=== PATIENT | male | born 1950 | race Caucasian/White ===

== ENCOUNTER → 2016-07-08 | Outpatient (CLI) | payer OTHER ==
[~2016-07-08] MED LIST: ASPI81TA28 PO; CLOP1TAB15 PO; CRG125 PO; EZET10TA63 PO; FRS/40 PO; GLIP-197 PO; LEVAAER2 INH; MCR5 PO; METF-383 PO; NAPR-1169 PO; NITR0.4S UT; NYSTCRE11 TOP; POTA-327 PO; ROSU40TA PO; SILD100T PO; SITA1TAB27 PO; [UNRECOGNIZED DRUG - CODE] NAE
== END | disposition home or self-care (01) ==
LOC: C.LAB 15:13
PROVIDERS: ATTEND Urology
DX: N40.1 Benign prostatic hyperplasia with lower urinary tract symptoms (principal)

== ENCOUNTER 2017-04-04 21:16 | Observation (INO) | payer OTHER ==
[~2017-04-04] VITALS: Ht 182.9 cm; Wt 111.9 kg
[2017-04-04 21:41] LABS: HEMATOCRIT 42.9 % (42-52); HEMOGLOBIN 15.1 g/dL (14.0-18.0); MEAN CORPUSCULAR HEMOGLOBIN 29.9 pg (25-34); MEAN CORPUSCULAR HGB CONC 35.2 g/dl (32-36); MEAN PLATELET VOLUME 10.3 fL (7.4-10.4); PLATELET COUNT 140 K/uL (130-400); RED CELL DISTRIBUTION WIDTH CV 13.1 % (11.5-14.5); RED CELL DISTRIBUTION WIDTH SD 40.1 fL (36.4-46.3); WHITE BLOOD COUNT 6.14 K/uL (4.8-10.8)
[2017-04-04 21:57] LABS: PTT PATIENT 24.4 SECONDS (21.0-31.0)
[2017-04-04 21:58] LABS: ALBUMIN 3.4 gm/dl (3.4-5.0); CALCIUM 8.7 mg/dl (8.5-10.1); CREATININE 0.98 mg/dl (0.60-1.40)
--- NOTE | 2017-04-04 22:01 | DIAGNOSTIC IMAGING REPORT ---
CHEST ONE VIEW PORTABLE HISTORY: 66 years-old Male chest pain acute atypical chest pain COMPARISON: Chest radiograph 11/27/2015 TECHNIQUE: Portable AP view of the chest FINDINGS: Cardiac silhouette is again mildly enlarged. Prior median sternotomy. Atherosclerosis of the aorta. There is no pneumothorax, pleural effusion, focal airspace consolidation or overt pulmonary edema. Minimal linear subsegmental atelectasis/scarring of the left lung base again seen. Degenerative changes are seen within the shoulders and spine. IMPRESSION: No acute process. The above report was generated using voice recognition software. It may contain grammatical, syntax or spelling errors. Electronically signed by: Emeka Davis M.D. 04/04/2017 10:00 PM Dictated Date/Time: 04/04/2017 9:59 PM
[2017-04-04 22:03] LABS: TOTAL PROTEIN 6.5 gm/dl (6.4-8.2)
[2017-04-04] MEDS ORDERED: NITROGLYCERIN 0.4 MG SL PER TAB CHARGE SL STA (22:25)
--- NOTE | 2017-04-04 22:56 | EMERGENCY ROOM VISIT NOTE ---
"ED Visit Note First contact with patient: 22:00 I have seen and examined this patient with Sneha Graf and generally agree with the treatment plan as discussed. Problem List Medical Problems: (1) Coronary artery disease Status: Chronic (2) Diabetes mellitus, type II Status: Chronic (3) Dyslipidemia Status: Chronic (4) History of renal calculi Status: Chronic Surgical Problems: (1) Status post coronary artery bypass grafting Status: Chronic (2) Status post coronary artery stent placement Status: Chronic Current/Historical Medications Scheduled Aspirin (Aspirin Ec), 81 MG PO DAILY Carvedilol (Carvedilol), 12.5 MG PO BID Clopidogrel (Plavix), 75 MG PO DAILY Ezetimibe (Zetia), 10 MG PO QPM Furosemide (Lasix), 40 MG PO DAILY Glipizide (Glipizide Er), 1 TAB PO DAILY Glyburide (Glyburide), 10 MG PO BID Metformin Hcl (Glucophage), 850 MG PO BID Nitroglycerin (Nitrostat), 0.4 MG UT PRN Potassium Ext Rel (Klor-Con), 10 MEQ PO BID Rosuvastatin Calcium (Crestor), 40 MG PO HS Sildenafil Citrate (Viagra), 100 MG PO PRN Sitagliptin (Januvia), 100 MG PO DAILY Scheduled PRN Levalbuterol (Xopenex Hfa), 1-2 PUFFS INH every 4-6 hrs PRN for Wheezing Naproxen (Naprosyn), 500 MG PO BID PRN for Pain Nystatin/Triamcinolone (Mycolog ||), 1 APPLN TOP BID PRN Oxymetazoline Hcl (Mucinex Nasal [place] Moist), 1 SPRAY LAYLA DAILY PRN Allergies Coded Allergies: Valsartan (Verified Allergy, Unknown, fatigue, 04/14/15) Lisinopril (Verified Adverse Reaction, Mild, COUGHS, 04/14/15) Canagliflozin (Verified Adverse Reaction, Unknown, Excessive Urination, 02/07) Vital Signs Date Time Temp Pulse Resp B/P (MAP) Pulse Ox O2 Delivery O2 Flow Rate FiO2 04/04/17 22:29 69 16 156/80 95 Room Air 04/04/17 21:53 72 04/04/17 21:27 98 Room Air 04/04/17 21:17 36.5 75 18 183/80 97 Room Air Laboratory Results 04/04/17 21:30 04/04/17 21:30 Test 04/04/17 21:30 04/04/17 21:37 Red Blood Count 5.05 M/uL (4.7-6.1) Mean Corpuscular Volume 85.0 fL (80-100) Mean Corpuscular Hemoglobin 29.9 pg (25-34) Mean Corpuscular Hemoglobin Concent 35.2 g/dl (32-36) RDW Standard Deviation 40.1 fL (36.4-46.3) RDW Coefficient of Variation 13.1 % (11.5-14.5) Mean Platelet Volume 10.3 fL (7.4-10.4) Prothrombin Time 10.0 SECONDS (9.0-12.0) Prothromb Time International Ratio 1.0 (0.9-1.1) Activated Partial Thromboplast Time 24.4 SECONDS (21.0-31.0) Partial Thromboplastin Ratio 0.9 Anion Gap 8.0 mmol/L (3-11) Est Creatinine Clear Calc Drug Dose 93.4 ml/min Estimated GFR () 92.7 Estimated GFR (Non- 80.0 BUN/Creatinine Ratio 14.2 (10-20) Calcium Level 8.7 mg/dl (8.5-10.1) Total Bilirubin 0.5 mg/dl (0.2-1) Aspartate Amino Transf (AST/SGOT) 12 U/L (15-37) Alanine Aminotransferase (ALT/SGPT) 25 U/L (12-78) Alkaline Phosphatase 119 U/L (45-117) Total Creatine Kinase 75 U/L (39-308) Creatine Kinase MB 2.0 ng/ml (0.5-3.6) Creatine Kinase MB Ratio 2.7 (0-3.0) Total Protein 6.5 gm/dl (6.4-8.2) Albumin 3.4 gm/dl (3.4-5.0) Globulin 3.1 gm/dl (2.5-4.0) Albumin/Globulin Ratio 1.1 (0.9-2) Bedside Troponin I < 0.030 ng/ml (0-0.045) Medications Administered Medications (Trade) Dose Ordered Sig/Margie Route Start Time Stop Time Status Last Admin Dose Admin Nitroglycerin (Nitrostat Tab) 0.4 mg NOW STAT SL 04/04/17 22:25 04/04/17 22:26 DC 04/04/17 22:25 0.4 MG Departure Information Referrals Joel Faria D.OTanya (PCP) Patient Instructions My [facility]"
[2017-04-04] MEDS ORDERED: GLUCOSE 10 TABS/TUBE PO PRN (23:15)
[2017-04-04] MEDS ORDERED: DEXTROSE 50% 50 ML SYR IV PRN (23:15)
[2017-04-04] MEDS ORDERED: METF850T10 PO (23:15)
[2017-04-04] MEDS ORDERED: PLV75 PO (23:15)
[2017-04-04] MEDS ORDERED: ONDANSETRON INJ 2 MG/ML 2 ML VIAL IV PRN (23:15)
[2017-04-04] MEDS ORDERED: GLUCAGON FOR INJ 1 MG VIAL SQ PRN (23:15)
[2017-04-04] MEDS ORDERED: CLC100 PO (23:15)
[2017-04-04] MEDS ORDERED: POLYETHYLENE (MIRALAX) 17 GM PACK PO PRN (23:15)
[2017-04-04] MEDS ORDERED: ACETAMINOPHEN 325 MG TAB PO PRN (23:15)
[2017-04-04] MEDS ORDERED: OMEP20CA9 PO (23:15)
[2017-04-04] MEDS ORDERED: MoRPHine SULFATE 2 MG/ML CARP IV PRN (23:15)
[2017-04-04] MEDS ORDERED: NITROGLYCERIN 0.4 MG SL PER TAB CHARGE SL PRN (23:15)
[2017-04-04] MEDS ORDERED: GLUCOSE 40% GEL 15 GM TUBE PO PRN (23:15)
[2017-04-04] MEDS ORDERED: POTA-74 PO (23:15)
[2017-04-04] MEDS ORDERED: ROSU40TA28 PO (23:15)
[2017-04-04] MEDS ORDERED: INSU1INJ17 SC ×2 (23:20)
[2017-04-04] MEDS ORDERED: CARV12.5 PO ×2 (23:24)
[2017-04-04] MEDS ORDERED: ASPI325T45 PO (23:26)
[2017-04-04] MEDS ORDERED: IBUP-103 PO (23:31)
[2017-04-04] MEDS ORDERED: NAPR1TAB9 PO (23:31)
[2017-04-04] MEDS ORDERED: ACET-1256 PO (23:31)
[2017-04-04] MEDS ORDERED: IV FLUIDS COMPLETED PRN (23:45)
[2017-04-05] VITALS (7 sets, daily range): BP systolic 121–170; BP diastolic 71–87; PULSE 64–81; TEMP 36.5–36.8; O2SAT 95–98; Ht 182.9 cm; Wt 111.9 kg
--- NOTE | 2017-04-05 00:02 | History and Physical ---
History & Physical Date & Time of Service: Apr 04, 2017 at 23:52 Chief Complaint: Chest Pain- Heart Problems Primary Care Physician: Joel Faria D.OTanya History of Present Illness Source: patient, clinic records, hospital records 66 yo M with significant h/o CAD s/p CABG and multiple stents presents with acute L arm pain radiating from axilla to wrist that was pulsating with his heart and felt like his index angina. This pain came on while he was sitting, watching TV earlier this evening. He took a Nitro and two aspirin and the pain improved but came back again. He laid down to rest and the pain persisted so he came to the ER. In the lobby he developed chest tightness across his chest anteriorly and developed some lightheadedness forcing him to sit and rest. This resolved with rest and he was triaged and the pain resolved with the axillary and arm pain persisting somewhat. He is refusing morphine at this time. He was last seen by Cardiology in Oct 2016 and reports no issues with chest pain, shortness of breath or other concerning symptoms since that time. He denies recent Viagra use. ROS is otherwise negative including no fevers, chills, cough, abdominal pain, blood in stool, bleeding, diarrhea. He does report some swelling in his legs bilaterally but no pain and states that he has lost weight recently. There is no edema on exam. He did undergo an EGD with dilation on 04/01/17 for dysphagia and reports that his swallowing has improved. Procedure report noted a tortuous esophagus, however, and a motility disorder was suspected. Past Medical/Surgical History Medical Problems: (1) Coronary artery disease Status: Chronic (2) Diabetes mellitus, type II Status: Chronic (3) Dyslipidemia Status: Chronic (4) History of renal calculi Status: Chronic Surgical Problems: (1) Status post coronary artery bypass grafting Status: Chronic (2) Status post coronary artery stent placement Status: Chronic Family History FH: heart attack BROTHER BROTHER BROTHER No significant family history Social History Smoking Status: Never Smoker Smokeless Tobacco Use: No Alcohol Use: none Drug Use: none Marital Status: Housing status: lives with family Occupational Status: retired Immunizations History of Influenza Vaccine: Yes Influenza Vaccine Date: Nov 29, 2011 History of Tetanus Vaccine?: Yes Tetanus Immunization Date: Sep 28, 2010 History of Pneumococcal: Yes Pneumococcal Date: Nov 29, 2011 History of Hepatitis B Vaccine: Yes Hepatitis Immunization Date: Sep 28, 2009 Multi-Drug Resistant Organisms History of MDRO: No Allergies Coded Allergies: Valsartan (Verified Allergy, Unknown, fatigue, 04/14/15) Lisinopril (Verified Adverse Reaction, Mild, COUGHS, 04/14/15) Canagliflozin (Verified Adverse Reaction, Unknown, Excessive Urination, 02/07) Home Medications Scheduled Aspirin (Aspirin Ec), 81 MG PO HS Carvedilol (Coreg), 6.25 MG PO QPM Carvedilol (Coreg), 12.5 MG PO QAM Clopidogrel Bisulfate (Clopidogrel), 75 MG PO HS Docusate Sodium (Docusate Sodium), 100 MG PO BID Insulin Isophane & Reg (Human) (Novolin 70/30 Relion), 22 UNITS SC QAM Insulin Isophane & Reg (Human) (Novolin 70/30 Relion), 32 UNITS SC QPM Metformin HCl (Metformin HCl), 850 MG PO BIDM Omeprazole (Prilosec), 20 MG PO QAM Potassium Chloride (Potassium Chloride Er), 10 MEQ PO BID Rosuvastatin Calcium (Rosuvastatin Calcium), 40 MG PO QAM Scheduled PRN Acetaminophen (Tylenol), 500 MG PO Q6H PRN for Pain Aspirin (Aspirin), 325 MG PO UD PRN for Pain Ibuprofen Tab (Advil), 200-400 MG PO UD PRN for Pain or Fever Naproxen (Aleve), 220-440 MG PO BID PRN for Pain Nitroglycerin (Nitrostat), 0.4 MG UT UD PRN for Chest Pain Oxymetazoline Hcl (Mucinex Nasal [place] Moist), 1 SPRAY LAYLA DAILY PRN for Nasal Congestion Sildenafil Citrate (Viagra), 100 MG PO UD PRN for Prior to [place] Physical Exam Vital Signs Date Time Temp Pulse Resp B/P (MAP) Pulse Ox O2 Delivery O2 Flow Rate FiO2 04/04/17 23:12 74 20 134/74 95 Room Air 04/04/17 22:29 69 16 156/80 95 Room Air 04/04/17 21:53 72 04/04/17 21:27 98 Room Air 04/04/17 21:17 36.5 75 18 183/80 97 Room Air General Appearance: WD/WN, no apparent distress Head: normocephalic, atraumatic Eyes: normal inspection, PERRL, sclerae normal ENT: hearing grossly normal, pharynx normal Neck: no adenopathy, trachea midline Respiratory/Chest: chest non-tender, lungs clear, normal breath sounds, no respiratory distress, no accessory muscle use, + pertinent finding (lateral ribs in mid-axillary line are TTP) Cardiovascular: regular rate, rhythm, no edema, no gallop, no JVD, no murmur, normal peripheral pulses Abdomen/GI: normal bowel sounds, non tender, soft, no organomegaly Back: normal inspection Extremities/Musculoskelatal: normal inspection, normal capillary refill, no pedal edema Neurologic/Psych: meat selector II-XII nml as tested, no motor/sensory deficits, alert, normal mood/affect, normal reflexes, oriented x 3 Skin: normal color, warm/dry Diagnostics Laboratory Results 04/04/17 21:30 04/04/17 21:30 Test 04/04/17 21:30 04/04/17 21:37 Red Blood Count 5.05 M/uL (4.7-6.1) Mean Corpuscular Volume 85.0 fL (80-100) Mean Corpuscular Hemoglobin 29.9 pg (25-34) Mean Corpuscular Hemoglobin Concent 35.2 g/dl (32-36) RDW Standard Deviation 40.1 fL (36.4-46.3) RDW Coefficient of Variation 13.1 % (11.5-14.5) Mean Platelet Volume 10.3 fL (7.4-10.4) Prothrombin Time 10.0 SECONDS (9.0-12.0) Prothromb Time International Ratio 1.0 (0.9-1.1) Activated Partial Thromboplast Time 24.4 SECONDS (21.0-31.0) Partial Thromboplastin Ratio 0.9 Anion Gap 8.0 mmol/L (3-11) Est Creatinine Clear Calc Drug Dose 93.4 ml/min Estimated GFR () 92.7 Estimated GFR (Non- 80.0 BUN/Creatinine Ratio 14.2 (10-20) Calcium Level 8.7 mg/dl (8.5-10.1) Total Bilirubin 0.5 mg/dl (0.2-1) Aspartate Amino Transf (AST/SGOT) 12 U/L (15-37) Alanine Aminotransferase (ALT/SGPT) 25 U/L (12-78) Alkaline Phosphatase 119 U/L (45-117) Total Creatine Kinase 75 U/L (39-308) Creatine Kinase MB 2.0 ng/ml (0.5-3.6) Creatine Kinase MB Ratio 2.7 (0-3.0) Total Protein 6.5 gm/dl (6.4-8.2) Albumin 3.4 gm/dl (3.4-5.0) Globulin 3.1 gm/dl (2.5-4.0) Albumin/Globulin Ratio 1.1 (0.9-2) Bedside Troponin I < 0.030 ng/ml (0-0.045) Results Past 24 Hours Test 04/04/17 21:30 04/04/17 21:37 Range/Units White Blood Count 6.14 4.8-10.8 K/uL Red Blood Count 5.05 4.7-6.1 M/uL Hemoglobin 15.1 14.0-18.0 g/dL Hematocrit 42.9 42-52 % Mean Corpuscular Volume 85.0 80-100 fL Mean Corpuscular Hemoglobin 29.9 25-34 pg Mean Corpuscular Hemoglobin Concent 35.2 32-36 g/dl RDW Standard Deviation 40.1 36.4-46.3 fL RDW Coefficient of Variation 13.1 11.5-14.5 % Platelet Count 140 130-400 K/uL Mean Platelet Volume 10.3 7.4-10.4 fL Prothrombin Time 10.0 9.0-12.0 SECONDS Prothromb Time International Ratio 1.0 0.9-1.1 Activated Partial Thromboplast Time 24.4 21.0-31.0 SECONDS Partial Thromboplastin Ratio 0.9 Sodium Level 136 136-145 mmol/L Potassium Level 4.0 3.5-5.1 mmol/L Chloride Level 99 98-107 mmol/L Carbon Dioxide Level 29 21-32 mmol/L Anion Gap 8.0 3-11 mmol/L Blood Urea Nitrogen 14 7-18 mg/dl Creatinine 0.98 0.60-1.40 mg/dl Est Creatinine Clear Calc Drug Dose 93.4 ml/min Estimated GFR () 92.7 Estimated GFR (Non- 80.0 BUN/Creatinine Ratio 14.2 10-20 Random Glucose 298 70-99 mg/dl Calcium Level 8.7 8.5-10.1 mg/dl Total Bilirubin 0.5 0.2-1 mg/dl Aspartate Amino Transf (AST/SGOT) 12 15-37 U/L Alanine Aminotransferase (ALT/SGPT) 25 12-78 U/L Alkaline Phosphatase 119 45-117 U/L Total Creatine Kinase 75 39-308 U/L Creatine Kinase MB 2.0 0.5-3.6 ng/ml Creatine Kinase MB Ratio 2.7 0-3.0 Total Protein 6.5 6.4-8.2 gm/dl Albumin 3.4 3.4-5.0 gm/dl Globulin 3.1 2.5-4.0 gm/dl Albumin/Globulin Ratio 1.1 0.9-2 Bedside Troponin I < 0.030 0-0.045 ng/ml Diagnostic Radiology [~ rep ct add3]] CHEST ONE VIEW PORTABLE HISTORY: 66 years-old Male chest pain acute atypical chest pain COMPARISON: Chest radiograph 11/27/2015 TECHNIQUE: Portable AP view of the chest FINDINGS: Cardiac silhouette is again mildly enlarged. Prior median sternotomy. Atherosclerosis of the aorta. There is no pneumothorax, pleural effusion, focal airspace consolidation or overt pulmonary edema. Minimal linear subsegmental atelectasis/scarring of the left lung base again seen. Degenerative changes are seen within the shoulders and spine. IMPRESSION: No acute process. EKG sinus Impression Assessment and Plan Chest pain in setting of severe CAD-TRS is 3, not adding heparin at this time unless worsening overnight. Trend enzymes, EKG in am. Cards consult. Cont Crestor, ASA, Coreg, Nitro PRN. Pt with intolerance to ACEI and ARB. DMII-elevated, check at 0100 with coverage. ISS with carb coverage and Lantus BID CAD-med management as above. CAROL-intolerant of CPAP HTN-improved, was likely situational elevation initially. DVT proph: Lovenox Full Code Dispo-tele[facility] Hospital[facility] Level of Care Med/Surg Resuscitation Status FULL RESUSCITATION VTE Prophylaxis VTE Risk Assessment Done? Y/N: Yes Risk Level: Moderate Given or contraindicated: Enoxaparin (Lovenox)SQ
[2017-04-05] MEDS: CLOPIDOGREL BISULFATE 75 MG TAB PO SCH ×2 (00:46→20:21)
[2017-04-05] MEDS: CARVEDILOL 6.25 MG TAB PO SCH ×2 (00:47→20:21)
[2017-04-05] MEDS: DOCUSATE SODIUM 100 MG CAP PO SCH ×3 (00:47→20:21)
[2017-04-05] MEDS ORDERED: INSULIN ASPART 100 UNITS/ML 3 ML PEN SC ONE (01:00)
--- NOTE | 2017-04-05 05:48 | EMERGENCY ROOM VISIT NOTE ---
History First contact with patient: 22:00 Chief Complaint: CHEST PAIN Stated Complaint: CHEST PAIN AT REST Nursing Triage Summary: pt reports onset of left arm pain started about 35-40 minutes ago reports he took two bob aspirin 325 and 1 nitro states the pain radiated to his left abdomen reports HX of stents and open heart History of Present Illness The patient is a 66 year old male who presents to the Emergency Room with complaints of chest pain with diaphoresis and pain down his left arm since 9 PM tonight while watching TV. Patient took 2 nitros and the pain resolved. The arm pain did persist. He took aspirin 650 mg. He follows with Dr. Atwood. He had a CABG in . He has had 4-5 stents since then. No recent stress or echo. Patient does have high blood pressure cholesterol and diabetes. Patient states the chest pain was worse exertion. He states this feels somewhat similar to his prior heart attacks. Patient denies dyspnea, palpitations, abdominal pain, leg pain, recent travel, cough, congestion, recent illness. Review of Systems An 10 system review of systems was completed with positives and pertinent negatives listed in the HPI. Past Medical/Surgical History Medical Problems: (1) Chest pain at rest (2) Coronary artery disease (3) Diabetes mellitus, type II (4) Dyslipidemia (5) History of renal calculi Surgical Problems: (1) Status post coronary artery bypass grafting (2) Status post coronary artery stent placement Family History FH: heart attack BROTHER BROTHER BROTHER No significant family history Social History Smoking Status: Never Smoker Alcohol Use: none Drug Use: none Marital Status: Housing Status: lives with family Occupation Status: retired Current/Historical Medications Scheduled Aspirin (Aspirin Ec), 81 MG PO HS Carvedilol (Coreg), 6.25 MG PO QPM Carvedilol (Coreg), 12.5 MG PO QAM Clopidogrel Bisulfate (Clopidogrel), 75 MG PO HS Docusate Sodium (Docusate Sodium), 100 MG PO BID Insulin Isophane & Reg (Human) (Novolin 70/30 Relion), 22 UNITS SC QAM Insulin Isophane & Reg (Human) (Novolin 70/30 Relion), 32 UNITS SC QPM Metformin HCl (Metformin HCl), 850 MG PO BIDM Omeprazole (Prilosec), 20 MG PO QAM Potassium Chloride (Potassium Chloride Er), 10 MEQ PO BID Rosuvastatin Calcium (Rosuvastatin Calcium), 40 MG PO QAM Scheduled PRN Acetaminophen (Tylenol), 500 MG PO Q6H PRN for Pain Aspirin (Aspirin), 325 MG PO UD PRN for Pain Ibuprofen Tab (Advil), 200-400 MG PO UD PRN for Pain or Fever Naproxen (Aleve), 220-440 MG PO BID PRN for Pain Nitroglycerin (Nitrostat), 0.4 MG UT UD PRN for Chest Pain Oxymetazoline Hcl (Mucinex Nasal [place] Moist), 1 SPRAY LAYLA DAILY PRN for Nasal Congestion Sildenafil Citrate (Viagra), 100 MG PO UD PRN for Prior to [place] Physical Exam Vital Signs Date Time Temp Pulse Resp B/P (MAP) Pulse Ox O2 Delivery O2 Flow Rate FiO2 04/04/17 23:12 74 20 134/74 95 Room Air 04/04/17 22:29 69 16 156/80 95 Room Air 04/04/17 21:53 72 04/04/17 21:27 98 Room Air 04/04/17 21:17 36.5 75 18 183/80 97 Room Air Physical Exam VITALS: Vitals are noted on the nurse's note and reviewed by myself. Vital signs hypertensive. GENERAL: pleasant male, in no acute distress, nondiaphoretic, well-developed well-nourished. SKIN: Capillary reflex less than 2 seconds. HEENT: Normocephalic. PERRLA. EOMI. Nares patent. Mucous membranes moist. Neck is supple without nuchal rigidity. HEART: Regular rate and rhythm, chest NTTP LUNGS: Clear to auscultation bilaterally without wheezes, rales or rhonchi. No retractions or accessory muscle use. ABDOMEN: Positive bowel sounds x 4. Normal tympanic percussion. Soft, nontender, without masses or organomegaly. Amador sign negative. No guarding or rebound tenderness. MUSCULOSKELETAL: No gross musculoskeletal defects. No pedal edema. No calf tenderness. NEURO: Patient was alert and oriented to person place and time. Normal sensation to light and sharp touch. No focal neurological deficits. Medical Decision & Procedures Laboratory Results 04/04/17 21:30 04/04/17 21:30 Test 04/04/17 21:30 04/04/17 21:37 Red Blood Count 5.05 M/uL (4.7-6.1) Mean Corpuscular Volume 85.0 fL (80-100) Mean Corpuscular Hemoglobin 29.9 pg (25-34) Mean Corpuscular Hemoglobin Concent 35.2 g/dl (32-36) RDW Standard Deviation 40.1 fL (36.4-46.3) RDW Coefficient of Variation 13.1 % (11.5-14.5) Mean Platelet Volume 10.3 fL (7.4-10.4) Prothrombin Time 10.0 SECONDS (9.0-12.0) Prothromb Time International Ratio 1.0 (0.9-1.1) Activated Partial Thromboplast Time 24.4 SECONDS (21.0-31.0) Partial Thromboplastin Ratio 0.9 Anion Gap 8.0 mmol/L (3-11) Est Creatinine Clear Calc Drug Dose 93.4 ml/min Estimated GFR () 92.7 Estimated GFR (Non- 80.0 BUN/Creatinine Ratio 14.2 (10-20) Calcium Level 8.7 mg/dl (8.5-10.1) Total Bilirubin 0.5 mg/dl (0.2-1) Aspartate Amino Transf (AST/SGOT) 12 U/L (15-37) Alanine Aminotransferase (ALT/SGPT) 25 U/L (12-78) Alkaline Phosphatase 119 U/L (45-117) Total Creatine Kinase 75 U/L (39-308) Creatine Kinase MB 2.0 ng/ml (0.5-3.6) Creatine Kinase MB Ratio 2.7 (0-3.0) Total Protein 6.5 gm/dl (6.4-8.2) Albumin 3.4 gm/dl (3.4-5.0) Globulin 3.1 gm/dl (2.5-4.0) Albumin/Globulin Ratio 1.1 (0.9-2) Bedside Troponin I < 0.030 ng/ml (0-0.045) Medications Administered Medications (Trade) Dose Ordered Sig/Margie Route Start Time Stop Time Status Last Admin Dose Admin Nitroglycerin (Nitrostat Tab) 0.4 mg NOW STAT SL 04/04/17 22:25 04/04/17 22:26 DC 04/04/17 22:25 0.4 MG ED Course Prior records/ancillary studies reviewed. Triage Nursing notes reviewed. Additional history obtained from family. The patient's history was concerning for chest pain. Differential diagnosis: Etiologies such as cardiac ischemia, aortic dissection, pulmonary embolism, pneumonia, pneumothorax, musculoskeletal, infections, pericarditis, myocarditis , esophageal rupture, gastrointestinal, as well as others were entertained. Physical examination: As above. ER treatment provided: nitro On reassessment the patient felt better. Diagnostic interpretation by me: The electrocardiogram was normal sinus, occasional PVC, T-wave inversions in lead I and aVL, rate is 73. Impression normal sinus rhythm with new T-wave inversions in anterior lateral leads when compared to prior EKG. Repeat EKG 30 minutes later shows mild changes to the T waves in the anteroseptal leads per my interpretation The labs revealed negative troponin. Hyperglycemia without DKA Imaging studies: Chest x-ray as above CHEST ONE VIEW PORTABLE HISTORY: 66 years-old Male chest pain acute atypical chest pain COMPARISON: Chest radiograph 11/27/2015 TECHNIQUE: Portable AP view of the chest FINDINGS: Cardiac silhouette is again mildly enlarged. Prior median sternotomy. Atherosclerosis of the aorta. There is no pneumothorax, pleural effusion, focal airspace consolidation or overt pulmonary edema. Minimal linear subsegmental atelectasis/scarring of the left lung base again seen. Degenerative changes are seen within the shoulders and spine. IMPRESSION: No acute process. The above report was generated using voice recognition software. It may contain grammatical, syntax or spelling errors. Electronically signed by: Emeka Davis M.D. Consultation: A consultation was placed with the hospitalist, Dr Brunner. The case was discussed and diagnostics were reviewed. The patient was evaluated in the ER for further treatment. Exam and history seem consistent with chest pain with concerns for cardiac ischemia. Patient had serial EKGs with subtle changes noted. He had a negative troponin. He felt better after the nitroglycerin and was pain-free. He will be evaluated by medicine for admission. Patient took aspirin 650 mg prior to arrival. He had no pneumonia on x-ray. By the evaluation outlined above emergent etiologies such as aortic dissection , pulmonary embolism, pneumonia, pneumothorax, infections, pericarditis, myocarditis, gastrointestinal, as well as others were deemed relatively unlikely. The pt informed about the findings as listed above. All questions were answered and pleased with the treatment. Case reviewed with my Attending Medical Decision As above Blood Pressure Screening Patient's blood pressure: Elevated blood pressure Blood pressure disposition: Referred to PCP Impression Primary Impression: Substernal precordial chest pain Additional Impression: Diabetes mellitus, type II Departure Information Dispostion Still a Patient Condition FAIR Referrals Joel Faria, D.O. (PCP) Forms Call Back Authorization, HOME CARE DOCUMENTATION FORM, IMPORTANT VISIT INFORMATION Patient Instructions My [facility] Problem Qualifiers
[2017-04-05 06:41] LABS: HEMOGLOBIN A1C 11.2 % (4.5-5.6)
[2017-04-05] MEDS: ROSUVASTATIN CALCIUM 20 MG TAB PO SCH (08:06)
[2017-04-05] MEDS: POTASSIUM CHLORIDE 10 MEQ TABCR PO SCH ×2 (08:09→20:21)
[2017-04-05] MEDS: ASPIRIN 81 MG ECTAB PO SCH (08:09)
[2017-04-05] MEDS: ENOXAPARIN 40 MG/0.4 ML SYR SC SCH (08:10)
[2017-04-05] MEDS: PANTOprazole SOD 40 MG TAB PO SCH (08:10)
[2017-04-05] MEDS: INSULIN ASPART 100 UNITS/ML 3 ML PEN SC SCH ×4 (08:19→21:00)
[2017-04-05] MEDS ORDERED: CARVEDILOL 12.5 MG TAB PO SCH (09:00)
[2017-04-05] MEDS: INSULIN GLARGINE SOLOSTAR 100 UNITS/ML 3 ML PEN SC SCH ×2 (09:38→21:19)
[2017-04-05] MEDS ORDERED: METOPROLOL TARTRATE 1 MG/ML VIAL ONE (13:02)
[2017-04-05] MEDS ORDERED: DOBUTamine HCL 12.5 MG/ML 20 ML VIAL ONE (13:02)
[2017-04-05] MEDS ORDERED: ATROPINE SULFATE 0.1 MG/ML 5ML SYR ONE (13:04)
--- NOTE | 2017-04-05 13:14 | Progress Note ---
Medicine Progress Note Date & Time of Visit: Apr 05, 2017 at 12:54. Subjective Pt was seen and examined Lying in bed with no distress Pt said that he feels fine He said that he does not have any chest pain since early this morning Denies any SOB, palpitation, dizziness, chest pain and SOB Objective Last 8 Hrs Date Time Temp Pulse Resp B/P (MAP) Pulse Ox O2 Delivery O2 Flow Rate FiO2 04/05/17 12:00 Room Air 04/05/17 11:15 36.5 68 20 148/79 (102) 95 Room Air 04/05/17 08:00 36.7 74 18 134/79 (97) 98 Room Air 04/05/17 08:00 Room Air Physical Exam: General- No acute distress Head- atraumatic Eyes- PERRL, EOMI ENT- oropharynx clear Neck- supple, no JVD Lungs- No wheezing Heart- regular rhythm Abdomen- normal bowel sounds, soft Extremities- no pretibial edema Neuro- alert, oriented x 3; PERRL, EOMI Skin- warm & dry Laboratory Results: Last 24 Hours Test 04/04/17 21:30 04/04/17 21:37 04/05/17 00:06 04/05/17 03:15 White Blood Count 6.14 K/uL Red Blood Count 5.05 M/uL Hemoglobin 15.1 g/dL Hematocrit 42.9 % Mean Corpuscular Volume 85.0 fL Mean Corpuscular Hemoglobin 29.9 pg Mean Corpuscular Hemoglobin Concent 35.2 g/dl RDW Standard Deviation 40.1 fL RDW Coefficient of Variation 13.1 % Platelet Count 140 K/uL Mean Platelet Volume 10.3 fL Prothrombin Time 10.0 SECONDS Prothromb Time International Ratio 1.0 Activated Partial Thromboplast Time 24.4 SECONDS Partial Thromboplastin Ratio 0.9 Sodium Level 136 mmol/L Potassium Level 4.0 mmol/L Chloride Level 99 mmol/L Carbon Dioxide Level 29 mmol/L Anion Gap 8.0 mmol/L Blood Urea Nitrogen 14 mg/dl Creatinine 0.98 mg/dl Est Creatinine Clear Calc Drug Dose 93.4 ml/min Estimated GFR () 92.7 Estimated GFR (Non- 80.0 BUN/Creatinine Ratio 14.2 Random Glucose 298 mg/dl Calcium Level 8.7 mg/dl Total Bilirubin 0.5 mg/dl Aspartate Amino Transf (AST/SGOT) 12 U/L Alanine Aminotransferase (ALT/SGPT) 25 U/L Alkaline Phosphatase 119 U/L Total Creatine Kinase 75 U/L Creatine Kinase MB 2.0 ng/ml Creatine Kinase MB Ratio 2.7 Total Protein 6.5 gm/dl Albumin 3.4 gm/dl Globulin 3.1 gm/dl Albumin/Globulin Ratio 1.1 Bedside Troponin I < 0.030 ng/ml Bedside Glucose 271 mg/dl Estimated Average Glucose 275 mg/dl Hemoglobin A1c 11.2 % Troponin I 0.018 ng/ml Triglycerides Level 69 mg/dl Cholesterol Level 93 mg/dl HDL Cholesterol 45 mg/dl LDL Cholesterol, Calculated 34 mg/dl VLDL Cholesterol, Calculated 14 mg/dl Cholesterol/HDL Ratio 2.1 Hepatitis C Antibody Screen NEG Test 04/05/17 06:48 04/05/17 08:50 Bedside Glucose 215 mg/dl Troponin I < 0.015 ng/ml Assessment & Plan Chest pain Hx CAD Need to R/O ACS Troponin negative x2 sets No arrhythmia on telemonitor Case discussed with cardiology, Plan to have stress test done today Continue Crestor, ASA, Coreg, Nitro PRN. LDL at goal Continue monitor in tele Dysphagia Recent EGD done on 04/01 with dilation Stable DMII Uncontrolled with Hba1c 11.2 Continue Lantus and insulin coverage CAROL intolerant of CPAP HTN-improved, was likely situational elevation initially. DVT px Lovenox CODE STATUS Full Code Current Inpatient Medications: Current Inpatient Medications Medications (Trade) Dose Ordered Sig/Margie Route Start Time Stop Time Status Last Admin Dose Admin Enoxaparin Sodium (Lovenox Inj) 40 mg DAILY SC 04/05/17 09:00 05/05/17 08:59 04/05/17 08:10 40 MG Acetaminophen (Tylenol Tab) 650 mg Q4H PRN PO 04/04/17 23:15 05/04/17 23:14 Ondansetron HCl (Zofran Inj) 4 mg Q6H PRN IV 04/04/17 23:15 05/04/17 23:14 Nitroglycerin (Nitrostat Tab) 0.4 mg UD PRN SL 04/04/17 23:15 05/04/17 23:14 Morphine Sulfate (MoRPHine SULFATE INJ) 2 mg Q30M PRN IV 04/04/17 23:15 04/18/17 23:14 Aspirin (Ecotrin Tab) 81 mg QAM PO 04/05/17 09:00 05/05/17 08:59 04/05/17 08:09 81 MG Polyethylene (Miralax Powder Packet) 17 gm DAILY PRN PO 04/04/17 23:15 05/04/17 23:14 Insulin Glargine (Lantus Solostar Pen) 10 units Q12 SC 04/05/17 09:00 05/05/17 08:59 04/05/17 09:38 10 UNITS Insulin Aspart (novoLOG ASPART) SLIDING SCALE If C... ACHS SC 04/05/17 07:00 05/05/17 06:59 04/05/17 11:47 5 UNITS Glucose (Glucose 40% Gel) 15-30 GRAMS 15 GRAMS... UD PRN PO 04/04/17 23:15 05/04/17 23:14 Glucose (Glucose Chew Tab) 4-8 Tablets 4 Tabl... UD PRN PO 04/04/17 23:15 05/04/17 23:14 Dextrose (Dextrose 50% 50ML Syringe) 25-50ML OF 50% DW IV FOR... UD PRN IV 04/04/17 23:15 05/04/17 23:14 Glucagon (Glucagon Inj) 1 mg UD PRN SQ 04/04/17 23:15 05/04/17 23:14 Carvedilol (Coreg Tab) 6.25 mg QPM PO 04/05/17 00:00 05/05/17 00:00 04/05/17 00:47 6.25 MG Carvedilol (Coreg Tab) 12.5 mg QAM PO 04/05/17 09:00 05/05/17 08:59 04/05/17 08:10 12.5 MG Clopidogrel Bisulfate (plAVix TAB) 75 mg HS PO 04/05/17 00:00 05/05/17 00:00 04/05/17 00:46 75 MG Docusate Sodium (coLACE CAP) 100 mg BID PO 04/05/17 00:00 05/05/17 00:00 04/05/17 08:06 100 MG Pantoprazole Sodium (Protonix Tab) 40 mg QAM PO 04/05/17 09:00 05/05/17 08:59 04/05/17 08:10 40 MG Potassium Chloride (Klor-Con M10) 10 meq BID PO 04/05/17 09:00 05/05/17 08:59 04/05/17 08:09 10 MEQ Rosuvastatin Calcium (Crestor Tab) 40 mg QAM PO 04/05/17 09:00 05/05/17 08:59 04/05/17 08:06 40 MG Miscellaneous (Iv Fluids Completed) 1 ea PRN PRN N/A 04/04/17 23:45 04/04/18 23:44
--- NOTE | 2017-04-05 13:39 | CARDIOLOGY CONSULTATION ---
DATE OF CONSULTATION: 04/05/2017 REFERRING PHYSICIAN: Breanna Brunner DO INDICATIONS: Chest pain. HISTORY OF PRESENT ILLNESS: The patient is a complex 66-year-old male whose history is notable for longstanding atherosclerotic coronary disease dating back to 1993 with multiple coronary interventions of the right coronary artery, ultimately undergone coronary bypass grafting in 1995, receiving a saphenous vein graft to circumflex obtuse marginal, sequentially to second obtuse marginal and the right internal mammary artery graft to the right coronary artery. He subsequently had coronary intervention in 2003 with stent to the distal circumflex after saphenous vein graft to distal limb was occluded. In 2009, he underwent coronary intervention to the ostial portion of the saphenous vein with residual disease noted anastomosis of ESCOBAR graft to the LAD. He sequentially underwent intervention of the distal right coronary artery to the right internal mammary artery, receiving a bare metal stent at that time. He carries an underlying history of class 2 angina pectoris. Last cardiac catheterization done in August 2011 with diffuse coronary atherosclerosis and subsequent distal right coronary intervention at same time. Repeat cardiac catheterization for his chest pain and atypical in November 2011 revealed no progression of disease. Underlying medical issues include hypertension; diabetes mellitus, insulin requiring; obesity; gastroesophageal dysmotility. The patient presents now 4 days post-esophageal endoscopy and dilatation, notes having developed left arm and shoulder and low grade chest discomfort while sitting at rest yesterday. Symptoms were not severe in nature but were concerning enough, patient trialed nitroglycerin with limited improvement. He took 2 aspirin due to persistent symptoms and ultimately presented through personal vehicle to the Emergency Room. He took an additional nitroglycerin enroute and became dizzy while standing in the Emergency Room in triage. He received an additional nitroglycerin in the Emergency Room. Symptoms have gradually abated, though he felt a low grade twinge of chest discomfort earlier this morning. He notes that antiplatelet therapies were discontinued for recent GI procedure. Initial EKGs and enzymes have not reflected acute myocardial injury. Ventricular ectopy are present on his initial EKG on presentation. He denies any recent fevers, chills, sweats, cough, hoarseness, wheeze or hemoptysis. Notes no melena or hematochezia, dysuria or hematuria. 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 Notes no recent illnesses, otherwise, tolerated endoscopy procedure without difficulty. Denies headache or visual changes. Notes no recent significant medication changes other than upward titration of insulin. REVIEW OF SYSTEMS: Otherwise negative. ALLERGIES: CANAGLIFLOZIN, LISINOPRIL, AND VALSARTAN. MEDICATIONS: Prior to hospitalization were noted to be aspirin 81 mg q. day, carvedilol 12.5 mg a.m. and 6.25 mg p.m., clopidogrel 75 mg p.o. q. day, docusate 100 mg b.i.d., insulin 70/30, metformin 850 b.i.d., Naprosyn p.r.n. pain, omeprazole 20 mg q.a.m., potassium chloride 10 mEq b.i.d., Rosuvastatin 40 mg q. day, Viagra p.r.n. PAST SURGICAL HISTORY: Notable for as described coronary bypass grafting, right knee arthroscopic surgery, past cholecystectomy and tonsillectomy. FAMILY HISTORY: Positive for heart disease. SOCIAL HISTORY: The patient is a nonsmoker, rare drinker now. PHYSICAL EXAMINATION: VITAL SIGNS: Heart rate is 74, blood pressure is 134/79. HEENT: Normocephalic and atraumatic. Nares without discharge. Throat was clear. NECK: Supple without thyromegaly, lymphadenopathy, JVD. There are no carotid bruits. Carotid pulses are 2/4 without delay. LUNGS: Clear. CARDIOVASCULAR: Regular. There is no S3 gallop. There is rare ventricular ectopic beat on auscultation. ABDOMEN: Obese, soft, nontender. EXTREMITIES: Without cyanosis or clubbing. There is chronic mild stasis changes with trivial pedal edema. There is no palpable cord or Homans sign. NEUROLOGIC: The patient is alert, answers questions appropriately. LABORATORY DATA: Troponins have been negative since admission. Cholesterol was 93, HDL was 45, LDL was 34. White cell count 6.1, hemoglobin is 15.1. Sodium is 138, potassium is 4.0, chloride is 99, bicarbonate is 29, BUN is 14, creatinine 0.98. EKG reveals sinus rhythm with Q-waves inferiorly, T-wave inversion in the lateral leads, unchanged from prior tracings, occasional ventricular ectopy as noted on initial presentation. IMPRESSION: A 66-year-old male with complex coronary artery disease as described, presents with rest chest pain with recent history of esophageal dilatation performed off antiplatelet therapy. Symptoms have atypical features, but ischemic heart disease not completely excluded. Discussed options of management. We will recommend undergoing dobutamine stress echocardiography later today; if abnormal, consider diagnostic cardiac catheterization. The patient is agreeable to plan. He is kept n.p.o. No changes made in medical regimen for time being.
[2017-04-05] MEDS ORDERED: PERFLUTREN LIPID MICROSPHERE (DEFINITY) IV ONE (15:01)
--- NOTE | 2017-04-05 17:00 | DOBUTAMINE ECHO ---
*NOTICE TO RECEIVING LIBERTARIAN AGENCY This information is strictly Confidential and protected under [place] law. [place] law prohibits you from making any further disclosure of this information unless further disclosure is expressly permitted by the written consent of the person to whom it pertains or is authorized by law. A general authorization for the release of medical or other information is not sufficient for this purpose. Hospital accepts no responsibility if the information is made available to any other person, INCLUDING THE PATIENT. Interpretation Summary * Name: KAMI RAO Study Date: 04/05/2017 12:50 PM BP: 143/71 mmHg * Patient Location: C.2T\S\S230\S\2 HR: 68 * : 1950 (M/d/yyyy) Gender: Male Height: 72 in * Age: 66 yrs Ethnicity: CA Weight: 243 lb * Ordering Physician: Evan Atwood * Referring Physician: Self, Referred * Performed By: Carola Green RDCS * * Reason For Study: CHEST PAIN * BSA: 2.3 m2 * Abnormal resting wall motion consistent with old infarction. No new stress-induced wall motion abnormalities. * Suboptimal stress test due to inadequate maximum heart rate. * -- Conclusions -- * Ejection Fraction = 50-55%. * The posterior, lateral, inferoseptum, and inferior parnell are hypokinetic at rest. * The resting wall motion abnormality remains fixed on stress imaging. * The left atrium is moderately dilated. * Diastolic dysfunction, Grade II (pseudonormalization pattern). * Aortic valve sclerosis mild, without significant aortic valvular stenosis. Procedure Details * A contrast injection of Definity was performed to improve assessment of LV function. * Contrast was injected into an intravenous site in the right arm. * One vial of Definity ultrasound contrast was diluted in normal saline to a total volume of 10 ml. A total of '7' ml of solution was administered during imaging. * Lot # [id number] of Definity utilized for procedure. * Expiration date MAR 11. * The attending nurse who injected the contrast agent was LEON PETTIT RN. Left Ventricle * The left ventricle is grossly normal size. * There is no thrombus. * Mild left ventricular hypertrophy in segemnts with normal wall motion. * Ejection Fraction = 50-55%. * The left ventricular ejection fraction increases normally with stress. The left ventricular end-systolic cavity size reduces post-stress (normal response). The left ventricular wall motion with stress is normal. * The posterior, lateral, inferoseptum, and inferior parnell are hypokinetic at rest. The resting wall motion abnormality remains fixed on stress imaging. Right Ventricle * The right ventricle is grossly normal size. * The right ventricular systolic function is normal. Atria * The left atrium is moderately dilated. * Right atrial size is normal. Mitral Valve * There is moderate mitral annular calcification. * There is no mitral valve stenosis. * Significant mitral regurgitation is absent. Tricuspid Valve * The tricuspid valve anatomy is normal. * There is no tricuspid stenosis. * Significant tricuspid regurgitation is absent. Aortic Valve * The aortic valve is not well visualized. * Aortic valve sclerosis mild, without significant aortic valvular stenosis. * There is no significant aortic regurgitation. Pulmonic Valve * The pulmonary valve is not well seen, but the Doppler examination is normal without significant regurgitation or stenosis. Great Vessels * The aortic root is normal size. Pericardium * There is no pericardial effusion. Stress Parameters * The baseline ECG displays normal sinus rhythm. * Baseline ECG: Lateral T wave inversions. * Stress ECG: No ST changes. No arrhythmias. * Arrhythmia induced during stress: paroxysmal atrial tachycardia. * Stress ECG: occasional PVC's and PAC's * The stress portion of this study was personally supervised by the undersigned interpreting physician. * Rest heart rate was '68' BPM. * Rest blood pressure was '143/71' * Maximum heart rate achieved was 125 bpm. * Maximum heart rate was 81 % of maximum age-predicted heart rate. * Maximum blood pressure was '256/107' * Maximum Dobutamine infusion rate was '30' mcg/kg/min. * A total of .75 mg of intravenous Atropine was used to supplement Dobutamine for heart rate response. * A total of 5 mg of IV Metoprolol was administered to reverse Dobutamine-induced tachycardia. * TEST STOPPED DUE TO EXTREMELY HIGH BLOOD PRESSURE Left Ventricular Diastolic Function * Diastolic dysfunction, Grade II (pseudonormalization pattern). MMode 2D Measurements and Calculations IVSd 1.4 cm IVSs 2.4 cm LVIDd 5.2 cm LVIDs 3.7 cm LVPWd 1.5 cm LVPWs 1.8 cm IVS/LVPW 0.93 FS 28.5 % EDV(Teich) 128.2 ml ESV(Teich) 58.2 ml EF(Teich) 54.6 % EDV(cubed) 138.8 ml ESV(cubed) 50.7 ml EF(cubed) 63.5 % % IVS thick 67.8 % % LVPW thick 17.9 % LV mass(C)d 335.6 grams LV mass(C)dI 145.0 grams/m\S\2 LV mass(C)s 371.7 grams LV mass(C)sI 160.6 grams/m\S\2 SV(Teich) 70.0 ml SI(Teich) 30.3 ml/m\S\2 SV(cubed) 88.1 ml SI(cubed) 38.1 ml/m\S\2 Ao root diam 3.2 cm Ao root area 8.2 cm\S\2 LA dimension 4.5 cm LA/Ao 1.4 LVAd ap4 34.7 cm\S\2 LVLd ap4 9.3 cm EDV(MOD-sp4) 106.1 ml EDV(sp4-el) 109.9 ml LVAs ap4 23.1 cm\S\2 LVLs ap4 8.4 cm ESV(MOD-sp4) 54.6 ml ESV(sp4-el) 54.4 ml EF(MOD-sp4) 48.5 % EF(sp4-el) 50.6 % SV(MOD-sp4) 51.5 ml SI(MOD-sp4) 22.3 ml/m\S\2 SV(sp4-el) 55.6 ml SI(sp4-el) 24.0 ml/m\S\2 Doppler Measurements and Calculations MV E max uriel 129.8 cm/sec MV A max uriel 113.8 cm/sec MV E/A 1.1 MV dec time 0.27 sec Ao V2 max 153.2 cm/sec Ao max PG 9.4 mmHg Ao max PG (full) 5.6 mmHg LV V1 max PG 3.8 mmHg LV V1 max 97.1 cm/sec
[2017-04-06 00:23] VITALS: BP 126/65; PULSE 73; TEMP 36.7; O2SAT 96
[2017-04-06 04:11] VITALS: BP 155/80; PULSE 73; TEMP 36.5; O2SAT 95
[2017-04-06 07:36] VITALS: BP 146/76; PULSE 74; TEMP 36.7; O2SAT 96
[2017-04-06 08:00] VITALS: O2SAT 96
[2017-04-06] MEDS: ENOXAPARIN 40 MG/0.4 ML SYR SC SCH (09:00)
[2017-04-06] MEDS ORDERED: CARVEDILOL 12.5 MG TAB PO SCH (09:00)
[2017-04-06] MEDS: ROSUVASTATIN CALCIUM 20 MG TAB PO SCH ×2 (09:00→09:57)
--- NOTE | 2017-04-06 09:28 | CARDIOLOGY PROGRESS NOTE ---
DATE: 04/06/2017 CARDIOLOGY CONSULTATION AND FOLLOWUP NOTE The patient seen and examined. Chart, medications, telemetry reviewed. SUBJECTIVE: The patient has had no further chest pains or discomfort overnight. Tolerated stress testing yesterday, hypertensive blood pressure response noted, no exacerbation of symptoms. Study was suboptimal due to blood pressure response and an adequate heart rate response. He has been ambulatory in room and hallway without recurrence of symptoms. Denies indigestion or heartburn. Overall, feels well. Mild pedal edema present on presentation resolved. OBJECTIVE: VITAL SIGNS: Heart rate 74, blood pressure 146/76. HEENT: Normocephalic and atraumatic. Nares without discharge. Throat was clear. NECK: Supple without thyromegaly, lymphadenopathy, JVD or bruit. LUNGS: Clear to auscultation. CARDIOVASCULAR: Regular with normal S1, S2. No murmur, gallop or rub. ABDOMEN: Soft, nontender. EXTREMITIES: Revealed mild stasis changes without edema. LABORATORY DATA: None from this morning. EKG from this morning reveals sinus rhythm with atrial ectopic beats, T-wave inversion in lateral leads, unchanged from prior studies. IMPRESSION: A 66-year-old male with longstanding history of ischemic heart disease with chest pain and discomfort. Negative enzyme and EKG for acute ischemia. Stress testing yesterday, however, was less than optimal. Recommendations discussed in detail with the patient. Overall, feels well. The patient's symptoms may have been exacerbated by recent GI procedure. However, ischemic heart disease is not completely excluded. PLAN: We will be to increase carvedilol to 12.5 mg twice per day. Continue all other medications as prescribed. A stress nuclear imaging has been arranged post-hospital discharge next week. The patient is to report any symptoms or complaints in the interim. The patient is agreeable to plan and wishes to be discharged this morning.
[2017-04-06] MEDS: DOCUSATE SODIUM 100 MG CAP PO SCH (09:56)
[2017-04-06] MEDS: POTASSIUM CHLORIDE 10 MEQ TABCR PO SCH (09:57)
[2017-04-06] MEDS: ASPIRIN 81 MG ECTAB PO SCH (09:57)
[2017-04-06] MEDS: PANTOprazole SOD 40 MG TAB PO SCH (09:58)
[2017-04-06] MEDS: INSULIN ASPART 100 UNITS/ML 3 ML PEN SC SCH (09:59)
[2017-04-06] MEDS: INSULIN GLARGINE SOLOSTAR 100 UNITS/ML 3 ML PEN SC SCH (10:00)
[2017-04-06 10:06] VITALS: BP 146/76; PULSE 74; TEMP 36.7; O2SAT 96
--- NOTE | 2017-04-06 10:27 | Progress Note ---
Medicine Progress Note Date & Time of Visit: Apr 06, 2017 at 10:07. Subjective Pt was seen and examined Sitting at the edge of the bed with no distress Pt said that he feels fine He said that he does not have any chest or left arm discomfort since yesterday morning Pt wants to go He has a nuclear stress test schedule for next week with cardiology Denies any chest pain, palpitation, dizziness and SOB Objective Last 8 Hrs Date Time Temp Pulse Resp B/P (MAP) Pulse Ox O2 Delivery O2 Flow Rate FiO2 04/06/17 08:00 96 Room Air 04/06/17 07:36 36.7 74 16 146/76 (99) 96 Room Air 04/06/17 04:11 36.5 73 18 155/80 (105) 95 04/06/17 04:00 Room Air Physical Exam: General- No acute distress Head- atraumatic Eyes- PERRL, EOMI ENT- oropharynx clear Neck- supple, no JVD Lungs- No wheezing Heart- regular rhythm Abdomen- normal bowel sounds, soft Extremities- no pretibial edema Neuro- alert, oriented x 3; PERRL, EOMI Skin- warm & dry Laboratory Results: Last 24 Hours Test 04/05/17 11:13 04/05/17 16:24 04/05/17 20:35 04/06/17 06:39 Bedside Glucose 193 mg/dl 205 mg/dl 168 mg/dl 215 mg/dl Assessment & Plan Chest pain Hx CAD Need to R/O ACS Troponin negative x2 sets No arrhythmia on telemonitor Case discussed with cardiology, Plan to have stress test done today Continue Crestor, ASA, Coreg, Nitro PRN. LDL at goal Continue monitor in tele 04/06 Stress test done yesterday, Pt did not reach target HR Has been free of chest pain or discomfort Increase carvedilol to 12.5 BID Continue aspirin, plavix and statin case discussed with Cardiology Dr. Atwood that recommended to discharge home Schedule for nuclear stress test next week with cardio OK from cardiac standpoint to discharge home Dysphagia Recent EGD done on 04/01 with dilation Stable DMII Uncontrolled with Hba1c 11.2 Continue Lantus and insulin coverage Need better diabetic control CAROL intolerant of CPAP HTN-improved, was likely situational elevation initially. DVT px Lovenox CODE STATUS Full Code Disposition Will discharge home today Schedule for nuclear stress test Follow up with PCP Dr. Faria on 04/12 @ 10:55 AM Current Inpatient Medications: Current Inpatient Medications Medications (Trade) Dose Ordered Sig/Margie Route Start Time Stop Time Status Last Admin Dose Admin Enoxaparin Sodium (Lovenox Inj) 40 mg DAILY SC 04/05/17 09:00 05/05/17 08:59 04/05/17 08:10 40 MG Acetaminophen (Tylenol Tab) 650 mg Q4H PRN PO 04/04/17 23:15 05/04/17 23:14 Ondansetron HCl (Zofran Inj) 4 mg Q6H PRN IV 04/04/17 23:15 05/04/17 23:14 Nitroglycerin (Nitrostat Tab) 0.4 mg UD PRN SL 04/04/17 23:15 05/04/17 23:14 Morphine Sulfate (MoRPHine SULFATE INJ) 2 mg Q30M PRN IV 04/04/17 23:15 04/18/17 23:14 Aspirin (Ecotrin Tab) 81 mg QAM PO 04/05/17 09:00 05/05/17 08:59 04/06/17 09:57 81 MG Polyethylene (Miralax Powder Packet) 17 gm DAILY PRN PO 04/04/17 23:15 05/04/17 23:14 Insulin Glargine (Lantus Solostar Pen) 10 units Q12 SC 04/05/17 09:00 05/05/17 08:59 04/06/17 10:00 10 UNITS Insulin Aspart (novoLOG ASPART) SLIDING SCALE If C... ACHS SC 04/05/17 07:00 05/05/17 06:59 04/06/17 09:59 3 UNITS Glucose (Glucose 40% Gel) 15-30 GRAMS 15 GRAMS... UD PRN PO 04/04/17 23:15 05/04/17 23:14 Glucose (Glucose Chew Tab) 4-8 Tablets 4 Tabl... UD PRN PO 04/04/17 23:15 05/04/17 23:14 Dextrose (Dextrose 50% 50ML Syringe) 25-50ML OF 50% DW IV FOR... UD PRN IV 04/04/17 23:15 05/04/17 23:14 Glucagon (Glucagon Inj) 1 mg UD PRN SQ 04/04/17 23:15 05/04/17 23:14 Clopidogrel Bisulfate (plAVix TAB) 75 mg HS PO 04/05/17 00:00 05/05/17 00:00 04/05/17 20:21 75 MG Docusate Sodium (coLACE CAP) 100 mg BID PO 04/05/17 00:00 05/05/17 00:00 04/06/17 09:56 100 MG Pantoprazole Sodium (Protonix Tab) 40 mg QAM PO 04/05/17 09:00 05/05/17 08:59 04/06/17 09:58 40 MG Potassium Chloride (Klor-Con M10) 10 meq BID PO 04/05/17 09:00 05/05/17 08:59 04/06/17 09:57 10 MEQ Rosuvastatin Calcium (Crestor Tab) 40 mg QAM PO 04/05/17 09:00 05/05/17 08:59 04/05/17 08:06 40 MG Miscellaneous (Iv Fluids Completed) 1 ea PRN PRN N/A 04/04/17 23:45 04/04/18 23:44 Carvedilol (Coreg Tab) 12.5 mg BID PO 04/06/17 09:00 05/05/17 08:59 04/06/17 09:56 12.5 MG
[2017-04-06] MEDS ORDERED: CRG125 PO (10:32)
--- NOTE | 2017-04-06 10:38 | Discharge Instructions ---
Discharge Instructions Date of Service Apr 06, 2017. Admission Reason for Admission: Chest Pain At Rest Discharge Discharge Diagnosis / Problem: Chest Pain/Uncontrolled Diabetes Discharge Goals Goal(s): Decrease discomfort, Improve function, Improve disease control Activity Recommendations Activity Limitations: resume your previous activity (as tolerated) . Instructions / Follow-Up Instructions / Follow-Up Follow up with your primary care provider Dr. Faria on 04/12 @ 10:55 AM Follow up with your cardiology Dr. Atwood ( Cardiology office will arrange for the appointment) Carvedilol increase to 12.5 mg twice a day. Seek medical attention if chest pain reoccurs. Monitor Blood sugar and follow a healthy diabetic diet Current Hospital Diet Patient's current hospital diet: AHA Diet (Heart Healthy), Diabetes Type 2 Diet Discharge Diet Recommended Diet: AHA Diet (Heart Healthy), Diabetes Type 2 Diet Pending Studies Studies pending at discharge: no Laboratory Results Hemoglobin A1c Test 04/05/17 03:15 Range/Units Estimated Average Glucose 275 mg/dl Hemoglobin A1c 11.2 H 4.5-5.6 % Lipid Panel Test 04/05/17 03:15 Range/Units Triglycerides Level 69 0-150 mg/dl Cholesterol Level 93 0-200 mg/dl HDL Cholesterol 45 mg/dl Cholesterol/HDL Ratio 2.1 LDL Cholesterol, Calculated 34 mg/dl Medical Emergencies . Who to Call and When: Medical Emergencies: If at any time you feel your situation is an emergency, please call 911 immediately. . Non-Emergent Contact Non-Emergency issues call your: Primary Care Provider, General Partner Call Non-Emergent contact if: your pain is not controlled, you have any medication questions . . "Provider Documentation" section prepared by Annemarie Chris. . VTE Core Measure Inpt VTE Proph given/why not?: Enoxaparin (Lovenox)SQ
--- NOTE | 2017-04-07 22:03 | Discharge Summary ---
Discharge Summary Date of Service Apr 07, 2017. Discharge Summary Admission Date: Apr 04, 2017 at 23:16 Discharge Date: Apr 06, 2017 Discharge Disposition: Home Principal Diagnosis: Chest pain Secondary Diagnoses/Problems: Dysphagia HTN Diabetes CAROL Procedures: CHEST ONE VIEW PORTABLE HISTORY: 66 years-old Male chest pain acute atypical chest pain COMPARISON: Chest radiograph 11/27/2015 TECHNIQUE: Portable AP view of the chest FINDINGS: Cardiac silhouette is again mildly enlarged. Prior median sternotomy. Atherosclerosis of the aorta. There is no pneumothorax, pleural effusion, focal airspace consolidation or overt pulmonary edema. Minimal linear subsegmental atelectasis/scarring of the left lung base again seen. Degenerative changes are seen within the shoulders and spine. IMPRESSION: No acute process. The above report was generated using voice recognition software. It may contain grammatical, syntax or spelling errors. Electronically signed by: Emeka Davis M.D. 04/04/2017 10:00 PM Dictated Date/Time: 04/04/2017 9:59 PM Consultations: Cardio Medication Reconciliation New Medications: Carvedilol (Carvedilol) 12.5 Mg Tab 12.5 MG PO BID for 30 Days, #60 TAB Continued Medications: Acetaminophen (Tylenol) 500 Mg Tab 500 MG PO Q6H PRN for Pain, TAB MAXIMUM 4 TABLETS/DAY Aspirin (Aspirin Ec) 81 Mg Tab 81 MG PO HS Aspirin (Aspirin) 325 Mg Tab 325 MG PO UD PRN for Pain TAKE PER PACKAGE DIRECTIONS Clopidogrel Bisulfate (Clopidogrel) 75 Mg Tab 75 MG PO HS Docusate Sodium (Docusate Sodium) 100 Mg Cap 100 MG PO BID Ibuprofen Tab (Advil) 200 Mg Tab 200-400 MG PO UD PRN for Pain or Fever, TAB TAKE PER PACKAGE DIRECTIONS Insulin Isophane & Reg (Human) (Novolin 70/30 Relion) 1 Inj Inj 22 UNITS SC QAM Insulin Isophane & Reg (Human) (Novolin 70/30 Relion) 1 Inj Inj 32 UNITS SC QPM Metformin HCl (Metformin HCl) 850 Mg Tab 850 MG PO BIDM Naproxen (Aleve) 220 Mg Tab 220-440 MG PO BID PRN for Pain, TAB Nitroglycerin (Nitrostat) 0.4 Mg Sub 0.4 MG UT UD PRN for Chest Pain, BTL PLACE ONE TABLET UNDER THE TONGUE EVERY 5 MINUTES FOR UP TO 3 DOSES IF NEEDED FOR CHEST PAIN Omeprazole (Prilosec) 20 Mg Cap 20 MG PO QAM TAKE THIS MEDICATION ONCE DAILY ONE HOUR BEFORE FIRST MEAL OF THE DAY Oxymetazoline Hcl (Mucinex Nasal [place] Moist) 0.05 % Spr 1 SPRAY LAYLA DAILY PRN for Nasal Congestion Potassium Chloride (Potassium Chloride Er) 10 Meq Tab 10 MEQ PO BID, TAB TAKE THIS MEDICATION WITH FOOD Rosuvastatin Calcium (Rosuvastatin Calcium) 40 Mg Tab 40 MG PO QAM Sildenafil Citrate (Viagra) 100 Mg Tab 100 MG PO UD PRN for Prior to [place], TAB TAKE ONE HOUR PRIOR TO INTERCOURSE. DO NOT TAKE MORE THAN ONE TABLET IN 24 HOURS. Discontinued Medications: Carvedilol (Coreg) 12.5 Mg Tab 6.25 MG PO QPM, TAB TAKE HALF A TABLET (6.25 MG) EVERY EVENING Carvedilol (Coreg) 12.5 Mg Tab 12.5 MG PO QAM, TAB Admission Information HPI (per Admitting provider): 66 yo M with significant h/o CAD s/p CABG and multiple stents presents with acute L arm pain radiating from axilla to wrist that was pulsating with his heart and felt like his index angina. This pain came on while he was sitting, watching TV earlier this evening. He took a Nitro and two aspirin and the pain improved but came back again. He laid down to rest and the pain persisted so he came to the ER. In the lobby he developed chest tightness across his chest anteriorly and developed some lightheadedness forcing him to sit and rest. This resolved with rest and he was triaged and the pain resolved with the axillary and arm pain persisting somewhat. He is refusing morphine at this time. He was last seen by Cardiology in Oct 2016 and reports no issues with chest pain, shortness of breath or other concerning symptoms since that time. He denies recent Viagra use. ROS is otherwise negative including no fevers, chills, cough, abdominal pain, blood in stool, bleeding, diarrhea. He does report some swelling in his legs bilaterally but no pain and states that he has lost weight recently. There is no edema on exam. He did undergo an EGD with dilation on 04/01/17 for dysphagia and reports that his swallowing has improved. Procedure report noted a tortuous esophagus, however, and a motility disorder was suspected. Physical Exam (per Admitting): General Appearance: WD/WN, no apparent distress Head: normocephalic, atraumatic Eyes: normal inspection, PERRL, sclerae normal ENT: hearing grossly normal, pharynx normal Neck: no adenopathy, trachea midline Respiratory/Chest: chest non-tender, lungs clear, normal breath sounds, no respiratory distress, no accessory muscle use, + pertinent finding (lateral ribs in mid-axillary line are TTP) Cardiovascular: regular rate, rhythm, no edema, no gallop, no JVD, no murmur , normal peripheral pulses Abdomen/GI: normal bowel sounds, non tender, soft, no organomegaly Back: normal inspection Extremities/Musculoskelatal: normal inspection, normal capillary refill, no pedal edema 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 LDL at goal Continue monitor in tele 04/06 Stress test done yesterday, Pt did not reach target HR Has been free of chest pain or discomfort Increase carvedilol to 12.5 BID Continue aspirin, plavix and statin case discussed with Cardiology Dr. Atwood that recommended to discharge home Schedule for nuclear stress test next week with cardio OK from cardiac standpoint to discharge home Dysphagia Recent EGD done on 04/01 with dilation Stable DMII Uncontrolled with Hba1c 11.2 Continue Lantus and insulin coverage Need better diabetic control CAROL intolerant of CPAP HTN-improved, was likely situational elevation initially. DVT px Lovenox CODE STATUS Full Code Disposition Will discharge home today Schedule for nuclear stress test Follow up with PCP Dr. Faria on 04/12 @ 10:55 AM Total time spent on discharge = 35 minutes This includes examination of the patient, discharge planning, medication reconciliation, and communication with other providers. Discharge Instructions Discharge Instructions Date of Service Apr 06, 2017. Admission Reason for Admission: Chest Pain At Rest Discharge Discharge Diagnosis / Problem: Chest Pain/Uncontrolled Diabetes Discharge Goals Goal(s): Decrease discomfort, Improve function, Improve disease control Activity Recommendations Activity Limitations: resume your previous activity (as tolerated) . Instructions / Follow-Up Instructions / Follow-Up Follow up with your primary care provider Dr. Faria on 04/12 @ 10:55 AM Follow up with your cardiology Dr. Atwood ( Cardiology office will arrange for the appointment) Carvedilol increase to 12.5 mg twice a day. Seek medical attention if chest pain reoccurs. Monitor Blood sugar and follow a healthy diabetic diet Current Hospital Diet Patient's current hospital diet: AHA Diet (Heart Healthy), Diabetes Type 2 Diet Discharge Diet Recommended Diet: AHA Diet (Heart Healthy), Diabetes Type 2 Diet Pending Studies Studies pending at discharge: no Laboratory Results Hemoglobin A1c Test 04/05/17 03:15 Range/Units Estimated Average Glucose 275 mg/dl Hemoglobin A1c 11.2 H 4.5-5.6 % Lipid Panel Test 04/05/17 03:15 Range/Units Triglycerides Level 69 0-150 mg/dl Cholesterol Level 93 0-200 mg/dl HDL Cholesterol 45 mg/dl Cholesterol/HDL Ratio 2.1 LDL Cholesterol, Calculated 34 mg/dl Medical Emergencies . Who to Call and When: Medical Emergencies: If at any time you feel your situation is an emergency, please call 911 immediately. . Non-Emergent Contact Non-Emergency issues call your: Primary Care Provider, Child Support Officer Call Non-Emergent contact if: your pain is not controlled, you have any medication questions . . "Provider Documentation" section prepared by Annemarie Chris. . VTE Core Measure Inpt VTE Proph given/why not?: Enoxaparin (Lovenox)SQ Additional Copies To Joel Faria D.O.
== END 2017-04-06 10:55 | disposition home or self-care (01) ==
LOC: C.EDB 21:16 → C.2T 23:16 → ENRESERV 23:26
PROVIDERS: ADMIT Hospitalist; ATTEND Internal Medicine
DX: R07.2 Precordial pain (principal); R13.10 Dysphagia, unspecified; E11.65 Type 2 diabetes mellitus with hyperglycemia; I10 Essential (primary) hypertension; I25.10 Atherosclerotic heart disease of native coronary artery without angina pectoris; E78.5 Hyperlipidemia, unspecified; Z87.442 Personal history of urinary calculi; Z95.5 Presence of coronary angioplasty implant and graft; Z82.49 Family history of ischemic heart disease and other diseases of the circulatory system; Z79.82 Long term (current) use of aspirin; G47.33 Obstructive sleep apnea (adult) (pediatric); Z79.84 Long term (current) use of oral hypoglycemic drugs; Z79.4 Long term (current) use of insulin

== ENCOUNTER 2018-07-28 16:37 | Observation (INO) ==
--- OUTSIDE RECORDS SUMMARY | 2018-07-28 16:40 | External Medical Summary | Continuity of Care Document ---
:1950 Author Name Jimmy Lira Address Unavailable Unavailable , Care Team Providers Name Role Phone Unavailable Unavailable Unavailable Jules Lira Unavailable [email or web address] Unavailable Unavailable Unavailable Unavailable Unavailable Problems Diverticulosis (562.10) (K57.90) Bilateral inguinal hernia (550.92) (K40.20) Benign prostatic hyperplasia with urinary obstruction (600.0 1) (N40.1) Allergies and Adverse Reactions Lisinopril TABS (Allergy) Medications Carvedilol 12.5 MG Oral Tablet; TAKE 1 TABLET TWICE DAILY. , M.DTanya Refills: 0 Plavix 75 MG Oral Tablet; TAKE 1 TABLET DAILY. , M.DTanya Refills: 0 Potassium Chloride 10 MEQ TBCR; TAKE 1 TABLET TWICE DAILY. , M.DTanya Refills: 0 metFORMIN HCl - 850 MG Oral Tablet; TAKE 1 TABLET TWIC E DAILY WITH MEALS. , M.DTanya Refills: 0 Crestor 40 MG Oral Tablet; TAKE 1 TABLET DAILY. , M.DTanya Refills: 0 Tamsulosin HCl - 0.4 MG Oral Capsule; TAKE 1 CAPSULE B Soraya Bradley Start: 01-May-2015 Quantity: 30 Refills: 11 Kyler Aspirin EC Low Dose 81 MG Oral Tab let Delayed Release; TAKE 1 TABLET DAILY. Soraya Start: 22-May-2015 Refills: 0 Nitrostat 0.4 MG Sublingual Tablet Sublingual; TAKE DIREC KASIA. Soraya Start: 22-May-2015 Refills: 0 Furosemide 20 MG Oral Tablet; three times a week Soraya Start: 22-May-2015 Refills: 0 traMADol HCl - 50 MG Oral Tablet; as needed , M.DTanya Start: 22-May-2015 Refills: 0 NovoLIN 70/30 (70-30) 100 UNIT/ML Subcutaneous Suspension , M.DTanya Refills: 0 Keflex 500 MG TABS , M.DTanya Refills: 0 Tamsulosin HCl - 0.4 MG Oral Capsule; TAKE 1 CAPSULE Daily Soraya Mcguire Start: 15-Jul-2016 Quantity: 90 Refills: 3 Procedures History of CABG Status: Completed History of Knee Surgery Status: Complete d History of Cholecystectomy Status: Compl eted History of Tonsillectomy Status: Complet ed History of Complete Colonoscopy Status: Completed Immunizations Immunizations not documented Family History Mother Family history of diabetes mellitus (V18.0) (Z83.3) Status: Active Family history of hypertension (V17.49) (Z82.49) Status: Act cammy Family history of cerebrovascular accident (CVA) (V17.1) (Z8 2.3) Status: Active Father Family history of diabetes mellitus (V18.0) (Z83.3) Status: Active Family history of malignant neoplasm (V16.9) (Z80.9) Status: Active Brother Family history of diabetes mellitus (V18.0) (Z83.3) Status: Active Family history of kidney stones (V18.69) (Z84.1) Status: Act cammy Social History - Smoking Status Never smoker Plan of Treatment Planned Observations Planned Goals not documented Results No Known Results Results not documented
[2018-07-28 17:13] LABS: Basophils # (auto) 0.01 K/uL (0-0.2); Basophils % (auto) 0.1 %; Eosinophils # (auto) 0.08 K/uL (0-0.5); Hematocrit (blood only) 44.7 % (42-52); Hemoglobin 15.8 g/dL (14.0-18.0); Immature Granulocytes # (auto) 0.01 K/uL (0.00-0.02); Immature Granulocytes % (auto) 0.1 %; Lymphocytes % (auto) 25.9 %; Mean Corpuscular Hgb Conc 35.3 g/dL (32-36); Mean Corpuscular Volume 82.9 fL (80-100); Monocytes # (auto) 0.47 K/uL (0.11-0.59); Monocytes % (auto) 5.8 %; Neutrophils # (auto) 5.44 K/uL (1.4-6.5); Neutrophils % (auto) 67.1 %; Platelet Count 164 K/uL (130-400); RDW Coefficient of Variation 13.5 % (11.5-14.5); RDW Standard Deviation 40.2 fL (36.4-46.3); Red Blood Count 5.39 M/uL (4.7-6.1); White Blood Count 8.11 K/uL (4.8-10.8)
--- NOTE | 2018-07-28 17:16 | XRay Report ---
XR chest 1V portable CLINICAL HISTORY: 67 years-old Male presenting with Chest Pain. TECHNIQUE: Portable upright AP view of the chest was obtained. COMPARISON: 04/04/2017. FINDINGS: Median sternotomy wires. Atherosclerosis of aortic arch. Cardiac silhouette mildly enlarged. Coronary artery stents in place. No focal opacity. No large effusion or pneumothorax. Degenerative changes of the thoracic spine. Upper abdomen normal. IMPRESSION: 1. Mild cardiomegaly. No other convincing evidence of acute cardiopulmonary disease. Electronically signed by: Magdy Mora M.D. 07/28/2018 5:14 PM
[2018-07-28 17:22] LABS: Partial Thromboplastin Ratio 0.9; Prothrombin Time 10.1 Seconds (9.0-12.0)
[2018-07-28] MEDS ORDERED: ASPIRIN CHEW 324 MG PO STA (17:25)
[2018-07-28] MEDS ORDERED: NITROGLYCERIN 2% OINTMENT 30GM TUBE EXT ONE (17:25)
[2018-07-28 17:31] LABS: Albumin Level 3.7 gm/dl (3.4-5.0); BUN Creatinine Ratio 12.9 (10-20); Calcium 9.5 mg/dl (8.5-10.1); Creatinine Clr Calc Pharmacy 84.4 ml/min; Est GFR (Non-African American) 69.9; Potassium 4.2 mmol/L (3.5-5.1)
[2018-07-28] MEDS ORDERED: ASPIRIN 81 MG CHEW ONE (17:34)
[2018-07-28 17:36] LABS: Albumin Globulin Ratio 1.1 (0.9-2); Bilirubin,Total 0.7 mg/dl (0.2-1); Globulin 3.5 gm/dl (2.5-4.0); Total Protein 7.2 gm/dl (6.4-8.2); Troponin I 0.035 ng/ml (0-0.045)
--- NOTE | 2018-07-28 19:20 | Emergency Department Note ---
Entered by Ruth Lane acting as a scribe for Vivek Haines MD History of Present Illness General Chief complaint: Chest Pain Stated complaint: chest pain, sob Time Seen by Provider: 07/28/18 17:16 Source: patient Mode of arrival: ambulatory Limitations: no limitations History of Present Illness Onset (ago): day(s) 3 Location: chest Radiation: non-radiation Pain Consistency: + intermittent Maximum Pain Intensity: 3 Current Pain Intensity: 2 Quality: + aching and + dull Relieved By: + medication (Nitroglycerin) Exacerbated By: + movement Associated symptoms: + nausea/vomiting (+nausea, -vomiting) and + shortness of breath Treatments prior to arrival: other (Nitroglycerin) The patient is a 67 year old male who presents to the ED with complaints of intermittent chest pain. He admits he has experienced 8 previous MA's and underwent cardiac bypass surgery in 1995. His last MA was approximately 5 years ago. He has been nauseous for the past several days and "sleeping a lot". Last night, he started experiencing chest pain that felt like "a dull ache". This morning his pain briefly resolved, then started up again in the afternoon, so he took a Nitroglycerin and decided to come to the ED. He rates his pain as a 2/10 at it's worst. Exertion worsens the pain. His crisis therapist is Dr. Rai Rosales. He does take daily Aspirin and Plavix. The patient also admits to shortness of breath with walking. He denies any hematochezia. He denies any recent falls or trauma. Home Medications Home Medications Medication Instructions Recorded Confirmed Type albuterol sulfate [ProAir HFA] 2 puff INHALATION Q4H PRN 07/28/18 07/28/18 History aspirin 81 mg PO QAM 07/28/18 07/28/18 History carvedilol 6.25 mg PO QPM 07/28/18 07/28/18 History carvedilol 12.5 mg PO QAM 07/28/18 07/28/18 History clopidogrel [Plavix] 75 mg PO DAILY 07/28/18 07/28/18 History cyclobenzaprine 5 mg PO TID PRN 07/28/18 07/28/18 History docusate sodium 100 mg PO BID 07/28/18 07/28/18 History insulin NPH and regular human 40 unit SUBCUT QAM 07/28/18 07/28/18 History [Novolin 70/30 U-100 Insulin] insulin NPH and regular human 44 unit SUBCUT QPM 07/28/18 07/28/18 History [Novolin 70/30 U-100 Insulin] liraglutide [Victoza 2-Misha] 1.2 mg SUBCUT QAM 07/28/18 07/28/18 History magnesium hydroxide [Milk of 15 ml PO Q2D 07/28/18 07/28/18 History Magnesia] metformin 1,000 mg PO BIDM 07/28/18 07/28/18 History nitroglycerin 0.4 mg SUBLINGUAL DIRECTED PRN 07/28/18 07/28/18 History polyethylene glycol 3350 [Miralax] 17 g PO DAILY PRN 07/28/18 07/28/18 History potassium chloride [Klor-Con M10] 10 meq PO BID 07/28/18 07/28/18 History rosuvastatin 40 mg PO QAM 07/28/18 07/28/18 History sennosides [Ex-Lax (sennosides)] 30 mg PO Q2D 07/28/18 07/28/18 History sildenafil [Viagra] 100 mg PO DAILY PRN 07/28/18 07/28/18 History Allergies Allergy/AdvReac Type Severity Reaction Status Date / Time valsartan Allergy Unknown fatigue Verified 07/28/18 18:19 lisinopril AdvReac Mild COUGHS Verified 07/28/18 18:19 canagliflozin AdvReac Unknown Excessive Verified 07/28/18 18:19 Urination Past Med/Surg History Medical History Coronary artery disease (Chronic) Per outpatient cardiology note: 1. Prior multiple coronary artery interventions dating back to 1993, prominently in the right coronary but ultimately leading to coronary artery bypass grafting in 1995 receiving a saphenous vein graft to the circumflex obtuse marginal, sequentially obtuse marginal 2, and a right internal mammary artery graft to the right coronary artery. 2. Later coronary artery interventions with stenting to the distal c ircumflex in 2003 after distal limb of the sequential graft occluded. 3. Coronary artery intervention August 2009 to the ostial portion saphenous vein graft and subsequent intervention of the distal right coronary artery to the right internal mammary artery, receiving a bare metal stent. 4. Underlying history of chronic angina pectoris as well as noncardiac chest pain. Most recent diagnostic cardiac catheterization in November 2011 without progression of coronary artery disease. Dyslipidemia (Chronic) Diabetes mellitus, type II (Chronic) History of renal calculi (Chronic) TMJ (temporomandibular joint disorder) (Chronic) Generalized osteoarthritis (Chronic) CAROL (obstructive sleep apnea) (Chronic) Diabetic neuropathy (Chronic) Obesity (Chronic) ACEI/ARB contraindicated (Chronic) Diabetic neuropathic arthropathy (Chronic) HTN (hypertension) (Chronic) Surgical History Hx of CABG (Chronic) Hx of right knee surgery (Chronic) S/P david (Chronic) History of tonsillectomy (Chronic) S/P nasal septoplasty (Chronic) Family History Brother Cardiac disease Mother Stroke Father Leukemia Social History Preferred Language: Wallisian Communication Ability: Effective Outreach And Education Social Worker Required: No Beliefs That Will Affect Care: None Current Living Situation: Family Other Information That Helps Us Care for You: No Feels Safe at Home: Yes Safety Concerns: Feels Safe At This Time Smoking Status: Never smoker Hx Alcohol Use: Yes Alcohol type: beer and hard liquor Hx Substance Use: No Review of Systems See HPI for pertinent positives & negatives. and A total of 10 systems reviewed and were otherwise negative Physical Exam Vital Signs Vital Signs - 24 hr 07/28/18 16:39 07/28/18 18:00 Temperature 36.8 C Temperature Source Oral Sepsis Recent Fever Within 48 Hours No Sepsis Action Taken by Nursing No Action Required Pulse Rate 76 Pulse Rate [Right Finger] 81 Pulse Rhythm [Right Finger] Regular Pulse Strength [Right Finger] Normal Respiratory Rate 18 18 Respiratory Effort / Characteristics Non-Labored Spontaneous Non-Labored Respiratory Depth Normal Normal Respiratory Pattern Regular Regular Blood Pressure 157/92 H Blood Pressure [Right Arm] 161/83 H Blood Pressure Mean 113 Blood Pressure Mean [Right Arm] 109 Blood Pressure Position Sitting Blood Pressure Position [Right Arm] Sitting Pulse Oximetry 96 94 Oxygen Delivery Method Room Air Room Air General: Non-ill appearing non-ill appearing middle aged male, in no acute distress. HEENT: Normal cephalic atraumatic. Pupils are equal round and reactive to light. Extraocular movements are intact. Oropharynx is pink with moist mucous membranes. No swelling of the mouth lips or tongue. Neck: Supple with a midline trachea. No meningeal signs or stiffness, no JVD or bruits. No Stridor. Chest: Clear to auscultation bilaterally. No wheezes or rhonchi. No increased work of breathing. Heart: regular rate and rhythm. Abdomen: Soft nontender, nondistended without rebound guarding or rigidity. Extremities: No cyanosis clubbing or edema. No calf tenderness or asymmetry Spine/Back. Non tender to palpation. No CVA tenderness Skin: Good turgor without rashes. Neurologic exam: Cranial nerves two through 12 are intact. Motor and sensation are intact and symmetrical throughout. Course 1718: The patient was evaluated in room A2 and a complete history and physical were performed. 1833: I [facility] the patients [facility] The patient will be further evaluated. 1840: I reevaluated the patient. He is resting comfortably. I discussed my recommendation he remain in the hospital for further evaluation and management and he verbalized complete understanding and agreement. Consultations Consultation #1: [facility] the [facility] The patient will be further evaluated. Time: 18:33 Administered Medications Carvedilol (Coreg) 6.25 mg PO QPM APOLINAR Stop: 08/27/18 20:59 Last Admin: 07/28/18 21:47 Dose: 6.25 mg Documented by: [id number] Docusate Sodium (Colace) 100 mg PO BID APOLINAR Stop: 08/27/18 20:59 Last Admin: 07/28/18 21:46 Dose: 100 mg Documented by: [id number] Enoxaparin Sodium (Lovenox) 40 mg SQ Q24H APOLINAR Stop: 08/27/18 20:59 Last Admin: 07/28/18 21:45 Dose: 40 mg Documented by: [id number] Insulin Aspart (Novolog Flexpen) 0 units SC ACHS APOLINAR Stop: 08/27/18 20:59 Last Admin: 07/28/18 21:50 Dose: 5 units Documented by: [id number] Cosigned by: [id number] Insulin Glargine (Lantus Solostar Pen) 15 units SC BID APOLINAR Stop: 08/27/18 20:59 Last Admin: 07/28/18 21:48 Dose: 15 units Documented by: [id number] Cosigned by: [id number] Potassium Chloride (Klor-Con M10) 10 meq PO BID APOLINAR Stop: 08/27/18 20:59 Last Admin: 07/28/18 21:46 Dose: 10 meq Documented by: [id number] Discontinued Medications Aspirin (Aspirin) 324 mg PO NOW STA Stop: 07/28/18 17:26 Last Admin: 07/28/18 17:36 Dose: 324 mg Documented by: [id number] Aspirin (Aspirin Chew) Confirm Administered Dose 324 mg .ROUTE .STK-MED ONE Stop: 07/28/18 17:35 Last Admin: 07/28/18 17:36 Dose: Not Given Documented by: [id number] Nitroglycerin (Nitro-Bid 2%) 1 inch EXT NOW ONE Stop: 07/28/18 17:26 Last Admin: 07/28/18 17:37 Dose: 1 inch Documented by: [id number] Medical Decision Making Differential Diagnosis The differential diagnoses considered include: ACS, MA, CHF, anxiety, electrolyte or metabolic abnormality. Medical Records Attestation: I reviewed the patient's medical records. Home Medications Current Medication List: was personally reviewed by me Laboratory Data Attestation: I reviewed the patient's lab results. Result diagrams: 07/28/18 17:03 07/28/18 17:03 Lab Results 07/28/18 07/28/18 07/28/18 Range/Units 17:03 17:03 17:03 WBC 8.11 (4.8-10.8) K/uL RBC 5.39 (4.7-6.1) M/uL Hgb 15.8 (14.0-18.0) g/dL Hct 44.7 (42-52) % MCV 82.9 (80-100) fL MCH 29.3 (25-34) pg MCHC 35.3 (32-36) g/dL RDW Std Deviation 40.2 (36.4-46.3) fL RDW Coeff of Aaron 13.5 (11.5-14.5) % Plt Count 164 (130-400) K/uL MPV 10.0 (7.4-10.4) fL Immature Gran % (Auto) 0.1 % Neut % (Auto) 67.1 % Lymph % (Auto) 25.9 % [place] % (Auto) 5.8 % Eos % (Auto) 1.0 % Baso % (Auto) 0.1 % Immature Gran # (Auto) 0.01 (0.00-0.02) K/uL Neut # (Auto) 5.44 (1.4-6.5) K/uL Lymph # (Auto) 2.10 (1.2-3.4) K/uL [place] # (Auto) 0.47 (0.11-0.59) K/uL Eos # (Auto) 0.08 (0-0.5) K/uL Baso # (Auto) 0.01 (0-0.2) K/uL PT 10.1 (9.0-12.0) Seconds INR 1.0 (0.9-1.1) APTT 24.0 (21.0-31.0) Seconds PTT Ratio 0.9 Sodium 140 (136-145) mmol/L Potassium 4.2 (3.5-5.1) mmol/L Chloride 107 (98-107) mmol/L Carbon Dioxide 28 (21-32) mmol/L Anion Gap 6.0 (3-11) BUN 14 (7-18) mg/dl Creatinine 1.09 (0.6-1.4) mg/dl Est Cr Clr Drug Dosing 84.4 ml/min Est GFR ( Amer) 81.0 Est GFR (Non-Af Amer) 69.9 BUN/Creatinine Ratio 12.9 (10-20) Glucose 137 H (70-99) mg/dl Calcium 9.5 (8.5-10.1) mg/dl Total Bilirubin 0.7 (0.2-1) mg/dl AST 16 (15-37) U/L ALT 29 (12-78) U/L Alkaline Phosphatase 89 (45-117) U/L Troponin I 0.035 (0-0.045) ng/ml Total Protein 7.2 (6.4-8.2) gm/dl Albumin 3.7 (3.4-5.0) gm/dl Globulin 3.5 (2.5-4.0) gm/dl Albumin/Globulin Ratio 1.1 (0.9-2) Imaging Data Radiologist's Impression: Radiology results as stated below per my review and the radiologist's interpretation: XR chest 1V portable CLINICAL HISTORY: 67 years-old Male presenting with Chest Pain. TECHNIQUE: Portable upright AP view of the chest was obtained. COMPARISON: 04/04/2017. FINDINGS: Median sternotomy wires. Atherosclerosis of aortic arch. Cardiac silhouette mildly enlarged. Coronary artery stents in place. No focal opacity. No large effusion or pneumothorax. Degenerative changes of the thoracic spine. Upper abdomen normal. IMPRESSION: 1. Mild cardiomegaly. No other convincing evidence of acute cardiopulmonary disease. Electronically signed by: Magdy Mora M.D. 07/28/2018 5:14 PM ECG Data Attestation: I personally reviewed and interpreted this ECG as follows: Indication: chest pain Rate (beats per minute): 82 Rhythm: normal sinus Findings: + PAC (occasional PAC) and + T-wave inversion (Lateral) Comparison ECG Date: from (04/06/2017) Change: the following changes noted (Lateral T wave inversions are new compared to previous) Blood Pressure Blood Pressure Findings: Elevated blood pressure Blood Pressure Disposition: further management by hospitalist [facility] Narrative This patient comes in as described above. He is not felt well for a couple days last night he could not sleep he was nauseated and then developed chest pain. Chest pain today took a nitro and felt better and he has extensive cardiac hi story with multiple MIs in the past as well as CABG. Is been several years since he has had either stress test or cath. He looks well on exam and his symptoms have resolved. He did take a baby aspirin at home I gave him a full- strength 324 mg p.o. here as well as an inch of nitroglycerin paste he is remained stable. His EKG does have some T wave inversions laterally which are new there is no acute STEMI findings. His troponin is not elevated. He has no evidence to suggest congestive heart failure. he has no acute electrolyte or metabolic abnormalities. I do feel he needs to be admitted/observed and concerned that his symptoms are consistent with unstable angina. I have consulted the [facility] hospitalist to see him in the ER for these measures. Impression & Plan Unstable angina, Chest pain, Hx of CABG, Diabetes mellitus, type II Discharge Plan Visit Data *Final* Discharge Date/Time: 07/28/18 19:31 Chief Complaint: Chest Pain Stated Complaint: chest pain, sob ED Provider: Vivek Haines Discharge Problem: Unstable angina, Chest pain, Hx of CABG, Diabetes mellitus, type II Patient Disposition: Admitted As Inpatient Discharge Instructions Interventions: ED Discharge Assessment Last Done: 07/28/18 19:31 The scribe's documentation has been prepared under my direction and personally reviewed by me in its entirety. I confirm that the note above accurately reflects all work, treatment, procedures, and medical decision making performed by me.
[2018-07-28] MEDS ORDERED: GLUCOSE 40% GEL 15 GM TUBE PO PRN (19:53)
[2018-07-28] MEDS ORDERED: ACETAMINOPHEN 325 MG TAB PO PRN (19:53)
[2018-07-28] MEDS ORDERED: CARBOHYDRATES FOR HYPOGLYCEMIA PO PRN (19:53)
[2018-07-28] MEDS ORDERED: DEXTROSE 50% 50 ML SYRINGE IV PRN (19:53)
[2018-07-28] MEDS ORDERED: NITROGLYCERIN SL 0.4 MG/TAB TAB SL PRN (19:53)
[2018-07-28] MEDS ORDERED: POLYETHYLENE (MIRALAX) 17 GM PACK PO PRN (19:53)
[2018-07-28] MEDS ORDERED: GLUCOSE 10 TABS/TUBE PO PRN (19:53)
[2018-07-28] MEDS ORDERED: GLUCAGON FOR INJ 1 MG VIAL SQ PRN (19:53)
--- NOTE | 2018-07-28 20:14 | History & Physical Report ---
Date of Service July 28, 2018 Assessment & Plan (1) Chest pain: (2) Coronary artery disease: -Admit to telemetry -Patient presenting with 2 episodes of chest pain, last evening and today. Today's episode relieved with nitroglycerin. Patient also notes worsening exertional shortness of breath and chest pain relieved with rest recently. -Extensive history of CAD as noted in history -In the ED, EKG shows new T wave inversions in the inferior and anterolateral leads; initial troponin 0.035 -Continue to cycle cardiac enzymes, check resting echo -Noted Lexiscan stress test 03/2017 negative for inducible ischemia -Continue aspirin, Plavix, statin, beta-spencer -PRN nitro and EKG with further episodes of chest pain -Cardiology consult (3) HTN (hypertension): -BP controlled, continue carvedilol (4) Diabetes mellitus, type II: -Uncontrolled per A1c, 11.0 05/2018 -Hold home doses of 70/30, metformin, Victoza and utilize Lantus and NovoLog per protocol while hospitalized (5) DVT prophylaxis: -SQ Lovenox History of Present Illness Chief Complaint: Chest pain Primary Care Provider: Joel Faria DO 67-year-old male who presents to the ED with chest pain. Patient reports over the past 3 days, he has had some intermittent nausea. Last evening, he developed left-sided chest pain with radiation into his left shoulder blade. He took 2 baby aspirin and had resolution of his pain. Today, patient had another episode of similar chest pain. He took one sublingual nitroglycerin with resolution of his pain. Patient describes the pain in the shoulder blade as sharp however the chest pain as dull. Recently, he has noticed worsening exertional shortness of breath with some left-sided chest pain that resolves with rest. He has had some intermittent lightheadedness and dizziness but denies any syncopal events. No diaphoresis. Over the past 2 months, he has been struggling with constipation. Denies abdominal pain, vomiting. Today he reports some loose stools. No bright red bleeding per rectum or dark tarry stools. He denies other recent illnesses, fevers, chills. He has chronic urinary frequency which is unchanged from baseline. No dysuria. In the ED, EKG shows new T wave inversions in the inferior and anterolateral leads. Initial troponin is 0.035. He was given a full dose aspirin and 1 inch of nitroglycerin paste was applied. Allergies Allergy/AdvReac Type Severity Reaction Status Date / Time valsartan Allergy Unknown fatigue Verified 07/28/18 18:19 lisinopril AdvReac Mild COUGHS Verified 07/28/18 18:19 canagliflozin AdvReac Unknown Excessive Verified 07/28/18 18:19 Urination Home Medications Home Medications Medication Instructions Recorded Confirmed Type albuterol sulfate [ProAir HFA] 2 puff INHALATION Q4H PRN 07/28/18 07/28/18 History aspirin 81 mg PO QAM 07/28/18 07/28/18 History carvedilol 6.25 mg PO QPM 07/28/18 07/28/18 History carvedilol 12.5 mg PO QAM 07/28/18 07/28/18 History clopidogrel [Plavix] 75 mg PO DAILY 07/28/18 07/28/18 History cyclobenzaprine 5 mg PO TID PRN 07/28/18 07/28/18 History docusate sodium 100 mg PO BID 07/28/18 07/28/18 History insulin NPH and regular human 40 unit SUBCUT QAM 07/28/18 07/28/18 History [Novolin 70/30 U-100 Insulin] insulin NPH and regular human 44 unit SUBCUT QPM 07/28/18 07/28/18 History [Novolin 70/30 U-100 Insulin] liraglutide [Victoza 2-Misha] 1.2 mg SUBCUT QAM 07/28/18 07/28/18 History magnesium hydroxide [Milk of 15 ml PO Q2D 07/28/18 07/28/18 History Magnesia] metformin 1,000 mg PO BIDM 07/28/18 07/28/18 History nitroglycerin 0.4 mg SUBLINGUAL DIRECTED PRN 07/28/18 07/28/18 History polyethylene glycol 3350 [Miralax] 17 g PO DAILY PRN 07/28/18 07/28/18 History potassium chloride [Klor-Con M10] 10 meq PO BID 07/28/18 07/28/18 History rosuvastatin 40 mg PO QAM 07/28/18 07/28/18 History sennosides [Ex-Lax (sennosides)] 30 mg PO Q2D 07/28/18 07/28/18 History sildenafil [Viagra] 100 mg PO DAILY PRN 07/28/18 07/28/18 History Past Med/Surg History Medical History Coronary artery disease (Chronic) Per outpatient cardiology note: 1. Prior multiple coronary artery interventions dating back to 1993, prominently in the right coronary but ultimately leading to coronary artery bypass grafting in 1995 receiving a saphenous vein graft to the circumflex obtuse marginal, sequentially obtuse marginal 2, and a right internal mammary artery graft to the right coronary artery. 2. Later coronary artery interventions with stenting to the distal circumflex in 2003 after distal limb of the sequential graft occluded. 3. Coronary artery intervention August 2009 to the ostial portion saphenous vein graft and subsequent intervention of the distal right coronary artery to the right internal mammary artery, receiving a bare metal stent. 4. Underlying history of chronic angina pectoris as well as noncardiac chest pain. Most recent diagnostic cardiac catheterization in November 2011 without progression of coronary artery disease. Dyslipidemia (Chronic) Diabetes mellitus, type II (Chronic) History of renal calculi (Chronic) TMJ (temporomandibular joint disorder) (Chronic) Generalized osteoarthritis (Chronic) CAROL (obstructive sleep apnea) (Chronic) Diabetic neuropathy (Chronic) Obesity (Chronic) ACEI/ARB contraindicated (Chronic) Diabetic neuropathic arthropathy (Chronic) HTN (hypertension) (Chronic) Surgical History Hx of CABG (Chronic) Hx of right knee surgery (Chronic) S/P david (Chronic) History of tonsillectomy (Chronic) S/P nasal septoplasty (Chronic) Family History Brother Cardiac disease Mother Stroke Father Leukemia Social History Preferred Language: Fijian Feels Safe at Home: Yes Smoking Status: Never smoker Hx Alcohol Use: Yes Alcohol type: beer and hard liquor Review of Systems Review of Systems: ROS per HPI, all other systems reviewed and negative Physical Exam Physical Exam: Please refer to Dr. Keene's addendum for physical exam Results & Data Vital Signs (Past 12 Hours) Vital Signs Temp Pulse Pulse Resp BP BP Pulse Ox 07/28/18 18:00 81 18 161/83 H 94 07/28/18 16:39 36.8 C 76 18 157/92 H 96 Laboratory Results Short CBC 07/28/18 Range/Units 17:03 WBC 8.11 (4.8-10.8) K/uL Hgb 15.8 (14.0-18.0) g/dL Hct 44.7 (42-52) % Plt Count 164 (130-400) K/uL BMP 07/28/18 17:03 Sodium 140 Potassium 4.2 Chloride 107 Carbon Dioxide 28 BUN 14 Creatinine 1.09 Glucose 137 H Calcium 9.5 Cardiac Enzymes 07/28/18 Range/Units 17:03 Troponin I 0.035 (0-0.045) ng/ml Liver Function 07/28/18 Range/Units 17:03 Total Bilirubin 0.7 (0.2-1) mg/dl AST 16 (15-37) U/L ALT 29 (12-78) U/L Alkaline Phosphatase 89 (45-117) U/L Albumin 3.7 (3.4-5.0) gm/dl Diagnostic Findings CXR IMPRESSION: 1. Mild cardiomegaly. No other convincing evidence of acute cardiopulmonary disease. Code Status & VTE Plan VTE Prophylaxis Plan VTE Prophylaxis will be ordered: Yes Supervising Physician Co-Signing Physician Notes Patient is a 67-year-old male with history of coronary artery disease S/P CABG, multiple stents, DM II, CAROL, HTN, dysphagia S/P esophageal dilatation and problems presents with history of chest pain. States having left-sided chest pain which is dull in nature, radiates to the left shoulder blade which is sharp, pain worsens with exertion, associated with shortness of breath, dizziness and decreases with aspirin and nitroglycerin. Also states having constipation. Please review HPI for complete details of presentation. EKG showed new T wave inversions in inferior, anterolateral leads. Initial troponin is negative. Patient chest pain is completely resolved after taking nitroglycerin today. Currently he is chest pain-free. Physical Exam: Vitals signs as noted above General Appearance:Moderately built and nourished, no apparent distress Head: normocephalic, Atraumatic Eyes: normal inspection, EOMI Neck: supple, Trachea midline Respiratory/Chest: Normal breath sounds, CTA Cardiovascular: S1, S2, No murmur Abdomen/GI:Soft, Non tender, Bowel sounds present Extremities/Musculoskelatal:normal inspection, 1+ non pitting edema Neurologic/Psych:AAOX3, grossly no focal neurological deficits Skin: normal color, warm Chest Pain: R/O ACS Risk factors: H/O CAD S/P CABG, multiple stents , HTN, DM II, +family history Initial troponin:Negative EKG shows: new T wave inversions in inferior, anterolateral leads. CXR: Mild cardiomegaly. No other convincing evidence of acute cardiopulmonary disease. Trend serial cardiac enzymes, repeat EKG in AM, resting ECHO Continue Aspirin, statins, Plavix, Beta spencer Oxygen, NTG PRN NPO after midnight Cardiology consulted Will consider IV heparin if patient troponin trends up or has recurrence of chest pain CAROL: Non complaint with CPAP Constipation: Last BM today Continue bowel regimen I personally reviewed the record. Patient is interviewed and examined at bedside. Patient's care is coordinated with Gracie Ibarra STRETCHING MACHINE OPERATOR. Please refer to the documentation above for details of patient's presentation and for discussion of other issues.
[2018-07-28] MEDS ORDERED: ENOXAPARIN INJ 40 MG/0.4 ML SYR SQ SCH (21:00)
[2018-07-28] MEDS: DOCUSATE SODIUM 100 MG CAP PO SCH (21:46)
[2018-07-28] MEDS: POTASSIUM CHLORIDE 10 MEQ TABCR PO SCH (21:46)
[2018-07-28] MEDS: CARVEDILOL 6.25 MG TAB PO SCH (21:47)
[2018-07-28] MEDS: INSULIN GLARGINE SOLOSTAR 100 UNITS/ML 3 ML PEN SC SCH (21:48)
[2018-07-28] MEDS: INSULIN ASPART 100 UNITS/ML 3 ML PEN SC SCH (21:50)
[2018-07-29 05:31] LABS: Hematocrit (blood only) 40.1 % (42-52); Mean Corpuscular Hgb Conc 34.9 g/dL (32-36); Mean Corpuscular Volume 82.9 fL (80-100); Mean Platelet Volume 9.2 fL (7.4-10.4); Platelet Count 129 K/uL (130-400); RDW Coefficient of Variation 13.4 % (11.5-14.5); RDW Standard Deviation 40.4 fL (36.4-46.3); Red Blood Count 4.84 M/uL (4.7-6.1); White Blood Count 6.24 K/uL (4.8-10.8)
[2018-07-29 05:48] LABS: BUN Creatinine Ratio 12.6 (10-20); Calcium 8.4 mg/dl (8.5-10.1); Creatinine Clr Calc Pharmacy 89.4 ml/min; Est GFR (African American) 86.7; Est GFR (Non-African American) 74.8; Potassium 3.9 mmol/L (3.5-5.1)
[2018-07-29 05:53] LABS: Troponin I 0.035 ng/ml (0-0.045)
[2018-07-29 07:00] LABS: Estimated Average Glucose 214 mg/dl; Hemoglobin A1C 9.1 % (4.5-5.6)
[2018-07-29] MEDS: INSULIN ASPART 100 UNITS/ML 3 ML PEN SC SCH ×4 (08:15→20:56)
[2018-07-29] MEDS: ASPIRIN 81 MG ECTAB PO SCH (08:17)
[2018-07-29] MEDS: DOCUSATE SODIUM 100 MG CAP PO SCH ×2 (08:17→20:56)
[2018-07-29] MEDS: POTASSIUM CHLORIDE 10 MEQ TABCR PO SCH ×2 (08:17→20:58)
[2018-07-29] MEDS: INSULIN GLARGINE SOLOSTAR 100 UNITS/ML 3 ML PEN SC SCH ×2 (08:17→20:58)
[2018-07-29] MEDS: CARVEDILOL 12.5 MG TAB PO SCH (08:17)
[2018-07-29] MEDS: CLOPIDOGREL BISULFATE 75 MG TAB PO SCH (08:17)
[2018-07-29] MEDS: ROSUVASTATIN CALCIUM 20 MG TAB PO SCH (08:17)
[2018-07-29] MEDS ORDERED: SENNA 8.6 MG TAB PO SCH (09:00)
[2018-07-29] MEDS ORDERED: MAGNESIUM HYDROXIDE SUSP 30 ML UDC PO SCH (09:00)
--- NOTE | 2018-07-29 13:03 | Cardiology Consultation ---
Date of Consultation July 29, 2018 Assessment & Plan (1) Unstable angina: Patient presents with symptoms suggestive of angina, new lateral T wave inversions. Echocardiogram reveals stable findings of chronic RCA territory scar, and mild left ventricular systolic dysfunction, relatively unchanged compared to prior studies. At present the patient is comfortable. Continue current medications including his chronic dual antiplatelet therapy with aspirin and clopidogrel, carvedilol, and rosuvastatin. Add unfractionated heparin. There is no indication for emergent cardiac catheterization, the patient is comfortable so his diet will be advanced. Given the complex nature of his coronary heart disease with multiple high-risk interventions, recommend consideration of transfer to tertiary care center given need for what I anticipated will be a complex percutaneous coronary intervention. I counseled the patient that I will call my [place] [facility] [place] and discuss transfer then. History of Present Illness Attending Physician: Kate Chua History of Present Illness Liam Julien is a 67 year old male seen in cardiology consultation per the request of Dr. Abbott for the evaluation of chest discomfort. The patient's primary merchandising professor is Dr. Atwood of our practice. The patient has a history of complex coronary heart disease as delineated below with chronic class II exertional angina. He states however that recently he has not been feeling well. He has been struggling with constipation and has been seen by primary care and multiple recent visits. 2 nights ago he felt poorly with an anxious feeling, and transient left chest pressure. He took 2 aspirin tablets and went to sleep and was able to rest. 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 This was relieved with nitroglycerin. He went home and relax, however the discomfort returned. Patient recently presented to the emergency department. EKG performed on arrival last evening and again this morning reveals sinus rhythm with findings of age-indeterminate inferior infarction there were unchanged, and new T wave inversions in the lateral precordial leads compared to the prior tracing performed when he was admitted for chest discomfort in March 2017. At present, he is resting comfortably on the telemetry unit. His troponin has been measured x3 with readings of 0.035, 0.042, and 0.035 ng/ ml which is still below the upper limit of normal of 0.045. His blood pressure was mildly elevated on presentation with reading of 157/92, but this has since improved. Cardiac Problem List:-as summarized in his outpatient record. 1. Prior multiple coronary artery interventions dating back to 1993, prominently in the right coronary ultimately leading to coronary artery bypass grafting in 1995 receiving a saphenous vein graft to the circumflex obtuse marginal, sequentially obtuse marginal 2, and a right internal mammary artery graft to the right coronary artery. 2. ROBIN to the mid LAD, [facility] [place] 3. Stenting to the distal circumflex in 2003 after distal limb of the sequential graft occluded. 4. PCI to the ostial portion saphenous vein graft and subsequent intervention of the distal right coronary artery to the right internal mammary artery, receiving a bare metal stent. 5. PCI and placement of a 2.5 x 18 mm Integrity bare metal stent in the distal right coronary artery, starting in the PERRI �� � �graft and extending through the anastomosis into the distal right �� � �coronary artery. �The initial 90% stenosis was reduced to a residual 5% narrowing -Most recent cardiac catheterization performed November [address] [facility] [place] 100% lesion of the [place] mid RCA, the distal RCA vessel was small in size with moderate disease with a patent stent the PERRI to the distal RCA was patent sequential SVG to the first obtuse marginal and second marginal had a 30% in-stent restenosis. Ongoing medical management recommended Allergies Allergy/AdvReac Type Severity Reaction Status Date / Time valsartan Allergy Unknown fatigue Verified 07/28/18 18:19 lisinopril AdvReac Mild COUGHS Verified 07/28/18 18:19 canagliflozin AdvReac Unknown Excessive Verified 07/28/18 18:19 Urination Home Medications Home Medications Medication Instructions Recorded Confirmed Type albuterol sulfate [ProAir HFA] 2 puff INHALATION Q4H PRN 07/28/18 07/28/18 History aspirin 81 mg PO QAM 07/28/18 07/28/18 History carvedilol 6.25 mg PO QPM 07/28/18 07/28/18 History carvedilol 12.5 mg PO QAM 07/28/18 07/28/18 History clopidogrel [Plavix] 75 mg PO DAILY 07/28/18 07/28/18 History cyclobenzaprine 5 mg PO TID PRN 07/28/18 07/28/18 History docusate sodium 100 mg PO BID 07/28/18 07/28/18 History insulin NPH and regular human 40 unit SUBCUT QAM 07/28/18 07/28/18 History [Novolin 70/30 U-100 Insulin] insulin NPH and regular human 44 unit SUBCUT QPM 07/28/18 07/28/18 History [Novolin 70/30 U-100 Insulin] liraglutide [Victoza 2-Misha] 1.2 mg SUBCUT QAM 07/28/18 07/28/18 History magnesium hydroxide [Milk of 15 ml PO Q2D 07/28/18 07/28/18 History Magnesia] metformin 1,000 mg PO BIDM 07/28/18 07/28/18 History nitroglycerin 0.4 mg SUBLINGUAL DIRECTED PRN 07/28/18 07/28/18 History polyethylene glycol 3350 [Miralax] 17 g PO DAILY PRN 07/28/18 07/28/18 History potassium chloride [Klor-Con M10] 10 meq PO BID 07/28/18 07/28/18 History rosuvastatin 40 mg PO QAM 07/28/18 07/28/18 History sennosides [Ex-Lax (sennosides)] 30 mg PO Q2D 07/28/18 07/28/18 History sildenafil [Viagra] 100 mg PO DAILY PRN 07/28/18 07/28/18 History Patient History Medical History Coronary artery disease (Chronic) Per outpatient cardiology note: 1. Prior multiple coronary artery interventions dating back to 1993, prominently in the right coronary but ultimately leading to coronary artery bypass grafting in 1995 receiving a saphenous vein graft to the circumflex obtuse marginal, sequentially obtuse marginal 2, and a right internal mammary artery graft to the right coronary artery. 2. Later coronary artery interventions with stenting to the distal circumflex in 2003 after distal limb of the sequential graft occluded. 3. Coronary artery intervention August 2009 to the ostial portion saphenous vein graft and subsequent intervention of the distal right coronary artery to the right internal mammary artery, receiving a bare metal stent. 4. Underlying history of chronic angina pectoris as well as noncardiac chest pain. Most recent diagnostic cardiac catheterization in November 2011 without progression of coronary artery disease. Dyslipidemia (Chronic) Diabetes mellitus, type II (Chronic) History of renal calculi (Chronic) TMJ (temporomandibular joint disorder) (Chronic) Generalized osteoarthritis (Chronic) CAROL (obstructive sleep apnea) (Chronic) Diabetic neuropathy (Chronic) Obesity (Chronic) ACEI/ARB contraindicated (Chronic) Diabetic neuropathic arthropathy (Chronic) HTN (hypertension) (Chronic) Surgical History Hx of CABG (Chronic) Hx of right knee surgery (Chronic) S/P david (Chronic) History of tonsillectomy (Chronic) S/P nasal septoplasty (Chronic) Family History Brother Cardiac disease Mother Stroke Father Leukemia Social History Preferred Language: Lithuanian Communication Ability: Effective Shop Welder Required: No Beliefs That Will Affect Care: None Current Living Situation: Family Other Information That Helps Us Care for You: No Feels Safe at Home: Yes Safety Concerns: Feels Safe At This Time Smoking Status: Never smoker Hx Alcohol Use: Yes Alcohol type: beer and hard liquor Hx Substance Use: No Physical Exam Physical Exam: General: no acute distress and stated age Eyes: conjunctiva are pink and non-injected, sclera clear Neck: normal jugular venous pulse, no hepatojugular reflux Chest: normal shape and normal respiratory effort Lungs: clear to auscultation and percussion Cardiac Exam: - regular heart sounds, no murmurs, rubs, or gallops, no jugular venous distention Abdomen: abdomen soft, non-tender, no abnormal masses and no hepatosplenomegaly Extremities: no edema and no cyanosis Neuro:awake, coversant, follows commands, no focal motor deficits Psych: appropriate affect and insight. Results & Data Vital Signs (Past 12 Hours) Vital Signs Temp Pulse Pulse Resp BP Pulse Ox 07/29/18 11:21 36.7 C 82 18 153/90 H 96 07/29/18 07:24 36.7 C 76 18 138/74 96 07/29/18 06:20 71 07/29/18 03:29 36.8 C 78 18 121/79 97 Laboratory Results Cardiac Enzymes 07/28/18 07/28/18 07/29/18 Range/Units 17:03 23:03 05:22 AST 16 (15-37) U/L Troponin I 0.035 0.042 0.035 (0-0.045) ng/ml Coagulation 07/28/18 Range/Units 17:03 PT 10.1 (9.0-12.0) Seconds APTT 24.0 (21.0-31.0) Seconds CBC 07/28/18 07/29/18 Range/Units 17:03 05:22 WBC 8.11 6.24 (4.8-10.8) K/uL RBC 5.39 4.84 (4.7-6.1) M/uL Hgb 15.8 14.0 (14.0-18.0) g/dL Hct 44.7 40.1 L (42-52) % Plt Count 164 129 L (130-400) K/uL Neut # (Auto) 5.44 (1.4-6.5) K/uL Lymph # (Auto) 2.10 (1.2-3.4) K/uL [place] # (Auto) 0.47 (0.11-0.59) K/uL Eos # (Auto) 0.08 (0-0.5) K/uL Baso # (Auto) 0.01 (0-0.2) K/uL Comprehensive Metabolic Panel 07/28/18 07/29/18 Range/Units 17:03 05:22 Sodium 140 139 (136-145) mmol/L Potassium 4.2 3.9 (3.5-5.1) mmol/L Chloride 107 106 (98-107) mmol/L Carbon Dioxide 28 33 H (21-32) mmol/L BUN 14 13 (7-18) mg/dl Creatinine 1.09 1.03 (0.6-1.4) mg/dl Glucose 137 H 143 H (70-99) mg/dl Calcium 9.5 8.4 L (8.5-10.1) mg/dl AST 16 (15-37) U/L ALT 29 (12-78) U/L Alkaline Phosphatase 89 (45-117) U/L Total Protein 7.2 (6.4-8.2) gm/dl Albumin 3.7 (3.4-5.0) gm/dl Intake and Output 07/28/18 07/29/18 07/29/18 22:59 06:59 14:59 Intake Total 360 / 480 120 / 480 Balance 360 / 480 120 / 480 Intake: Oral 360 / 480 120 / 480 Other: Other Intake Source NPO SUPS CHIPSS # Unmeasured Voids 2 Weight 114 kg 113.2 kg Diagnostic Findings EKG performed 07/29/2018 at 6:47 AM and reviewed independently by the undersigned revealed normal sinus rhythm at 73 bpm with first-degree AV block, age- indeterminate inferior infarct first noted in 2012, T wave inversions noted in the high lateral as well as the lateral precordial leads. Compared to the prior tracing performed last evening on 07/28/2018 at 1650, the lateral T wave inversions are less prominent. EKG however performed on 07/28/2018 did reveal new lateral T wave inversions that were not present on the prior recent tracing performed March 2017. Suboptimal exercise stress test performed March 2017 at [facility] revealed no ischemia with suboptimal heart rate/exercise response. Nuclear stress test performed March 2017 as an outpatient revealed findings of right coronary artery territory scar with no superimposed ischemia, mild left ventricular systolic dysfunction. Echocardiogram performed today and reviewed independently revealed the large size septal, inferior, and posterior wall motion abnormality with hypokinesis to akinesis of the segments. The left ventricular ejection fraction is mildly reduced at 45 to 50%. Medications Administered Current Inpatient Medications Acetaminophen (Tylenol) 650 mg PO Q4H PRN PRN Reason: Pain or Fever Stop: 08/27/18 19:52 Aspirin (Ecotrin Ectab) 81 mg PO QAM [facility] Stop: 08/28/18 08:59 Last Admin: 07/29/18 08:17 Dose: 81 mg Documented by: Carvedilol (Coreg) 6.25 mg PO QPM [facility] Stop: 08/27/18 20:59 Last Admin: 07/28/18 21:47 Dose: 6.25 mg Documented by: Carvedilol (Coreg) 12.5 mg PO QAM [facility] Stop: 08/28/18 08:59 Last Admin: 07/29/18 08:17 Dose: 12.5 mg Documented by: Clopidogrel Bisulfate (Plavix) 75 mg PO DAILY [facility] Stop: 08/28/18 08:59 Last Admin: 07/29/18 08:17 Dose: 75 mg Documented by: Dextrose (Dextrose 50%) 25 - 50 ml IV UD PRN; Protocol PRN Reason: Hypoglycemia Protocol Stop: 08/27/18 19:52 Docusate Sodium (Colace) 100 mg PO BID [facility] Stop: 08/27/18 20:59 Last Admin: 07/29/18 08:17 Dose: 100 mg Documented by: Enoxaparin Sodium (Lovenox) 40 mg SQ Q24H [facility] Stop: 08/27/18 20:59 Last Admin: 07/28/18 21:45 Dose: 40 mg Documented by: Glucagon (Glucagen) 1 mg SQ UD PRN; Protocol PRN Reason: Hypoglycemia Protocol Stop: 08/27/18 19:52 Glucose (Glucose 40%) 15 - 30 gm PO UD PRN; Protocol PRN Reason: Hypoglycemia Protocol Stop: 08/27/18 19:52 Glucose (Dex4 Glucose) 4 - 8 tabs PO UD PRN; Protocol PRN Reason: Hypoglycemia Protocol Stop: 08/27/18 19:52 Insulin Aspart (Novolog Flexpen) 0 units SC ACHS [facility] Stop: 08/27/18 20:59 Last Admin: 07/29/18 11:59 Dose: Not Given Documented by: Insulin Glargine (Lantus Solostar Pen) 15 units SC BID [facility] Stop: 08/27/18 20:59 Last Admin: 07/29/18 08:17 Dose: 15 units Documented by: Magnesium Hydroxide (Milk Of Magnesia) 15 ml PO Q2D [facility] Stop: 08/28/18 08:59 Last Admin: 07/29/18 08:16 Dose: 15 ml Documented by: Miscellaneous (Carbohydrates For Hypoglycemia) 15 - 30 gm PO UD PRN PRN Reason: Hypoglycemia Treatment Stop: 08/27/18 19:52 Nitroglycerin (Nitrostat) 0.4 mg SL UD PRN PRN Reason: Chest Pain Stop: 08/27/18 19:52 Polyethylene Glycol (Miralax Powder Packet) 17 gm PO DAILY PRN PRN Reason: Constipation Stop: 08/27/18 19:52 Potassium Chloride (Klor-Con M10) 10 meq PO BID [facility] Stop: 08/27/18 20:59 Last Admin: 07/29/18 08:17 Dose: 10 meq Documented by: Rosuvastatin Calcium (Crestor) 40 mg PO QAM [facility] Stop: 08/28/18 08:59 Last Admin: 07/29/18 08:17 Dose: 40 mg Documented by: Sennosides (Senokot) 34.4 mg PO Q2D [facility] Stop: 08/28/18 08:59 Last Admin: 07/29/18 08:16 Dose: 34.4 mg Documented by:
[2018-07-29] MEDS ORDERED: HEPARIN IV BOLUS 7,000 UNITS in SYRINGE 0 ML IV ONE (13:50)
--- NOTE | 2018-07-29 13:58 | Hospitalist Progress Note ---
Date of Service July 29, 2018 Assessment & Plan (1) Unstable angina: (2) Chest pain: (3) Coronary artery disease: Patient presenting with 2 episodes of chest pain x 2 days, worsening exertional shortness of breath. -Extensive history of CAD as noted in HPI. Does have chronic exertional angina -In the ED, EKG shows new T wave inversions in the inferior and anterolateral leads; initial troponin 0.042 --> 0.035 -Noted Lexiscan stress test 03/2017 negative for inducible ischemia -Continue aspirin, Plavix, statin, beta-spencer -Cardiology consulted- Added IV heparin today and plan is to transfer to tertiary center as may require high risk intervention (4) HTN (hypertension): -BP controlled, continue carvedilol (5) Diabetes mellitus, type II: -Uncontrolled per A1c, 11.0 05/2018; 9.1 07/23/18 -Hold home doses of 70/30, metformin, Victoza and utilize Lantus and NovoLog per protocol while hospitalized (6) DVT prophylaxis: -SQ Lovenox DISPOSITION Plan is to transfer to tertiary care center tomorrow for high risk coronary interevention Subjective Patient denies any chest pain. No SOB, cough, fever, chills. Not hypoxic Physical Exam Physical Exam: GENERAL- AAOX3, No acute distress LUNGS- Air entry bilaterally equal. No rales, rhonchi, crackles, wheezes heard. HEART- Regular rate and rhythm. No murmurs ABDOMEN- Soft, non tender, non distended, Bowel sounds heard. EXTREMITIES- Good peripheral pulses, no edema Results & Data Vital Signs (Past 12 Hours) Vital Signs Temp Pulse Pulse Resp BP Pulse Ox 07/29/18 11:21 36.7 C 82 18 153/90 H 96 07/29/18 07:24 36.7 C 76 18 138/74 96 07/29/18 06:20 71 07/29/18 03:29 36.8 C 78 18 121/79 97 (1) Diabetes mellitus, type II Diabetes mellitus complication status: with other specified complication Diabetes mellitus terminal worker insulin use: unspecified terminal worker insulin use status Qualified Code(s): E11.69 - Type 2 diabetes mellitus with other s pecified complication (2) Chest pain Ischemic chest pain type: unstable angina pectoris
[2018-07-29] MEDS: HEPARIN SODIUM/DEXTROSE 25,000 UNITS/500 ML BAG IV SCH (14:36)
[2018-07-29] MEDS: CARVEDILOL 6.25 MG TAB PO SCH (20:58)
[2018-07-29 21:40] LABS: Partial Thromboplastin Time 54.3 Seconds (21.0-31.0)
[2018-07-30] MEDS ORDERED: ALUMINUM/MAGNESIUM SUSP 30 ML UDC PO PRN (04:20)
[2018-07-30] MEDS: HEPARIN SODIUM/DEXTROSE 25,000 UNITS/500 ML BAG IV SCH (04:51)
[2018-07-30 05:08] LABS: Basophils # (auto) 0.02 K/uL (0-0.2); Basophils % (auto) 0.3 %; Eosinophils # (auto) 0.08 K/uL (0-0.5); Eosinophils % (auto) 1.4 %; Hematocrit (blood only) 40.3 % (42-52); Hemoglobin 14.3 g/dL (14.0-18.0); Immature Granulocytes # (auto) 0.01 K/uL (0.00-0.02); Immature Granulocytes % (auto) 0.2 %; Lymphocytes # (auto) 1.54 K/uL (1.2-3.4); Lymphocytes % (auto) 26.6 %; Mean Corpuscular Hgb Conc 35.5 g/dL (32-36); Mean Corpuscular Volume 82.8 fL (80-100); Mean Platelet Volume 9.4 fL (7.4-10.4); Monocytes # (auto) 0.37 K/uL (0.11-0.59); Monocytes % (auto) 6.4 %; Neutrophils # (auto) 3.78 K/uL (1.4-6.5); Neutrophils % (auto) 65.1 %; Platelet Count 125 K/uL (130-400); RDW Coefficient of Variation 13.4 % (11.5-14.5); RDW Standard Deviation 40.7 fL (36.4-46.3); Red Blood Count 4.87 M/uL (4.7-6.1)
[2018-07-30 05:28] LABS: Albumin Level 3.1 gm/dl (3.4-5.0); BUN Creatinine Ratio 11.3 (10-20); Calcium 8.4 mg/dl (8.5-10.1); Creatinine Clr Calc Pharmacy 90.8 ml/min; Est GFR (African American) 88.8; Est GFR (Non-African American) 76.6; Magnesium 2.2 mg/dl (1.8-2.4); Potassium 3.9 mmol/L (3.5-5.1)
[2018-07-30 05:32] LABS: Partial Thromboplastin Ratio 2.2
[2018-07-30 05:34] LABS: Bilirubin,Total 0.5 mg/dl (0.2-1); Globulin 3.2 gm/dl (2.5-4.0); Total Protein 6.3 gm/dl (6.4-8.2); Troponin I 0.023 ng/ml (0-0.045)
[2018-07-30] MEDS: DOCUSATE SODIUM 100 MG CAP PO SCH (08:13)
[2018-07-30] MEDS: CLOPIDOGREL BISULFATE 75 MG TAB PO SCH (08:14)
[2018-07-30] MEDS: POTASSIUM CHLORIDE 10 MEQ TABCR PO SCH (08:14)
[2018-07-30] MEDS: CARVEDILOL 12.5 MG TAB PO SCH (08:14)
[2018-07-30] MEDS: ROSUVASTATIN CALCIUM 20 MG TAB PO SCH (08:15)
[2018-07-30] MEDS: ASPIRIN 81 MG ECTAB PO SCH (08:16)
[2018-07-30] MEDS: INSULIN GLARGINE SOLOSTAR 100 UNITS/ML 3 ML PEN SC SCH (08:18)
[2018-07-30] MEDS: INSULIN ASPART 100 UNITS/ML 3 ML PEN SC SCH ×2 (08:18→11:44)
--- NOTE | 2018-07-30 10:40 | Cardiology Progress Note ---
Date of Service July 30, 2018 Assessment & Plan (1) Unstable angina: -The patient is already on chronic dual antiplatelet therapy with aspirin and clopidogrel and this is been continued. -Continue unfractionated heparin, carvedilol, rosuvastatin. (2) HTN (hypertension): Blood pressure well controlled on his current dose of carvedilol. (3) Dyslipidemia: Continue rosuvastatin (4) Diabetes mellitus, type II: Prior to hospital treatment with metformin is on hold. He is on insulin as an outpatient, and this is been continued as an inpatient with Lantus and NovoLog. (5) ACEI/ARB contraindicated: Patient is not on an MONIQUE inhibitor or ARB due to past intolerance. He apparently has had a cough with lisinopril, and "fatigue "with the losartan. Subjective Chief complaint: Follow-up chest discomfort, abnormal EKG Subjective: Patient is comfortable this morning he is in bed, unfractioned heparin is infusing without any bleeding complications. His girlfriend is at the bedside with him. I just after 4 AM this morning he had an episode of epigastric discomfort and chest discomfort. An EKG was performed that revealed ongoing findings of inferior Q waves, and T wave inversions in the high lateral leads I and aVL as well as T wave inversion leads V3 to V6. The lateral T wave inversions were slightly more prominent compared to yesterday. The patient states that he belched and his symptoms improved. A repeat EKG was subsequently performed in follow-up of the 4:14 AM at 728 which revealed ongoing high lateral T wave inversions, and the T wave inversions in precordial leads were less prominent compared to 4:14 AM. Patient remains comfortable. Physical Exam Physical Exam: General: no acute distress and stated age Eyes: conjunctiva are pink and non-injected, sclera clear Neck: normal jugular venous pulse, no hepatojugular reflux Chest: normal shape and normal respiratory effort Lungs: clear to auscultation and percussion Cardiac Exam: - regular heart sounds, no murmurs, rubs, or gallops, no jugular venous distention Abdomen: abdomen soft, non-tender, no abnormal masses and no hepatosplenomegaly Extremities: no edema and no cyanosis Neuro:awake, coversant, follows commands, no focal motor deficits Psych: appropriate affect and insight. Results & Data Vital Signs (Past 12 Hours) Vital Signs Temp Pulse Resp BP Pulse Ox 07/30/18 07:11 36.9 C 69 20 127/76 97 07/30/18 04:07 36.6 C 65 20 136/77 97 07/29/18 23:37 36.6 C 75 20 128/67 97 Laboratory Results Cardiac Enzymes 07/30/18 Range/Units 04:58 AST 11 L (15-37) U/L Troponin I 0.023 (0-0.045) ng/ml Coagulation 07/29/18 07/30/18 Range/Units 21:00 04:58 APTT 54.3 H* 59.0 H* (21.0-31.0) Seconds CBC 07/30/18 Range/Units 04:58 WBC 5.80 (4.8-10.8) K/uL RBC 4.87 (4.7-6.1) M/uL Hgb 14.3 (14.0-18.0) g/dL Hct 40.3 L (42-52) % Plt Count 125 L (130-400) K/uL Neut # (Auto) 3.78 (1.4-6.5) K/uL Lymph # (Auto) 1.54 (1.2-3.4) K/uL [place] # (Auto) 0.37 (0.11-0.59) K/uL Eos # (Auto) 0.08 (0-0.5) K/uL Baso # (Auto) 0.02 (0-0.2) K/uL Comprehensive Metabolic Panel 07/30/18 Range/Units 04:58 Sodium 140 (136-145) mmol/L Potassium 3.9 (3.5-5.1) mmol/L Chloride 105 (98-107) mmol/L Carbon Dioxide 31 (21-32) mmol/L BUN 11 (7-18) mg/dl Creatinine 1.01 (0.6-1.4) mg/dl Glucose 121 H (70-99) mg/dl Calcium 8.4 L (8.5-10.1) mg/dl AST 11 L (15-37) U/L ALT 21 (12-78) U/L Alkaline Phosphatase 74 (45-117) U/L Total Protein 6.3 L (6.4-8.2) gm/dl Albumin 3.1 L (3.4-5.0) gm/dl Intake and Output 07/29/18 07/30/18 07/30/18 22:59 06:59 14:59 Intake Total 431.75 / 745.25 313.5 / 745.25 80.85 / 80.85 Balance 431.75 / 745.25 313.5 / 745.25 80.85 / 80.85 Intake: IV 156.75 / 470.25 313.5 / 470.25 80.85 / 80.85 HEPARIN SODIUM/DEXTROSE 25,000 156.75 / 470.25 313.5 / 470.25 80.85 / 80.85 units In 500 ml @ 1,650 UNITS/ HR 33 mls/hr IV .[id number] [facility] Rx #:[id number] Oral 275 / 275 Other: Other Intake Source SIPS # Unmeasured Voids 4 Weight 110.1 kg Diagnostic Findings EKGs as described above. Medications Administered Current Inpatient Medications Acetaminophen (Tylenol) 650 mg PO Q4H PRN PRN Reason: Pain or Fever Stop: 08/27/18 19:52 Al Hydrox/Mg Hydrox/Simethicone (Maalox) 15 ml PO Q6H PRN PRN Reason: Heartburn Stop: 08/29/18 04:19 Last Admin: 07/30/18 04:29 Dose: 15 ml Documented by: Aspirin (Ecotrin Ectab) 81 mg PO QAM [facility] Stop: 08/28/18 08:59 Last Admin: 07/30/18 08:16 Dose: 81 mg Documented by: Carvedilol (Coreg) 6.25 mg PO QPM [facility] Stop: 08/27/18 20:59 Last Admin: 07/29/18 20:58 Dose: 6.25 mg Documented by: Carvedilol (Coreg) 12.5 mg PO QAM [facility] Stop: 08/28/18 08:59 Last Admin: 07/30/18 08:14 Dose: 12.5 mg Documented by: Clopidogrel Bisulfate (Plavix) 75 mg PO DAILY [facility] Stop: 08/28/18 08:59 Last Admin: 07/30/18 08:14 Dose: 75 mg Documented by: Dextrose (Dextrose 50%) 25 - 50 ml IV UD PRN; Protocol PRN Reason: Hypoglycemia Protocol Stop: 08/27/18 19:52 Docusate Sodium (Colace) 100 mg PO BID [facility] Stop: 08/27/18 20:59 Last Admin: 07/30/18 08:13 Dose: Not Given Documented by: Glucagon (Glucagen) 1 mg SQ UD PRN; Protocol PRN Reason: Hypoglycemia Protocol Stop: 08/27/18 19:52 Glucose (Glucose 40%) 15 - 30 gm PO UD PRN; Protocol PRN Reason: Hypoglycemia Protocol Stop: 08/27/18 19:52 Glucose (Dex4 Glucose) 4 - 8 tabs PO UD PRN; Protocol PRN Reason: Hypoglycemia Protocol Stop: 08/27/18 19:52 Heparin Sodium/Dextrose (Heparin Sodium/Dextrose) 25,000 units in 500 mls @ 33 mls/hr IV .[id number] [facility]; Protocol Stop: 08/28/18 13:54 Last Titration: 07/30/18 07:18 Dose: 1,650 units/hr, 33 mls/hr Documented by: Insulin Aspart (Novolog Flexpen) 0 units SC ACHS [facility] Stop: 08/27/18 20:59 Last Admin: 07/30/18 08:18 Dose: 6 units Documented by: Insulin Glargine (Lantus Solostar Pen) 15 units SC BID [facility] Stop: 08/27/18 20:59 Last Admin: 07/30/18 08:18 Dose: 15 units Documented by: Magnesium Hydroxide (Milk Of Magnesia) 15 ml PO Q2D [facility] Stop: 08/28/18 08:59 Last Admin: 07/29/18 08:16 Dose: 15 ml Documented by: Miscellaneous (Carbohydrates For Hypoglycemia) 15 - 30 gm PO UD PRN PRN Reason: Hypoglycemia Treatment Stop: 08/27/18 19:52 Nitroglycerin (Nitrostat) 0.4 mg SL UD PRN PRN Reason: Chest Pain Stop: 08/27/18 19:52 Polyethylene Glycol (Miralax Powder Packet) 17 gm PO DAILY PRN PRN Reason: Constipation Stop: 08/27/18 19:52 Potassium Chloride (Klor-Con M10) 10 meq PO BID [facility] Stop: 08/27/18 20:59 Last Admin: 07/30/18 08:14 Dose: 10 meq Documented by: Rosuvastatin Calcium (Crestor) 40 mg PO QAM [facility] Stop: 08/28/18 08:59 Last Admin: 06/09/19 08:15 Dose: 40 mg Documented by: Sennosides (Senokot) 34.4 mg PO Q2D [facility] Stop: 08/28/18 08:59 Last Admin: 07/29/18 08:16 Dose: 34.4 mg Documented by: (1) Diabetes mellitus, type II Diabetes mellitus complication status: with other specified complication Diabetes mellitus intermediate accountant insulin use: unspecified intermediate accountant insulin use status Qualified Code(s): E11.69 - Type 2 diabetes mellitus with other specified complication
--- NOTE | 2018-07-30 11:31 | Hospitalist Progress Note ---
Date of Service July 30, 2018 Assessment & Plan (1) Unstable angina: (2) Chest pain: (3) Coronary artery disease: Patient presenting with 2 episodes of chest pain x 2 days, worsening exertional shortness of breath. -Extensive history of CAD as noted in HPI/Cardiology note. Noted Lexiscan stress test 03/2017 negative for inducible ischemia. Does have chronic exertional angina . -In the ED, EKG shows new T wave inversions in the inferior and anterolateral leads (I, AVL, V3-V6); initial troponin 0.042 --> 0.035. -Started on IV heparin on 07/29/2018 by cardiology -Continue aspirin, Plavix, statin, beta-spencer -Cardiology consulted- Plan is to transfer to tertiary center as may require high risk intervention (4) HTN (hypertension): -BP controlled, continue carvedilol (5) Diabetes mellitus, type II: -Uncontrolled per A1c, 11.0 05/2018; 9.1 07/23/18 -Hold home doses of 70/30, metformin, Victoza and utilize Lantus and NovoLog per protocol while hospitalized (6) DVT prophylaxis: -SQ Lovenox DISPOSITION Plan is to transfer to tertiary care center today for high risk coronary intervention. Accepting physician at [facility]---> Dr Tobi Tai (Cardiology) per d/w Dr Tyson. Patietn and girlfriend agreeable with plan and understands risks/benefits of transfer Subjective Patient had an episode of epigastric and chest pain today AM which improved after belching. Denies any pain now. No SOB, Chest pain, fever, chills, cough, leg swelling Not on oxygen, saturating well on RA Physical Exam Physical Exam: GENERAL- AAOX3, No acute distress LUNGS- Air entry bilaterally equal. No rales, rhonchi, crackles, wheezes heard. HEART- Regular rate and rhythm. No murmurs ABDOMEN- Soft, non tender, non distended, Bowel sounds heard. 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
--- NOTE | 2018-07-30 11:34 | Discharge Summary ---
Date of Service July 30, 2018 Admission HPI Per Admitting Provider 67-year-old male who presents to the ED with chest pain. Patient reports over the past 3 days, he has had some intermittent nausea. Last evening, he developed left-sided chest pain with radiation into his left shoulder blade. He took 2 baby aspirin and had resolution of his pain. Today, patient had another episode of similar chest pain. He took one sublingual nitroglycerin with resolution of his pain. Patient describes the pain in the shoulder blade as sharp however the chest pain as dull. Recently, he has noticed worsening exertional shortness of breath with some left-sided chest pain that resolves with rest. He has had some intermittent lightheadedness and dizziness but denies any syncopal events. No diaphoresis. Over the past 2 months, he has been struggling with constipation. Denies abdominal pain, vomiting. Today he reports some loose stools. No bright red bleeding per rectum or dark tarry stools. He denies other recent illnesses, fevers, chills. He has chronic urinary frequency which is unchanged from baseline. No dysuria. In the ED, EKG shows new T wave inversions in the inferior and anterolateral leads. Initial troponin is 0.035. He was given a full dose aspirin and 1 inch of nitroglycerin paste was applied. Principal Diagnosis 1. Unstable Angina 2. Hx of extensive CAD SECONDARY DIAGNOSIS ON DISCHARGE 1. DM II 2. HTN Discharge Exam GENERAL- AAOX3, No acute distress LUNGS- Air entry bilaterally equal. No rales, rhonchi, crackles, wheezes heard. HEART- Regular rate and rhythm. No murmurs ABDOMEN- Soft, non tender, non distended, Bowel sounds heard. EXTREMITIES- Good peripheral pulses, no edema Discharge Data Allergies Allergy/AdvReac Type Severity Reaction Status Date / Time valsartan Allergy Unknown fatigue Verified 07/28/18 18:19 lisinopril AdvReac Mild COUGHS Verified 07/28/18 18:19 canagliflozin AdvReac Unknown Excessive Verified 07/28/18 18:19 Urination Consultations 07/28/18 18:33 ED Decision to Admit Stat 07/28/18 19:53 Consult Cardiology Routine Hospital Course (1) Unstable angina: (2) Chest pain: (3) Coronary artery disease: Patient presenting with 2 episodes of chest pain x 2 days, worsening exertional shortness of breath. -Extensive history of CAD as noted in HPI/Cardiology note. Noted Lexiscan stress test 03/2017 negative for inducible ischemia. Does have chronic exertional angina . -In the ED, EKG shows new T wave inversions in the inferior and anterolateral leads (I, AVL, V3-V6); initial troponin 0.042 --> 0.035. -Started on IV heparin on 07/29/2018 by cardiology -Continue aspirin, Plavix, statin, Carvedilol. Not on MONIQUE/ARB due to past intolerance -Cardiology consulted- Plan is to transfer to tertiary center as may require high risk intervention (4) HTN (hypertension): -BP controlled, continue carvedilol (5) Diabetes mellitus, type II: -Uncontrolled per A1c, 11.0 05/2018; 9.1 07/23/18 -Hold home doses of 70/30, metformin, Victoza and utilize Lantus and NovoLog per protocol while hospitalized (6) DVT prophylaxis: -SQ Lovenox DISPOSITION Plan is to transfer to tertiary care center today for high risk coronary intervention. Accepting physician at [facility]---> Dr Tobi Tai (Cardiology) per d/w Dr Tyson. Patietn and girlfriend agreeable with plan and understands risks/benefits of transfer Total Time Total Time Spent Total Time Spent (In Minutes): 45 minutes Discharge Plan Discharge Items Patient Disposition: Transfer Acute Care Hospital Reason For Visit: CHEST PAIN Discharge Diagnosis: Unstable angina Discharge Goals: Specific goals and Therapeutic intervention Activity: As commented below Activity Comment: Bed rest Non-emergency contact: Primary Care Provider Call non-emergency contact if: your symptoms worsen Follow-up/Referrals: Joel Faria, [Primary Care Provider] - Diet: Carb Consistent or DM2, Heart Healthy and Low Sodium (2gm) Addtl Provider Instructions: Transfer to higher level of care for high risk coronary intervention Prescriptions: Continued carvedilol 12.5 mg tablet 12.5 mg PO QAM RF: 0 carvedilol 12.5 mg tablet 6.25 mg PO QPM RF: 0 Novolin 70/30 U-100 Insulin 100 unit/mL (70-30) suspension 40 unit subcut QAM RF: 0 Novolin 70/30 U-100 Insulin 100 unit/mL (70-30) suspension 44 unit subcut QPM RF: 0 aspirin 81 mg Tablet,Delayed Release (Dr/Ec) 81 mg PO QAM RF: 0 nitroglycerin 0.4 mg tablet, sublingual 0.4 mg sublingual DIRECTED PRN (Reason: Chest Pain) RF: 0 docusate sodium 100 mg capsule 100 mg PO BID RF: 0 albuterol sulfate [ProAir HFA] 90 mcg/actuation HFA aerosol inhaler 2 puff inhalation Q4H PRN (Reason: Wheezing) RF: 0 metformin 500 mg tablet extended release 24 hr 1,000 mg PO BIDM RF: 0 cyclobenzaprine 5 mg tablet 5 mg PO TID PRN (Reason: Muscle Spasm) RF: 0 rosuvastatin 40 mg tablet 40 mg PO QAM RF: 0 potassium chloride [Klor-Con M10] 10 mEq tablet,ER particles/crystals 10 meq PO BID RF: 0 Victoza 2-Misha 0.6 mg/0.1 mL (18 mg/3 mL) pen injector 1.2 mg subcut QAM RF: 0 polyethylene glycol 3350 [Miralax] 17 gram Powder In Packet 17 g PO DAILY PRN (Reason: Constipation) RF: 0 clopidogrel [Plavix] 75 mg Tablet 75 mg PO DAILY RF: 0 sildenafil [Viagra] 100 mg Tablet 100 mg PO DAILY PRN (Reason: Sexual Activity) RF: 0 magnesium hydroxide [Milk of Magnesia] 400 mg/5 mL Suspension 15 ml PO Q2D RF: 0 Ex-Lax (sennosides) 15 mg Tablet 30 mg PO Q2D RF: 0 Stand-Alone Forms: [facility] Discharge Orders: Discharge Order (Routine); Ordered 07/30/18 Ordered By: Kate Chua Admission Data Admit Date/Time: 07/28/18 19:07 Attending Provider: Kate Chua Admit Provider: Kennedy Keene Primary Care Provider: Joel Faria Other Providers: Kennedy Keene ; Govind Tyson Service: Telemetry Other Interventions: Discharge Summary Assessment (RN) Last Done: 07/30/18 10:49
== END 2018-07-30 13:07 | disposition short-term general hospital (02) ==
LOC: ED 16:37 → 2S 16:37

== ENCOUNTER 2018-08-19 16:32 | Inpatient (IN) ==
[2018-08-19] MEDS ORDERED: NITROGLYCERIN SL 0.4 MG/TAB TAB ONE (16:56)
[2018-08-19] MEDS: NITROGLYCERIN SL 0.4 MG/TAB TAB SL PRN ×2 (16:57→17:04)
[2018-08-19 17:02] LABS: Basophils # (auto) 0.02 K/uL (0-0.2); Basophils % (auto) 0.2 %; Eosinophils # (auto) 0.13 K/uL (0-0.5); Eosinophils % (auto) 1.6 %; Hemoglobin 15.1 g/dL (14.0-18.0); Immature Granulocytes # (auto) 0.01 K/uL (0.00-0.02); Immature Granulocytes % (auto) 0.1 %; Lymphocytes # (auto) 1.75 K/uL (1.2-3.4); Lymphocytes % (auto) 21.8 %; Mean Corpuscular Hgb Conc 35.1 g/dL (32-36); Mean Corpuscular Volume 84.3 fL (80-100); Mean Platelet Volume 9.9 fL (7.4-10.4); Monocytes # (auto) 0.47 K/uL (0.11-0.59); Monocytes % (auto) 5.9 %; Neutrophils # (auto) 5.63 K/uL (1.4-6.5); Neutrophils % (auto) 70.4 %; Platelet Count 149 K/uL (130-400); RDW Coefficient of Variation 13.5 % (11.5-14.5); RDW Standard Deviation 41.3 fL (36.4-46.3); White Blood Count 8.01 K/uL (4.8-10.8)
[2018-08-19 17:19] LABS: Albumin Level 3.5 gm/dl (3.4-5.0); BUN Creatinine Ratio 14.6 (10-20); Calcium 8.8 mg/dl (8.5-10.1); Creatinine Clr Calc Pharmacy 86.8 ml/min; Est GFR (African American) 82.8; Est GFR (Non-African American) 71.5
[2018-08-19 17:22] LABS: Partial Thromboplastin Ratio 0.9; Partial Thromboplastin Time 24.9 Seconds (21.0-31.0); Prothrombin Time 9.8 Seconds (9.0-12.0)
--- NOTE | 2018-08-19 17:22 | XRay Report ---
SINGLE VIEW CHEST CLINICAL HISTORY: Atypical chest pain. FINDINGS: An AP, portable, upright chest radiograph is compared to study dated 07/28/2018. The patient is status post midline sternotomy. The heart is enlarged and there is atherosclerotic calcification o f the thoracic aorta. The pulmonary vasculature is noncongested. There is mild bibasilar atelectasis. No airspace consolidation or large pleural effusion is identified. No pneumothorax is seen. The skel etal structures are osteopenic. The bony thorax is grossly intact. IMPRESSION: Cardiomegaly with no active disease in the chest. Electronically signed by: Eric Montaño M.D. 08/19/2018 5:20 PM
[2018-08-19 17:24] LABS: Bilirubin,Total 0.6 mg/dl (0.2-1); Globulin 3.5 gm/dl (2.5-4.0); Troponin I 0.028 ng/ml (0-0.045)
[2018-08-19] MEDS ORDERED: MoRPHine SULFATE 2 MG/ML CARP IV STA (17:36)
--- NOTE | 2018-08-19 17:45 | Emergency Department Note ---
Entered by Eric Neal acting as a scribe for History of Present Illness General Chief complaint: Chest Pain Stated complaint: CHEST PAIN Time Seen by Provider: 08/19/18 16:47 Source: patient History of Present Illness Provider complaint: Chest pain Onset (ago): hour(s) Location: chest Maximum Pain Intensity: 3 Current Pain Intensity: 3 Relieved By: + none Associated symptoms: + denies other symptoms (abdominal pain, right arm pain), + chest pain and + other (dizziness, nausea, lightheadedness, left arm pain ); no shortness of breath Treatments prior to arrival: aspirin The patient is a 67 year old male with a history of CABG, DM, HTN, and multiple SD who presents to the Emergency Room with complaints of left sided chest pain that began approximately 5 hours ago. The patient states he had pain 1 week ago, but the pain is more pronounced presently. He complains of dizziness, nausea, lightheadedness, left arm pain that radiates to the left wrist. The patient adds that he feels the left arm pain when his heart beats. The patient notes he was watching TV and woke up from a nap when the pain began. He reports that at lunchtime, a few hours ago, he took 2 regular aspirin. He also states that he normally takes a daily baby aspirin. The patient states he did not take NG today, but took some yesterday. He denies abdominal pain, right arm pain, and SOB. Home Medications Home Medications Medication Instructions Recorded Confirmed Type Ex-Lax (sennosides) 30 mg PO Q2D 07/28/18 08/19/18 History Novolin 70/30 U-100 Insulin 40 unit SUBCUT QAM 07/28/18 08/19/18 History Novolin 70/30 U-100 Insulin 44 unit SUBCUT QPM 07/28/18 08/19/18 History Victoza 2-Misha 1.2 mg SUBCUT QAM 07/28/18 08/19/18 History albuterol sulfate [ProAir HFA] 2 puff INHALATION Q4H PRN 07/28/18 08/19/18 History aspirin 81 mg PO QAM 07/28/18 08/19/18 History carvedilol 6.25 mg PO QPM 07/28/18 08/19/18 History carvedilol 12.5 mg PO QAM 07/28/18 08/19/18 History clopidogrel [Plavix] 75 mg PO QAM 07/28/18 08/19/18 History cyclobenzaprine 5 mg PO TID PRN 07/28/18 08/19/18 History docusate sodium 100 mg PO BID PRN 07/28/18 08/19/18 History magnesium hydroxide [Milk of 15 ml PO Q2D 07/28/18 08/19/18 History Magnesia] metformin 1,000 mg PO BIDM 07/28/18 08/19/18 History nitroglycerin 0.4 mg SUBLINGUAL DIRECTED PRN 07/28/18 08/19/18 History polyethylene glycol 3350 [Miralax] 17 g PO DAILY PRN 07/28/18 08/19/18 History potassium chloride [Klor-Con M10] 10 meq PO BID 07/28/18 08/19/18 History rosuvastatin 40 mg PO QAM 07/28/18 08/19/18 History sildenafil [Viagra] 100 mg PO DAILY PRN 07/28/18 08/19/18 History Allergies Allergy/AdvReac Type Severity Reaction Status Date / Time valsartan Allergy Unknown fatigue Verified 08/19/18 17:35 lisinopril AdvReac Mild Cough Verified 08/19/18 17:35 canagliflozin AdvReac Unknown Excessive Verified 08/19/18 17:35 Urination Past Med/Surg History Medical History Coronary artery disease (Chronic) Per outpatient cardiology note: 1. Prior multiple coronary artery interventions dating back to 1993, prominently in the right coronary but ultimately leading to coronary artery bypass grafting in 1995 receiving a saphenous vein graft to the circumflex obtuse marginal, sequentially obtuse marginal 2, and a right internal mammary artery graft to the right coronary artery. 2. Later coronary artery interventions with stenting to the distal circumflex in 2003 after distal limb of the sequential graft occluded. 3. Coronary artery intervention August 2009 to the ostial portion saphenous vein graft and subsequent intervention of the distal right coronary artery to the right internal mammary artery, receiving a bare metal stent. 4. Underlying history of chronic angina pectoris as well as noncardiac chest pain. Most recent diagnostic cardiac catheterization in November 2011 without progression of coronary artery disease. Dyslipidemia (Chronic) Diabetes mellitus, type II (Chronic) History of renal calculi (Chronic) TMJ (temporomandibular joint disorder) (Chronic) Generalized osteoarthritis (Chronic) CAROL (obstructive sleep apnea) (Chronic) Diabetic neuropathy (Chronic) Obesity (Chronic) ACEI/ARB contraindicated (Chronic) Diabetic neuropathic arthropathy (Chronic) HTN (hypertension) (Chronic) Surgical History Hx of CABG (Chronic) Hx of right knee surgery (Chronic) S/P david (Chronic) History of tonsillectomy (Chronic) S/P nasal septoplasty (Chronic) Family History Brother Cardiac disease Mother Stroke Father Leukemia Social History Preferred Language: Faroese Communication Ability: Effective Computer Installer Required: No Beliefs That Will Affect Care: None Current Living Situation: Significant Other Other Information That Helps Us Care for You: No Feels Safe at Home: Yes Safety Concerns: Feels Safe At This Time Smoking Status: Never smoker Do You Dip or Chew Tobacco: No Hx Alcohol Use: Yes Alcohol type: beer, wine and hard liquor Hx Substance Use: No Review of Systems See HPI for pertinent positives & negatives. and A total of 10 systems reviewed and were otherwise negative Physical Exam Vital Signs Vital Signs - 24 hr 08/19/18 16:39 08/19/18 17:02 08/19/18 17:03 Temperature 37.2 C Temperature Source Oral Sepsis Recent Fever Within 48 Hours No Sepsis New/Unexplained Change in Mental Status No Sepsis Action Taken by Nursing No Action Required Pulse Rate 88 88 101 H Pulse Rate from SpO2 Sensor 100 H Pulse Rhythm Regular Respiratory Rate 18 18 21 Respiratory Effort / Characteristics Non-Labored Non-Labored Respiratory Depth Normal Normal Blood Pressure 155/80 H 98/63 L Blood Pressure Mean 105 74 Blood Pressure Position Sitting Pulse Oximetry 96 96 94 Oxygen Delivery Method Room Air Room Air Room Air 08/19/18 17:05 08/19/18 17:08 08/19/18 17:10 Temperature Temperature Source Sepsis Recent Fever Within 48 Hours Sepsis New/Unexplained Change in Mental Status Sepsis Action Taken by Nursing Pulse Rate 92 H 92 H 101 H Pulse Rate from SpO2 Sensor 102 H 89 99 H Pulse Rhythm Respiratory Rate 18 19 31 H Respiratory Effort / Characteristics Respiratory Depth Blood Pressure 117/66 122/66 93/68 L Blood Pressure Mean 83 84 76 Blood Pressure Position Pulse Oximetry 93 94 94 Oxygen Delivery Method Room Air Room Air Room Air 08/19/18 17:12 08/19/18 17:15 08/19/18 17:18 Temperature Temperature Source Sepsis Recent Fever Within 48 Hours Sepsis New/Unexplained Change in Mental Status Sepsis Action Taken by Nursing Pulse Rate 93 H 94 H 91 H Pulse Rate from SpO2 Sensor 91 H 92 H 92 H Pulse Rhythm Respiratory Rate 22 17 19 Respiratory Effort / Characteristics Respiratory Depth Blood Pressure 94/63 L 99/63 L 104/64 Blood Pressure Mean 73 75 77 Blood Pressure Position Pulse Oximetry 94 93 92 Oxygen Delivery Method Room Air Room Air Room Air 08/19/18 17:20 08/19/18 17:23 08/19/18 17:26 Temperature Temperature Source Sepsis Recent Fever Within 48 Hours Sepsis New/Unexplained Change in Mental Status Sepsis Action Taken by Nursing Pulse Rate 90 91 H 94 H Pulse Rate from SpO2 Sensor 92 H 92 H 94 H Pulse Rhythm Respiratory Rate 22 15 22 Respiratory Effort / Characteristics Respiratory Depth Blood Pressure 119/70 104/67 113/59 L Blood Pressure Mean 86 79 77 Blood Pressure Position Pulse Oximetry 92 95 94 Oxygen Delivery Method Room Air Room Air Room Air 08/19/18 17:28 08/19/18 17:30 08/19/18 17:34 Temperature Temperature Source Sepsis Recent Fever Within 48 Hours Sepsis New/Unexplained Change in Mental Status Sepsis Action Taken by Nursing Pulse Rate 92 H 91 H 92 H Pulse Rate from SpO2 Sensor 90 91 H 92 H Pulse Rhythm Respiratory Rate 17 19 16 Respiratory Effort / Characteristics Respiratory Depth Blood Pressure 102/63 121/68 110/67 Blood Pressure Mean 76 85 81 Blood Pressure Position Pulse Oximetry 94 93 93 Oxygen Delivery Method Room Air Room Air Room Air 08/19/18 17:35 08/19/18 17:38 08/19/18 18:00 Temperature Temperature Source Sepsis Recent Fever Within 48 Hours Sepsis New/Unexplained Change in Mental Status Sepsis Action Taken by Nursing Pulse Rate 92 H 93 H 88 Pulse Rate from SpO2 Sensor 92 H 95 H 89 Pulse Rhythm Respiratory Rate 17 20 18 Respiratory Effort / Characteristics Respiratory Depth Blood Pressure 111/63 108/70 93/60 L Blood Pressure Mean 79 82 71 Blood Pressure Position Pulse Oximetry 93 98 94 Oxygen Delivery Method Room Air Room Air Room Air 08/19/18 18:18 08/19/18 18:20 08/19/18 18:30 Temperature Temperature Source Sepsis Recent Fever Within 48 Hours Sepsis New/Unexplained Change in Mental Status Sepsis Action Taken by Nursing Pulse Rate 86 87 88 Pulse Rate from SpO2 Sensor 89 88 103 H Pulse Rhythm Respiratory Rate 24 23 23 Respiratory Effort / Characteristics Respiratory Depth Blood Pressure 124/73 132/78 135/65 Blood Pressure Mean 90 96 88 Blood Pressure Position Pulse Oximetry 96 97 96 Oxygen Delivery Method Room Air Room Air Room Air GENERAL: Awake, alert, well-appearing, in no distress HENT: Normocephalic, atraumatic. EYES: Normal conjunctiva. Sclera non-icteric. NECK: Supple. No nuchal rigidity. Trachea midline. RESPIRATORY: Clear to auscultation. No wheezes. Normal respiratory effort. CARDIAC: Normal rate. Irregular rhythm. Extremities warm and well perfused. GI: Soft, non-distended. No tenderness to palpation. No rebound or guarding. RECTAL: Deferred. MUSCULOSKELETAL: Atraumatic. Chest examination reveals no tenderness. LOWER EXTREMITIES: Calves are equal size bilaterally and non-tender. No edema NEURO: Normal sensorium. No sensory or motor deficits noted. No facial droop. SKIN: Warm and dry. No rash or jaundice noted. Course 165: The patient was evaluated in room B02. A complete history and physical exam was performed. 1735: I discussed the patient's case with Dr. Goldberg Cardiology. He recommended admission for further evaluation and no anti-coagulation. 1745: I discussed the patient's case with hospitalist team. Consultations Consultation #1: 1735: I discussed the patient's case with Dr. Goldberg Cardiology. He recommended admission for further evaluation and no anti- coagulation. Time: 17:35 Administered Medications Docusate Sodium (Colace) 100 mg PO BID [facility] Stop: 09/18/18 20:59 Last Admin: 08/19/18 21:20 Dose: 100 mg Documented by: [id number] Insulin Aspart (Novolog Flexpen) 0 units SC ACHS [facility] Stop: 09/18/18 20:59 Last Admin: 08/19/18 21:22 Dose: Not Given Documented by: [id number] Insulin Glargine (Lantus Solostar Pen) 15 units SC BID [facility] Stop: 09/18/18 20:59 Last Admin: 08/19/18 21:21 Dose: 15 units Documented by: [id number] Cosigned by: [id number] Polyethylene Glycol (Miralax Powder Packet) 17 gm PO DAILY [facility] Stop: 09/18/18 20:26 Last Admin: 08/19/18 21:20 Dose: 17 gm Documented by: [id number] Potassium Chloride (Klor-Con M10) 10 meq PO BID [facility] Stop: 09/18/18 20:59 Last Admin: 08/19/18 22:07 Dose: 10 meq Documented by: [id number] Discontinued Medications Morphine Sulfate (Morphine Sulfate) 2 mg IV NOW STA Stop: 08/19/18 17:37 Last Admin: 08/19/18 17:41 Dose: Not Given Documented by: [id number] Nitroglycerin (Nitrostat) 0.4 mg SL UD PRN PRN Reason: Chest Pain Stop: 09/18/18 16:48 Last Admin: 08/19/18 17:04 Dose: 0.4 mg Documented by: [id number] Admin: 08/19/18 16:57 Dose: 0.4 mg Documented by: [id number] Nitroglycerin (Nitrostat) Confirm Administered Dose 0.4 mg .ROUTE .STK-MED ONE Stop: 08/19/18 16:57 Last Admin: 08/19/18 17:20 Dose: Not Given Documented by: [id number] Medical Decision Making Differential Diagnosis Differential diagnosis: Etiologies such as cardiac ischemia, aortic dissection, pulmonary embolism, pneumonia, pneumothorax, musculoskeletal, infections, pericarditis, myocarditis, esophageal rupture, gastrointestinal, as well as others were entertained. Medical Records Attestation: I reviewed the patient's medical records. Home Medications Current Medication List: was personally reviewed by me Laboratory Data Attestation: I reviewed the patient's lab results. Result diagrams: 08/19/18 16:53 08/19/18 16:53 Lab Results 08/19/18 08/19/18 08/19/18 Range/Units 16:53 16:53 16:53 WBC 8.01 (4.8-10.8) K/uL RBC 5.10 (4.7-6.1) M/uL Hgb 15.1 (14.0-18.0) g/dL Hct 43.0 (42-52) % MCV 84.3 (80-100) fL MCH 29.6 (25-34) pg MCHC 35.1 (32-36) g/dL RDW Std Deviation 41.3 (36.4-46.3) fL RDW Coeff of Aaron 13.5 (11.5-14.5) % Plt Count 149 (130-400) K/uL MPV 9.9 (7.4-10.4) fL Immature Gran % (Auto) 0.1 % Neut % (Auto) 70.4 % Lymph % (Auto) 21.8 % Winn % (Auto) 5.9 % Eos % (Auto) 1.6 % Baso % (Auto) 0.2 % Immature Gran # (Auto) 0.01 (0.00-0.02) K/uL Neut # (Auto) 5.63 (1.4-6.5) K/uL Lymph # (Auto) 1.75 (1.2-3.4) K/uL Winn # (Auto) 0.47 (0.11-0.59) K/uL Eos # (Auto) 0.13 (0-0.5) K/uL Baso # (Auto) 0.02 (0-0.2) K/uL PT 9.8 (9.0-12.0) Seconds INR 1.0 (0.9-1.1) APTT 24.9 (21.0-31.0) Seconds PTT Ratio 0.9 Sodium 140 (136-145) mmol/L Potassium 4.0 (3.5-5.1) mmol/L Chloride 105 (98-107) mmol/L Carbon Dioxide 28 (21-32) mmol/L Anion Gap 7.0 (3-11) BUN 16 (7-18) mg/dl Creatinine 1.07 (0.6-1.4) mg/dl Est Cr Clr Drug Dosing 86.8 ml/min Est GFR ( Amer) 82.8 Est GFR (Non-Af Amer) 71.5 BUN/Creatinine Ratio 14.6 (10-20) Glucose 122 H (70-99) mg/dl Calcium 8.8 (8.5-10.1) mg/dl Total Bilirubin 0.6 (0.2-1) mg/dl AST 20 (15-37) U/L ALT 32 (12-78) U/L Alkaline Phosphatase 88 (45-117) U/L POC Troponin I (0-0.045) ng/ml Troponin I 0.028 (0-0.045) ng/ml Total Protein 7.0 (6.4-8.2) gm/dl Albumin 3.5 (3.4-5.0) gm/dl Globulin 3.5 (2.5-4.0) gm/dl Albumin/Globulin Ratio 1.0 (0.9-2) Lipase 89 (73-393) U/L 08/19/18 Range/Units 17:19 WBC (4.8-10.8) K/uL RBC (4.7-6.1) M/uL Hgb (14.0-18.0) g/dL Hct (42-52) % MCV (80-100) fL MCH (25-34) pg MCHC (32-36) g/dL RDW Std Deviation (36.4-46.3) fL RDW Coeff of Aaron (11.5-14.5) % Plt Count (130-400) K/uL MPV (7.4-10.4) fL Immature Gran % (Auto) % Neut % (Auto) % Lymph % (Auto) % Winn % (Auto) % Eos % (Auto) % Baso % (Auto) % Immature Gran # (Auto) (0.00-0.02) K/uL Neut # (Auto) (1.4-6.5) K/uL Lymph # (Auto) (1.2-3.4) K/uL Winn # (Auto) (0.11-0.59) K/uL Eos # (Auto) (0-0.5) K/uL Baso # (Auto) (0-0.2) K/uL PT (9.0-12.0) Seconds INR (0.9-1.1) APTT (21.0-31.0) Seconds PTT Ratio Sodium (136-145) mmol/L Potassium (3.5-5.1) mmol/L Chloride (98-107) mmol/L Carbon Dioxide (21-32) mmol/L Anion Gap (3-11) BUN (7-18) mg/dl Creatinine (0.6-1.4) mg/dl Est Cr Clr Drug Dosing ml/min Est GFR ( Amer) Est GFR (Non-Af Amer) BUN/Creatinine Ratio (10-20) Glucose (70-99) mg/dl Calcium (8.5-10.1) mg/dl Total Bilirubin (0.2-1) mg/dl AST (15-37) U/L ALT (12-78) U/L Alkaline Phosphatase (45-117) U/L POC Troponin I < 0.03 (0-0.045) ng/ml Troponin I (0-0.045) ng/ml Total Protein (6.4-8.2) gm/dl Albumin (3.4-5.0) gm/dl Globulin (2.5-4.0) gm/dl Albumin/Globulin Ratio (0.9-2) Lipase (73-393) U/L Imaging Data Radiologist's Impression: Radiology results as stated below per my review and the radiologist's interpretation: SINGLE VIEW CHEST CLINICAL HISTORY: Atypical chest pain. FINDINGS: An AP, portable, upright chest radiograph is compared to study dated 07/28/2018. The patient is status post midline sternotomy. The heart is enlarged and there is atherosclerotic calcification of the thoracic aorta. The pulmonary vasculature is noncongested. There is mild bibasilar atelectasis. No airspace consolidation or large pleural effusion is identified. No pneumothorax is seen. The skeletal structures are osteopenic. The bony thorax is grossly intact. IMPRESSION: Cardiomegaly with no active disease in the chest. Electronically signed by: Eric Montaño M.D. 08/19/2018 5:20 PM ECG Data Attestation: I personally reviewed and interpreted this ECG as follows: Indication: chest pain Rate (beats per minute): 82 Rhythm: normal sinus Findings: + PAC and + T-wave inversion (Lateral and some inferior ); no ST elevation Comparison ECG Date: from (07/30/18) Change: the following changes noted (now with PACs) Blood Pressure Blood Pressure Findings: Normal blood pressure Blood Pressure Disposition: further management by hospitalist DEEPTHI Hernandez Patient is a 67-year-old gentleman with a history of diabetes, hypertension, and extensive CAD recently here and at [facility] 2 weeks ago for cardiac chest pain and had stents placed. Started to have some intermittent pain in his left shoulder blade over the past week more extensive starting at 10 AM this morning. Patient did take some aspirin which helped but then pain returned. Endorses a feel similar to prior cardiac chest pain. States compliance with aspirin and Plavix and took 2 regular take aspirin earlier this afternoon. Denies any trauma. Pain into the left shoulder blade under the left arm and occasionally her wrist. Nontender no trauma reported. EKG without significant changes compared to prior from July 30 with scattered T wave inversions noted. Troponin was ordered as I have concern for developing ACS/unstable angina/NSTEMI. Lower suspicion for acute dissection or PE. Chest x-ray was obtained as well as basic laboratory studies. No acute evidence of hepatitis or pancreatitis. Nitroglycerin was given here as a patient denied recent sildenafil use; there was improvement of his discomfort/pain from 3 or 4 to a 1 or 2. Basic laboratory studies here show no significant leukocytosis or anemia. Patient does endorse some cough patient issues that have been long- standing for him but no other signs of GI bleeding. Patient did have bowel movement earlier today. Doubt GI obstruction. Likely just chronic constipation issues. Patient's laboratory studies here are grossly unremarkable other than a laboratory troponin just detectable and actually similar to previous near 0.028. After 2 nitroglycerin the patient's symptoms are nearly totally resolved. Discussed with cardiology recommended observation overnight for further monitoring and evaluation[facility]. Patient declined any narcotics at this point and on this re evaluation patient actually resolution of symptoms. Impression & Plan Chest pain Discharge Plan Visit Data *Final* Discharge Date/Time: 08/19/18 19:08 Chief Complaint: Chest Pain Stated Complaint: CHEST PAIN ED Provider: Chris Austin Discharge Problem: Chest pain Patient Disposition: Admitted As Inpatient Discharge Instructions Interventions: ED Discharge Assessment Last Done: 08/19/18 19:08 Discharge Problem: Chest pain Qualifiers: Chest pain type: unspecified Qualified Code(s): R07.9 - Chest pain, unspecified The scribe's documentation has been prepared under my direction and personally reviewed by me in its entirety. I confirm that the note above accurately reflects all work, treatment, procedures, and medical decision making performed by me.
--- NOTE | 2018-08-19 18:44 | History & Physical Report ---
Date of Service August 19, 2018 Assessment & Plan (1) Unstable angina: Pt is significant CAD s/p multiple stents, CABG Pt with recent hospitalization at [facility] on 07/29/18 with transfer to [facility] for unstable angina with EKG changes. on 07/30/18. Had cardiac cath 07/31/2018 and had ROBIN to mid LAD. On cath had noted LCx with moderate disease, [place] RCA occluded proximally, SVG jump graft to OM1-OM2 occluded, PERRI to rPDA patent with distal rPDA 80% stenosis. He started with recurrent L shoulder blade pain 4 days after discharge. Yesterday with anterior chest pressure resolved with 1 SL nitroglycerin. Today increased anterior chest pressure with associated nausea, diaphoresis. In ER vitals stable with P: 88, BP: 155/80, 96% on RA. EKG with noted T wave inversions I, AVL, V4-V6 which is similar to EKG from 07/30/18. Troponin: 0.028 (was 0.023 on 07/30/18) -Pt took 325mg aspirin today prior to ER arrival -Pt received 2 SL nitro with relief of CP. He currently resting comfortably. -Monitor Vitals -Repeat EKG in am -Will trend troponin -Echo -Continue statin, aspirin, Plavix -Hold carvedilol tonight in case of stress test -Nitro prn CP and repeat EKG for CP and plan to place nitro paste -Cardiology consult, call or contact centre operator was notified by ER and per ER provider had recommendation for trending enzymes and holding on heparin at this time (2) HTN (hypertension): Stable -Pt was prescribed losartan upon discharge from [facility] on 08/01/18, however pt has not taken as he received a notice about recall on Losartan (unsure if his rx was from affected time stamp assembler) -Will start losartan with needing close outpatient follow up of labs -Will hold carvedilol tonight in case of possible stress test (3) Diabetes mellitus, type II: A1c: 9.1 -Hold metformin, home Novolin 70/30 -Lantus and Novolog sliding scale per protocol (4) Dyslipidemia: -Continue statin DVT Prophylaxis -Lovenox SQ Full Code as per discussion with pt, however pt states would not want prolonged attempt at resuscitation Follows with Dr Joel Faria for routine care Pt was seen and care coordinated with Dr Brunner. See addendum History of Present Illness Chief Complaint: CP Primary Care Provider: Joel Faria DO Pt is 67 y/o M with significant hx CAD s/p multiple stents, CABG, with most recent ROBIN to mid LAD on 07/31/18, HTN, dyslipidemia, DM II presented to ER with c/o CP. Patient with history of hospitalization 07/29/2018-07/30/2018 at [facility] for unstable angina and had noted EKG changes with T wave inversion inferior and anterior lateral leads on initial EKG with repeat EKG showing Q waves in inferior leads and T wave inversion I, AVL, V3-V6 and patient was transferred to [facility] [place]. Admitted to [facility] 07/30/2018-08/01/2018. Had cardiac catheterization 07/31/2018 and had ROBIN to mid LAD. On cath had noted LCx with moderate disease, [place] RCA occluded proximally, SVG jump graft to OM1-OM2 occluded, PERRI to rPDA patent with distal rPDA 80% stenosis. He was discharged on losartan 25mg daily, however pt states received info that it was recalled so he never start taking med. Patient reports was feeling well after discharge and was able to walk up his incline driveway without SOB. He started with some symptoms again approx 4 days after discharge. He describes left shoulder blade pain that has been intermittent over the past couple weeks. Patient states yesterday had increased left shoulder blade pain and was having anterior chest pressure with associated nausea. He took one nitroglycerin with relief. Patient states today had increased anterior chest pressure with nausea also c/o pain near L axilla. He states these pains are similar to his prior cardiac events however he was not as diaphoretic today like he had been prior. Denies any vomiting or shortness of breath. Pt reports in past has noticed "heart skipping beats" which wakes him up from sleep and denies any associated CP, SOB, dizziness with this. States this occurs a couple of times a month. Denies any palpitations recently. Denies fever/chills, WILLIAMSON, dizziness, syncope, vision changes, neck pain, cough, sore throat, choking, otalgia, rhinorrhea, abdominal pain, paresthesias, extremity weakness, extremity edema, rashes, urinary symptoms. Allergies Allergy/AdvReac Type Severity Reaction Status Date / Time valsartan Allergy Unknown fatigue Verified 08/19/18 17:35 lisinopril AdvReac Mild Cough Verified 08/19/18 17:35 canagliflozin AdvReac Unknown Excessive Verified 08/19/18 17:35 Urination Home Medications Home Medications Medication Instructions Recorded Confirmed Type Ex-Lax (sennosides) 30 mg PO Q2D 07/28/18 08/19/18 History Novolin 70/30 U-100 Insulin 40 unit SUBCUT QAM 07/28/18 08/19/18 History Novolin 70/30 U-100 Insulin 44 unit SUBCUT QPM 07/28/18 08/19/18 History Victoza 2-Misha 1.2 mg SUBCUT QAM 07/28/18 08/19/18 History albuterol sulfate [ProAir HFA] 2 puff INHALATION Q4H PRN 07/28/18 08/19/18 History aspirin 81 mg PO QAM 07/28/18 08/19/18 History carvedilol 6.25 mg PO QPM 07/28/18 08/19/18 History carvedilol 12.5 mg PO QAM 07/28/18 08/19/18 History clopidogrel [Plavix] 75 mg PO QAM 07/28/18 08/19/18 History cyclobenzaprine 5 mg PO TID PRN 07/28/18 08/19/18 History docusate sodium 100 mg PO BID PRN 07/28/18 08/19/18 History magnesium hydroxide [Milk of 15 ml PO Q2D 07/28/18 08/19/18 History Magnesia] metformin 1,000 mg PO BIDM 07/28/18 08/19/18 History nitroglycerin 0.4 mg SUBLINGUAL DIRECTED PRN 07/28/18 08/19/18 History polyethylene glycol 3350 [Miralax] 17 g PO DAILY PRN 07/28/18 08/19/18 History potassium chloride [Klor-Con M10] 10 meq PO BID 07/28/18 08/19/18 History rosuvastatin 40 mg PO QAM 07/28/18 08/19/18 History sildenafil [Viagra] 100 mg PO DAILY PRN 07/28/18 08/19/18 History Past Med/Surg History Medical History Coronary artery disease (Chronic) Per outpatient cardiology note: 1. Prior multiple coronary artery interventions dating back to 1993, prominently in the right coronary but ultimately leading to coronary artery bypass grafting in 1995 receiving a saphenous vein graft to the circumflex obtuse marginal, sequentially obtuse marginal 2, and a right internal mammary artery graft to the right coronary artery. 2. Later coronary artery interventions with stenting to the distal circumflex in 2003 after distal limb of the sequential graft occluded. 3. Coronary artery intervention August 2009 to the ostial portion saphenous vein graft and subsequent intervention of the distal right coronary artery to the right internal mammary artery, receiving a bare metal stent. 4. Underlying history of chronic angina pectoris as well as noncardiac chest pain. Most recent diagnostic cardiac catheterization in November 2011 without progression of coronary artery disease. Dyslipidemia (Chronic) Diabetes mellitus, type II (Chronic) History of renal calculi (Chronic) TMJ (temporomandibular joint disorder) (Chronic) Generalized osteoarthritis (Chronic) CAROL (obstructive sleep apnea) (Chronic) Diabetic neuropathy (Chronic) Obesity (Chronic) ACEI/ARB contraindicated (Chronic) Diabetic neuropathic arthropathy (Chronic) HTN (hypertension) (Chronic) Surgical History Hx of CABG (Chronic) Hx of right knee surgery (Chronic) S/P david (Chronic) History of tonsillectomy (Chronic) S/P nasal septoplasty (Chronic) Family History Brother Cardiac disease Mother Stroke Father Leukemia Social History Preferred Language: Yoruba Communication Ability: Effective [employer] Converter Required: No Beliefs That Will Affect Care: None Current Living Situation: Significant Other Other Information That Helps Us Care for You: No Feels Safe at Home: Yes Safety Concerns: Feels Safe At This Time Smoking Status: Never smoker Do You Dip or Chew Tobacco: No Hx Alcohol Use: Yes Alcohol type: beer, wine and hard liquor Hx Substance Use: No Review of Systems Review of Systems: All systems reviewed & are unremarkable except as noted in HPI & below Physical Exam Physical Exam: General: obese, appears diaphoretic Head: normocephalic, atraumatic Eyes: PERRL, EOM's intact, conjunctiva non-injected, anicteric ENT: normal inspection external ears, nose, mucous membranes moist Neck: supple, trachea midline, non-tender Lungs: clear, no respiratory distress, no wheezing/rhonchi/rales CV: RRR, systolic murmur, no JVD, trace pretibial edema Abd: normal BS, soft, non-tender Ext: no cyanosis, no calf tenderness Neuro: A&O x 3, no focal deficits noted, normal affect Skin: warm, dry Results & Data Vital Signs (Past 12 Hours) Vital Signs Temp Pulse Resp BP Pulse Ox 08/19/18 18:30 88 23 135/65 96 08/19/18 18:20 87 23 132/78 97 08/19/18 18:18 86 24 124/73 96 08/19/18 18:00 88 18 93/60 L 94 08/19/18 17:38 93 H 20 108/70 98 08/19/18 17:35 92 H 17 111/63 93 08/19/18 17:34 92 H 16 110/67 93 08/19/18 17:30 91 H 19 121/68 93 08/19/18 17:28 92 H 17 102/63 94 08/19/18 17:26 94 H 22 113/59 L 94 08/19/18 17:23 91 H 15 104/67 95 08/19/18 17:20 90 22 119/70 92 08/19/18 17:18 91 H 19 104/64 92 08/19/18 17:15 94 H 17 99/63 L 93 08/19/18 17:12 93 H 22 94/63 L 94 08/19/18 17:10 101 H 31 H 93/68 L 94 08/19/18 17:08 92 H 19 122/66 94 08/19/18 17:05 92 H 18 117/66 93 08/19/18 17:03 101 H 21 98/63 L 94 08/19/18 17:02 88 18 96 08/19/18 16:39 37.2 C 88 18 155/80 H 96 Laboratory Results Short CBC 08/19/18 Range/Units 16:53 WBC 8.01 (4.8-10.8) K/uL Hgb 15.1 (14.0-18.0) g/dL Hct 43.0 (42-52) % Plt Count 149 (130-400) K/uL BMP 08/19/18 16:53 Sodium 140 Potassium 4.0 Chloride 105 Carbon Dioxide 28 BUN 16 Creatinine 1.07 Glucose 122 H Calcium 8.8 Cardiac Enzymes 08/19/18 Range/Units 16:53 Troponin I 0.028 (0-0.045) ng/ml Liver Function 08/19/18 Range/Units 16:53 Total Bilirubin 0.6 (0.2-1) mg/dl AST 20 (15-37) U/L ALT 32 (12-78) U/L Alkaline Phosphatase 88 (45-117) U/L Albumin 3.5 (3.4-5.0) gm/dl Diagnostic Findings CXR: IMPRESSION: Cardiomegaly with no active disease in the chest. ECG Rate (beats per minute): 82 Rhythm: sinus rhythm Additional Comments: T wave inversion I, aVL, V4, V5, V6 (similar compared to EKG on 07/30/18) Supervising Physician Co-Signing Physician Notes I have seen and examined the patient and have discussed the case with the provider above. I agree with the assessment and plan as stated with the following exceptions. Mr. Julien is a 67-year-old poorly controlled diabetic man with known severe CAD status post CABG in 1995 who recently received a drug-eluting stent to mid LAD on 07/31/2018 at [facility]. He reports his index angina returning and waxing and waning approximately 4 days after discharge. This intensified over the last week and a half and became much worse today with associated symptoms including diaphoresis, nausea. He is in no acute distress on exam but is mildly diaphoretic. He denies chest pain after nitro given in the ER today. Bilateral blood pressures were 124/73 on the right and 132/78 on the left. He does not describe his pain as a ripping or tearing pain from front to back, and as above this is his index angina per his report. Physical exam revealed no evidence of JVD or peripheral edema. Cardiac auscultation revealed a 3 out of 6 systolic ejection murmur at the left sternal border with radiation to the neck. This is new from prior exams. His lungs are clear to auscultation bilaterally and he is in no acute respiratory distress. He has 2+ peripheral pulses bilaterally. Lab work reveals a negative troponin and an EKG that is unchanged from prior including T wave inversions in the lateral leads as well as V3 through V6. There are no ST changes consistent with acute ischemia. Plan will be to add Nitropaste if he re-pains, trend serial cardiac enzymes overnight, repeat echocardiogram at rest, hold beta-spencer in preparation for possible stress echocardiogram in a.m. Cardiology was consulted and per ER provider, no heparin is recommended at this time. Continue medical management with aspirin, statin, Plavix. Beta-spencer held as above and losartan, although started at discharge earlier this month, was recalled from the time stamp assembler and the patient has not started it yet. Will start this now at 25 mg p.o. daily, and he will need repeat blood work in 2 weeks as outpatient. DO Kannan (1) Diabetes mellitus, type II Diabetes mellitus complication status: with other specified complication Diabetes mellitus exterminator termite insulin use: unspecified exterminator termite insulin use status Qualified Code(s): E11.69 - Type 2 diabetes mellitus with other specified complication
[2018-08-19] MEDS ORDERED: CYCLOBENZAPRINE HCL 5 MG TAB PO PRN (19:29)
[2018-08-19] MEDS ORDERED: GLUCAGON FOR INJ 1 MG VIAL SQ PRN (20:27)
[2018-08-19] MEDS ORDERED: GLUCOSE 10 TABS/TUBE PO PRN (20:27)
[2018-08-19] MEDS ORDERED: ACETAMINOPHEN 325 MG TAB PO PRN (20:27)
[2018-08-19] MEDS ORDERED: DEXTROSE 50% 50 ML SYRINGE IV PRN (20:27)
[2018-08-19] MEDS ORDERED: CARBOHYDRATES FOR HYPOGLYCEMIA PO PRN (20:27)
[2018-08-19] MEDS ORDERED: GLUCOSE 40% GEL 15 GM TUBE PO PRN (20:27)
[2018-08-19] MEDS ORDERED: ONDANSETRON INJ 2 MG/ML 2 ML VIAL IV PRN (20:27)
[2018-08-19] MEDS ORDERED: ALBUTEROL HFA 8 GM INHALER INH PRN (20:30)
[2018-08-19] MEDS: POLYETHYLENE (MIRALAX) 17 GM PACK PO SCH (21:20)
[2018-08-19] MEDS: DOCUSATE SODIUM 100 MG CAP PO SCH (21:20)
[2018-08-19] MEDS: INSULIN GLARGINE SOLOSTAR 100 UNITS/ML 3 ML PEN SC SCH (21:21)
[2018-08-19] MEDS: INSULIN ASPART 100 UNITS/ML 3 ML PEN SC SCH (21:22)
[2018-08-19] MEDS: POTASSIUM CHLORIDE 10 MEQ TABCR PO SCH (22:07)
[2018-08-20 05:25] LABS: Hematocrit (blood only) 40.1 % (42-52); Hemoglobin 13.8 g/dL (14.0-18.0); Mean Corpuscular Hgb Conc 34.4 g/dL (32-36); Mean Platelet Volume 9.8 fL (7.4-10.4); Platelet Count 125 K/uL (130-400); RDW Coefficient of Variation 13.4 % (11.5-14.5); Red Blood Count 4.72 M/uL (4.7-6.1); White Blood Count 6.68 K/uL (4.8-10.8)
[2018-08-20 05:34] LABS: BUN Creatinine Ratio 14.8 (10-20); Calcium 8.4 mg/dl (8.5-10.1); Creatinine Clr Calc Pharmacy 90.2 ml/min; Est GFR (African American) 86.7; Est GFR (Non-African American) 74.8; Magnesium 2.3 mg/dl (1.8-2.4); Potassium 4.2 mmol/L (3.5-5.1)
[2018-08-20 05:38] LABS: Troponin I 0.031 ng/ml (0-0.045)
[2018-08-20] MEDS: POTASSIUM CHLORIDE 10 MEQ TABCR PO SCH ×2 (07:37→20:51)
[2018-08-20] MEDS: CLOPIDOGREL BISULFATE 75 MG TAB PO SCH (07:38)
[2018-08-20] MEDS: ASPIRIN 81 MG ECTAB PO SCH (07:38)
[2018-08-20] MEDS: ROSUVASTATIN CALCIUM 20 MG TAB PO SCH (07:38)
[2018-08-20] MEDS: INSULIN GLARGINE SOLOSTAR 100 UNITS/ML 3 ML PEN SC SCH ×2 (07:39→20:52)
[2018-08-20] MEDS: POLYETHYLENE (MIRALAX) 17 GM PACK PO SCH (07:39)
[2018-08-20] MEDS: DOCUSATE SODIUM 100 MG CAP PO SCH ×2 (07:39→20:50)
[2018-08-20] MEDS: INSULIN ASPART 100 UNITS/ML 3 ML PEN SC SCH ×4 (07:41→20:53)
[2018-08-20] MEDS: ENOXAPARIN INJ 40 MG/0.4 ML SYR SQ SCH (07:42)
[2018-08-20] MEDS ORDERED: ISOSORBIDE MONO EXTENDED REL 60 MG TABCR PO SCH (09:00)
[2018-08-20] MEDS ORDERED: PERFLUTREN LIPID MICROSPHERE (DEFINITY) IV ONE (09:15)
[2018-08-20] MEDS: METOPROLOL SUCC 25MG EXT REL TAB PO SCH (10:07)
[2018-08-20] MEDS: ISOSORBIDE MONO EXTENDED REL 30 MG TABCR PO SCH (10:07)
--- NOTE | 2018-08-20 13:37 | Consultation Report ---
DATE OF CONSULTATION: 08/20/2018 INPATIENT CARDIOLOGY CONSULTATION CONSULTATION REQUESTED BY: Dr. Carreno. REASON FOR CONSULTATION: Chest pain with underlying complex coronary artery disease. HISTORY OF PRESENT ILLNESS: Mr. Wheeler is a very pleasant, yet very cardiovascularly complex 67-year-old gentleman who presented to [facility] Emergency Department on 08/19/2018 with complaints of chest discomfort. The patient was recently admitted to [facility] and was resultantly transferred to [facility] in [place], received a drug-eluting stent to his LAD in the setting of chest discomfort. After discharge, the patient states he was feeling well for approximately 2 days, then he started having issues with abdominal pain and nausea. He notes that he has recently been started on Victoza and thinks that might have been the cause, but he has just been feeling constipated and uncomfortable. Then, approximately 1 day prior to presentation, he developed chest discomfort. He described it as a substernal light pressure sensation, just feeling as though someone is giving him a strong hug around his entire precordium. He is feeling a slight pressure in his left scapula as well. He states that this started yesterday morning when he was up walking around. He took a nitroglycerin with relief. He then had recurrence later in the day and came into the Emergency Department. Upon arrival to the Emergency Department, there was no signs of any active ischemia. His EKG was unchanged. Troponins were unremarkable and he was admitted to telemetry. I discussed the case with Dr. Carreno and his medications were adjusted. He was started on Imdur and his carvedilol was held in anticipation of changing to metoprolol. He states overnight he has been feeling well. He has had no recurrence of his discomfort and is feeling well this morning after receiving both metoprolol and Imdur. PAST SURGICAL HISTORY: 1. Multiple coronary interventions dating back to 1993, primarily in the right coronary artery. 2. Coronary artery bypass grafting surgery in 1995 with a vein graft to the circumflex, obtuse marginal and sequentially to OM2 and a PERRI to the right coronary artery. 3. Followup intervention with PCI to the circumflex after distal limb of the sequential graft was occluded. 4. PCI to the ostial portion of the saphenous vein graft and RCA and PERRI in 2009. 5. PCI to the LAD on 07/31/2018. 6. Total knee replacement. 7. Colonoscopies. 8. Cholecystectomy. 9. Sinus surgery. 10. Tonsil and adenoidectomy as a child. MEDICAL ILLNESSES: 1. Complex coronary artery disease as above. 2. Asthmatic lung disease. 3. Obesity. 4. Type 2 diabetes. 5. Dyslipidemia. 6. Mild ischemic cardiomyopathy. 7. Diabetic neuropathy. FAMILY HISTORY: Noncontributory. SOCIAL HISTORY: Denies any tobacco use. Drinks occasional alcohol. Denies any recreational drug use. REVIEW OF SYSTEMS: As per HPI. All other review of systems reviewed and negative at this time. ALLERGIES: 1. LISINOPRIL. 2. VALSARTAN. 3. INVOKANA. MEDICATIONS AN OUTPATIENT PREVIOUSLY: 1. Carvedilol 12.5 mg q.a.m., 6.25 mg q.p.m. 2. Losartan 25 mg daily. 3. Aspirin 81 mg daily. 4. Plavix 75 mg daily. 5. Crestor 40 mg daily. 6. Lasix 20 mg p.o. p.r.n. 7. Metformin b.i.d. 8. Insulin as directed. 9. Victoza. PHYSICAL EXAMINATION: VITAL SIGNS: Temperature 36.4, pulse 84, respiratory rate 12, blood pressure 152/81. GENERAL: Awake, alert, oriented x3, in no acute distress. HEENT: Normocephalic, atraumatic. Pupils equal, round, reactive to light and accommodation. Extraocular muscles intact. Anicteric sclerae. Moist mucous membranes. NECK: No JVD, no bruit. CARDIOVASCULAR: Regular. Positive S4. Normal S1 and S2. No S3. 3/6 mid to late systolic ejection murmur greatest at the right sternal border second intercostal space with radiation to bilateral carotids. No rubs. PULMONARY: Clear to auscultation bilaterally. No rales, rhonchi, or wheezing. ABDOMEN: Bowel sounds x4, soft. No rebound, guarding, or tenderness. No organomegaly. EXTREMITIES: No clubbing, cyanosis or edema. +2 pedal pulses bilaterally. SKIN: Warm and dry. TEST RESULTS: A 2D echocardiogram performed today, was read as compared to previous study of 07/29/2018, no significant change. LV systolic function is mildly reduced, EF 45%-50%. There is a large sized septal inferior-posterior wall motion abnormality with hypokinesis to akinesis of the segments. Troponin negative x3. IMPRESSION: 1. Stable angina. 2. Complex coronary artery disease, most recently receiving percutaneous coronary intervention to the left anterior descending on 07/29/2018 with otherwise diffuse disease. 3. Diabetes. 4. Mild ischemic cardiomyopathy, stable. RECOMMENDATIONS: It was my pleasure to see Mr. Julien in consultation today. From a cardiac standpoint, I believe his chest discomfort represents stable angina and the most prudent course of action at this point will be for medication titration. So to that end, his carvedilol will be discontinued and changed to metoprolol succinate for greater selective beta blockade. He has been started on long-acting Imdur and should he remain symptom free overnight, we will likely discharge to home in the a.m. His aspirin and Plavix will largely be continued uninterrupted along with his losartan and Crestor. Should he have any recurrence of chest discomfort, we could always increase beta spencer dose, nitrate dose or even add amlodipine.
--- NOTE | 2018-08-20 14:27 | Hospitalist Progress Note ---
Date of Service August 20, 2018 Assessment & Plan (1) Unstable angina: Present on admssion with chest pain and left shoulder pain associated with nausea and diaphoresis Recently transfer from [facility] [place] [facility] [place] with EKG changes on 07/30/18. S/P cardiac cath 07/31/2018 and with successful PCI wit ROBIN to mid LAD. Troponin x3 negative EKG showed no significant changes Cardiology on board recommended medical management Carvedilol changed to Metoprolol succinate 25mg daily Imdur added last night and will continue it Continue plavix and aspirin and statin ECHO showed LV systolic function is mildly reduced, EF 45%-50%. There is a large sized septal inferior-posterior wall motion abnormality with hypokinesis to akinesis of the segments. Pt does not want to start the Losartan due to recalled email he received from [employer] Clinically improves significantly (2) HTN (hypertension): BP fluctuated He does not want to start the Losartan due to Recalled notice received from [employer] about the Losartan Continue Metoprolol and imdur If BP not at goal, will titrate meds Continue monitor BP (3) Diabetes mellitus, type II: A1c: 9.1 Metformin on hold On Lantus and Novolog sliding scale per protocol Monitor BS (4) Dyslipidemia: Continue statin DVT Prophylaxis Lovenox SQ CODE STATUS Full Code Disposition Possible discharge in am if stable from cardiac standpoint Subjective Pt was seen and examined Sitting in chair with no distress Pt said that he feels fine He said that he doesn't have any chest discomfort He said that he ambulated in the hallway with no problem Pt said that he does not want to start the Losartan because he received an email from [employer] there was a recalled about it Denies any chest pain, palpitation, dizziness and SOB Physical Exam Physical Exam: General- No acute distress Head- atraumatic Eyes- PERRL, EOMI, ENT- oropharynx clear Neck- supple, no JVD Lungs- clear to auscultation Heart- regular rhythm; no murmur Abdomen- normal bowel sounds, soft, nontender Extremities- no calf tenderness Neuro- alert, oriented x 3; PERRL, EOMI; no facial palsy; no dysarthria Skin- warm & dry Results & Data Vital Signs (Past 12 Hours) Vital Signs Temp Pulse Resp BP BP Pulse Ox 08/20/18 11:19 36.4 C L 84 16 152/81 H 96 08/20/18 10:06 77 155/79 H 08/20/18 07:28 36.6 C 89 16 154/81 H 97 08/20/18 03:58 36.7 C 62 20 131/73 96 (1) Diabetes mellitus, type II Diabetes mellitus complication status: with other specified complication Diabetes mellitus terminal system operator insulin use: unspecified terminal system operator insulin use status Qualified Code(s): E11.69 - Type 2 diabetes mellitus with other specified complication
[2018-08-21 06:56] LABS: Estimated Average Glucose 183 mg/dl
[2018-08-21] MEDS: ISOSORBIDE MONO EXTENDED REL 30 MG TABCR PO SCH (08:36)
[2018-08-21] MEDS: POLYETHYLENE (MIRALAX) 17 GM PACK PO SCH (08:36)
[2018-08-21] MEDS: CLOPIDOGREL BISULFATE 75 MG TAB PO SCH (08:36)
[2018-08-21] MEDS: METOPROLOL SUCC 25MG EXT REL TAB PO SCH (08:36)
[2018-08-21] MEDS: DOCUSATE SODIUM 100 MG CAP PO SCH (08:36)
[2018-08-21] MEDS: ROSUVASTATIN CALCIUM 20 MG TAB PO SCH (08:37)
[2018-08-21] MEDS: POTASSIUM CHLORIDE 10 MEQ TABCR PO SCH (08:37)
[2018-08-21] MEDS: ASPIRIN 81 MG ECTAB PO SCH (08:37)
[2018-08-21] MEDS: INSULIN ASPART 100 UNITS/ML 3 ML PEN SC SCH (08:39)
[2018-08-21] MEDS: INSULIN GLARGINE SOLOSTAR 100 UNITS/ML 3 ML PEN SC SCH (08:40)
[2018-08-21] MEDS: ENOXAPARIN INJ 40 MG/0.4 ML SYR SQ SCH (08:41)
--- NOTE | 2018-08-21 10:23 | Hospitalist Progress Note ---
Date of Service August 21, 2018 Assessment & Plan (1) Unstable angina: Present on admssion with chest pain and left shoulder pain associated with nausea and diaphoresis S/P cardiac cath 07/31/2018 and with successful PCI wit ROBIN to mid LAD. Troponin x3 negative and EKG showed no significant changes Cardiology on board recommended medical management Carvedilol changed to Metoprolol succinate 25mg daily Imdur added for ongoing chest pain Continue plavix and aspirin and statin ECHO showed LV systolic function is mildly reduced, EF 45%-50%. There is a large sized septal inferior-posterior wall motion abnormality with hypokinesis to akinesis of the segments. Was evaluated by cardiology this morning and advised that he can be discharged Denies any symptoms of chest pain, palpitation and/or shortness of breath Ambulating in the hallway without any difficulty (2) HTN (hypertension): BP fluctuated He does not want to start the Losartan due to Recalled notice received from [employer] about the Losartan Continue Metoprolol and imdur If BP not at goal, will titrate meds Continue monitor BP-remains on the upper side (3) Diabetes mellitus, type II: A1c: 9.1 Metformin on hold On Lantus and Novolog sliding scale per protocol Monitor BS-controlled (4) Dyslipidemia: Continue statin DVT Prophylaxis Lovenox SQ CODE STATUS Full Code Disposition Will discharge this afternoon Subjective 08/21 The patient was seen and examined in telemetry unit He is status post cardiac cath on 07/31/2018 and had ROBIN to mid LAD. On cath had noted LCx with moderate disease, three affiliated RCA occluded proximally, SVG graft to OM1-OM2 occluded, PERRI to rPDA patent with distal rPDA 80% stenosis. He was admitted with chest pain and was evaluated evaluated by flue lining dipper Denies any more pain today Has been ambulating without any difficulty Review of Systems Review of Systems: All systems reviewed and are unremarkable except as noted below Respiratory: no dyspnea and no dyspnea on exertion Cardiovascular: no chest pain, no chest pain at rest and no chest pain with activity Physical Exam Physical Exam: No apparent distress at rest Constitutional: well developed and well nourished Eyes: PERRL, conjunctivae normal, anicteric sclerae ENMT: external ear and nose normal, oropharynx normal Neck: trachea midline, no thyromegaly Respiratory: normal respiratory effort Auscultation: lungs clear to auscultation bilaterally Cardiovascular: Rate/Rhythm: regular rate and regular rhythm Heart Sounds: no murmur Gastrointestinal (Abdomen): Inspection/Auscultation: abdomen normal to inspection and normal bowel sounds Percussion/Palpation: abdomen soft Musculoskeletal: No acute arthritis in any joints Neurologic: PERRL, EOMI, accommodation nl, no face palsy, no dysarthria Psychiatric: A+Ox3, euthymic affect Lymphatic: no cervical or axillary lymphadenopathy Results & Data Vital Signs (Past 12 Hours) Vital Signs Temp Pulse Pulse Resp BP Pulse Ox 08/21/18 07:09 36.6 C 74 16 145/79 H 95 08/21/18 03:10 36.5 C 65 16 145/81 H 97 08/20/18 23:14 36.4 C L 60 16 119/67 97 08/20/18 23:08 78 Medications Administered Current Inpatient Medications Acetaminophen (Tylenol) 650 mg PO Q4H PRN PRN Reason: Pain or Fever Stop: 09/18/18 20:26 Albuterol (Ventolin Hfa) 2 puffs INH Q4H PRN PRN Reason: Wheezing Stop: 09/18/18 20:29 Aspirin ([facility]rin [facility]) [facility] [place] Stop: 09/19/18 08:59 Last Admin: 08/21/18 08:37 Dose: 81 mg Documented by: Clopidogrel Bisulfate (Plavix) 75 mg PO QAM [facility] Stop: 09/19/18 08:59 Last Admin: 08/21/18 08:36 Dose: 75 mg Documented by: Cyclobenzaprine HCl (Flexeril) 5 mg PO TID PRN PRN Reason: Muscle Spasm Stop: 09/18/18 19:28 Last Admin: 08/20/18 07:38 Dose: 5 mg Documented by: Dextrose (Dextrose 50%) 25 - 50 ml IV UD PRN; Protocol PRN Reason: Hypoglycemia Protocol Stop: 09/18/18 20:26 Docusate Sodium (Colace) 100 mg PO BID [facility] Stop: 09/18/18 20:59 Last Admin: 08/21/18 08:36 Dose: 100 mg Documented by: Enoxaparin Sodium (Lovenox) 40 mg SQ QAM [facility] Stop: 09/19/18 08:59 Last Admin: 08/21/18 08:41 Dose: 40 mg Documented by: Glucagon (Glucagen) 1 mg SQ UD PRN; Protocol PRN Reason: Hypoglycemia Protocol Stop: 09/18/18 20:26 Glucose (Glucose 40%) 15 - 30 gm PO UD PRN; Protocol PRN Reason: Hypoglycemia Protocol Stop: 09/18/18 20:26 Glucose (Dex4 Glucose) 4 - 8 tabs PO UD PRN; Protocol PRN Reason: Hypoglycemia Protocol Stop: 09/18/18 20:26 Insulin Aspart (Novolog Flexpen) 0 units SC ACHS [facility] Stop: 09/18/18 20:59 Last Admin: 08/21/18 08:39 Dose: 5 units Documented by: Insulin Glargine (Lantus Solostar Pen) 15 units SC BID [facility] Stop: 09/18/18 20:59 Last Admin: 08/21/18 08:40 Dose: 15 units Documented by: Isosorbide Mononitrate (Imdur Extended Rel) 30 mg PO QAM [facility] Stop: 09/19/18 08:59 Last Admin: 08/21/18 08:36 Dose: 30 mg Documented by: Metoprolol Succinate (Toprol Xl) 25 mg PO QAM [facility] Stop: 09/19/18 08:59 Last Admin: 08/21/18 08:36 Dose: 25 mg Documented by: Miscellaneous (Carbohydrates For Hypoglycemia) 15 - 30 gm PO UD PRN PRN Reason: Hypoglycemia Treatment Stop: 09/18/18 20:26 Ondansetron HCl (Zofran) 4 mg IV Q6H PRN PRN Reason: Nausea Stop: 09/18/18 20:26 Polyethylene Glycol (Miralax Powder Packet) 17 gm PO DAILY [facility] Stop: 09/18/18 20:26 Last Admin: 08/21/18 08:36 Dose: 17 gm Documented by: Potassium Chloride (Klor-Con M10) 10 meq PO BID [facility] Stop: 09/18/18 20:59 Last Admin: 08/21/18 08:37 Dose: 10 meq Documented by: Rosuvastatin Calcium (Crestor) 40 mg PO QAM [facility] Stop: 09/19/18 08:59 Last Admin: 08/21/18 08:37 Dose: 40 mg Documented by: (1) Diabetes mellitus, type II Diabetes mellitus complication status: with other specified complication 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
--- NOTE | 2018-08-21 11:16 | Cardiology Progress Note ---
Date of Service August 21, 2018 Assessment & Plan (1) Chest pain: stable angina has responded well to antianginal medications will d/c home on current dose of metoprolol and imdur we have plenty of room for uptitration going forward carvedilol will not be restarted has f/u appt scheduled with Dr. Atwood on 09/07, will keep that appt ok to d/c to home from cardiac standpoint. (2) Coronary artery disease: stable cont current meds losartan to be restarted, or alternative if med is part of recall Subjective Pt seen and examined, oob in chair, without complaint. Has been walking the halls without recurrence of chest pain. Denies cp, sob, palpitations, lightheadedness or dizziness. tele reviewed: sinus rhythm without arrhythmia or significant ectopy. Review of Systems Review of Systems: All systems reviewed & are unremarkable except as noted in HPI & below Physical Exam Physical Exam: General: Awake, alert and oriented x 3. No acute distress. HEENT: Normocephalic, atraumatic. Pupils equal, round and reactive to light and accommodation. Extraocular muscles are intact. Anicteric sclera. Moist mucous membranes. Neck: No JVD. No bruit. Cardiovascular: Regular. Positive S-4. Normal S-1 and S-2. No S-3. 3/6 mid to late systolic ejection murmur, greatest at the right sternal border, second intercostal space with radiation to the bilateral carotids. No rubs. Pulmonary: Clear to auscultation bilaterally. No rales, rhonchi, or wheezing. Abdomen: Bowel sounds x 4, soft. No rebound, guarding or tenderness. No organomegaly. Extremities: No clubbing, cyanosis or edema. +2 pedal pulses bilaterally. Skin: Warm and dry. Results & Data Vital Signs (Past 12 Hours) Vital Signs Temp Pulse Resp BP Pulse Ox 08/21/18 07:09 36.6 C 74 16 145/79 H 95 08/21/18 03:10 36.5 C 65 16 145/81 H 97 08/20/18 23:14 36.4 C L 60 16 119/67 97 (1) Chest pain Chest pain type: unspecified Qualified Code(s): R07.9 - Chest pain, unspecified
--- NOTE | 2018-08-21 17:45 | Discharge Summary ---
Date of Service August 21, 2018 Admission HPI Per Admitting Provider Pt is 67 y/o M with significant hx CAD s/p multiple stents, CABG, with most recent ROBIN to mid LAD on 07/31/18, HTN, dyslipidemia, DM II presented to ER with c/o CP. Patient with history of hospitalization 07/29/2018-07/30/2018 at [facility] for unstable angina and had noted EKG changes with T wave inversion inferior and anterior lateral leads on initial EKG with repeat EKG showing Q waves in inferior leads and T wave inversion I, AVL, V3-V6 and patient was transferred to [facility] [place]. Admitted to [facility] 07/30/2018-08/01/2018. Had cardiac catheterization 07/31/2018 and had ROBIN to mid LAD. On cath had noted LCx with moderate disease, [place] RCA occluded proximally, SVG jump graft to OM1-OM2 occluded, PERRI to rPDA patent with distal rPDA 80% stenosis. He was discharged on losartan 25mg daily, however pt states received info that it was recalled so he never start taking med. Patient reports was feeling well after discharge and was able to walk up his incline driveway without SOB. He started with some symptoms again approx 4 days after discharge. He describes left shoulder blade pain that has been intermittent over the past couple weeks. Patient states yesterday had increased left shoulder blade pain and was having anterior chest pressure with associated nausea. He took one nitroglycerin with relief. Patient states today had increased anterior chest pressure with nausea also c/o pain near L axilla. He states these pains are similar to his prior cardiac events however he was not as diaphoretic today like he had been prior. Denies any vomiting or shortness of breath. Pt reports in past has noticed "heart skipping beats" which wakes him up from sleep and denies any associated CP, SOB, dizziness with this. States this occurs a couple of times a month. Denies any palpitations recently. Denies fever/chills, [place], dizziness, syncope, vision changes, neck pain, cough, sore throat, choking, otalgia, rhinorrhea, abdominal pain, paresthesias, extremity weakness, extremity edema, rashes, urinary symptoms. Admission Exam Per Admitting Provider Physical Exam: General: obese, appears diaphoretic Head: normocephalic, atraumatic Eyes: PERRL, EOM's intact, conjunctiva non-injected, anicteric ENT: normal inspection external ears, nose, mucous membranes moist Neck: supple, trachea midline, non-tender Lungs: clear, no respiratory distress, no wheezing/rhonchi/rales CV: RRR, systolic murmur, no JVD, trace pretibial edema Abd: normal BS, soft, non-tender Ext: no cyanosis, no calf tenderness Neuro: A&O x 3, no focal deficits noted, normal affect Skin: warm, dry Principal Diagnosis Chest pain-stable angina, CAD status post PCI with ROBIN to mid LAD on 07/31 in [place], hypertension, type 2 diabetes Discharge Exam Constitutional well developed and well nourished Eyes PERRL, conjunctivae normal, anicteric sclerae ENMT external ear and nose normal, oropharynx normal Neck trachea midline, no thyromegaly Respiratory normal respiratory effort Auscultation: lungs clear to auscultation bilaterally Cardiovascular Rate/Rhythm: regular rate and regular rhythm Heart Sounds: no murmur Gastrointestinal (Abdomen) Inspection/Auscultation: abdomen normal to inspection and normal bowel sounds Percussion/Palpation: abdomen soft Neurologic PERRL, EOMI, accommodation nl, no face palsy, no dysarthria Psychiatric A+Ox3, euthymic affect Lymphatic no cervical or axillary lymphadenopathy Discharge Data Allergies Allergy/AdvReac Type Severity Reaction Status Date / Time valsartan Allergy Unknown fatigue Verified 08/19/18 17:35 lisinopril AdvReac Mild Cough Verified 08/19/18 17:35 canagliflozin AdvReac Unknown Excessive Verified 08/19/18 17:35 Urination Consultations 08/19/18 17:41 ED Decision to Admit Stat 08/19/18 20:27 Consult Cardiology Routine Hospital Course (1) Unstable angina: Present on admssion with chest pain and left shoulder pain associated with nausea and diaphoresis S/P cardiac cath 07/31/2018 and with successful PCI wit ROBIN to mid LAD. Troponin x3 negative and EKG showed no significant changes Cardiology on board recommended medical management Carvedilol changed to Metoprolol succinate 25mg daily Imdur added for ongoing chest pain Continue plavix and aspirin and statin ECHO showed LV systolic function is mildly reduced, EF 45%-50%. There is a large sized septal inferior-posterior wall motion abnormality with hypokinesis to akinesis of the segments. Was evaluated by cardiology this morning and advised that he can be discharged Denies any symptoms of chest pain, palpitation and/or shortness of breath Ambulating in the hallway without any difficulty (2) HTN (hypertension): BP fluctuated He does not want to start the Losartan due to Recalled notice received from [employer] about the Losartan Continue Metoprolol and imdur If BP not at goal, will titrate meds Continue monitor BP-remains on the upper side (3) Diabetes mellitus, type II: A1c: 9.1 Metformin on hold On Lantus and Novolog sliding scale per protocol Monitor BS-controlled (4) Dyslipidemia: Continue statin DVT Prophylaxis Lovenox SQ CODE STATUS Full Code Disposition Will discharge this afternoon Total Time Total Time Spent Total Time Spent (In Minutes): 35 minutes Total Time Includes: Examination of the Patient, Discharge Planning, Medication Reconciliation and Communication With Other Providers Discharge Plan Discharge Items Patient Disposition: Home - Self-Care Reason For Visit: CHEST PAIN Discharge Diagnosis: Chest pain-stable angina, CAD status post PCI with ROBIN to mid LAD on 07/31 in [place], hypertension, type 2 diabetes Condition: Good Discharge Goals: Decrease discomfort, Improve function and Increase independence Activity: Resume your previous activity Non-emergency contact: Primary Care Provider Call non-emergency contact if: you have any medication questions and your symptoms worsen Follow-up/Referrals: Joel Faria, [Primary Care Provider] - 08/25/18 1:05 am (Please keep appointment with cardiology) Diet: Carb Consistent or DM2, Heart Healthy and Low Sodium (2gm) Addtl Provider Instructions: Please take precaution to avoid falls. Viagra has been discontinued and is contraindicated with nitro(Imdur) which has been prescribed for stable angina Carvedilol has been discontinued. Metoprolol succinate has been added. Prescriptions: New isosorbide mononitrate 30 mg Tablet Extended Release 24 Hr 30 mg PO QAM 30 Days Qty: 30 RF: 0 metoprolol succinate 25 mg Tablet Extended Release 24 Hr 25 mg PO QAM 30 Days Qty: 30 RF: 0 Continued Novolin 70/30 U-100 Insulin 100 unit/mL (70-30) suspension 40 unit subcut QAM RF: 0 Novolin 70/30 U-100 Insulin 100 unit/mL (70-30) suspension 44 unit subcut QPM RF: 0 aspirin 81 mg Tablet,Delayed Release (Dr/Ec) 81 mg PO QAM RF: 0 nitroglycerin 0.4 mg tablet, sublingual 0.4 mg sublingual DIRECTED PRN (Reason: Chest Pain) RF: 0 docusate sodium 100 mg capsule 100 mg PO BID PRN (Reason: Constipation) RF: 0 albuterol sulfate [ProAir HFA] 90 mcg/actuation HFA aerosol inhaler 2 puff inhalation Q4H PRN (Reason: Wheezing) RF: 0 metformin 500 mg tablet extended release 24 hr 1,000 mg PO BIDM RF: 0 cyclobenzaprine 5 mg tablet 5 mg PO TID PRN (Reason: Muscle Spasm) RF: 0 rosuvastatin 40 mg tablet 40 mg PO QAM RF: 0 potassium chloride [Klor-Con M10] 10 mEq tablet,ER particles/crystals 10 meq PO BID RF: 0 Victoza 2-Misha 0.6 mg/0.1 mL (18 mg/3 mL) pen injector 1.2 mg subcut QAM RF: 0 polyethylene glycol 3350 [Miralax] 17 gram Powder In Packet 17 g PO DAILY PRN (Reason: Constipation) RF: 0 clopidogrel [Plavix] 75 mg Tablet 75 mg PO QAM RF: 0 magnesium hydroxide [Milk of Magnesia] 400 mg/5 mL Suspension 15 ml PO Q2D RF: 0 Ex-Lax (sennosides) 15 mg Tablet 30 mg PO Q2D RF: 0 Discontinued carvedilol 12.5 mg tablet 12.5 mg PO QAM RF: 0 carvedilol 12.5 mg tablet 6.25 mg PO QPM RF: 0 sildenafil [Viagra] 100 mg Tablet 100 mg PO DAILY PRN (Reason: Sexual Activity) RF: 0 Stand-Alone Forms: Call Back Authorization, [facility] Discharge Orders: Discharge Order (Routine); Ordered 08/21/18 Ordered By: Mary Gramajo Admission Data Admit Date/Time: 08/19/18 18:47 Attending Provider: Mary Gramajo Admit Provider: Breanna Brunner Primary Care Provider: Joel Faria Other Providers: Breanna Brunner ; Enrique Son ; Annemarie Chris Service: Telemetry Other Interventions: Discharge Summary Assessment (RN) Last Done: 08/21/18 12:27 DC Date/Time DO NOT enter until pt leaves facility: 08/21/18 12:42
== END 2018-08-21 12:42 | disposition home or self-care (01) | DRG 303 ==
LOC: ED 16:32 → 2S 18:47 → SUATTDRO 18:47 → 2S 19:08

== ENCOUNTER 2019-02-05 00:44 | Observation (INO) ==
[2019-02-05] MEDS ORDERED: NITROGLYCERIN 2% OINTMENT 30GM TUBE EXT ONE (00:53)
[2019-02-05] MEDS ORDERED: NITROGLYCERIN SL 0.4 MG/TAB TAB SL PRN ×2 (00:53→04:38)
[2019-02-05] MEDS ORDERED: ASPIRIN 81 MG CHEW PO STA (00:53)
[2019-02-05] MEDS ORDERED: NITROGLYCERIN SL 0.4 MG/TAB TAB SL STA (00:53)
--- NOTE | 2019-02-05 00:58 | Emergency Department Note ---
ED Provider Note Name: KAMI RAO Age: 68 Arrives Via: Walk-In Informant: Patient CC: Chest pain HPI: 68M arrives for evaluation of chest pain. Feeling unwell/nauseous throughout the day. This evening 2 hrs [employer] developed left heavy chest pain radiating to left arm/armpit. Associated lightheaded. Admits increasing swelling legs last few days as well. No syncope, sob, nor other symptoms. SLNTG at home with mild improvement. Symptoms worse with exertion. Better with nitro. ASA 162 mg PO at home. History of multiple previous MIs with CABG 1995 and multiple stents since (most recent July 2018). Denies falls, trauma, injury. States similar to previous CO. ROS: See above HPI for pertinent positives & negatives. A total of 10 systems reviewed and were otherwise negative. Past Medical History:See Below Past Surgical History:See Below Family History:See Below Social History:See Below Home Medications:See Below Allergies:See Below Vitals:BP 190/100, P 80, R 18, T 36.9C Physical Exam: GENERAL: Patient is uncomfortable appearing and in mild distress. EYES: No scleral icterus, unremarkable pupils. ENT: Mucous membranes moist, no nasal congestion. NECK: No masses appreciated, nomeningismus, trachea is midline. RESPIRATORY: No dyspnea. Clear to auscultation and equal bilaterally. No wheeze, no rhonchi. CARDIOVASCULAR: Regular rate and rhythm.No murmurs, rubs, gallops appreciated. GASTROINTESTINAL: Abdomen soft, non-tender, no peritonitis.Bowel sounds positive.No masses appreciated. BACK: No midline tenderness, no CVA tenderness EXTREMITIES: Normal motion all extremities, no cyanosis. 3+ Edema bilateral lower legs. NEUROLOGIC: Alert and oriented, no acute motor or sensory deficits, no focal weakness, cranial nerves grossly intact. SKIN: No rash, no jaundice, no diaphoresis. ED Course: Prior Medical Record, Triage/Nursing Notes, Medications, Allergies reviewed by Me Vital Signs: reviewed and remarkable for HTN Labs:Reviewed and remarkable for baseline mild Trop elevation still wnl Interventions: saline lock, slntg x 2, asa 162mg PO, nitro paste Imaging:X ray results are stated below per my interpretation: Chest: 1 view: No infiltrate, no effusion, normal cardiac border. EKG:Per My Interpretation: Indication Chest pain: Sinus 98 bpm with 1st av block, qtc 487, pac and mild decreased st lead 1 with slight T wave flattening compared to ekg 08/19/18. Consults:Dr Garcia Reassessments/Times: Improvement in chest pain, stable, no further complaints Blood pressure:Elevated - Referred to Hospitalist Disposition:Hospitalization Differentials:Cardiac Ischemia (STEMI, NSTEMI, Unstable Angina, etc), Aortic Dissection, Arrhythmia, Pulmonary Embolism, Pneumonia, Pneumothorax, MSK, Infectious, Pericarditis/Myocarditis, Esophageal Rupture, Gastrointestinal, amongst other pathologies entertained. Medical Decision Makin yr old unwell male with multiple medical issues including many previous CO's with stenting as well as remote CABG who required transfer [facility] for cath over the summer. He arrives with left chest pain in setting of hypertension. With nitro and BP coming down pain resolved and patient feeling better. EKG without true STEMI though does have some mild changes from previous EKG in our system. Reviewed with hospitalist who will bring in for further management and evaluation. 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: No Beliefs That Will Affect Care: None marital status: / Current Living Situation: Significant Other current occupational status: retired Feels Safe at Home: Yes Smoking Status: Never smoker Hx Alcohol Use: Yes Alcohol type: beer, wine and hard liquor Alcohol type Comment: 2-3 beers 1-2 times a week Alcohol Intake Frequency: Weekly Hx Substance Use: No Results & Data Vital Signs Vital Signs - 24 hr 02/05/19 00:49 02/05/19 00:52 02/05/19 00:53 Temperature 36.9 C Temperature Source Oral Pulse Rate 92 H 96 H 87 Pulse Rate from SpO2 Sensor Respiratory Rate 28 H 21 Respiratory Effort / Characteristics Respiratory Depth Blood Pressure 197/95 H 197/95 H Blood Pressure [Right Arm] Blood Pressure Mean 129 125 Blood Pressure Mean [Right Arm] Blood Pressure Position [Right Arm] Pulse Oximetry 99 99 99 Oxygen Delivery Method Room Air Room Air Oxygen Flow Rate 2 Sepsis Recent Fever Within 48 Hours No Sepsis New/Unexplained Change in Mental Status No Sepsis Action Taken by Nursing No Action Required 02/05/19 00:54 02/05/19 01:00 02/05/19 01:01 Temperature Temperature Source Pulse Rate 93 H 84 85 Pulse Rate from SpO2 Sensor Respiratory Rate 24 16 24 Respiratory Effort / Characteristics Respiratory Depth Blood Pressure 173/85 H Blood Pressure [Right Arm] Blood Pressure Mean 105 Blood Pressure Mean [Right Arm] Blood Pressure Position [Right Arm] Pulse Oximetry 99 98 Oxygen Delivery Method Oxygen Flow Rate Sepsis Recent Fever Within 48 Hours Sepsis New/Unexplained Change in Mental Status Sepsis Action Taken by Nursing 02/05/19 01:10 02/05/19 01:20 02/05/19 01:30 Temperature Temperature Source Pulse Rate 94 H 88 90 Pulse Rate from SpO2 Sensor 95 H 88 87 Respiratory Rate 21 20 21 Respiratory Effort / Characteristics Respiratory Depth Blood Pressure 159/84 H 115/82 Blood Pressure [Right Arm] Blood Pressure Mean 107 94 Blood Pressure Mean [Right Arm] Blood Pressure Position [Right Arm] Pulse Oximetry 98 98 96 Oxygen Delivery Method Oxygen Flow Rate Sepsis Recent Fever Within 48 Hours Sepsis New/Unexplained Change in Mental Status Sepsis Action Taken by Nursing 02/05/19 01:31 02/05/19 02:45 Temperature Temperature Source Pulse Rate 87 Pulse Rate from SpO2 Sensor 87 Respiratory Rate 27 H 18 Respiratory Effort / Characteristics Non-Labored Respiratory Depth Normal Blood Pressure 155/79 H Blood Pressure [Right Arm] 157/89 H Blood Pressure Mean 109 Blood Pressure Mean [Right Arm] 111 Blood Pressure Position [Right Arm] Lying Pulse Oximetry 98 98 Oxygen Delivery Method Nasal Cannula Oxygen Flow Rate 2 Sepsis Recent Fever Within 48 Hours Sepsis New/Unexplained Change in Mental Status Sepsis Action Taken by Nursing Laboratory Data Result diagrams: 02/05/19 00:55 02/05/19 00:55 Lab Results 02/05/19 02/05/19 02/05/19 Range/Units 00:55 00:55 00:55 WBC 8.58 (4.8-10.8) K/uL RBC 5.34 (4.7-6.1) M/uL Hgb 15.5 (14.0-18.0) g/dL POC Hgb (14.0-18.0) g/dl Hct 45.6 (42-52) % POC Hct (42-52) % MCV 85.4 (80-100) fL MCH 29.0 (25-34) pg MCHC 34.0 (32-36) g/dL RDW Std Deviation 41.5 (36.4-46.3) fL RDW Coeff of Aaron 13.3 (11.5-14.5) % Plt Count 159 (130-400) K/uL MPV 9.9 (7.4-10.4) fL Immature Gran % (Auto) 0.2 % Neut % (Auto) 70.6 % Lymph % (Auto) 22.3 % Seward % (Auto) 5.1 % Eos % (Auto) 1.6 % Baso % (Auto) 0.2 % Immature Gran # (Auto) 0.02 (0.00-0.02) K/uL Neut # (Auto) 6.05 (1.4-6.5) K/uL Lymph # (Auto) 1.91 (1.2-3.4) K/uL Seward # (Auto) 0.44 (0.11-0.59) K/uL Eos # (Auto) 0.14 (0-0.5) K/uL Baso # (Auto) 0.02 (0-0.2) K/uL PT 10.1 (9.0-12.0) Seconds INR 1.0 (0.9-1.1) APTT 24.7 (21.0-31.0) Seconds PTT Ratio 0.9 POC Sodium (135-144) mEq/L Sodium 138 (136-145) mmol/L POC Potassium (3.3-5.0) mEq/L Potassium 3.7 (3.5-5.1) mmol/L POC Chloride (101-112) mEq/L Chloride 105 (98-107) mmol/L Carbon Dioxide 28 (21-32) mmol/L POC Total CO2 (24-31) mEq/l Anion Gap 5.0 (3-11) POC Anion Gap (16-25) mmol/L POC BUN (7-18) mg/dl BUN 13 (7-18) mg/dl Creatinine 1.11 (0.6-1.4) mg/dl POC Creatinine (0.6-1.3) mg/dl Est Cr Clr Drug Dosing 84.3 ml/min Est GFR ( Amer) 78.7 Est GFR (Non-Af Amer) 67.9 BUN/Creatinine Ratio 11.3 (10-20) Glucose 244 H (70-99) mg/dl POC Glucose (other) (70-99) mg/dl Calcium 8.6 (8.5-10.1) mg/dl POC Ioniz Calcium Lizy (1.12-1.32) mmol/l Magnesium 2.1 (1.8-2.4) mg/dl POC Troponin I (0-0.045) ng/ml Troponin I 0.034 (0-0.045) ng/ml 02/05/19 02/05/19 Range/Units 00:58 01:01 WBC (4.8-10.8) K/uL RBC (4.7-6.1) M/uL Hgb (14.0-18.0) g/dL POC Hgb 15.0 (14.0-18.0) g/dl Hct (42-52) % POC Hct 44 (42-52) % MCV (80-100) fL MCH (25-34) pg MCHC (32-36) g/dL RDW Std Deviation (36.4-46.3) fL RDW Coeff of Aaron (11.5-14.5) % Plt Count (130-400) K/uL MPV (7.4-10.4) fL Immature Gran % (Auto) % Neut % (Auto) % Lymph % (Auto) % Seward % (Auto) % Eos % (Auto) % Baso % (Auto) % Immature Gran # (Auto) (0.00-0.02) K/uL Neut # (Auto) (1.4-6.5) K/uL Lymph # (Auto) (1.2-3.4) K/uL Seward # (Auto) (0.11-0.59) K/uL Eos # (Auto) (0-0.5) K/uL Baso # (Auto) (0-0.2) K/uL PT (9.0-12.0) Seconds INR (0.9-1.1) APTT (21.0-31.0) Seconds PTT Ratio POC Sodium 137 (135-144) mEq/L Sodium (136-145) mmol/L POC Potassium 3.7 (3.3-5.0) mEq/L Potassium (3.5-5.1) mmol/L POC Chloride 101 (101-112) mEq/L Chloride (98-107) mmol/L Carbon Dioxide (21-32) mmol/L POC Total CO2 26 (24-31) mEq/l Anion Gap (3-11) POC Anion Gap 15.0 L (16-25) mmol/L POC BUN 12 (7-18) mg/dl BUN (7-18) mg/dl Creatinine (0.6-1.4) mg/dl POC Creatinine 1.0 (0.6-1.3) mg/dl Est Cr Clr Drug Dosing ml/min Est GFR ( Amer) Est GFR (Non-Af Amer) BUN/Creatinine Ratio (10-20) Glucose (70-99) mg/dl POC Glucose (other) 242 H (70-99) mg/dl Calcium (8.5-10.1) mg/dl POC Ioniz Calcium Lizy 1.15 (1.12-1.32) mmol/l Magnesium (1.8-2.4) mg/dl POC Troponin I 0.03 (0-0.045) ng/ml Troponin I (0-0.045) ng/ml Administered Medications Nitroglycerin (Nitrostat) 0.4 mg SL PRN PRN PRN Reason: Chest Pain Stop: 03/07/19 00:52 Last Admin: 02/05/19 01:35 Dose: 0.4 mg Documented by: [id number] Discontinued Medications Aspirin (Aspirin Chew) 162 mg PO NOW STA Stop: 02/05/19 00:54 Last Admin: 02/05/19 01:03 Dose: 162 mg Documented by: [id number] Nitroglycerin (Nitro-Bid 2%) 1 inch EXT NOW ONE Stop: 02/05/19 00:54 Last Admin: 02/05/19 01:03 Dose: 1 inch Documented by: [id number] Nitroglycerin (Nitrostat) 0.4 mg SL NOW STA Stop: 02/05/19 00:54 Last Admin: 02/05/19 01:03 Dose: 0.4 mg Documented by: [id number] Discharge Plan Visit Data Chief Complaint: Chest Pain Stated Complaint: CHEST PPAIN,ARM PAIN,SOB,NAUSEA,DIZZY ED Provider: Ángel Mckeon Discharge Problem: Left-sided chest pain, Hypertension Discharge Instructions Interventions: ED Discharge Assessment Last Done: 02/05/19 03:53 Forms Stand Alone Forms: Call Back Authorization, [facility] Prescriptions Prescriptions: No Action nitroglycerin 0.4 % (w/w) ointment See Rx Instructions OK BID Qty: 30 RF: 2 Novolin 70/30 U-100 Insulin 100 unit/mL (70-30) suspension 40 unit subcut QAM RF: 0 Novolin 70/30 U-100 Insulin 100 unit/mL (70-30) suspension 44 unit subcut QPM RF: 0 aspirin 81 mg Tablet,Delayed Release (Dr/Ec) 81 mg PO QAM RF: 0 nitroglycerin 0.4 mg tablet, sublingual 0.4 mg sublingual DIRECTED PRN (Reason: Chest Pain) RF: 0 docusate sodium 100 mg capsule 100 mg PO BID PRN (Reason: Constipation) RF: 0 albuterol sulfate [ProAir HFA] 90 mcg/actuation HFA aerosol inhaler 2 puff inhalation Q4H PRN (Reason: Wheezing) RF: 0 metformin 500 mg tablet extended release 24 hr 1,000 mg PO BIDM RF: 0 cyclobenzaprine 5 mg tablet 5 mg PO TID PRN (Reason: Muscle Spasm) RF: 0 rosuvastatin 40 mg tablet 40 mg PO QAM RF: 0 potassium chloride [Klor-Con M10] 10 mEq tablet,ER particles/crystals 10 meq PO BID RF: 0 polyethylene glycol 3350 [Miralax] 17 gram Powder In Packet 17 g PO DAILY PRN (Reason: Constipation) RF: 0 clopidogrel [Plavix] 75 mg Tablet 75 mg PO QAM RF: 0 magnesium hydroxide [Milk of Magnesia] 400 mg/5 mL Suspension 15 ml PO Q2D RF: 0 Ex-Lax (sennosides) 15 mg Tablet 30 mg PO Q2D RF: 0 furosemide [Lasix] 20 mg Tablet 20 mg PO 2XWK RF: 0 Toprol XL 25 mg 25 mg PO DAILY RF: 0 isosorbide mononitrate 30 mg 30 mg PO DAILY RF: 0 Referrals Referrals: Joel Faria DO [Primary Care Provider] - Discharge Problem: Hypertension Qualifiers: Hypertension type: unspecified Qualified Code(s): I10 - Essential (primary) hypertension
[2019-02-05 01:08] LABS: Basophils # (auto) 0.02 K/uL (0-0.2); Basophils % (auto) 0.2 %; Eosinophils # (auto) 0.14 K/uL (0-0.5); Eosinophils % (auto) 1.6 %; Hematocrit (blood only) 45.6 % (42-52); Hemoglobin 15.5 g/dL (14.0-18.0); Immature Granulocytes # (auto) 0.02 K/uL (0.00-0.02); Immature Granulocytes % (auto) 0.2 %; Lymphocytes # (auto) 1.91 K/uL (1.2-3.4); Lymphocytes % (auto) 22.3 %; Mean Corpuscular Volume 85.4 fL (80-100); Mean Platelet Volume 9.9 fL (7.4-10.4); Monocytes # (auto) 0.44 K/uL (0.11-0.59); Monocytes % (auto) 5.1 %; Neutrophils # (auto) 6.05 K/uL (1.4-6.5); Neutrophils % (auto) 70.6 %; Platelet Count 159 K/uL (130-400); RDW Coefficient of Variation 13.3 % (11.5-14.5); RDW Standard Deviation 41.5 fL (36.4-46.3); Red Blood Count 5.34 M/uL (4.7-6.1); White Blood Count 8.58 K/uL (4.8-10.8)
[2019-02-05 01:17] LABS: iSTAT Ionized Calcium 1.15 mmol/l (1.12-1.32); iSTAT Potassium 3.7 mEq/L (3.3-5.0)
[2019-02-05 01:22] LABS: Partial Thromboplastin Ratio 0.9; Partial Thromboplastin Time 24.7 Seconds (21.0-31.0); Prothrombin Time 10.1 Seconds (9.0-12.0)
[2019-02-05 01:27] LABS: BUN Creatinine Ratio 11.3 (10-20); Calcium 8.6 mg/dl (8.5-10.1); Creatinine Clr Calc Pharmacy 84.3 ml/min; Est GFR (African American) 78.7; Est GFR (Non-African American) 67.9; Magnesium 2.1 mg/dl (1.8-2.4); Potassium 3.7 mmol/L (3.5-5.1)
[2019-02-05 01:32] LABS: Troponin I 0.034 ng/ml (0-0.045)
[2019-02-05] MEDS ORDERED: ONDANSETRON INJ 2 MG/ML 2 ML VIAL IV PRN (04:38)
[2019-02-05] MEDS ORDERED: POLYETHYLENE (MIRALAX) 17 GM PACK PO PRN (04:38)
[2019-02-05] MEDS ORDERED: DOCUSATE SODIUM 100 MG CAP PO PRN (04:38)
[2019-02-05] MEDS ORDERED: CYCLOBENZAPRINE HCL 5 MG TAB PO PRN (04:38)
[2019-02-05] MEDS ORDERED: MoRPHine SULFATE 2 MG/ML CARP IV PRN (04:38)
[2019-02-05] MEDS ORDERED: ALBUTEROL HFA 8 GM INHALER INH PRN (04:56)
[2019-02-05] MEDS ORDERED: GLUCAGON FOR INJ 1 MG VIAL SQ PRN (05:00)
[2019-02-05] MEDS ORDERED: CARBOHYDRATES FOR HYPOGLYCEMIA PO PRN (05:00)
[2019-02-05] MEDS ORDERED: DEXTROSE 50% 50 ML SYRINGE IV PRN (05:00)
[2019-02-05] MEDS ORDERED: GLUCOSE 10 TABS/TUBE PO PRN (05:00)
[2019-02-05] MEDS ORDERED: GLUCOSE 40% GEL 15 GM TUBE PO PRN (05:00)
--- NOTE | 2019-02-05 05:12 | History and Physical Report ---
DATE OF ADMISSION: 02/05/2019 CHIEF COMPLAINT: Chest pain. HISTORY OF PRESENT ILLNESS: A 68-year-old male with past medical history significant for CAD with multiple cardiac stents, CABG, most recent was drug-eluting stent to mid LAD on 07/31/2018, history of hypertension, CHF with echo in July showed EF of 45%, hypertension, hyperlipidemia, GERD, sleep apnea, but not compliant with CPAP,DM presents with chest pain. The patient says in the evening when he was coming from his garage, he had some chest pain. He took nitroglycerin and it got relieved, but at 11:00 p.m. again his chest pain came in the left side of the chest radiating to his axilla and to the left arm. He took 2 nitros and aspirin, but it did not relieve the pain and he came to the ER. In the ER, he was given 2 nitros and the pain is almost resolved. He had some slight tightness in the chest. During the episode, he felt dizzy and shortness of breath and some blurred visions, but there is no sweating at this time. He has occasional dry cough. He was nauseous earlier, currently no nausea. He has had some headache from nitro. No earaches, no runny nose, no sore throat. Appetite is okay. No difficulty swallowing. No abdominal pain, no diarrhea. He is somewhat constipated, uses stool softeners. Denies any blood in the stools or black stools. No hematuria or burning micturitions. His leg swells on and off. His legs were fine in the morning, but now they are swollen. Currently resting comfortably and hemodynamically stable. ALLERGIES: LISINOPRIL, VALSARTAN, AND INVOKANA. PAST MEDICAL HISTORY: As mentioned above. PAST SURGICAL HISTORY: CABG, multiple cardiac catheterizations and stent placements, right knee arthroscopy, colonoscopy with biopsy, EGDs with biopsy, right knee arthroscopy, cholecystectomy, reconstruction of the nasal septum, tonsillectomy, adenoidectomy. MEDICATIONS: The patient is currently on Novolin 70/30 40 units before breakfast and 50 units before supper, Novolin R/ReliOn 10 units under the skin daily, Klor-Con 10 mEq b.i.d., Plavix 75 mg p.o. daily, Lasix 20 mg 2 times a week, Imdur 30 mg p.o. daily, metoprolol succinate XL 25 mg p.o. daily, metformin ER 1000 mg p.o. b.i.d., MiraLax 17 grams p.o. daily p.r.n., Flexeril 5 mg p.o. t.i.d. p.r.n., nitroglycerin 0.4 mg sublingual p.r.n., milk of magnesia p.r.n., sennosides 50 mg p.r.n., albuterol 2 puffs every 4 hours p.r.n., Crestor 40 mg p.o. daily, Colace 100 mg p.o. t.i.d. p.r.n., Flomax 0.4 mg at bedtime, but the patient is not using it recently, aspirin 81 mg p.o. daily. FAMILY HISTORY: Significant for father had leukemia, at age of 62; mother had stroke, at the age of 70; maternal grandfather had CAD, [place] at the age of 41; brother of CAD at the age of 61. SOCIAL HISTORY: , lives with his girlfriend. No smoking. Alcohol occasional. No drug use. REVIEW OF SYSTEMS: As per HPI. Rest of the review of systems negative. PHYSICAL EXAMINATION: GENERAL: The patient is obese, not in acute distress. VITAL SIGNS: Temperature 36.9, pulse 87, respiratory rate 18, blood pressure 157/89, oxygen 98% on 2 liters. HEENT: No pallor, no icterus. Pupils equal, round, and reactive to light. NECK: No JVD, no neck masses, no carotid bruits. CARDIOVASCULAR: S1, S2 heard, regular rate and rhythm, no murmur, no gallop. RESPIRATORY SYSTEM: Normal AP diameter. No accessory muscle use. No wheezing, no crackles. ABDOMEN: Soft, bowel sounds present, nontender. No distention. CENTRAL NERVOUS SYSTEM: Cranial nerves II-XII grossly nonfocal. EXTREMITIES: Lower extremity, +2 edema present, no erythema seen. No tenderness on palpation. LABORATORY DATA: WBC 8.5, hemoglobin 15.5, hematocrit 45.6, platelets 159. PT 10.1, INR 1, APTT 24.7. Sodium 138, potassium 3.7, chloride 105, bicarbonate 28, BUN 13, creatinine 1.1, serum glucose 244, calcium 8.6, magnesium 2.1, troponin I 0.034. IMAGING: Chest x-ray: No acute findings seen. EKG: Sinus rhythm with PACs with rate of 87. Prolonged QT with a QTC of 502. Nonspecific ST changes seen. ASSESSMENT AND PLAN: This is a 68-year-old male who presents with chest pain. 1. Chest pain. History of significant cardiac history with multiple cardiac stents and CABG recent drug-eluting stent to LAD in July 2018, currently presents with chest pain. EKG and troponin are unremarkable currently. We will observe in tele floor. Serial cardiac enzymes, echocardiogram and place him on nitro paste. Continue his home medication of aspirin, Plavix, Toprol-XL, Imdur, and Crestor. Follow echo in the a.m. and serial cardiac enzymes and consult cardiology for further recommendations. Will keep n.p.o. until seen by cardiology. 2. History of diabetes. We will hold his home NovoLog 70/30 and metformin. Placed on Lantus 7 units b.i.d. and insulin sliding scale. Follow hemoglobin A1c levels. The patient is currently n.p.o. We will monitor the blood sugars currently. 3. History of hypertension, currently on Toprol-XL, Imdur. Placed on nitro paste. Patient to monitor his blood pressure. 4. Hyperlipidemia. Continue statin. Follow the fasting lipid profile. 5. Sleep apnea, but not using CPAP and oxygen at nighttime. Will monitor. 6. Chronic systolic and diastolic CHF, last EF was 40% to 45%.On Lasix 20 mg twice weekly, Has lower extremity edema.Closely monitor for volume status. Follow echocardiogram. 7. Deep venous thrombosis prophylaxis, sequential compression devices for now. 8. Disposition: Observe in tele floor. Expect to discharge home and follow with family doctor and cardiology. Level 1 full code. MTDD
[2019-02-05] MEDS: NITROGLYCERIN 2% OINTMENT 30GM TUBE EXT SCH ×2 (06:23→13:11)
[2019-02-05 07:02] LABS: Estimated Average Glucose 226 mg/dl; Hemoglobin A1C 9.5 % (4.5-5.6)
--- NOTE | 2019-02-05 07:20 | XRay Report ---
XR chest 1V portable CLINICAL HISTORY: Chest pain. COMPARISON STUDY: Chest CT March 19, 2013. Chest radiograph August 19, 2018. FINDINGS: Lung volumes are normal. Lungs are clear. There is no pneumothorax or pleural effusion. Car diac size is normal. Mediastinal contours are normal. There is no evidence for pulmonary edema. Media n sternotomy wires are noted. IMPRESSION: No acute cardiopulmonary findings. Electronically signed by: Joey Manzanares M.D. 02/05/2019 7:19 AM
[2019-02-05] MEDS ORDERED: HEPARIN IV BOLUS 7,000 UNITS in SYRINGE 0 ML IV ONE (07:50)
[2019-02-05] MEDS: ACETAMINOPHEN 325 MG TAB PO PRN ×2 (07:53→13:06)
[2019-02-05] MEDS: INSULIN ASPART 100 UNITS/ML 3 ML PEN SC SCH ×2 (07:56→13:02)
[2019-02-05 07:57] LABS: Albumin Level 3.2 gm/dl (3.4-5.0); BUN Creatinine Ratio 11.9 (10-20); Calcium 8.4 mg/dl (8.5-10.1); Creatinine Clr Calc Pharmacy 104.6 ml/min; Est GFR (African American) 101.8; Est GFR (Non-African American) 87.9; Potassium 3.9 mmol/L (3.5-5.1)
[2019-02-05] MEDS ORDERED: HEPARIN SODIUM/DEXTROSE 25,000 UNITS/500 ML BAG IV SCH (08:00)
[2019-02-05 08:17] LABS: Beta-Hydroxybutyrate 0.93 mg/dl (0.2-2.81); Bilirubin,Total 0.6 mg/dl (0.2-1); Globulin 3.3 gm/dl (2.5-4.0); Total Protein 6.5 gm/dl (6.4-8.2); Troponin I 0.549 ng/ml (0-0.045)
[2019-02-05] MEDS ORDERED: ROSUVASTATIN CALCIUM 20 MG TAB PO SCH (09:00)
[2019-02-05] MEDS ORDERED: METOPROLOL SUCC 25MG EXT REL TAB PO SCH (09:00)
[2019-02-05] MEDS ORDERED: ISOSORBIDE MONO EXTENDED REL 30 MG TABCR PO SCH (09:00)
[2019-02-05] MEDS ORDERED: ASPIRIN 81 MG ECTAB PO SCH (09:00)
[2019-02-05] MEDS ORDERED: FUROSEMIDE 20 MG TAB PO SCH (09:00)
[2019-02-05] MEDS ORDERED: POTASSIUM CHLORIDE 10 MEQ TABCR PO SCH (09:00)
[2019-02-05] MEDS ORDERED: INSULIN GLARGINE SOLOSTAR 100 UNITS/ML 3 ML PEN SC SCH (09:00)
[2019-02-05] MEDS ORDERED: CLOPIDOGREL BISULFATE 75 MG TAB PO SCH (09:00)
--- NOTE | 2019-02-05 10:13 | Hospitalist Progress Note ---
Date of Service February 05, 2019 Assessment & Plan (1) NSTEMI (non-ST elevated myocardial infarction): Chest pain secondary to non-ST segment elevation myocardial infarction, Type 2 diabetes mellitus with diabetic neuropathy and buttermaker current use of insulin -This is a 68-year-old male who presents with chest pain. -History of significant cardiac history with multiple cardiac stents and CABG recent drug-eluting stent to LAD in July 2018, currently presents with chest pain. -had received nitro paste -Patient seen and examined at bedside. Patient reports that since being in the hospital, he has not been having chest pain. However, troponins started to trend up from 0.034 to 0.283 to 0.549 on this admission but no chest pain at that time. Patient was empirically started on heparin IV for [id number] myocardial infarction (NSTEMI) with bolus heparin and currently on heparin IV drip at 34 ml/hr (1700 units/hr). Given patient's risk factors of previous coronary artery diease with multiple stents and history of coronary artery bypass graft surgery (CABG), Dr. Son from inpatient cardiology service discussed with Dr. Diamond from [facility] in [place] to accept patient for further intevention such as percutaneous coronary intervention or re-evaluation for CABG. Type 2 diabetes mellitus with diabetic neuropathy and buttermaker current use of insulin -patient takes 70/30 insulin at home -currently on Lantus 7 mg BID and sliding scale insulin as he has been NPO Chronic systolic and diastolic CHF, last EF was 40% to 45% -takes Lasix 20 mg twice a week at home -breathing on room air -optimization of diuretics after [facility] evaluation Hypertension -on Toprol-XL, Imdur. Placed on nitro paste Hyperlipidemia -Continue statin Sleep apnea -does not but not use CPAP or oxygen at nighttime Main Diagnosis: Chest pain secondary to non-ST segment elevation myocardial infarction, Type 2 diabetes mellitus with diabetic neuropathy and buttermaker current use of insulin, Hypertension Subjective Patient seen and examined at bedside. Patient reports that since being in the hospital, he has not been having chest pain. However, troponins started to trend up from 0.034 to 0.283 to 0.549 on this admission but no chest pain at that time. Patient was empirically started on heparin IV for [id number] myocardial infarction (NSTEMI) with bolus heparin and currently on heparin IV drip at 34 ml/hr (1700 units/hr). Given patient's risk factors of previous coronary artery diease with multiple stents and history of coronary artery bypass graft surgery (CABG), Dr. Son from inpatient cardiology service discussed with Dr. Diamond from [facility] in [place] to accept patient for further intevention such as percutaneous coronary intervention or re-evaluation for CABG. Review of Systems Review of Systems: All systems reviewed & are unremarkable except as noted in HPI & below Physical Exam Constitutional: comfortable Eyes: PERRL, conjunctivae normal, anicteric sclerae EOM intact bilaterally ENMT: external ear and nose normal, oropharynx normal Neck: normal visual inspection Respiratory: normal respiratory effort, lungs clear to auscultation Cardiovascular: Rate/Rhythm: regular rate and regular rhythm Gastrointestinal (Abdomen): normal bowel sounds, soft, nontender, no hepatosplenomegaly Musculoskeletal: no cyanosis or clubbing, extremities motor strength 5/5 Head/Neck/Chest: normocephalic and head atraumatic Neurologic: PERRL, EOMI, accommodation nl, no face palsy, no dysarthria CN's II-XI intact bilaterally Psychiatric: A+Ox3, euthymic affect Results & Data Vital Signs (Past 12 Hours) Vital Signs Temp Pulse Pulse Pulse Resp BP BP 02/05/19 07:39 36.8 C 70 18 139/89 02/05/19 07:23 36.4 C L 80 22 154/80 H 02/05/19 06:21 150/83 H 02/05/19 04:14 36.5 C 76 82 82 18 158/84 H 02/05/19 02:45 18 157/89 H 02/05/19 01:31 87 27 H 155/79 H 02/05/19 01:30 90 21 02/05/19 01:20 88 20 115/82 02/05/19 01:10 94 H 21 159/84 H 02/05/19 01:01 85 24 173/85 H 02/05/19 01:00 84 16 02/05/19 00:54 93 H 24 02/05/19 00:53 87 02/05/19 00:52 96 H 21 197/95 H 02/05/19 00:49 36.9 C 92 H 28 H 197/95 H Pulse Ox Pulse Ox 02/05/19 07:39 94 02/05/19 07:23 96 02/05/19 06:21 02/05/19 04:14 99 99 02/05/19 02:45 98 02/05/19 01:31 98 02/05/19 01:30 96 02/05/19 01:20 98 02/05/19 01:10 98 02/05/19 01:01 98 02/05/19 01:00 02/05/19 00:54 99 02/05/19 00:53 99 02/05/19 00:52 99 02/05/19 00:49 99
--- NOTE | 2019-02-05 10:31 | Discharge Summary ---
Date of Service February 05, 2019 Admission HPI Per Admitting Provider DATE OF ADMISSION: 02/05/2019 CHIEF COMPLAINT: Chest pain. HISTORY OF PRESENT ILLNESS: A 68-year-old male with past medical history significant for CAD with multiple cardiac stents, CABG, most recent was drug-eluting stent to mid LAD on 07/31/2018, history of hypertension, CHF with echo in July showed EF of 45%, hypertension, hyperlipidemia, GERD, sleep apnea, but not compliant with CPAP,DM presents with chest pain. The patient says in the evening when he was coming from his garage, he had some chest pain. He took nitroglycerin and it got relieved, but at 11:00 p.m. again his chest pain came in the left side of the chest radiating to his axilla and to the left arm. He took 2 nitros and aspirin, but it did not relieve the pain and he came to the ER. In the ER, he was given 2 nitros and the pain is almost resolved. He had some slight tightness in the chest. During the episode, he felt dizzy and shortness of breath and some blurred visions, but there is no sweating at this time. He has occasional dry cough. He was nauseous earlier, currently no nausea. He has had some headache from nitro. No earaches, no runny nose, no sore throat. Appetite is okay. No difficulty swallowing. No abdominal pain, no diarrhea. He is somewhat constipated, uses stool softeners. Denies any blood in the stools or black stools. No hematuria or burning micturitions. His leg swells on and off. His legs were fine in the morning, but now they are swollen. Currently resting comfortably and hemodynamically stable. Admission Exam Per Admitting Provider GENERAL: The patient is obese, not in acute distress. VITAL SIGNS: Temperature 36.9, pulse 87, respiratory rate 18, blood pressure 157/89, oxygen 98% on 2 liters. HEENT: No pallor, no icterus. Pupils equal, round, and reactive to light. NECK: No JVD, no neck masses, no carotid bruits. CARDIOVASCULAR: S1, S2 heard, regular rate and rhythm, no murmur, no gallop. RESPIRATORY SYSTEM: Normal AP diameter. No accessory muscle use. No wheezing, no crackles. ABDOMEN: Soft, bowel sounds present, nontender. No distention. CENTRAL NERVOUS SYSTEM: Cranial nerves II-XII grossly nonfocal. EXTREMITIES: Lower extremity, +2 edema present, no erythema seen. No tenderness on palpation. 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, Hypertension Discharge Exam Constitutional comfortable Eyes PERRL, conjunctivae normal, anicteric sclerae EOM intact bilaterally ENMT external ear and nose normal, oropharynx normal Neck normal visual inspection Respiratory normal respiratory effort, lungs clear to auscultation Cardiovascular Rate/Rhythm: regular rate and regular rhythm Gastrointestinal (Abdomen) normal bowel sounds, soft, nontender, no hepatosplenomegaly Musculoskeletal no cyanosis or clubbing, extremities motor strength 5/5 Head/Neck/Chest: normocephalic and head atraumatic Neurologic PERRL, EOMI, accommodation nl, no face palsy, no dysarthria CN's II-XI intact bilaterally Psychiatric A+Ox3, euthymic affect Discharge Data Allergies Allergy/AdvReac Type Severity Reaction Status Date / Time valsartan Allergy Unknown fatigue Verified 02/02/19 10:32 lisinopril AdvReac Mild Cough Verified 02/02/19 10:32 canagliflozin AdvReac Unknown Excessive Verified 02/02/19 10:32 Urination Consultations 02/05/19 01:45 ED Decision to Admit Stat 02/05/19 04:38 Consult Case Management - Discharge Planning Routine 02/05/19 08:00 Consult Cardiology Routine Hospital Course (1) NSTEMI (non-ST elevated myocardial infarction): Chest pain secondary to non-ST segment elevation myocardial infarction, Type 2 diabetes mellitus with diabetic neuropathy and long-term current use of insulin -This is a 68-year-old male who presents with chest pain. -History of significant cardiac history with multiple cardiac stents and CABG recent drug-eluting stent to LAD in July 2018, currently presents with chest pain. -had received nitro paste -Patient seen and examined at bedside. Patient reports that since being in the hospital, he has not been having chest pain. However, troponins started to trend up from 0.034 to 0.283 to 0.549 on this admission but no chest pain at that time. Patient was empirically started on heparin IV for [id number]-HS-[id number] myocardial infarction (NSTEMI) with bolus heparin and currently on heparin IV drip at 34 ml/hr (1700 units/hr). Given patient's risk factors of previous coronary artery diease with multiple stents and history of coronary artery bypass graft surgery (CABG), Dr. Son from inpatient cardiology service discussed with Dr. Diamond from [facility] in [place] to accept patient for further intevention such as percutaneous coronary intervention or re-evaluation for CABG. Type 2 diabetes mellitus with diabetic neuropathy and long-term current use of insulin -patient takes 70/30 insulin at home -currently on Lantus 7 mg BID and sliding scale insulin as he has been NPO Chronic systolic and diastolic CHF, last EF was 40% to 45% -takes Lasix 20 mg twice a week at home -breathing on room air -optimization of diuretics after [facility] evaluation Hypertension -on Toprol-XL, Imdur. Placed on nitro paste Hyperlipidemia -Continue statin Sleep apnea -does not but not use CPAP or oxygen at nighttime Main Diagnosis: Chest pain secondary to non-ST segment elevation myocardial infarction, Type 2 diabetes mellitus with diabetic neuropathy and long-term current use of insulin, Hypertension Total Time Total Time Spent Total Time Spent (In Minutes): 40 minutes Total Time Includes: Examination of the Patient, Discharge Planning, Medication Reconciliation and Communication With Other Providers Discharge Plan Discharge Items Patient Disposition: Transfer Acute Care Hospital Reason For Visit: CHEST PAIN Discharge Diagnosis: Chest pain secondary to non-ST segment elevation myocardial infarction, Type 2 diabetes mellituss with diabetic neuropathy and long-term current use of insulin, Hypertension Activity: Per Instructions section Non-emergency contact: Primary Care Provider and [employer] Call non-emergency contact if: you have any medication questions Follow-up/Referrals: Joel Faria DO [Primary Care Provider] - Diet: Carb Consistent or DM2 Addtl Attending Provider Instructions: Patient seen and examined at bedside. Patient reports that since being in the hospital, he has not been having chest pain. However, troponins started to trend up from 0.034 to 0.283 to 0.549 on this admission but no chest pain at that time. Patient was empirically started on heparin IV for qvu-GR-swxcosasz myocardial infarction (NSTEMI) with bolus heparin and currently on heparin IV drip at 34 ml/hr (1700 units/hr). Given patient's risk factors of previous coronary artery diease with multiple stents and history of coronary artery bypass graft surgery (CABG), Dr. Son from inpatient cardiology service discussed with Dr. Diamond from [facility] in [place] to accept patient for further intevention such as percutaneous coronary intervention or re-evaluation for CABG. Patient will need to travel on transport with the current infusion heparin drip rate Pending Studies at Discharge: No Stand-Alone Forms: Call Back Authorization, [facility] Skilled Items Patient informed of condition?: Yes DNR: No Discharge Level of Care: Other Communicable Disease: No Discharge Prognosis: Stable Lines: Peripheral IV Urinary Catheter: No Medications and DC Order Prescriptions: Continued nitroglycerin 0.4 % (w/w) ointment See Rx Instructions RI BID Qty: 30 RF: 2 Novolin 70/30 U-100 Insulin 100 unit/mL (70-30) suspension 40 unit subcut QAM RF: 0 Novolin 70/30 U-100 Insulin 100 unit/mL (70-30) suspension 44 unit subcut QPM RF: 0 aspirin 81 mg Tablet,Delayed Release (Dr/Ec) 81 mg PO QAM RF: 0 nitroglycerin 0.4 mg tablet, sublingual 0.4 mg sublingual DIRECTED PRN (Reason: Chest Pain) RF: 0 docusate sodium 100 mg capsule 100 mg PO BID PRN (Reason: Constipation) RF: 0 albuterol sulfate [ProAir HFA] 90 mcg/actuation HFA aerosol inhaler 2 puff inhalation Q4H PRN (Reason: Wheezing) RF: 0 metformin 500 mg tablet extended release 24 hr 1,000 mg PO BIDM RF: 0 cyclobenzaprine 5 mg tablet 5 mg PO TID PRN (Reason: Muscle Spasm) RF: 0 rosuvastatin 40 mg tablet 40 mg PO QAM RF: 0 potassium chloride [Klor-Con M10] 10 mEq tablet,ER particles/crystals 10 meq PO BID RF: 0 polyethylene glycol 3350 [Miralax] 17 gram Powder In Packet 17 g PO DAILY PRN (Reason: Constipation) RF: 0 clopidogrel [Plavix] 75 mg Tablet 75 mg PO QAM RF: 0 magnesium hydroxide [Milk of Magnesia] 400 mg/5 mL Suspension 15 ml PO Q2D RF: 0 Ex-Lax (sennosides) 15 mg Tablet 30 mg PO Q2D RF: 0 furosemide [Lasix] 20 mg Tablet 20 mg PO 2XWK RF: 0 Toprol XL 25 mg 25 mg PO DAILY RF: 0 isosorbide mononitrate 30 mg 30 mg PO DAILY RF: 0 Discharge Orders: Discharge Order (Routine); Ordered 02/05/19 Ordered By: Bryce Rasmussen/Other Patient Handouts: Diabetes Order Selector Complications, Diabetes Resources, Diabetes Type 2 Coping, Diabetes Healthy Meals, Diabetes Carbs, Diabetes Exercise Benefits, Diabetes Activity Tips, Diabetes Living Life, Diabetes Manage A1C Test Admission Data Admit Date/Time: 02/05/19 02:59 Attending Provider: Bryce Wallace Admit Provider: Yuan Garcia Primary Care Provider: Joel Faria Other Providers: Yuan Garcia ; Evan Atwood
--- NOTE | 2019-02-05 11:08 | Cardiology Consultation ---
Date of Consultation February 05, 2019 Assessment & Plan (1) NSTEMI (non-ST elevated myocardial infarction): Given the patient's presentation along with his chest discomfort described as his anginal equivalent along with his EKG changes and mild troponin elevation I do believe this patient this represents a non-ST segment elevation myocardial infarction. Given his complex nature of his disease I do believe the most prudent course of action at this point would be to transfer to [facility] in [place] for high risk cardiac cath and possible PCI. I discussed the case with Dr. Diamond the on-call department store salesperson at [facility] and he has been accepted for transfer. I will give him a liquid breakfast and he will remain on heparin needs him to be transported via ambulance to [place]. His aspirin and Plavix will obviously be continued uninterrupted along with his beta-spencer and statin. (2) Hypertension: Stable (3) Coronary artery disease: History of Present Illness Reason for Consultation: NSTEMI Requesting Physician: Rodrigo Attending Physician: Bryce Wallace MD History of Present Illness It was my pleasure to see Mr. Julien in consultation today February 05, 2019 he is a very pleasant 68-year-old gentleman who follows Dr. Atwood of our cardiology practice for his history of complex coronary artery disease. He presented to [facility] on 02/04/2019 with complaints of chest pain. Patient states his first episode of chest discomfort occurred approximately 11 AM after he was in his garage cleaning out his car. He states that it was his anginal equivalent and he described it as a left-sided substernal pressure sensation with radiation up to his left shoulder and down his left arm of numbness. This was associated with diaphoresis, shortness of breath and some nausea. He took 1 sublingual nitroglycerin with relief of the discomfort and went about the rest of his day. Then at approximately 11 PM while getting ready for bed the pain reoccurred. It was the exact same unfortunately this time it occurred at rest. He then took sublingual nitroglycerin and aspirin but after an hour the pain persisted and he came into the emergency department. Upon arrival he was pain- free after receiving further nitroglycerin but did have some dynamic inferior and lateral ST segment changes. He was admitted to telemetry his troponin came back mildly elevated and he was placed on heparin. Again he remained chest pain-free overnight. Past cardiac history: 1. Multiple coronary interventions dating back to 1993, primarily in the right coronary artery. 2. Coronary artery bypass grafting surgery in 1995 with a vein graft to the circumflex, obtuse marginal and sequentially to OM2 and a PERRI to the right coronary artery. 3. Followup intervention with PCI to the circumflex after distal limb of the sequential graft was occluded. 4. PCI to the ostial portion of the saphenous vein graft and RCA and PERRI in 2009. 5. PCI to the LAD on 07/31/2018. Allergies Allergy/AdvReac Type Severity Reaction Status Date / Time valsartan Allergy Unknown fatigue Verified 02/02/19 10:32 lisinopril AdvReac Mild Cough Verified 02/02/19 10:32 canagliflozin AdvReac Unknown Excessive Verified 02/02/19 10:32 Urination Home Medications Home Medications Medication Instructions Recorded Confirmed Type Ex-Lax (sennosides) 30 mg PO Q2D 07/28/18 02/02/19 History Novolin 70/30 U-100 Insulin 40 unit SUBCUT QAM 07/28/18 02/02/19 History Novolin 70/30 U-100 Insulin 44 unit SUBCUT QPM 07/28/18 02/02/19 History albuterol sulfate [ProAir HFA] 2 puff INHALATION Q4H PRN 07/28/18 02/02/19 History aspirin 81 mg PO QAM 07/28/18 02/02/19 History clopidogrel [Plavix] 75 mg PO QAM 07/28/18 02/05/19 History cyclobenzaprine 5 mg PO TID PRN 07/28/18 02/02/19 History docusate sodium 100 mg PO BID PRN 07/28/18 02/05/19 History magnesium hydroxide [Milk of 15 ml PO Q2D 07/28/18 02/02/19 History Magnesia] metformin 1,000 mg PO BIDM 07/28/18 02/02/19 History nitroglycerin 0.4 mg SUBLINGUAL DIRECTED PRN 07/28/18 02/02/19 History polyethylene glycol 3350 [Miralax] 17 g PO DAILY PRN 07/28/18 02/02/19 History potassium chloride [Klor-Con M10] 10 meq PO BID 07/28/18 02/02/19 History rosuvastatin 40 mg PO QAM 07/28/18 02/02/19 History nitroglycerin 0.4 % (w/w) rectal See Rx Instructions CT BID #30 gm 02/02/19 02/02/19 Rx ointment Toprol XL 25 mg PO DAILY 02/05/19 02/05/19 History furosemide [Lasix] 20 mg PO 2XWK 02/05/19 02/05/19 History isosorbide mononitrate 30 mg PO DAILY 02/05/19 02/05/19 History Patient History Medical History ACEI/ARB contraindicated (Chronic) Coronary artery disease (Chronic) Per outpatient cardiology note: 1. Prior multiple coronary artery interventions dating back to 1993, prominently in the right coronary but ultimately leading to coronary artery bypass grafting in 1995 receiving a saphenous vein graft to the circumflex obtuse marginal, sequentially obtuse marginal 2, and a right internal mammary artery graft to the right coronary artery. 2. Later coronary artery interventions with stenting to the distal circumflex in 2003 after distal limb of the sequential graft occluded. 3. Coronary artery intervention August 2009 to the ostial portion saphenous vein graft and subsequent intervention of the distal right coronary artery to the right internal mammary artery, receiving a bare metal stent. 4. Underlying history of chronic angina pectoris as well as noncardiac chest pain. Most recent diagnostic cardiac catheterization in November 2011 without progression of coronary artery disease. Diabetes mellitus, type II (Chronic) Diabetic neuropathic arthropathy (Chronic) Diabetic neuropathy (Chronic) Dyslipidemia (Chronic) Generalized osteoarthritis (Chronic) History of renal calculi (Chronic) HTN (hypertension) (Chronic) Obesity (Chronic) CAROL (obstructive sleep apnea) (Chronic) TMJ (temporomandibular joint disorder) (Chronic) Surgical History History of tonsillectomy (Chronic) Hx of CABG (Chronic) Hx of right knee surgery (Chronic) S/P david (Chronic) S/P nasal septoplasty (Chronic) Family History Brother Cardiac disease Heart disease Stroke Mother Stroke Diabetes Hypertension Father Leukemia Diabetes Cancer Social History Preferred Language: Macedonian Communication Ability: Effective Community Mental Health Social Worker Required: No Beliefs That Will Affect Care: None marital status: / Current Living Situation: Significant Other current occupational status: retired Feels Safe at Home: Yes Safety Concerns: Feels Safe At This Time Smoking Status: Never smoker Hx Alcohol Use: Yes Alcohol type: beer, wine and hard liquor Alcohol type Comment: 2-3 beers 1-2 times a week Alcohol Intake Frequency: Weekly Hx Substance Use: No Review of Systems Review of Systems: All systems reviewed & are unremarkable except as noted in HPI & below Physical Exam Physical Exam: General: Awake, alert and oriented x 3. No acute distress. HEENT: Normocephalic, atraumatic. Pupils equal, round and reactive to light and accommodation. Extraocular muscles are intact. Anicteric sclera. Moist mucous membranes. Neck: No JVD. No bruit. Cardiovascular: Regular. Positive S-4. Normal S-1 and S-2. No S-3. No murmurs or rubs. Pulmonary: Clear to auscultation B/L. No rales, rhonchi or wheezing Abdomen: Bowel sounds x 4, soft. No rebound, guarding or tenderness. No organomegaly. Extremities: No clubbing, cyanosis. +1 B/L LE edema. +2 pedal pulses bilaterally. Skin: Warm and dry. Results & Data Vital Signs (Past 12 Hours) Vital Signs Temp Pulse Pulse Pulse Resp BP BP 02/05/19 07:39 36.8 C 70 18 139/89 02/05/19 07:23 36.4 C L 80 22 154/80 H 02/05/19 06:21 150/83 H 02/05/19 04:14 36.5 C 76 82 82 18 158/84 H 02/05/19 02:45 18 157/89 H 02/05/19 01:31 87 27 H 155/79 H 02/05/19 01:30 90 21 02/05/19 01:20 88 20 115/82 02/05/19 01:10 94 H 21 159/84 H 02/05/19 01:01 85 24 173/85 H 02/05/19 01:00 84 16 02/05/19 00:54 93 H 24 02/05/19 00:53 87 02/05/19 00:52 96 H 21 197/95 H 02/05/19 00:49 36.9 C 92 H 28 H 197/95 H Pulse Ox Pulse Ox 02/05/19 07:39 94 02/05/19 07:23 96 02/05/19 06:21 02/05/19 04:14 99 99 02/05/19 02:45 98 02/05/19 01:31 98 02/05/19 01:30 96 02/05/19 01:20 98 02/05/19 01:10 98 02/05/19 01:01 98 02/05/19 01:00 02/05/19 00:54 99 02/05/19 00:53 99 02/05/19 00:52 99 02/05/19 00:49 99 Laboratory Results Laboratory Results - last 24 hr 02/05/19 02/05/19 02/05/19 00:55 00:55 00:55 WBC 8.58 RBC 5.34 Hgb 15.5 POC Hgb Hct 45.6 POC Hct MCV 85.4 MCH 29.0 MCHC 34.0 RDW Std Deviation 41.5 RDW Coeff of Aaron 13.3 Plt Count 159 MPV 9.9 Immature Gran % (Auto) 0.2 Neut % (Auto) 70.6 Lymph % (Auto) 22.3 Ashley % (Auto) 5.1 Eos % (Auto) 1.6 Baso % (Auto) 0.2 Immature Gran # (Auto) 0.02 Neut # (Auto) 6.05 Lymph # (Auto) 1.91 Ashley # (Auto) 0.44 Eos # (Auto) 0.14 Baso # (Auto) 0.02 PT 10.1 INR 1.0 APTT 24.7 PTT Ratio 0.9 POC Sodium Sodium 138 POC Potassium Potassium 3.7 POC Chloride Chloride 105 Carbon Dioxide 28 POC Total CO2 Anion Gap 5.0 POC Anion Gap POC BUN BUN 13 Creatinine 1.11 POC Creatinine Est Cr Clr Drug Dosing 84.3 Est GFR ( Amer) 78.7 Est GFR (Non-Af Amer) 67.9 BUN/Creatinine Ratio 11.3 Glucose 244 H POC Glucose POC Glucose (other) Estimat Average Glucose Hemoglobin A1c Lactate Calcium 8.6 POC Ioniz Calcium Lizy Magnesium 2.1 Total Bilirubin AST ALT Alkaline Phosphatase POC Troponin I Troponin I 0.034 Total Protein Albumin Globulin Albumin/Globulin Ratio Beta-Hydroxybutyric Acd 02/05/19 02/05/19 02/05/19 00:58 01:01 05:08 WBC RBC Hgb POC Hgb 15.0 Hct POC Hct 44 MCV MCH MCHC RDW Std Deviation RDW Coeff of Aaron Plt Count MPV Immature Gran % (Auto) Neut % (Auto) Lymph % (Auto) Ashley % (Auto) Eos % (Auto) Baso % (Auto) Immature Gran # (Auto) Neut # (Auto) Lymph # (Auto) Ashley # (Auto) Eos # (Auto) Baso # (Auto) PT INR APTT PTT Ratio POC Sodium 137 Sodium POC Potassium 3.7 Potassium POC Chloride 101 Chloride Carbon Dioxide POC Total CO2 26 Anion Gap POC Anion Gap 15.0 L POC BUN 12 BUN Creatinine POC Creatinine 1.0 Est Cr Clr Drug Dosing Est GFR ( Amer) Est GFR (Non-Af Amer) BUN/Creatinine Ratio Glucose POC Glucose POC Glucose (other) 242 H Estimat Average Glucose 226 Hemoglobin A1c 9.5 H Lactate Calcium POC Ioniz Calcium Lizy 1.15 Magnesium Total Bilirubin AST ALT Alkaline Phosphatase POC Troponin I 0.03 Troponin I Total Protein Albumin Globulin Albumin/Globulin Ratio Beta-Hydroxybutyric Acd 02/05/19 02/05/19 02/05/19 05:08 07:20 07:24 WBC RBC Hgb POC Hgb Hct POC Hct MCV MCH MCHC RDW Std Deviation RDW Coeff of Aaron Plt Count MPV Immature Gran % (Auto) Neut % (Auto) Lymph % (Auto) Ashley % (Auto) Eos % (Auto) Baso % (Auto) Immature Gran # (Auto) Neut # (Auto) Lymph # (Auto) Ashley # (Auto) Eos # (Auto) Baso # (Auto) PT INR APTT PTT Ratio POC Sodium Sodium 140 POC Potassium Potassium 3.9 POC Chloride Chloride 107 Carbon Dioxide 26 POC Total CO2 Anion Gap 7.0 POC Anion Gap POC BUN BUN 11 Creatinine 0.89 POC Creatinine Est Cr Clr Drug Dosing 104.6 Est GFR ( Amer) 101.8 Est GFR (Non-Af Amer) 87.9 BUN/Creatinine Ratio 11.9 Glucose 128 H POC Glucose 125 H POC Glucose (other) Estimat Average Glucose Hemoglobin A1c Lactate Calcium 8.4 L POC Ioniz Calcium Lizy Magnesium Total Bilirubin 0.6 AST 18 ALT 32 Alkaline Phosphatase 86 POC Troponin I Troponin I 0.283 H* 0.549 H* Total Protein 6.5 Albumin 3.2 L Globulin 3.3 Albumin/Globulin Ratio 1.0 Beta-Hydroxybutyric Acd 0.93 02/05/19 07:24 WBC RBC Hgb POC Hgb Hct POC Hct MCV MCH MCHC RDW Std Deviation RDW Coeff of Aaron Plt Count MPV Immature Gran % (Auto) Neut % (Auto) Lymph % (Auto) Ashley % (Auto) Eos % (Auto) Baso % (Auto) Immature Gran # (Auto) Neut # (Auto) Lymph # (Auto) Ashley # (Auto) Eos # (Auto) Baso # (Auto) PT INR APTT PTT Ratio POC Sodium Sodium POC Potassium Potassium POC Chloride Chloride Carbon Dioxide POC Total CO2 Anion Gap POC Anion Gap POC BUN BUN Creatinine POC Creatinine Est Cr Clr Drug Dosing Est GFR ( Amer) Est GFR (Non-Af Amer) BUN/Creatinine Ratio Glucose POC Glucose POC Glucose (other) Estimat Average Glucose Hemoglobin A1c Lactate 1.3 Calcium POC Ioniz Calcium Lizy Magnesium Total Bilirubin AST ALT Alkaline Phosphatase POC Troponin I Troponin I Total Protein Albumin Globulin Albumin/Globulin Ratio Beta-Hydroxybutyric Acd Medications Administered Current Inpatient Medications Acetaminophen (Tylenol) 650 mg PO Q4H PRN PRN Reason: Pain or Fever Stop: 03/07/19 04:37 Last Admin: 02/05/19 07:53 Dose: 650 mg Documented by: Albuterol (Ventolin Hfa) 2 puffs INH Q4H PRN PRN Reason: Wheezing Stop: 03/07/19 04:55 Aspirin (Ecotrin Ectab) 81 mg PO [facility] Stop: 03/07/19 08:59 Last Admin: 02/05/19 07:46 Dose: 81 mg Documented by: Clopidogrel Bisulfate (Plavix) 75 mg PO [facility] Stop: 03/07/19 08:59 Last Admin: 02/05/19 07:47 Dose: 75 mg Documented by: Cyclobenzaprine HCl (Flexeril) 5 mg PO TID PRN PRN Reason: Muscle Spasm Stop: 03/07/19 04:37 Dextrose (Dextrose 50%) 25 - 50 ml IV UD PRN; Protocol PRN Reason: Hypoglycemia Protocol Stop: 03/07/19 04:59 Docusate Sodium (Colace) 100 mg PO BID PRN PRN Reason: Constipation Stop: 03/07/19 04:37 Last Admin: 02/05/19 07:53 Dose: 100 mg Documented by: Furosemide (Lasix) 20 mg PO MoTh@0900 [facility] Stop: 03/07/19 08:59 Last Admin: 02/05/19 07:47 Dose: 20 mg Documented by: Glucagon (Glucagen) 1 mg SQ UD PRN; Protocol PRN Reason: Hypoglycemia Protocol Stop: 03/07/19 04:59 Glucose (Glucose 40%) 15 - 30 gm PO UD PRN; Protocol PRN Reason: Hypoglycemia Protocol Stop: 03/07/19 04:59 Glucose (Dex4 Glucose) 4 - 8 tabs PO UD PRN; Protocol PRN Reason: Hypoglycemia Protocol Stop: 03/07/19 04:59 Heparin Sodium/Dextrose (Heparin Sodium/Dextrose) 25,000 units in 500 mls @ 34 mls/hr IV .[id number] [facility]; Protocol Stop: 03/07/19 07:59 Last Admin: 02/05/19 07:55 Dose: 1,700 units/hr, 34 mls/hr Documented by: Insulin Aspart (Novolog Flexpen) 0 units SC ACHS [facility] Stop: 03/07/19 07:29 Last Admin: 02/05/19 07:56 Dose: Not Given Documented by: Insulin Glargine (Lantus Solostar Pen) 7 units SC BID [facility] Stop: 03/07/19 08:59 Last Admin: 02/05/19 10:16 Dose: 7 units Documented by: Isosorbide Mononitrate (Imdur Extended Rel) 30 mg PO DAILY [facility] Stop: 03/07/19 08:59 Last Admin: 02/05/19 07:46 Dose: 30 mg Documented by: Metoprolol Succinate (Toprol Xl) 25 mg PO DAILY [facility] Stop: 03/07/19 08:59 Last Admin: 02/05/19 07:46 Dose: 25 mg Documented by: Miscellaneous (Carbohydrates For Hypoglycemia) 15 - 30 gm PO UD PRN PRN Reason: Hypoglycemia Treatment Stop: 03/07/19 04:59 Morphine Sulfate (Morphine Sulfate) 2 mg IV Q30M PRN PRN Reason: Chest Pain Stop: 02/19/19 04:37 Nitroglycerin (Nitrostat) 0.4 mg SL UD PRN PRN Reason: Chest Pain Stop: 03/07/19 04:37 Nitroglycerin (Nitro-Bid 2%) 0.5 inch EXT Q6H [facility] Stop: 03/07/19 05:59 Last Admin: 02/05/19 06:23 Dose: 0.5 inch Documented by: Ondansetron HCl (Zofran) 4 mg IV Q6H PRN PRN Reason: Nausea Stop: 03/07/19 04:37 Polyethylene Glycol (Miralax Powder Packet) 17 gm PO DAILY PRN PRN Reason: Constipation Stop: 03/07/19 04:37 Potassium Chloride (Klor-Con M10) 10 meq PO BID [facility] Stop: 03/07/19 08:59 Last Admin: 02/05/19 07:47 Dose: 10 meq Documented by: Rosuvastatin Calcium (Crestor) 40 mg PO QAM [facility] Stop: 03/07/19 08:59 Last Admin: 02/05/19 07:46 Dose: 40 mg Documented by: (1) Hypertension Hypertension type: unspecified Qualified Code(s): I10 - Essential (primary) hypertension
[2019-02-05 14:12] LABS: Partial Thromboplastin Time 55.2 Seconds (21.0-31.0)
== END 2019-02-05 17:15 | disposition short-term general hospital (02) ==
LOC: ED 00:44 → 2S 00:44

== ENCOUNTER 2019-04-05 10:26 | Inpatient (IN) ==
[2019-04-05] MEDS ORDERED: NITROGLYCERIN SL 0.4 MG/TAB TAB SL PRN ×2 (10:42→14:58)
[2019-04-05] MEDS ORDERED: ASPIRIN CHEW 324 MG PO STA (10:42)
[2019-04-05 11:00] LABS: Basophils # (auto) 0.01 K/uL (0-0.2); Basophils % (auto) 0.1 %; Eosinophils # (auto) 0.07 K/uL (0-0.5); Hematocrit (blood only) 40.2 % (42-52); Hemoglobin 14.3 g/dL (14.0-18.0); Lymphocytes # (auto) 1.22 K/uL (1.2-3.4); Lymphocytes % (auto) 18.1 %; Mean Corpuscular Hemoglobin 29.9 pg (25-34); Mean Corpuscular Hgb Conc 35.6 g/dL (32-36); Mean Corpuscular Volume 83.9 fL (80-100); Mean Platelet Volume 9.9 fL (7.4-10.4); Monocytes # (auto) 0.42 K/uL (0.11-0.59); Monocytes % (auto) 6.2 %; Neutrophils # (auto) 5.02 K/uL (1.4-6.5); Neutrophils % (auto) 74.6 %; Platelet Count 153 K/uL (130-400); RDW Coefficient of Variation 13.5 % (11.5-14.5); RDW Standard Deviation 40.8 fL (36.4-46.3); Red Blood Count 4.79 M/uL (4.7-6.1); White Blood Count 6.74 K/uL (4.8-10.8)
[2019-04-05 11:28] LABS: Albumin Globulin Ratio 1.1 (0.9-2); Albumin Level 3.5 gm/dl (3.4-5.0); BUN Creatinine Ratio 16.6 (10-20); Bilirubin,Total 0.4 mg/dl (0.2-1); Calcium 9.2 mg/dl (8.5-10.1); Creatinine Clr Calc Pharmacy 82.3 ml/min; D Dimer 280 ug/L FEU (0-500); Est GFR (African American) 77.8; Est GFR (Non-African American) 67.1; Globulin 3.2 gm/dl (2.5-4.0); Partial Thromboplastin Ratio 0.9; Potassium 4.3 mmol/L (3.5-5.1); Prothrombin Time 10.1 Seconds (9.0-12.0); Total Protein 6.7 gm/dl (6.4-8.2); Troponin I 0.028 ng/ml (0-0.045)
--- NOTE | 2019-04-05 11:39 | XRay Report ---
SINGLE VIEW CHEST CLINICAL HISTORY: Atypical chest pain. FINDINGS: An AP, portable, upright chest radiograph is compared to study dated 02/05/2019. The examin ation is degraded by portable technique and patient rotation. The patient is status post midline ster notomy. The heart is enlarged noting atherosclerotic calcification of the thoracic aorta. The pulmona ry vasculature is noncongested. The lungs and pleural spaces are clear noting mild bibasilar atelecta sis. No pneumothorax is seen. The skeletal structures are osteopenic. The bony thorax is grossly inta ct. IMPRESSION: Cardiomegaly with no acute cardiopulmonary abnormality. ACT 112: Negative or not required by law. Electronically signed by: Eric Montaño M.D. 04/05/2019 11:38 AM
[2019-04-05 11:40] LABS: Beta-Hydroxybutyrate 1.06 mg/dl (0.2-2.81)
[2019-04-05] MEDS ORDERED: METOPROLOL SUCC 25MG EXT REL TAB PO STA (13:31)
[2019-04-05] MEDS ORDERED: NovoLIN-R INSULIN PER UNIT CHARGE IV STA (13:31)
[2019-04-05] MEDS ORDERED: ISOSORBIDE MONO EXTENDED REL 30 MG TABCR PO ONE (13:33)
--- NOTE | 2019-04-05 13:56 | History & Physical Report ---
Date of Service April 05, 2019 Assessment & Plan (1) Substernal chest pain: (2) Shortness of breath: (3) Coronary artery disease: Pt is 67 y/o M with significant hx CAD s/p multiple stents, CABG, angina, HTN, dyslipidemia, DM II, Chronic CHF, CAROL, presented to ER with c/o chest pressure with associated SOB x couple of days. Denies diaphoresis, dizziness. H/O cardiac cath 01/2019: Severe chronic [place] multivessel CAD and severe bypass graft disease. Most recent previously placed stent in LAD is widely patent. The PERRI-RMA anastomotic 80% in-stent restenosis lesion is unchanged from prior cath. The distal runoff is very poor; the known inferior/posterior wall akinesis and poor distal runoff make this a poor option for further revascularization attempts. No significant change in bypass grafts or [place] coronary anatomy since July 2018. Elevated LVEDP at 34mmHg. History echo 02/06/2019: EF: 45%, septal, inferior and posterior wall motion abnormality with akinesis, mild aortic stenosis, mild mitral regurgitation. No significant change from 07/2018. Today In ER P: 87, R: 18, BP: 152/79, 95% on RA. Troponin: 0.028, D-Dimer: 280, EKG sinus rhythm ST changes similar to prior EKG R/O ACS. Risk factors: CAD, HTN, hyperlipidemia, DM, obesity -In ER given ASA 324mg po, Nitro SL x 1 with reported resolution of chest pressure, SOB and left arm discomfort -Monitor Vitals -Repeat EKG in am -Will trend troponin -Continue statin, aspirin, metoprolol, Plavix, Imdur -Nitro prn CP and repeat EKG for CP -Cardiology consult (4) Diabetes mellitus, type II: (5) Hyperglycemia: A1c: 9.5 on 02/05/2019 Random glucose 335 -Hold metformin and home insulin -Dose insulin R IV now -Basal bolus insulin per protocol (6) Chronic heart failure: Chronic systolic and diastolic heart failure Appears euvolemic at this time -Continue Lasix, spironolactone (7) Hypertension: -Continue losartan, metoprolol succinate (8) Dyslipidemia: Lipid panel 01/2018: Total cholesterol: 81, HDL: 36, LDL: 16, triglycerides: 147 -Continue rosuvastatin (9) CAROL (obstructive sleep apnea): Pt reports intolerant to CPAP in past. Is currently following up with sleep medicine outpatient for consideration CPAP DVT Prophylaxis -Heparin SQ Full Code as per discussion with pt Follows with Dr Joel Faria for routine care Pt was seen and care coordinated with Dr Gomez. See addendum History of Present Illness Chief Complaint: Chest Pain Primary Care Provider: Joel Faria, Pt is 67 y/o M with significant hx CAD s/p multiple stents, CABG, angina, HTN, dyslipidemia, DM II, Chronic CHF, CAROL, presented to ER with c/o CP x couple of days. Patient reports past couple days has been having intermittent chest pain described as chest pressure to anterior chest with associated shortness of breath. Patient states symptoms can occur with rest. Also been complaining of intermittent nausea sometimes associated with the chest pressure and sometimes unrelated. Reports when he eats the nausea goes away. Patient with history of MIs in the past and states this current pain does not feel like his prior MIs. He states he took 1 sublingual nitroglycerin a couple of days ago without any relief. Today he reports episode of chest pressure and left arm tingling and reported to ER. In ER patient received 1 sublingual nitroglycerin with resolution of chest pressure. Patient states did not have his morning medicines today except for his morning insulin. He states he ate [employer] for breakfast. He reports his home BSG is been running in the 200s to 300s. Patient with history of hospitalization 01/2019 for elevated troponins and was transferred to [facility] for catheterization which showed severe chronic [place] multivessel CAD and severe bypass graft disease with no significant change since 07/2018, did have LVEDP at 34mmHg. Denies fever/chills, diaphoresis, vomiting, diarrhea,, [place]IAM[place], dizziness, syncope, vision changes, neck pain, orthopnea, palpitations, cough, sore throat, choking, otalgia, rhinorrhea, abdominal pain, weakness, extremity weakness, extremity edema, rashes, urinary symptoms. Allergies Allergy/AdvReac Type Severity Reaction Status Date / Time valsartan Allergy Unknown fatigue Verified 04/05/19 11:37 lisinopril AdvReac Mild Cough Verified 04/05/19 11:37 canagliflozin AdvReac Unknown Excessive Verified 04/05/19 11:37 Urination Home Medications Home Medications Medication Instructions Recorded Confirmed Type Novolin 70/30 U-100 Insulin 44 unit SUBCUT QAM 07/28/18 04/05/19 History Novolin 70/30 U-100 Insulin 48 unit SUBCUT QDD 07/28/18 04/05/19 History albuterol sulfate [ProAir HFA] 2 puff INHALATION Q4H PRN 07/28/18 04/05/19 History aspirin 81 mg PO QAM 07/28/18 04/05/19 History clopidogrel [Plavix] 75 mg PO QAM 07/28/18 04/05/19 History docusate sodium 100 mg PO BID PRN 07/28/18 04/05/19 History magnesium hydroxide [Milk of 15 ml PO Q2D PRN 07/28/18 04/05/19 History Magnesia] metformin 1,000 mg PO BIDM 07/28/18 04/05/19 History nitroglycerin [Nitrostat] 0.4 mg SUBLINGUAL UD PRN 07/28/18 04/05/19 History polyethylene glycol 3350 [Miralax] 17 g PO DAILY PRN 07/28/18 04/05/19 History rosuvastatin [Crestor] 40 mg PO HS 07/28/18 04/05/19 History spironolactone 25 mg tablet 25 mg PO QAM 03/28/19 04/05/19 History furosemide [Lasix] 40 mg PO BID 04/05/19 04/05/19 History insulin regular human [Novolin R 10 unit SUBCUT QDL 04/05/19 04/05/19 History Regular U-100 Insuln] isosorbide mononitrate 30 mg PO QAM 04/05/19 04/05/19 History losartan 25 mg PO DAILY 04/05/19 04/05/19 History metoprolol succinate [Toprol XL] 25 mg PO QAM 04/05/19 04/05/19 History Past Med/Surg History Medical History (Updated 04/05/19 @ 14:05 by Molly Whitley PA-C) ACEI/ARB contraindicated (Chronic) Chronic heart failure Coronary artery disease (Chronic) 1. Prior multiple coronary artery interventions dating back to 1993, pro minently in the right coronary but ultimately leading to coronary artery bypass grafting in 1995 receiving a saphenous vein graft to the circumflex obtuse marginal, sequentially obtuse marginal 2, and a right internal mammary artery graft to the right coronary artery. 2. Later coronary artery interventions with stenting to the distal circumflex in 2003 after distal limb of the sequential graft occluded. 3. Coronary artery intervention August 2009 to the ostial portion saphenous vein graft and subsequent intervention of the distal right coronary artery to the right internal mammary artery, receiving a bare metal stent. 4. Underlying history of chronic angina pectoris as well as noncardiac chest pain. Most recent diagnostic cardiac catheterization in November 2011 without progression of coronary artery disease. Diabetes mellitus, type II (Chronic) Diabetic neuropathic arthropathy (Chronic) Diabetic neuropathy (Chronic) Dyslipidemia (Chronic) Generalized osteoarthritis (Chronic) History of renal calculi (Chronic) HTN (hypertension) (Chronic) Hx of congestive heart failure Obesity (Chronic) CAROL (obstructive sleep apnea) (Chronic) TMJ (temporomandibular joint disorder) (Chronic) Surgical History History of tonsillectomy (Chronic) Hx of CABG (Chronic) Hx of right knee surgery (Chronic) S/P david (Chronic) S/P nasal septoplasty (Chronic) Family History Brother Cardiac disease Heart disease Stroke Mother Stroke Diabetes Hypertension Father Leukemia Diabetes Cancer Social History Preferred Language: Montenegrin Communication Ability: Effective Family Day Care Worker Required: No Beliefs That Will Affect Care: None marital status: / Current Living Situation: Significant Other current occupational status: retired Feels Safe at Home: Yes Smoking Status: Never smoker Hx Alcohol Use: Yes Alcohol type: beer, wine and hard liquor Alcohol type Comment: 2-3 beers 1-2 times a week Alcohol Intake Frequency: Weekly Hx Substance Use: No Review of Systems Review of Systems: All systems reviewed & are unremarkable except as noted in HPI & below Physical Exam Physical Exam: General: no distress, WDWN Head: normocephalic, atraumatic Eyes: PERRL, EOM's intact, conjunctiva non-injected, anicteric ENT: normal inspection external ears, nose, mucous membranes moist Neck: supple, trachea midline Lungs: clear, no respiratory distress, no wheezing/rhonchi/rales CV: RRR, no murmur, trace pretibial edema Abd: normal BS, soft, non-tender Ext: no cyanosis, no calf tenderness Neuro: A&O x 3, no focal deficits noted, normal affect Skin: warm, dry Results & Data Vital Signs (Past 12 Hours) Vital Signs Temp Pulse Pulse Resp BP BP Pulse Ox 04/05/19 12:30 73 17 146/66 H 97 04/05/19 11:03 83 21 153/74 H 95 04/05/19 10:59 80 18 95 04/05/19 10:27 36.9 C 87 18 152/79 H 95 Laboratory Results Short CBC 04/05/19 Range/Units 10:47 WBC 6.74 (4.8-10.8) K/uL Hgb 14.3 (14.0-18.0) g/dL Hct 40.2 L (42-52) % Plt Count 153 (130-400) K/uL BMP 04/05/19 10:47 Sodium 135 L Potassium 4.3 Chloride 101 Carbon Dioxide 28 BUN 19 H Creatinine 1.12 Glucose 335 H* Calcium 9.2 Cardiac Enzymes 04/05/19 Range/Units 10:47 Troponin I 0.028 (0-0.045) ng/ml Liver Function 04/05/19 Range/Units 10:47 Total Bilirubin 0.4 (0.2-1) mg/dl AST 10 L (15-37) U/L ALT 23 (12-78) U/L Alkaline Phosphatase 130 H (45-117) U/L Albumin 3.5 (3.4-5.0) gm/dl Diagnostic Findings CXR: IMPRESSION: Cardiomegaly with no acute cardiopulmonary abnormality. Supervising Physician Co-Signing Physician Notes I saw this patient with the physician laboratory assistant, I participated in the history, physical, review of systems, and physical exam. I reviewed the medications with the patient and the physician laboratory assistant and helped reconcile the medications. I helped take a detailed family and social history as well. I formulated the assessment and plan personally with the physician laboratory assistant and went over it with the patient. Physical Exam Gen-AAO x 3, NAD, Afebrile Head-NCAT, EOMI, PERRLA, Anicteric Sclera, No Posterior Pharyngeal Erythema Neck-Supple, No JVD, No Thyromegaly, No Masses, No LAD, No Bruits Lungs-Clear to Auscultation Bilaterally, No Rales, No Rhonchi, No Wheezing, No Crepitus Chest-No S4, +S1, +S2, No S3, No Murmurs, No Rubs, No Gallops, No Ectopy Abdomen-Soft, Bowel Sounds Present, Non Tender, Non Distended, No Hepatomegaly, No Splenomegaly, No Palpable Masses, No Rebound, No Rigidity, No Guarding Musculoskeletal-Full Range of Motion Bilaterally, No CVAT Extremities-No Cyanosis, No Clubbing, No Edema Nuero-Cranial Nerves II-XII grossly intact, Motor WNL, DTRs WNL, Strength WNL, Non Focal Psych-Normal Mood (1) Diabetes mellitus, type II Diabetes mellitus complication status: with other specified complication Diabetes mellitus 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
[2019-04-05] MEDS ORDERED: FUROSEMIDE 40 MG/4 ML VIAL IV STA (14:35)
--- NOTE | 2019-04-05 14:39 | Electrocardiogram Report ---
Test Reason : Blood Pressure : / mmHG Vent. Rate : 077 BPM Atrial Rate : 077 BPM P-R Int : 200 ms QRS Dur : 108 ms QT Int : 412 ms P-R-T Axes : 060 -08 129 degrees QTc Int : 466 ms Normal sinus rhythm Minimal voltage criteria for LVH, may be normal variant Inferior infarct (cited on or before 31-AUG-2012) Abnormal ECG When compared with ECG of 05-FEB-2019 08:38, Premature atrial complexes are no longer Present Confirmed by Melecio Hunt ([id number]) on 04/05/2019 2:38:44 PM Referred By: ED Confirmed By:Melecio Hunt
[2019-04-05] MEDS ORDERED: GLUCAGON FOR INJ 1 MG VIAL SQ PRN (14:58)
[2019-04-05] MEDS ORDERED: GLUCOSE 10 TABS/TUBE PO PRN (14:58)
[2019-04-05] MEDS ORDERED: DOCUSATE SODIUM 100 MG CAP PO PRN (14:58)
[2019-04-05] MEDS ORDERED: DEXTROSE 50% 50 ML SYRINGE IV PRN (14:58)
[2019-04-05] MEDS ORDERED: GLUCOSE 40% GEL 15 GM TUBE PO PRN (14:58)
[2019-04-05] MEDS ORDERED: POLYETHYLENE (MIRALAX) 17 GM PACK PO PRN (14:58)
[2019-04-05] MEDS ORDERED: CARBOHYDRATES FOR HYPOGLYCEMIA PO PRN (14:58)
[2019-04-05] MEDS ORDERED: ACETAMINOPHEN 325 MG TAB PO PRN (14:58)
[2019-04-05] MEDS ORDERED: FUROSEMIDE 20 MG in SYRINGE 0 ML IV ONE (15:00)
[2019-04-05] MEDS ORDERED: ALBUTEROL HFA 8 GM INHALER INH PRN (15:01)
--- NOTE | 2019-04-05 16:11 | Cardiology Consultation ---
Date of Consultation April 05, 2019 Assessment & Plan (1) Shortness of breath: (2) Substernal chest pain: (3) Chronic heart failure: EKG performed today 04/05/2019 10:37 AM revealed sinus rhythm at 77 bpm with first-degree AV block, T wave inversions were noted in the high lateral leads I and aVL, relatively unchanged compared to that observed at the time of his July, hospital stay and in January,. The lateral precordial leads actually look improved compared to January,. He has inferior Q waves which are chronic finding dating back to 2012. His troponin is detectable, but not above the reference level of normal at present. His chest x-ray and physical exam are not suggestive of severe volume overload, but I question if perhaps he is trending toward volume overload and we just happened to catch it earlier this time then in January. He would have been due for 40 mg of oral furosemide this afternoon, I am instead going to prescribe 20 mg of IV furosemide. He has already received his isosorbide mononitrate and the remaining medications that he typically takes at home including his beta-spencer and dual antiplatelet therapy. We will continue to trend his cardiac enzymes and reassess response. History of Present Illness Attending Physician: Bryce Gomez DO History of Present Illness Liam Luis is a 68 year old male seen in cardiology consultation per the request of Ho Whitley and Dr Gomez of the [facility] for the evalation of chest pain. The patient states that over the last 3 to 4 days he has had progressive chest discomfort, mostly at rest rather than with physical exertion. Today it worsened and he had a transient radiation down his left arm prompting him to come to the emergency room. During my assessment, he was feeling well. He had recently received his morning medications that he had missed this morning including his isosorbide mononitrate. His blood sugar had been elevated on arrival, but was trending toward improvement. He was comfortable. He notes that his weight has been up a little bit, with a previous dry weight in the range of 240 pounds, and recently he has been 244 to 246 pounds. Been taking furosemide 40 mg 2 times per day with his afternoon dose at about 2 PM which is been his recent dose since his most recent visit with Dr. Atwood. The patient had presented to [facility] in July, and was seen in consultation by the undersigned for unstable angina. He was transferred to [facility], and underwent stent to the [place] LAD. In January, he presented with chest pain, shortness of breath, volume overload and was transferred and underwent another cardiac catheterization which revealed a patent stent, and severe [place] vessel disease and graft disease otherwise unchanged compared to July, with elevation in his left ventricular end-diastolic pressure to 34 mmHg, and therefore treatment for volume overload with regular diuretic therapy including furosemide and spironolactone initiated. Cardiac Problem List: 1. Prior multiple coronary artery interventions dating back to 1993, prominen tly in the right coronary ultimately leading to coronary artery bypass grafting in 1995 receiving a saphenous vein graft to the circumflex obtuse marginal, sequentially obtuse marginal 2, and a right internal mammary artery graft to the right coronary artery. 2. ROBIN to the mid LAD, [facility] 02/20/2003 3. Stenting to the distal circumflex in 2003 after distal limb of the sequential graft occluded. 4. PCI to the ostial portion saphenous vein graft and subsequent intervention of the distal right coronary artery to the right internal mammary artery, receiving a bare metal stent. 5. PCI and placement of a 2.5 x 18 mm Integrity bare metal stent in the distal right coronary artery, starting in the PERRI graft and extending through the anastomosis into the distal right coronary artery. The initial 90% stenosis was reduced to a residual 5% narrowing -cardiac catheterization performed November 2011 [facility] with 100% lesion of the [place] mid RCA, the distal RCA vessel was small in size with moderate disease with a patent stent the PERRI to the distal RCA was patent sequential SVG to the first obtuse marginal and second marginal had a 30% in-stent restenosis. Ongoing medical management recommended -unstable angina 07/2018, prompting transfer from [facility] to [facility] at which time he underwent cardiac catheterization revealing severe disease with a culprit lesion of the mid LAD which was treated with a single drug-eluting stent. The sequential saphenous vein graft from the aorta to obtuse marginal 1 and obtuse marginal 2 was occluded The PERRI to the right PDA was patent but there was a distal right PDA stenosis of 80%. The left circumflex was noted to have moderate disease in the [place] right coronary artery was occluded proximally. -Patient presented with chest pain, shortness of breath, volume overload, January,, mild elevation of troponin, prompting transfer to [facility] and repeat cardiac catheterization with findings of patent LAD stent, and severe disease elsewhere unchanged compared to July,. The left ventricular end-diastolic pressure however was severely elevated at 34 mmHg Echocardiogram performed 02/06/2019 at [facility] revealed a large sized septal, inferior, posterior wall motion abnormality with akinesis of the segments, LVEF in the range of 45-49%. Mild aortic valve stenosis. Mild mitral valve regurgitation. Unchanged compared to July, Allergies Allergy/AdvReac Type Severity Reaction Status Date / Time lisinopril AdvReac Mild Cough Verified 04/05/19 11:37 canagliflozin AdvReac Unknown Excessive Verified 04/05/19 11:37 Urination valsartan AdvReac Unknown fatigue Verified 04/05/19 15:00 Home Medications Home Medications Medication Instructions Recorded Confirmed Type Novolin 70/30 U-100 Insulin 44 unit SUBCUT QAM 07/28/18 04/05/19 History Novolin 70/30 U-100 Insulin 48 unit SUBCUT QDD 07/28/18 04/05/19 History albuterol sulfate [ProAir HFA] 2 puff INHALATION Q4H PRN 07/28/18 04/05/19 History aspirin 81 mg PO QAM 07/28/18 04/05/19 History clopidogrel [Plavix] 75 mg PO QAM 07/28/18 04/05/19 History docusate sodium 100 mg PO BID PRN 07/28/18 04/05/19 History magnesium hydroxide [Milk of 15 ml PO Q2D PRN 07/28/18 04/05/19 History Magnesia] metformin 1,000 mg PO BIDM 07/28/18 04/05/19 History nitroglycerin [Nitrostat] 0.4 mg SUBLINGUAL UD PRN 07/28/18 04/05/19 History polyethylene glycol 3350 [Miralax] 17 g PO DAILY PRN 07/28/18 04/05/19 History rosuvastatin [Crestor] 40 mg PO HS 07/28/18 04/05/19 History spironolactone 25 mg tablet 25 mg PO QAM 03/28/19 04/05/19 History furosemide [Lasix] 40 mg PO BID 04/05/19 04/05/19 History insulin regular human [Novolin R 10 unit SUBCUT QDL 04/05/19 04/05/19 History Regular U-100 Insuln] isosorbide mononitrate 30 mg PO QAM 04/05/19 04/05/19 History losartan 25 mg PO DAILY 04/05/19 04/05/19 History metoprolol succinate [Toprol XL] 25 mg PO QAM 04/05/19 04/05/19 History Patient History Medical History ACEI/ARB contraindicated (Chronic) Chronic heart failure Coronary artery disease (Chronic) 1. Prior multiple coronary artery interventions dating back to 1993, prominently in the right coronary but ultimately leading to coronary artery bypass grafting in 1995 receiving a saphenous vein graft to the circumflex obtuse marginal, sequentially obtuse marginal 2, and a right internal mammary artery graft to the right coronary artery. 2. Later coronary artery interventions with stenting to the distal circumflex in 2003 after distal limb of the sequential graft occluded. 3. Coronary artery intervention August 2009 to the ostial portion saphenous vein graft and subsequent intervention of the distal right coronary artery to the right internal mammary artery, receiving a bare metal stent. 4. Underlying history of chronic angina pectoris as well as noncardiac chest pain. Most recent diagnostic cardiac catheterization in November 2011 without progression of coronary artery disease. Diabetes mellitus, type II (Chronic) Diabetic neuropathic arthropathy (Chronic) Diabetic neuropathy (Chronic) Dyslipidemia (Chronic) Generalized osteoarthritis (Chronic) History of renal calculi (Chronic) HTN (hypertension) (Chronic) Hx of congestive heart failure Obesity (Chronic) CAROL (obstructive sleep apnea) (Chronic) TMJ (temporomandibular joint disorder) (Chronic) Surgical History History of tonsillectomy (Chronic) Hx of CABG (Chronic) Hx of right knee surgery (Chronic) S/P david (Chronic) S/P nasal septoplasty (Chronic) Family History Brother Cardiac disease Heart disease Stroke Mother Stroke Diabetes Hypertension Father Leukemia Diabetes Cancer Social History Preferred Language: Slovak Communication Ability: Effective Child Care Lead Teacher Required: No Beliefs That Will Affect Care: None marital status: / Current Living Situation: Alone current occupational status: retired Other Information That Helps Us Care for You: No Feels Safe at Home: No Is there a partner from a previous relationship who is making you feel unsafe now?: No Safety Concerns: Feels Safe At This Time Smoking Status: Never smoker Hx Alcohol Use: Yes Alcohol type: beer, wine and hard liquor Alcohol type Comment: 2-3 beers 1-2 times a week Alcohol Intake Frequency: Weekly Hx Substance Use: No Review of Systems Review of Systems: All systems reviewed & are unremarkable except as noted in HPI & below Physical Exam Physical Exam: Temp Pulse Resp BP Pulse Ox 36.8 C 79 20 154/70 H 97 04/05/19 15:00 04/05/19 15:00 04/05/19 15:00 04/05/19 15:00 04/05/19 15:00 Constitutional: WD/WN, vitals as above Respiratory: normal respiratory effort, lungs clear to auscultation Cardiovascular: RRR, no murmur, no edema Vessels: + JVD Extremities: + edema (1+ ankle edema) Gastrointestinal (Abdomen): normal bowel sounds, soft, nontender, no hepatosplenomegaly Neurologic: PERRL, EOMI, accommodation nl, no face palsy, no dysarthria Results & Data ([facility]) Vital Signs (Past 12 Hours) Vital Signs Temp Pulse Pulse Resp BP BP Pulse Ox 04/05/19 15:00 36.8 C 79 20 154/70 H 97 04/05/19 14:00 71 18 135/74 98 04/05/19 12:30 73 17 146/66 H 97 04/05/19 11:03 83 21 153/74 H 95 04/05/19 10:59 80 18 95 04/05/19 10:27 36.9 C 87 18 152/79 H 95 Laboratory Results Cardiac Enzymes 04/05/19 Range/Units 10:47 AST 10 L (15-37) U/L Troponin I 0.028 (0-0.045) ng/ml Coagulation 04/05/19 Range/Units 10:47 PT 10.1 (9.0-12.0) Seconds APTT 24.0 (21.0-31.0) Seconds CBC 04/05/19 Range/Units 10:47 WBC 6.74 (4.8-10.8) K/uL RBC 4.79 (4.7-6.1) M/uL Hgb 14.3 (14.0-18.0) g/dL Hct 40.2 L (42-52) % Plt Count 153 (130-400) K/uL Neut # (Auto) 5.02 (1.4-6.5) K/uL Lymph # (Auto) 1.22 (1.2-3.4) K/uL [place] # (Auto) 0.42 (0.11-0.59) K/uL Eos # (Auto) 0.07 (0-0.5) K/uL Baso # (Auto) 0.01 (0-0.2) K/uL Comprehensive Metabolic Panel 04/05/19 Range/Units 10:47 Sodium 135 L (136-145) mmol/L Potassium 4.3 (3.5-5.1) mmol/L Chloride 101 (98-107) mmol/L Carbon Dioxide 28 (21-32) mmol/L BUN 19 H (7-18) mg/dl Creatinine 1.12 (0.6-1.4) mg/dl Glucose 335 H* (70-99) mg/dl Calcium 9.2 (8.5-10.1) mg/dl AST 10 L (15-37) U/L ALT 23 (12-78) U/L Alkaline Phosphatase 130 H (45-117) U/L Total Protein 6.7 (6.4-8.2) gm/dl Albumin 3.5 (3.4-5.0) gm/dl Intake and Output 04/05/19 04/05/19 04/05/19 06:59 14:59 22:59 Other: Weight 114 kg 114 kg Patient Weight 04/06/19 06:59 Weight 114 kg
[2019-04-05] MEDS: INSULIN ASPART 100 UNITS/ML 3 ML PEN SC SCH ×2 (17:12→20:28)
--- NOTE | 2019-04-05 18:04 | Emergency Department Note ---
Entered by Gunjan Gallegos acting as a scribe for Angel Bowers MD ED Provider Note CHIEF COMPLAINT: Chest Pain HISTORY OF PRESENT ILLNESS: The patient is a 68 year old male who presents to the Emergency Room with complaints of intermittent chest pain starting a few days ago. The patient states that a few days ago he noticed a pressure in the center of his chest. He states that he didnt think much of it because his prior heart attacks felt more like an ache. He reports that he tried taking Nitroglycerin anyway, but it offered no relief. He states that since then the pain has gotten to be more frequent and worse. 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 He reports that tit made him short of breath, nauseous, and lightheaded so he came to the ED. He notes he takes Aspirin daily, but denies taking it today. The patient denies pain with breathing. Pt denies LOC, headache, fevers, chills, diaphoresis, visual changes, neck pain, vomiting, abdominal pain, back pain, melena, hematochezia, urinary symptoms, numbness, weakness, lymphadenopathy, rash, or other complaints. REVIEW OF SYSTEMS: See HPI for pertinent positives and negatives. A total of ten systems were reviewed and were otherwise negative. PMHx/PSHx: CAD, Diabetes, CHF, Dyslipidemia, Osteoarthritis, HTN, Renal Calculi, CAROL, TMJ, tonsillectomy, CABG, right knee surgery, cholecystectomy, and nasal septoplasty SOCIAL HISTORY: Patient lives at home alone. He is and retired He denies ever being a smoker and using substance. He notes that he does drink alcohol. PHYSICAL EXAM: GENERAL: Awake, alert, well-appearing, in no distress HENT: Normocephalic, atraumatic. Oropharynx unremarkable. EYES: PERRL. Normal conjunctiva. Sclera non-icteric. NECK: Inspection normal. Non-tender. Supple. No nuchal rigidity. FROM. No masses. RESPIRATORY: Clear to auscultation. No wheezes. No rales. Normal respiratory effort. CARDIAC: Normal rate. Normal rhythm. No murmurs. No rubs. Extremities warm and well perfused. Pulses equal. No JVD. GI: Soft, non-distended. No tenderness to palpation. No rebound or guarding. No masses. RECTAL: Deferred. MUSCULOSKELETAL: Atraumatic. Chest examination reveals no tenderness. The back is symmetrical on inspection without obvious abnormality. There is no CVA tenderness to palpation. No joint edema. LOWER EXTREMITIES: Calves are equal size bilaterally and non-tender. Chronic venous discoloration in the lower extremities. 1+ lower extremity edema. NEURO: Normal sensorium. No sensory or motor deficits noted. SKIN: No rash or jaundice noted. EMERGENCY DEPARTMENT COURSE: 1039: The patient was evaluated in room B4B, and a complete history and physical examination were performed. 1243: I reevaluated the patient and updated him on his test results. I discussed the treatment plan with him. He verbally agrees and understands. 1245: I discussed the patient's case with ORIANA Cobos [facility] Hospitalist. She will evaluate the patient for further management under Dr. Gatica's service. MEDICAL DECISION MAKING: Prior records/ancillary studies reviewed. Triage Nursing notes reviewed and agree them. Additional history obtained from the family. The patient's history was concerning for chest pain. Differential diagnosis: Etiologies such as cardiac ischemia, aortic dissection, pulmonary embolism, pneumonia, pneumothorax, musculoskeletal, infections, pericarditis, myocarditis, esophageal rupture, gastrointestinal, as well as others were entertained. Physical examination: As above. ER treatment provided: Sublingual nitroglycerin Oral aspirin On reassessment the patient felt better. Diagnostic interpretation by me: The electrocardiogram was negative for pathologic change. The labs revealed mild hyperglycemia on chemistry panel. CBC, d-dimer, troponin, LFTs, and lipase negative. A d-dimer was performed and it was negative. Based on Wells criteria and a negative dimer no further imaging for PE was performed. Imaging studies: Chest imaging negative for acute process. The patient has an extensive cardiac history. He is having chest pain with shortness of breath. His ECG does not show any acute changes but is abnormal at baseline. Further management will be necessary in the hospital. Consultation: A consultation was placed with the hospitalist. The case was discussed and diagnostics were reviewed. The patient was evaluated in the ER for further treatment. IMPRESSION: Substernal chest pain, Shortness of breath, Abnormal EKG PLAN: Being Evaluated by the Hospitalist The scribe's documentation has been prepared under my direction and personally reviewed by me in its entirety. I confirm that the note above accurately reflects all work, treatment, procedures, and medical decision making performed by me. Impression & Plan Substernal chest pain, Shortness of breath, Abnormal EKG Past Med/Surg History Medical History ACEI/ARB contraindicated (Chronic) Chronic heart failure Coronary artery disease (Chronic) 1. Prior multiple coronary artery interventions dating back to 1993, prominently in the right coronary but ultimately leading to coronary artery bypass grafting in 1995 receiving a saphenous vein graft to the circumflex obtuse marginal, sequentially obtuse marginal 2, and a right internal mammary artery graft to the right coronary artery. 2. Later coronary artery interventions with stenting to the distal circumflex in 2003 after distal limb of the sequential graft occluded. 3. Coronary artery intervention August 2009 to the ostial portion saphenous vein graft and subsequent intervention of the distal right coronary artery to the right internal mammary artery, receiving a bare metal stent. 4. Underlying history of chronic angina pectoris as well as noncardiac chest pain. Most recent diagnostic cardiac catheterization in November 2011 without progression of coronary artery disease. Diabetes mellitus, type II (Chronic) Diabetic neuropathic arthropathy (Chronic) Diabetic neuropathy (Chronic) Dyslipidemia (Chronic) Generalized osteoarthritis (Chronic) History of renal calculi (Chronic) HTN (hypertension) (Chronic) Hx of congestive heart failure Obesity (Chronic) CAROL (obstructive sleep apnea) (Chronic) TMJ (temporomandibular joint disorder) (Chronic) Surgical History History of tonsillectomy (Chronic) Hx of CABG (Chronic) Hx of right knee surgery (Chronic) S/P david (Chronic) S/P nasal septoplasty (Chronic) Family History Brother Cardiac disease Heart disease Stroke Mother Stroke Diabetes Hypertension Father Leukemia Diabetes Cancer Social History Preferred Language: Salvadorean Communication Ability: Effective 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 Beliefs That Will Affect Care: None marital status: / Current Living Situation: Alone current occupational status: retired Other Information That Helps Us Care for You: No Feels Safe at Home: No Is there a partner from a previous relationship who is making you feel unsafe now?: No Safety Concerns: Feels Safe At This Time Smoking Status: Never smoker Hx Alcohol Use: Yes Alcohol type: beer, wine and hard liquor Alcohol type Comment: 2-3 beers 1-2 times a week Alcohol Intake Frequency: Weekly Hx Substance Use: No Results & Data Vital Signs Vital Signs - 24 hr 04/05/19 10:27 04/05/19 10:59 04/05/19 11:03 Temperature 36.9 C Temperature Source Oral Pulse Rate 87 80 Pulse Rate [Apical] 83 Pulse Rhythm Regular Pulse Rhythm [Apical] Pulse Strength [Apical] Respiratory Rate 18 18 21 Respiratory Effort / Characteristics Non-Labored Non-Labored Spontaneous Respiratory Depth Normal Normal Respiratory Pattern Regular Blood Pressure 152/79 H Blood Pressure [Right Arm] 153/74 H Blood Pressure Mean 103 Blood Pressure Mean [Right Arm] 100 Blood Pressure Position Sitting Blood Pressure Position [Right Arm] Sitting Pulse Oximetry 95 95 95 Oxygen Delivery Method Room Air Room Air Room Air Oxygen Flow Rate Sepsis Recent Fever Within 48 Hours No Sepsis New/Unexplained Change in Mental Status No Sepsis Action Taken by Nursing No Action Required 04/05/19 12:30 Temperature Temperature Source Pulse Rate Pulse Rate [Apical] 73 Pulse Rhythm Pulse Rhythm [Apical] Regular Pulse Strength [Apical] Normal Respiratory Rate 17 Respiratory Effort / Characteristics Non-Labored Spontaneous Respiratory Depth Normal Respiratory Pattern Regular Blood Pressure Blood Pressure [Right Arm] 146/66 H Blood Pressure Mean Blood Pressure Mean [Right Arm] 92 Blood Pressure Position Blood Pressure Position [Right Arm] Pulse Oximetry 97 Oxygen Delivery Method Nasal Cannula Oxygen Flow Rate 2 Sepsis Recent Fever Within 48 Hours Sepsis New/Unexplained Change in Mental Status Sepsis Action Taken by Correction Medications Current Medication List: was personally reviewed by me Laboratory Data Attestation: I reviewed the patient's lab results. Result diagrams: 04/05/19 10:47 04/05/19 10:47 Lab Results 04/05/19 04/05/19 04/05/19 Range/Units 10:47 10:47 10:47 WBC 6.74 (4.8-10.8) K/uL RBC 4.79 (4.7-6.1) M/uL Hgb 14.3 (14.0-18.0) g/dL Hct 40.2 L (42-52) % MCV 83.9 (80-100) fL MCH 29.9 (25-34) pg MCHC 35.6 (32-36) g/dL RDW Std Deviation 40.8 (36.4-46.3) fL RDW Coeff of Aaron 13.5 (11.5-14.5) % Plt Count 153 (130-400) K/uL MPV 9.9 (7.4-10.4) fL Immature Gran % (Auto) 0.0 % Neut % (Auto) 74.6 % Lymph % (Auto) 18.1 % [place] % (Auto) 6.2 % Eos % (Auto) 1.0 % Baso % (Auto) 0.1 % Immature Gran # (Auto) 0.00 (0.00-0.02) K/uL Neut # (Auto) 5.02 (1.4-6.5) K/uL Lymph # (Auto) 1.22 (1.2-3.4) K/uL [place] # (Auto) 0.42 (0.11-0.59) K/uL Eos # (Auto) 0.07 (0-0.5) K/uL Baso # (Auto) 0.01 (0-0.2) K/uL PT 10.1 (9.0-12.0) Seconds INR 1.0 (0.9-1.1) APTT 24.0 (21.0-31.0) Seconds PTT Ratio 0.9 D-Dimer 280 (0-500) ug/L FEU Sodium 135 L (136-145) mmol/L Potassium 4.3 (3.5-5.1) mmol/L Chloride 101 (98-107) mmol/L Carbon Dioxide 28 (21-32) mmol/L Anion Gap 6.0 (3-11) BUN 19 H (7-18) mg/dl Creatinine 1.12 (0.6-1.4) mg/dl Est Cr Clr Drug Dosing 82.3 ml/min Est GFR ( Amer) 77.8 Est GFR (Non-Af Amer) 67.1 BUN/Creatinine Ratio 16.6 (10-20) Glucose 335 H* (70-99) mg/dl Calcium 9.2 (8.5-10.1) mg/dl Total Bilirubin 0.4 (0.2-1) mg/dl AST 10 L (15-37) U/L ALT 23 (12-78) U/L Alkaline Phosphatase 130 H (45-117) U/L Troponin I 0.028 (0-0.045) ng/ml Total Protein 6.7 (6.4-8.2) gm/dl Albumin 3.5 (3.4-5.0) gm/dl Globulin 3.2 (2.5-4.0) gm/dl Albumin/Globulin Ratio 1.1 (0.9-2) Lipase 87 (73-393) U/L Beta-Hydroxybutyric Acd 1.06 (0.2-2.81) mg/dl Administered Medications Insulin Aspart (Novolog Flexpen) 0 units SC ACHS APOLINAR Stop: 05/05/19 16:29 Last Admin: 04/05/19 17:12 Dose: 6 units Documented by: [id number] Cosigned by: [id number] Discontinued Medications Aspirin (Aspirin) 324 mg PO NOW STA Stop: 04/05/19 10:43 Last Admin: 04/05/19 11:02 Dose: 324 mg Documented by: [id number] Furosemide 20 mg/ Syringe 2 mls @ 4 mls/min IV NOW ONE Stop: 04/05/19 15:01 Last Admin: 04/05/19 15:19 Dose: 4 mls/min Documented by: [id number] Insulin Human Regular (Novolin R U-100 Per Unit) 8 units IV NOW STA Stop: 04/05/19 13:32 Last Admin: 04/05/19 14:02 Dose: 8 units Documented by: [id number] Cosigned by: [id number] Isosorbide Mononitrate (Imdur Extended Rel) 30 mg PO ONE ONE Stop: 04/05/19 13:34 Last Admin: 04/05/19 14:07 Dose: 30 mg Documented by: [id number] Metoprolol Succinate (Toprol Xl) 25 mg PO NOW STA Stop: 04/05/19 13:32 Last Admin: 04/05/19 14:07 Dose: 25 mg Documented by: [id number] Nitroglycerin (Nitrostat) 0.4 mg SL UD PRN PRN Reason: Chest Pain Stop: 05/05/19 10:41 Last Admin: 04/05/19 11:02 Dose: 0.4 mg Documented by: [id number] Imaging Data Radiologist's Impression: Radiology results as stated below per my review and the radiologist's interpretation: SINGLE VIEW CHEST CLINICAL HISTORY: Atypical chest pain. FINDINGS: An AP, portable, upright chest radiograph is compared to study dated 02/05/2019. The examination is degraded by portable technique and patient rotation. The patient is status post midline sternotomy. The heart is enlarged noting atherosclerotic calcification of the thoracic aorta. The pulmonary vasculature is noncongested. The lungs and pleural spaces are clear noting mild bibasilar atelectasis. No pneumothorax is seen. The skeletal structures are osteopenic. The bony thorax is grossly intact. IMPRESSION: Cardiomegaly with no acute cardiopulmonary abnormality. ACT 112: Negative or not required by law. Electronically signed by: Eric Montaño M.D. 04/05/2019 11:38 AM ECG Data Attestation: I personally reviewed and interpreted this ECG as follows: Indication: + chest pain Rate (beats per minute): 77 Rhythm: normal sinus ECG Intervals/blocks: + Normal QRS ECG [place]: + Normal ECG ST segments: + T-wave inversions (Lateral) ECG Findings: + Q waves (Inferior) and + LVH Comparison ECG Date: from (02/05/2019) Change: no significant change (TWI are old) Blood Pressure Blood Pressure Findings: Elevated blood pressure Blood Pressure Disposition: Referred to patients primary care provider Discharge Plan Visit Data *Final* Discharge Date/Time: 04/05/19 14:09 Chief Complaint: Chest Pain Stated Complaint: CHEST PAIN ED Provider: Angel Bowers Discharge Problem: Substernal chest pain, Shortness of breath, Abnormal EKG Patient Disposition: Admitted As Inpatient Discharge Instructions Interventions: ED Discharge Assessment Last Done: 04/05/19 14:09 The scribe's documentation has been prepared under my direction and personally reviewed by me in its entirety. I confirm that the note above accurately reflects all work, treatment, procedures, and medical decision making performed by me.
[2019-04-05] MEDS: HEPARIN SOD 5,000 UNIT/0.5 ML VIAL SQ SCH (20:28)
[2019-04-05] MEDS: ROSUVASTATIN CALCIUM 20 MG TAB PO SCH (20:28)
[2019-04-05] MEDS ORDERED: FUROSEMIDE 40 MG TAB PO SCH (21:00)
[2019-04-05] MEDS: INSULIN GLARGINE SOLOSTAR 100 UNITS/ML 3 ML PEN SC SCH (22:19)
[2019-04-06 03:06] LABS: Basophils # (auto) 0.03 K/uL (0-0.2); Basophils % (auto) 0.4 %; Eosinophils # (auto) 0.13 K/uL (0-0.5); Eosinophils % (auto) 1.9 %; Hematocrit (blood only) 41.3 % (42-52); Hemoglobin 14.6 g/dL (14.0-18.0); Immature Granulocytes # (auto) 0.05 K/uL (0.00-0.02); Immature Granulocytes % (auto) 0.7 %; Lymphocytes # (auto) 1.83 K/uL (1.2-3.4); Lymphocytes % (auto) 26.5 %; Mean Corpuscular Hemoglobin 29.4 pg (25-34); Mean Corpuscular Hgb Conc 35.4 g/dL (32-36); Mean Corpuscular Volume 83.1 fL (80-100); Monocytes # (auto) 0.47 K/uL (0.11-0.59); Monocytes % (auto) 6.8 %; Neutrophils % (auto) 63.7 %; Platelet Count 154 K/uL (130-400); RDW Coefficient of Variation 13.4 % (11.5-14.5); RDW Standard Deviation 40.3 fL (36.4-46.3); Red Blood Count 4.97 M/uL (4.7-6.1); White Blood Count 6.91 K/uL (4.8-10.8)
[2019-04-06 03:16] LABS: Partial Thromboplastin Ratio 0.9; Partial Thromboplastin Time 23.7 Seconds (21.0-31.0)
[2019-04-06 03:25] LABS: BUN Creatinine Ratio 14.5 (10-20); Calcium 9.2 mg/dl (8.5-10.1); Creatinine Clr Calc Pharmacy 79.4 ml/min; Est GFR (African American) 74.6; Est GFR (Non-African American) 64.3; Magnesium 2.2 mg/dl (1.8-2.4); Potassium 4.2 mmol/L (3.5-5.1)
[2019-04-06 03:29] LABS: Troponin I 0.022 ng/ml (0-0.045)
[2019-04-06] MEDS: METOPROLOL SUCC 25MG EXT REL TAB PO SCH (03:53)
--- NOTE | 2019-04-06 08:23 | Hospitalist Progress Note ---
Date of Service April 06, 2019 Assessment & Plan (1) Substernal chest pain: (2) Shortness of breath: (3) Coronary artery disease: Pt is 67 y/o M with significant hx CAD s/p multiple stents, CABG, angina, HTN, dyslipidemia, DM II, Chronic CHF, CAROL, presented to ER with c/o chest pressure with associated SOB x couple of days. Denies diaphoresis, dizziness. H/O cardiac cath 01/2019: Severe chronic [place] multivessel CAD and severe bypass graft disease. Most recent previously placed stent in LAD is widely patent. The PERRI-RMA anastomotic 80% in-stent restenosis lesion is unchanged from prior cath. The distal runoff is very poor; the known inferior/posterior wall akinesis and poor distal runoff make this a poor option for further revascularization attempts. No significant change in bypass grafts or [place] coronary anatomy since July 2018. Elevated LVEDP at 34mmHg. History echo 02/06/2019: EF: 45%, septal, inferior and posterior wall motion abnormality with akinesis, mild aortic stenosis, mild mitral regurgitation. No significant change from 07/2018. Today In ER P: 87, R: 18, BP: 152/79, 95% on RA. Troponin: 0.028, D-Dimer: 280, EKG sinus rhythm ST changes similar to prior EKG R/O ACS. Risk factors: CAD, HTN, hyperlipidemia, DM, obesity -In ER given ASA 324mg po, Nitro SL x 1 with reported resolution of chest pressure, SOB and left arm discomfort -Monitor Vitals -Repeat EKG in am -Will trend troponin -Continue statin, aspirin, metoprolol, Plavix, Imdur -Nitro prn CP and repeat EKG for CP -Cardiology consulted - given hx of chronic CHF, initially pt was switched from PO diuretics to IV (dose equivalent) as pt did not appear overly fluid overloaded - perhaps trending toward fluid overload and caught early - today cont. IV diuretics -pt seems to be clinically improved, denies any chest pain, ambulates w/o any concerning symptoms -per cardiology, at this time, feel that repeat cardiac catheterization would be of low yield -his EKG is relatively unchanged, and although his troponin levels are detected, they are not above the upper limit of the reference range - plan on repeat troponin and EKG in the morning (4) Chronic heart failure: Chronic systolic and diastolic heart failure Does not appear overly fluid overloaded, perhaps trending to fluid overload and caught early -Continue Lasix, spironolactone, home PO lasix switched to IV equivalent (5) Diabetes mellitus, type II: (6) Hyperglycemia: A1c: 9.5 on 02/05/2019 Random glucose 335 -Hold metformin and home insulin -Dose insulin R IV now -Basal bolus insulin per protocol (7) Hypertension: -Continue losartan, metoprolol succinate (8) Dyslipidemia: Lipid panel 01/2018: Total cholesterol: 81, HDL: 36, LDL: 16, triglycerides: 147 -Continue rosuvastatin (9) CAROL (obstructive sleep apnea): Pt reports intolerant to CPAP in past. Is currently following up with sleep medicine outpatient for consideration CPAP DVT Prophylaxis -Heparin SQ Full Code as per discussion with pt Follows with Dr Joel Faria for routine care Admission and Anticipated Discharge Date Admission Date: April 05, 2019 Subjective Pt is sitting up in the bed, in [facility]. Says he feels much better and denies any chest pain. Says that he has been ambulating in hallways and did not experience any dizziness, chest pain, or shortness of breath. Pt also denies any fever, chills, abd. pain, nausea or vomiting. Review of Systems Review of Systems: All systems reviewed & are unremarkable except as noted in HPI & below Constitutional: no fever and no chills Respiratory: no cough and no dyspnea Cardiovascular: no chest pain and no palpitations Gastrointestinal: no abdominal pain, no nausea and no vomiting Physical Exam Physical Exam: General: elderly male sitting up in bed in NAD, WDWN Head: normocephalic, atraumatic Eyes: PERRL, EOM's intact, conjunctiva non-injected, anicteric ENT: normal inspection external ears, nose, mucous membranes moist Neck: supple, trachea midline Lungs: clear, no respiratory distress, no wheezing/rhonchi/rales CV: RRR, no murmur, trace pretibial edema Abd: normal BS, soft, non-tender, nondistended Ext: no cyanosis, no calf tenderness, moves extremities spontaneously Neuro: A&O x 3, no focal deficits noted, normal affect, moves extremities spontaneously Skin: warm, dry Results & Data ([facility]) Vital Signs (Past 12 Hours) Vital Signs Temp Pulse Pulse Resp BP BP Pulse Ox 04/06/19 08:00 71 04/06/19 07:01 36.5 C 72 18 124/68 96 04/06/19 03:29 36.7 C 69 20 144/66 H 98 04/06/19 02:17 77 18 148/78 H 98 04/06/19 01:58 75 18 166/79 H 96 04/05/19 23:13 36.5 C 74 18 123/58 L 96 04/05/19 23:00 75 04/05/19 20:30 84 Laboratory Results 04/06/19 04/06/19 04/06/19 Range/Units 07:01 02:54 02:54 WBC (4.8-10.8) K/uL RBC (4.7-6.1) M/uL Hgb (14.0-18.0) g/dL Hct (42-52) % MCV (80-100) fL MCH (25-34) pg MCHC (32-36) g/dL RDW Std Deviation (36.4-46.3) fL RDW Coeff of Aaron (11.5-14.5) % Plt Count (130-400) K/uL MPV (7.4-10.4) fL Immature Gran % (Auto) % Neut % (Auto) % Lymph % (Auto) % [place] % (Auto) % Eos % (Auto) % Baso % (Auto) % Immature Gran # (Auto) (0.00-0.02) K/uL Neut # (Auto) (1.4-6.5) K/uL Lymph # (Auto) (1.2-3.4) K/uL [place] # (Auto) (0.11-0.59) K/uL Eos # (Auto) (0-0.5) K/uL Baso # (Auto) (0-0.2) K/uL PT (9.0-12.0) Seconds INR (0.9-1.1) APTT 23.7 (21.0-31.0) Seconds PTT Ratio 0.9 D-Dimer (0-500) ug/L FEU Sodium (136-145) mmol/L Potassium (3.5-5.1) mmol/L Chloride (98-107) mmol/L Carbon Dioxide (21-32) mmol/L Anion Gap (3-11) BUN (7-18) mg/dl Creatinine (0.6-1.4) mg/dl Est Cr Clr Drug Dosing ml/min Est GFR ( Amer) Est GFR (Non-Af Amer) BUN/Creatinine Ratio (10-20) Glucose (70-99) mg/dl POC Glucose 203 H (70-99) mg/dl Calcium (8.5-10.1) mg/dl Magnesium (1.8-2.4) mg/dl Total Bilirubin (0.2-1) mg/dl AST (15-37) U/L ALT (12-78) U/L Alkaline Phosphatase (45-117) U/L Troponin I (0-0.045) ng/ml Total Protein (6.4-8.2) gm/dl Albumin (3.4-5.0) gm/dl Globulin (2.5-4.0) gm/dl Albumin/Globulin Ratio (0.9-2) Lipase (73-393) U/L Beta-Hydroxybutyric Acd (0.2-2.81) mg/dl Hepatitis C Ab Screen Neg (Neg) 04/06/19 04/06/19 04/06/19 Range/Units 02:54 02:54 02:19 WBC 6.91 (4.8-10.8) K/uL RBC 4.97 (4.7-6.1) M/uL Hgb 14.6 (14.0-18.0) g/dL Hct 41.3 L (42-52) % MCV 83.1 (80-100) fL MCH 29.4 (25-34) pg MCHC 35.4 (32-36) g/dL RDW Std Deviation 40.3 (36.4-46.3) fL RDW Coeff of Aaron 13.4 (11.5-14.5) % Plt Count 154 (130-400) K/uL MPV 10.0 (7.4-10.4) fL Immature Gran % (Auto) 0.7 % Neut % (Auto) 63.7 % Lymph % (Auto) 26.5 % [place] % (Auto) 6.8 % Eos % (Auto) 1.9 % Baso % (Auto) 0.4 % Immature Gran # (Auto) 0.05 H (0.00-0.02) K/uL Neut # (Auto) 4.40 (1.4-6.5) K/uL Lymph # (Auto) 1.83 (1.2-3.4) K/uL [place] # (Auto) 0.47 (0.11-0.59) K/uL Eos # (Auto) 0.13 (0-0.5) K/uL Baso # (Auto) 0.03 (0-0.2) K/uL PT (9.0-12.0) Seconds INR (0.9-1.1) APTT (21.0-31.0) Seconds PTT Ratio D-Dimer (0-500) ug/L FEU Sodium 138 (136-145) mmol/L Potassium 4.2 (3.5-5.1) mmol/L Chloride 101 (98-107) mmol/L Carbon Dioxide 33 H (21-32) mmol/L Anion Gap 4.0 (3-11) BUN 17 (7-18) mg/dl Creatinine 1.16 (0.6-1.4) mg/dl Est Cr Clr Drug Dosing 79.4 ml/min Est GFR ( Amer) 74.6 Est GFR (Non-Af Amer) 64.3 BUN/Creatinine Ratio 14.5 (10-20) Glucose 145 H (70-99) mg/dl POC Glucose 126 H (70-99) mg/dl Calcium 9.2 (8.5-10.1) mg/dl Magnesium 2.2 (1.8-2.4) mg/dl Total Bilirubin (0.2-1) mg/dl AST (15-37) U/L ALT (12-78) U/L Alkaline Phosphatase (45-117) U/L Troponin I 0.022 (0-0.045) ng/ml Total Protein (6.4-8.2) gm/dl Albumin (3.4-5.0) gm/dl Globulin (2.5-4.0) gm/dl Albumin/Globulin Ratio (0.9-2) Lipase (73-393) U/L Beta-Hydroxybutyric Acd (0.2-2.81) mg/dl Hepatitis C Ab Screen (Neg) 04/05/19 04/05/19 04/05/19 Range/Units 22:23 19:49 16:24 WBC (4.8-10.8) K/uL RBC (4.7-6.1) M/uL Hgb (14.0-18.0) g/dL Hct (42-52) % MCV (80-100) fL MCH (25-34) pg MCHC (32-36) g/dL RDW Std Deviation (36.4-46.3) fL RDW Coeff of Aaron (11.5-14.5) % Plt Count (130-400) K/uL MPV (7.4-10.4) fL Immature Gran % (Auto) % Neut % (Auto) % Lymph % (Auto) % [place] % (Auto) % Eos % (Auto) % Baso % (Auto) % Immature Gran # (Auto) (0.00-0.02) K/uL Neut # (Auto) (1.4-6.5) K/uL Lymph # (Auto) (1.2-3.4) K/uL [place] # (Auto) (0.11-0.59) K/uL Eos # (Auto) (0-0.5) K/uL Baso # (Auto) (0-0.2) K/uL PT (9.0-12.0) Seconds INR (0.9-1.1) APTT (21.0-31.0) Seconds PTT Ratio D-Dimer (0-500) ug/L FEU Sodium (136-145) mmol/L Potassium (3.5-5.1) mmol/L Chloride (98-107) mmol/L Carbon Dioxide (21-32) mmol/L Anion Gap (3-11) BUN (7-18) mg/dl Creatinine (0.6-1.4) mg/dl Est Cr Clr Drug Dosing ml/min Est GFR ( Amer) Est GFR (Non-Af Amer) BUN/Creatinine Ratio (10-20) Glucose (70-99) mg/dl POC Glucose 224 H 149 H (70-99) mg/dl Calcium (8.5-10.1) mg/dl Magnesium (1.8-2.4) mg/dl Total Bilirubin (0.2-1) mg/dl AST (15-37) U/L ALT (12-78) U/L Alkaline Phosphatase (45-117) U/L Troponin I 0.023 (0-0.045) ng/ml Total Protein (6.4-8.2) gm/dl Albumin (3.4-5.0) gm/dl Globulin (2.5-4.0) gm/dl Albumin/Globulin Ratio (0.9-2) Lipase (73-393) U/L Beta-Hydroxybutyric Acd (0.2-2.81) mg/dl Hepatitis C Ab Screen (Neg) 04/05/19 04/05/19 04/05/19 Range/Units 15:48 15:00 10:47 WBC (4.8-10.8) K/uL RBC (4.7-6.1) M/uL Hgb (14.0-18.0) g/dL Hct (42-52) % MCV (80-100) fL MCH (25-34) pg MCHC (32-36) g/dL RDW Std Deviation (36.4-46.3) fL RDW Coeff of Aaron (11.5-14.5) % Plt Count (130-400) K/uL MPV (7.4-10.4) fL Immature Gran % (Auto) % Neut % (Auto) % Lymph % (Auto) % [place] % (Auto) % Eos % (Auto) % Baso % (Auto) % Immature Gran # (Auto) (0.00-0.02) K/uL Neut # (Auto) (1.4-6.5) K/uL Lymph # (Auto) (1.2-3.4) K/uL [place] # (Auto) (0.11-0.59) K/uL Eos # (Auto) (0-0.5) K/uL Baso # (Auto) (0-0.2) K/uL PT (9.0-12.0) Seconds INR (0.9-1.1) APTT (21.0-31.0) Seconds PTT Ratio D-Dimer (0-500) ug/L FEU Sodium 135 L (136-145) mmol/L Potassium 4.3 (3.5-5.1) mmol/L Chloride 101 (98-107) mmol/L Carbon Dioxide 28 (21-32) mmol/L Anion Gap 6.0 (3-11) BUN 19 H (7-18) mg/dl Creatinine 1.12 (0.6-1.4) mg/dl Est Cr Clr Drug Dosing 82.3 ml/min Est GFR ( Amer) 77.8 Est GFR (Non-Af Amer) 67.1 BUN/Creatinine Ratio 16.6 (10-20) Glucose 335 H* (70-99) mg/dl POC Glucose 105 H (70-99) mg/dl Calcium 9.2 (8.5-10.1) mg/dl Magnesium (1.8-2.4) mg/dl Total Bilirubin 0.4 (0.2-1) mg/dl AST 10 L (15-37) U/L ALT 23 (12-78) U/L Alkaline Phosphatase 130 H (45-117) U/L Troponin I 0.022 0.028 (0-0.045) ng/ml Total Protein 6.7 (6.4-8.2) gm/dl Albumin 3.5 (3.4-5.0) gm/dl Globulin 3.2 (2.5-4.0) gm/dl Albumin/Globulin Ratio 1.1 (0.9-2) Lipase 87 (73-393) U/L Beta-Hydroxybutyric Acd 1.06 (0.2-2.81) mg/dl Hepatitis C Ab Screen (Neg) 04/05/19 04/05/19 Range/Units 10:47 10:47 WBC 6.74 (4.8-10.8) K/uL RBC 4.79 (4.7-6.1) M/uL Hgb 14.3 (14.0-18.0) g/dL Hct 40.2 L (42-52) % MCV 83.9 (80-100) fL MCH 29.9 (25-34) pg MCHC 35.6 (32-36) g/dL RDW Std Deviation 40.8 (36.4-46.3) fL RDW Coeff of Aaron 13.5 (11.5-14.5) % Plt Count 153 (130-400) K/uL MPV 9.9 (7.4-10.4) fL Immature Gran % (Auto) 0.0 % Neut % (Auto) 74.6 % Lymph % (Auto) 18.1 % [place] % (Auto) 6.2 % Eos % (Auto) 1.0 % Baso % (Auto) 0.1 % Immature Gran # (Auto) 0.00 (0.00-0.02) K/uL Neut # (Auto) 5.02 (1.4-6.5) K/uL Lymph # (Auto) 1.22 (1.2-3.4) K/uL [place] # (Auto) 0.42 (0.11-0.59) K/uL Eos # (Auto) 0.07 (0-0.5) K/uL Baso # (Auto) 0.01 (0-0.2) K/uL PT 10.1 (9.0-12.0) Seconds INR 1.0 (0.9-1.1) APTT 24.0 (21.0-31.0) Seconds PTT Ratio 0.9 D-Dimer 280 (0-500) ug/L FEU Sodium (136-145) mmol/L Potassium (3.5-5.1) mmol/L Chloride (98-107) mmol/L Carbon Dioxide (21-32) mmol/L Anion Gap (3-11) BUN (7-18) mg/dl Creatinine (0.6-1.4) mg/dl Est Cr Clr Drug Dosing ml/min Est GFR ( Amer) Est GFR (Non-Af Amer) BUN/Creatinine Ratio (10-20) Glucose (70-99) mg/dl POC Glucose (70-99) mg/dl Calcium (8.5-10.1) mg/dl Magnesium (1.8-2.4) mg/dl Total Bilirubin (0.2-1) mg/dl AST (15-37) U/L ALT (12-78) U/L Alkaline Phosphatase (45-117) U/L Troponin I (0-0.045) ng/ml Total Protein (6.4-8.2) gm/dl Albumin (3.4-5.0) gm/dl Globulin (2.5-4.0) gm/dl Albumin/Globulin Ratio (0.9-2) Lipase (73-393) U/L Beta-Hydroxybutyric Acd (0.2-2.81) mg/dl Hepatitis C Ab Screen (Neg) Medications Administered Current Inpatient Medications Acetaminophen (Tylenol) 650 mg PO Q4H PRN PRN Reason: Pain or Fever Stop: 05/05/19 14:57 Albuterol (Ventolin Hfa) 2 puffs INH Q4H PRN PRN Reason: SOB/WHEEZING Stop: 05/05/19 15:00 Aspirin ([facility]rin [facility]) [facility] [place]: 05/06/19 08:59 Clopidogrel Bisulfate (Plavix) 75 mg PO QAM [facility] Stop: 05/06/19 08:59 Dextrose (Dextrose 50%) 25 - 50 ml IV UD PRN; Protocol PRN Reason: Hypoglycemia Protocol Stop: 05/05/19 14:57 Docusate Sodium (Colace) 100 mg PO BID PRN PRN Reason: Constipation Stop: 05/05/19 14:57 Glucagon (Glucagen) 1 mg SQ UD PRN; Protocol PRN Reason: Hypoglycemia Protocol Stop: 05/05/19 14:57 Glucose (Dex4 Glucose) 4 - 8 tabs PO UD PRN; Protocol PRN Reason: Hypoglycemia Protocol Stop: 05/05/19 14:57 Glucose (Glucose 40%) 15 - 30 gm PO UD PRN; Protocol PRN Reason: Hypoglycemia Protocol Stop: 05/05/19 14:57 Heparin Sodium (Porcine) (Heparin Sodium (Porcine)) 5,000 units SQ Q12 [facility] Stop: 05/05/19 20:59 Last Admin: 04/05/19 20:28 Dose: 5,000 units Documented by: Insulin Aspart (Novolog Flexpen) 0 units SC ACHS [facility] Stop: 05/05/19 16:29 Last Admin: 04/05/19 20:28 Dose: 4 units Documented by: Insulin Glargine (Lantus Solostar Pen) 0 - 18 units SC BID [facility]; Protocol Stop: 05/05/19 20:59 Last Admin: 04/05/19 22:19 Dose: 18 units Documented by: Isosorbide Mononitrate (Imdur Extended Rel) 60 mg PO [facility] Stop: 05/06/19 08:59 Losartan Potassium (Cozaar) 25 mg PO DAILY [facility] Stop: 05/06/19 08:59 Metoprolol Succinate (Toprol Xl) [facility] [place]: 05/06/19 02:44 Last Admin: 04/06/19 03:53 Dose: 25 mg Documented by: Miscellaneous (Carbohydrates For Hypoglycemia) 15 - 30 gm PO UD PRN PRN Reason: Hypoglycemia Protocol Stop: 05/05/19 14:57 Nitroglycerin (Nitrostat) 0.4 mg SL UD PRN PRN Reason: Chest Pain Stop: 05/05/19 14:57 Last Admin: 04/06/19 02:12 Dose: 0.4 mg Documented by: Polyethylene Glycol (Miralax Powder Packet) 17 gm PO DAILY PRN PRN Reason: Constipation Stop: 05/05/19 14:57 Rosuvastatin Calcium (Crestor) 40 mg PO HS [facility] Stop: 05/05/19 20:59 Last Admin: 04/05/19 20:28 Dose: 40 mg Documented by: Spironolactone (Aldactone) 25 mg PO QAM [facility] Stop: 05/06/19 08:59 (1) Diabetes mellitus, type II Diabetes mellitus complication status: with other specified complication Diabetes mellitus fci insulin use: 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
[2019-04-06] MEDS: CLOPIDOGREL BISULFATE 75 MG TAB PO SCH (08:51)
[2019-04-06] MEDS: SPIRONOLACTONE 25 MG TAB PO SCH (08:51)
[2019-04-06] MEDS: ISOSORBIDE MONO EXTENDED REL 60 MG TABCR PO SCH (08:51)
[2019-04-06] MEDS: HEPARIN SOD 5,000 UNIT/0.5 ML VIAL SQ SCH ×2 (08:52→20:32)
[2019-04-06] MEDS: LOSARTAN POTASSIUM 25 MG TAB PO SCH (08:52)
[2019-04-06] MEDS: ASPIRIN 81 MG ECTAB PO SCH (08:52)
[2019-04-06] MEDS: INSULIN GLARGINE SOLOSTAR 100 UNITS/ML 3 ML PEN SC SCH ×2 (08:53→20:31)
[2019-04-06] MEDS: INSULIN ASPART 100 UNITS/ML 3 ML PEN SC SCH ×4 (08:54→20:31)
[2019-04-06] MEDS ORDERED: METOPROLOL SUCC 25MG EXT REL TAB PO SCH (09:00)
[2019-04-06] MEDS ORDERED: ISOSORBIDE MONO EXTENDED REL 30 MG TABCR PO SCH (09:00)
[2019-04-06] MEDS ORDERED: FUROSEMIDE 40 MG in SYRINGE 0 ML IV ONE (09:49)
--- NOTE | 2019-04-06 09:58 | Cardiology Progress Note ---
Date of Service April 06, 2019 Assessment & Plan (1) Substernal chest pain: (2) Chronic heart failure: Patient with a history of complex multivessel coronary artery disease, drug- eluting stent to the [place] LAD in July, performed in the setting of presentation for unstable angina. He presented with chest pain, volume overload, January, with mild elevation of cardiac enzymes, and repeat cardiac catheterization revealed stable findings with patent stent, and distal RCA territory disease after the anastomosis of his PERRI graft to the PDA. At this time, feel that repeat cardiac catheterization would be of low yield. His EKG is relatively unchanged, and although his troponin levels are detected, they are not above the upper limit of the reference rang. He is not frankly volume overloaded, did have mild ankle edema on presentation. I am going to proceed with another dose of IV furosemide this morning. Advance his diet. Continue to follow him. We will plan on repeat troponin and EKG in the morning. Just had an echocardiogram performed in January,, with RCA territory wall motion abnormality mild LV systolic dysfunction. DVT prophylaxis: Subcutaneous heparin Medications: Aspirin, clopidogrel, losartan, spironolactone, rosuvastatin, isosorbide mononitrate (dose increased from prehospital dose of 30 mg to 60 mg today) metoprolol succinate 25 mg daily. Plan on likely transitioning back to his prior to hospital dose of furosemide 40 mg twice daily, or considering torsemide 20 mg daily for ease of administration as the patient notes difficulty with getting up to use the bathroom at night related to his 2 PM diuretic dose. Subjective Chief complaint: Follow-up chest pain Subjective: Patient feeling well this morning. Last evening he was feeling constipated, and had chest discomfort at approximately 1:50 AM. An EKG performed at 2 AM revealed sinus rhythm, age-indeterminate inferior infarct, unchanged compared to prior, in the lateral ST segment flattening, actually improved compared to previous EKGs. At present he is feeling well. On telemetry, sinus rhythm in the range of 50 to 60 bpm has been present. 1:28 AM he did have a 9 beat run of wide-complex rhythm at 87 to 100 bpm that looks like it was supraventricular with aberrant conduction rather than VT . Review of Systems Review of Systems: All systems reviewed & are unremarkable except as noted in HPI & below Physical Exam Physical Exam: Temp Pulse Resp BP Pulse Ox 36.5 C 71 18 124/68 96 04/06/19 07:01 04/06/19 08:00 04/06/19 07:01 04/06/19 07:01 04/06/19 07:01 Constitutional: WD/WN, vitals as above Respiratory: normal respiratory effort, lungs clear to auscultation Cardiovascular: RRR, no murmur, no edema Gastrointestinal (Abdomen): normal bowel sounds, soft, nontender, no hepatosplenomegaly Neurologic: PERRL, EOMI, accommodation nl, no face palsy, no dysarthria Results & Data Vital Signs (Past 12 Hours) Vital Signs Temp Pulse Pulse Resp BP BP Pulse Ox 04/06/19 08:00 71 04/06/19 07:01 36.5 C 72 18 124/68 96 04/06/19 03:29 36.7 C 69 20 144/66 H 98 04/06/19 02:17 77 18 148/78 H 98 04/06/19 01:58 75 18 166/79 H 96 04/05/19 23:13 36.5 C 74 18 123/58 L 96 04/05/19 23:00 75 Laboratory Results Cardiac Enzymes 04/05/19 04/05/19 04/05/19 Range/Units 10:47 15:48 22:23 AST 10 L (15-37) U/L Troponin I 0.028 0.022 0.023 (0-0.045) ng/ml 04/06/19 Range/Units 02:54 AST (15-37) U/L Troponin I 0.022 (0-0.045) ng/ml Coagulation 04/05/19 04/06/19 Range/Units 10:47 02:54 PT 10.1 (9.0-12.0) Seconds APTT 24.0 23.7 (21.0-31.0) Seconds CBC 04/05/19 04/06/19 Range/Units 10:47 02:54 WBC 6.74 6.91 (4.8-10.8) K/uL RBC 4.79 4.97 (4.7-6.1) M/uL Hgb 14.3 14.6 (14.0-18.0) g/dL Hct 40.2 L 41.3 L (42-52) % Plt Count 153 154 (130-400) K/uL Neut # (Auto) 5.02 4.40 (1.4-6.5) K/uL Lymph # (Auto) 1.22 1.83 (1.2-3.4) K/uL [place] # (Auto) 0.42 0.47 (0.11-0.59) K/uL Eos # (Auto) 0.07 0.13 (0-0.5) K/uL Baso # (Auto) 0.01 0.03 (0-0.2) K/uL Comprehensive Metabolic Panel 04/05/19 04/06/19 Range/Units 10:47 02:54 Sodium 135 L 138 (136-145) mmol/L Potassium 4.3 4.2 (3.5-5.1) mmol/L Chloride 101 101 (98-107) mmol/L Carbon Dioxide 28 33 H (21-32) mmol/L BUN 19 H 17 (7-18) mg/dl Creatinine 1.12 1.16 (0.6-1.4) mg/dl Glucose 335 H* 145 H (70-99) mg/dl Calcium 9.2 9.2 (8.5-10.1) mg/dl AST 10 L (15-37) U/L ALT 23 (12-78) U/L Alkaline Phosphatase 130 H (45-117) U/L Total Protein 6.7 (6.4-8.2) gm/dl Albumin 3.5 (3.4-5.0) gm/dl Intake and Output 04/05/19 04/06/19 04/06/19 22:59 06:59 14:59 Intake Total 275 / 515 240 / 515 Output Total 200 / 200 Balance 275 / 315 40 / 315 Intake: Oral 275 / 515 240 / 515 Output: Urine 200 / 200 Other: # Unmeasured Voids 1 Weight 114 kg 110.5 kg
[2019-04-06] MEDS ORDERED: POLYETHYLENE (MIRALAX) 17 GM PACK PO ONE (17:45)
[2019-04-06] MEDS: ROSUVASTATIN CALCIUM 20 MG TAB PO SCH (20:32)
--- NOTE | 2019-04-07 07:34 | Electrocardiogram Report ---
Test Reason : Blood Pressure : / mmHG Vent. Rate : 076 BPM Atrial Rate : 076 BPM P-R Int : 200 ms QRS Dur : 102 ms QT Int : 400 ms P-R-T Axes : 061 -08 123 degrees QTc Int : 450 ms Poor data quality, interpretation may be adversely affected Sinus rhythm with Premature atrial complexes Inferior infarct (cited on or before 31-AUG-2012) T wave abnormality, consider lateral ischemia Abnormal ECG When compared with ECG of 05-APR-2019 10:37, Premature atrial complexes are now Present Confirmed by Melecio Hunt ([id number]) on 04/07/2019 7:33:54 AM Referred By: REFERRED SELF Confirmed By:Melecio Hunt
[2019-04-07 07:53] LABS: Calcium 9.2 mg/dl (8.5-10.1); Creatinine Clr Calc Pharmacy 80.2 ml/min; Est GFR (Non-African American) 66.4; Magnesium 2.2 mg/dl (1.8-2.4); Potassium 4.2 mmol/L (3.5-5.1)
[2019-04-07] MEDS: LOSARTAN POTASSIUM 25 MG TAB PO SCH (08:16)
[2019-04-07] MEDS: ASPIRIN 81 MG ECTAB PO SCH (08:16)
[2019-04-07] MEDS: SPIRONOLACTONE 25 MG TAB PO SCH (08:16)
[2019-04-07] MEDS: CLOPIDOGREL BISULFATE 75 MG TAB PO SCH (08:17)
[2019-04-07] MEDS: METOPROLOL SUCC 25MG EXT REL TAB PO SCH (08:17)
[2019-04-07] MEDS: ISOSORBIDE MONO EXTENDED REL 60 MG TABCR PO SCH (08:17)
[2019-04-07] MEDS: INSULIN GLARGINE SOLOSTAR 100 UNITS/ML 3 ML PEN SC SCH (08:17)
[2019-04-07] MEDS: HEPARIN SOD 5,000 UNIT/0.5 ML VIAL SQ SCH (08:18)
[2019-04-07] MEDS: INSULIN ASPART 100 UNITS/ML 3 ML PEN SC SCH ×2 (08:18→13:23)
[2019-04-07] MEDS ORDERED: TORSEMIDE 20 MG TAB PO SCH (09:00)
--- NOTE | 2019-04-07 11:47 | Cardiology Progress Note ---
Date of Service April 07, 2019 Assessment & Plan (1) Substernal chest pain: (2) Chronic heart failure: Patient free of anginal symptoms for more than 24 hours. Positive fluid balance recorded, however, patient subjectively reports frequent urination with transition to torsemide. Weight is down approximately 8 pounds since admission. Recommend continuing torsemide 20 mg daily in addition to Aldactone in the outpatient setting. Repeat basic metabolic panel in 1 week post discharge. Continue other cardiovascular medications as previously ordered including aspirin, losartan, and Toprol-XL. Isosorbide monohydrate titrated to 60 mg daily during hospitalization. Recommend continuing this dose at time of discharge. No further inpatient cardiovascular testing or intervention recommended. Outpatient cardiology follow-up in 2 to 4 weeks. Subjective Patient seen and examined the bedside. Chest pain-free for more than 24 hours. Ambulating the halls without exertional complaints. Requesting discharge if possible. Notes frequent urination with torsemide 20 mg daily. No orthopnea, PND, or palpitations. Occasional PVCs noted on telemetry. Denies lightheadedness, dizziness, syncope, or near syncope. Chronic bilateral lower extremity edema is stable. He offers no other concerns/complaints at this time. Review of Systems Review of Systems: All systems reviewed & are unremarkable except as noted in HPI & below Physical Exam Constitutional: well developed and well nourished; no acute distress Respiratory: normal respiratory effort, lungs clear to auscultation Cardiovascular: Rate/Rhythm: regular rate and regular rhythm Heart Sounds: normal S1 and normal S2; no gallop, no murmur and no cardiac rub Vessels: no JVD Extremities: + edema (1+ bilateral pedal and pretibial edema with stasis changes) Gastrointestinal (Abdomen): Inspection/Auscultation: abdomen normal to inspection and normal bowel sounds; abdomen not distended Percussion/Palpation: abdomen soft; abdomen nontender, no guarding and abdomen not rigid Musculoskeletal: no cyanosis or clubbing, extremities motor strength 5/5 Skin: no rashes, warm and dry Neurologic: moves all extremities; no focal motor deficits Psychiatric: A+Ox3, euthymic affect Results & Data Vital Signs (Past 12 Hours) Vital Signs Temp Pulse Pulse Resp BP Pulse Ox 04/07/19 11:22 36.6 C 95 H 20 110/79 97 04/07/19 07:07 36.4 C L 83 18 111/67 95 02/15/20 03:53 36.6 C 72 18 138/70 95 04/07/19 00:00 82
--- NOTE | 2019-04-07 13:49 | Discharge Summary ---
Date of Service April 07, 2019 Admission HPI Per Admitting Provider Pt is 67 y/o M with significant hx CAD s/p multiple stents, CABG, angina, HTN, dyslipidemia, DM II, Chronic CHF, CAROL, presented to ER with c/o CP x couple of days. Patient reports past couple days has been having intermittent chest pain described as chest pressure to anterior chest with associated shortness of breath. Patient states symptoms can occur with rest. Also been complaining of intermittent nausea sometimes associated with the chest pressure and sometimes unrelated. Reports when he eats the nausea goes away. Patient with history of MIs in the past and states this current pain does not feel like his prior MIs. He states he took 1 sublingual nitroglycerin a couple of days ago without any relief. Today he reports episode of chest pressure and left arm tingling and reported to ER. In ER patient received 1 sublingual nitroglycerin with resolution of chest pressure. Patient states did not have his morning medicines today except for his morning insulin. He states he ate [employer] for elyssa kfast. He reports his home BSG is been running in the 200s to 300s. Patient with history of hospitalization 01/2019 for elevated troponins and was transferred to [facility] for catheterization which showed severe chronic [place] multivessel CAD and severe bypass graft disease with no significant change since 07/2018, did have LVEDP at 34mmHg. Denies fever/chills, diaphoresis, vomiting, diarrhea,, [place], dizziness, syncope, vision changes, neck pain, orthopnea, palpitations, cough, sore throat, choking, otalgia, rhinorrhea, abdominal pain, weakness, extremity weakness, extremity edema, rashes, urinary symptoms. Admission Exam Per Admitting Provider Gen-AAO x 3, NAD, Afebrile Head-NCAT, EOMI, PERRLA, Anicteric Sclera, No Posterior Pharyngeal Erythema Neck-Supple, No JVD, No Thyromegaly, No Masses, No LAD, No Bruits Lungs-Clear to Auscultation Bilaterally, No Rales, No Rhonchi, No Wheezing, No Crepitus Chest-No S4, +S1, +S2, No S3, No Murmurs, No Rubs, No Gallops, No Ectopy Abdomen-Soft, Bowel Sounds Present, Non Tender, Non Distended, No Hepatomegaly, No Splenomegaly, No Palpable Masses, No Rebound, No Rigidity, No Guarding Musculoskeletal-Full Range of Motion Bilaterally, No CVAT Extremities-No Cyanosis, No Clubbing, No Edema Nuero-Cranial Nerves II-XII grossly intact, Motor WNL, DTRs WNL, Strength WNL, Non Focal Psych-Normal Mood Principal Diagnosis Chest pain, CAD, chronic heart failure Discharge Exam General: elderly male sitting up in bed in [facility], [place] Head: normocephalic, atraumatic Eyes: PERRL, EOM's intact, conjunctiva non-injected, anicteric ENT: normal inspection external ears, nose, mucous membranes moist Neck: supple, trachea midline Lungs: clear, no respiratory distress, no wheezing/rhonchi/rales CV: RRR, no murmur, trace pretibial edema Abd: normal BS, soft,obese, non-tender, nondistended Ext: no cyanosis, no calf tenderness, moves extremities spontaneously Neuro: A&O x 3, no focal deficits noted, normal affect, moves extremities spontaneously Skin: warm, dry Discharge Data Allergies Allergy/AdvReac Type Severity Reaction Status Date / Time lisinopril AdvReac Mild Cough Verified 04/05/19 11:37 canagliflozin AdvReac Unknown Excessive Verified 04/05/19 11:37 Urination valsartan AdvReac Unknown fatigue Verified 04/05/19 15:00 Consultations 04/05/19 12:52 ED Decision to Admit Stat 04/05/19 14:58 Consult Cardiology Routine Hospital Course (1) Substernal chest pain: (2) Shortness of breath: (3) Coronary artery disease: Pt is 67 y/o M with significant hx CAD s/p multiple stents, CABG, angina, HTN, dyslipidemia, DM II, Chronic CHF, CAROL, presented to ER with c/o chest pressure with associated SOB x couple of days. Denies diaphoresis, dizziness. H/O cardiac cath 01/2019: Severe chronic [place] multivessel CAD and severe bypass graft disease. Most recent previously placed stent in LAD is widely patent. The PERRI-RMA anastomotic 80% in-stent restenosis lesion is unchanged from prior cath. The distal runoff is very poor; the known inferior/posterior wall akinesis and poor distal runoff make this a poor option for further revascularization attempts. No significant change in bypass grafts or [place] coronary anatomy since July 2018. Elevated LVEDP at 34mmHg. History echo 02/06/2019: EF: 45%, septal, inferior and posterior wall motion abnormality with akinesis, mild aortic stenosis, mild mitral regurgitation. No significant change from 07/2018. In ER P: 87, R: 18, BP: 152/79, 95% on RA. Troponin: 0.028, D-Dimer: 280, EKG sinus rhythm ST changes similar to prior EKG R/O ACS. Risk factors: CAD, HTN, hyperlipidemia, DM, obesity -In ER given ASA 324mg po, Nitro SL x 1 with reported resolution of chest pressure, SOB and left arm discomfort -Monitor Vitals -Repeat EKG in am -trend troponin -Continue statin, aspirin, metoprolol, Plavix, Imdur -Nitro prn CP and repeat EKG for CP - Cardiology consulted - given hx of chronic CHF, initially pt was switched from PO diuretics to IV (dose equivalent) as pt did not appear overly fluid overloaded - perhaps trending toward fluid overload and caught early - pt seems to be clinically improved, denies any chest pain, ambulates w/o any concerning symptoms - per cardiology, at this time, feel that repeat cardiac catheterization would be of low yield - his EKG is relatively unchanged, and although his troponin levels are detected, they are not above the upper limit of the reference range - Plan to discharge home on torsemide 20 mg qAM (and stop furosemide), isosorbide mononitrate dose increased to 60 mg daily, cardiology follow up in 2- 4 weeks, BMP in 1 week (4) Chronic heart failure: Chronic systolic and diastolic heart failure Does not appear overly fluid overloaded on admission, perhaps trending to fluid overload and caught early (as mentioned above) -Continue spironolactone, home PO lasix switched to IV equivalent while inpt, plan to d/c on torsemide 20 mg daily (and stop furosemide) -cardiology follow up in 2-4 weeks (5) Diabetes mellitus, type II: (6) Hyperglycemia: A1c: 9.5 on 02/05/2019 Random glucose 335 -Hold metformin and home insulin -Dose insulin R IV now -Basal bolus insulin per protocol -will need outpt follow up (7) Hypertension: -Continue losartan, metoprolol succinate (8) Dyslipidemia: Lipid panel 01/2018: Total cholesterol: 81, HDL: 36, LDL: 16, triglycerides: 147 -Continue rosuvastatin (9) CAROL (obstructive sleep apnea): Pt reports intolerant to CPAP in past. Is currently following up with sleep medicine outpatient for consideration CPAP Follows with Dr Joel Faria for routine care Total Time Total Time Spent Total Time Spent (In Minutes): 40 Total Time Includes: Examination of the Patient, Discharge Planning, Medication Reconciliation and Communication With Other Providers Discharge Plan Discharge Items Patient Disposition: Home - Self-Care Reason For Visit: CHEST PAIN Discharge Diagnosis: Chest pain, chronic heart failure Activity: Resume your previous activity Activity Comment: as tolerated, pace yourself, ask for help as needed Non-emergency contact: Primary Care Provider and Rap Artist Call non-emergency contact if: you have any medication questions Follow-up/Referrals: Joel Faria, DO [Primary Care Provider] - Diet: Carb Consistent or DM2 and Heart Healthy Ambulatory Orders: Basic Metabolic Panel (Routine) Timeframe: 20190412 Location: Determined by Patient Ordered By: Hiro Marytl Attending Provider Instructions: Follow up with your primary care doctor in 1 week. Have blood work done, BMP, on 04/12/2019. Stop taking lasix (furosemide) and instead start taking torsemide 20 mg every morning. Dose of isosorbide mononitrate was increased to 60 mg daily. You will need to follow up with cardiology in 2-4 weeks. Also, please read instructions below in detail: Call your Primary Care doctor if any of the following symptoms or problems start or get worse: * Shortness of breath or difficulty breathing * Wake up at night short of breath * Chest pain * Cough * Swelling of your hands, feet, or legs * More fatigued or tired with your normal activity * Palpitations - sudden fast heart beats WEIGHT * Weigh yourself every morning after using the bathroom. * Use the same scale. * Wear the same amount of clothing. * Write your weight down on a chart. * Call your Primary Care doctor/ or your exhibits manager if you gain more than 2-3 pounds in 1-2 days. MEDICATIONS * Use this discharge instruction sheet for medication instructions. * Take your medications at the time your doctor ordered. * Do not skip a dose of your medicines. * If you miss a dose of medicine, take it as soon as possible, but DO NOT DOUBLE A DOSE. * Read your medicine information when you get home. * Know all of the side effects of your medicine. If in doubt, ask your pharmacist * Call your Primary Care doctor's office if you have any side effects. * Be sure all of your doctors know what medicine and herbs you take (including cold, flu, and herbal medicine). Take the following with you to your follow-up doctor appointments: * Weight Chart * Medication List * List of questions Do not drink excessive alcohol, beer or wine. Pending Studies at Discharge: No Stand-Alone Forms: My [facility] [employer], Smoking Cessation Medications and DC Order Prescriptions: New isosorbide mononitrate 60 mg Tablet Extended Release 24 Hr 60 mg PO QAM 14 Days Qty: 14 RF: 0 torsemide 20 mg Tablet 20 mg PO QAM 14 Days Qty: 14 RF: 0 Continued spironolactone [Aldactone] 25 mg tablet 25 mg PO QAM RF: 0 Novolin 70/30 U-100 Insulin 100 unit/mL (70-30) suspension 44 unit subcut QAM RF: 0 Novolin 70/30 U-100 Insulin 100 unit/mL (70-30) suspension 48 unit subcut QDD RF: 0 aspirin 81 mg Tablet,Delayed Release (Dr/Ec) 81 mg PO QAM RF: 0 nitroglycerin [Nitrostat] 0.4 mg tablet, sublingual 0.4 mg sublingual UD PRN (Reason: Chest Pain) RF: 0 docusate sodium 100 mg capsule 100 mg PO BID PRN (Reason: Constipation) RF: 0 albuterol sulfate [ProAir HFA] 90 mcg/actuation HFA aerosol inhaler 2 puff inhalation Q4H PRN (Reason: Wheezing) RF: 0 metformin 500 mg tablet extended release 24 hr 1,000 mg PO BIDM RF: 0 rosuvastatin [Crestor] 40 mg tablet 40 mg PO HS RF: 0 polyethylene glycol 3350 [Miralax] 17 gram Powder In Packet 17 g PO DAILY PRN (Reason: Constipation) RF: 0 clopidogrel [Plavix] 75 mg Tablet 75 mg PO QAM RF: 0 magnesium hydroxide [Milk of Magnesia] 400 mg/5 mL Suspension 15 ml PO Q2D PRN (Reason: Constipation) RF: 0 metoprolol succinate [Toprol XL] 50 mg tablet extended release 24 hr 25 mg PO QAM RF: 0 Novolin R Regular U-100 Insuln 100 unit/mL solution 10 unit subcut QDL RF: 0 losartan 25 mg tablet 25 mg PO DAILY RF: 0 Changed isosorbide mononitrate 30 mg tablet extended release 24 hr 60 mg PO QAM Qty: 0 RF: 0 Discontinued furosemide [Lasix] 40 mg Tablet 40 mg PO BID RF: 0 Discharge Orders: Discharge Order (Routine); Ordered 04/07/19 Ordered By: Hiro Emmanuel Admission Data Admit Date/Time: 04/05/19 13:27 Attending Provider: Hiro Emmanuel Admit Provider: Bryce Gomez Primary Care Provider: Joel Faria Other Providers: Bryce Gomez ; Govind Tyson
--- NOTE | 2019-04-07 19:42 | Electrocardiogram Report ---
Test Reason : Blood Pressure : / mmHG Vent. Rate : 076 BPM Atrial Rate : 076 BPM P-R Int : 184 ms QRS Dur : 106 ms QT Int : 428 ms P-R-T Axes : 068 021 181 degrees QTc Int : 481 ms Normal sinus rhythm Moderate voltage criteria for LVH, may be normal variant Inferior infarct (cited on or before 31-AUG-2012) T wave abnormality, consider lateral ischemia Abnormal ECG When compared with ECG of 06-APR-2019 02:09, Premature atrial complexes are no longer Present T wave inversion now evident in Inferior leads Confirmed by Abran Smith ([id number]) on 04/07/2019 7:42:07 PM Referred By: REFERRED SELF Confirmed By:Abran Smith
== END 2019-04-07 14:55 | disposition home or self-care (01) | DRG 313 ==
LOC: ED 10:26 → SUATTDRO 13:27 → 2E 13:27

== ENCOUNTER 2019-07-24 16:17 | Inpatient (IN) ==
--- NOTE | 2019-07-24 17:15 | Emergency Department Note ---
Impression & Plan Chest pain, Hyperglycemia ED Provider Note NAME: KAMI RAO AGE: 68 SEX: M : 1950 ARRIVES VIA: Walk-In INFORMANT: Patient, ED PROVIDER(S): Catarino Dhaliwal MD Chief Complaint: Chest pain HPI: Patient does present with acute onset of chest pain while driving. Patient describes it as substernal nonradiating. Patient did not have any diaphoresis or nausea or vomiting. Patient described described as a squeezing or pressure. Patient states that his weights have been maintained in the 240s and does take a diuretic. Patient is known history of CABG and CHF. Patient denies any prior history of DVT or PE. Patient does not present with cough, fevers, chills, coronavirus contacts, coronavirus testing, or recent travel. Patient denies any recent car plane travel, procedures or hospitalizations. Patient denies any shortness of breath. Patient does have a chronic cough but he states that this is related to postnasal drip and sinus drainage. The patient did take a baby aspirin this morning but did not take any nitro. The patient's initial severity was 6 or 7 out of 10 currently about a 2 or 3. ROS: See HPI for pertinent positives and negatives. A total of 10 systems were reviewed and otherwise negative. Past medical history: See below Surgical history: See below Social history: See below Physical Exam: GENERAL: NAD, non-toxic. Wearing a mask. EYE EXAM: Normal conjunctiva. PERRL, no anisocoria and EOM's grossly intact w/o pain. NECK: Supple, no nuchal rigidity, no adenopathy, non-tender. No signs of meningismus. Chest: Well-healed sternotomy scar. LUNGS: Clear to auscultation. Normal chest wall mechanics. HEART: NSR, faint systolic ejection murmur. ABDOMEN: Abdomen soft, non-tender, normo-active bowel sounds, no masses, no rebound or guarding. BACK: No CVA TTP. SKIN: No rashes and no bruising. UPPER EXTREMITIES: Upper extremities are grossly normal. LOWER EXTREMITIES: Grossly normal, 1+ bilateral lower extremity edema, symmetric, negative Homans sign bilaterally. Saphenous vein scars well-healed bilaterally. NEURO EXAM: A&O x3, cranial nerves II-XII grossly intact, normal speech, moves all 4 extremities on command w/o issue. Differential diagnoses: Cardiac ischemia, aortic dissection, pulmonary embolism, pneumothorax, pneumonia, pericarditis, myocarditis, esophageal rupture, GERD, cholecystitis, pancreatitis, musculoskeletal, as well as other pathologies. Course: Patient was seen and evaluated the bedside. Full history physical exam was performed. EKG: Indication: Chest pain Sinus with first-degree AV block, rate of 94, prolonged MN, normal QRS, T wave inversions and slight depression in the high lateral leads, Q waves and mild elevation inferiorly. Comparison EKG with no obvious changes with exception of MN interval being slightly more prolonged compared to prior. Imaging Studies: Radiology results as stated below per my review in the radiologist's interpretation: XR chest 1V portable HISTORY: Atypical Chest Pain COMPARISON: Chest 07/06/2019. FINDINGS: There are poststernotomy changes. The heart remains top normal in size. No pleural effusions. No pneumothorax. The lungs are clear. IMPRESSION: No acute process. ACT 112: Negative or not required by law. Electronically signed by: Nick Magaña M.D. 07/24/2019 5:26 PM Dictated: 07/24/191722 Transcribed: 07/24/191722 Cardiac monitoring: An order was placed for continuous cardiac monitoring. The monitor shows a rate of 95 with sinus rhythm. MDM: Patient does present with concern for chest pain. Blood work was obtained along with an EKG and chest x-ray. Patient was ordered aspirin nitroglycerin. Patient has normal white count. Patient does have an elevated glucose of 414. Insulin 5 IV was ordered. Likely pseudohyponatremia 133. Hold off on IV fluids given the known history of CHF. Troponin is not detectable at this time. No obvious changes on his EKG. The patient did have improvement in his chest pain with the nitro. I did speak the on-call hospitalist Dr. Jose Rosales hospitalist who agreed to further evaluate treat the patient. I did discuss with the patient to inform us if he has any change in his chest pain while in the emergency department. Past Med/Surg History Medical History ACEI/ARB contraindicated (Chronic) Chronic heart failure Coronary artery disease (Chronic) 1. Prior multiple coronary artery interventions dating back to 1993, prominently in the right coronary but ultimately leading to coronary artery bypass grafting in 1995 receiving a saphenous vein graft to the circumflex obtuse marginal, sequentially obtuse marginal 2, and a right internal mammary artery graft to the right coronary artery. 2. Later coronary artery interventions with stenting to the distal circ umflex in 2003 after distal limb of the sequential graft occluded. 3. Coronary artery intervention August 2009 to the ostial portion saphenous vein graft and subsequent intervention of the distal right coronary artery to the right internal mammary artery, receiving a bare metal stent. 4. Underlying history of chronic angina pectoris as well as noncardiac chest pain. Most recent diagnostic cardiac catheterization in November 2011 without progression of coronary artery disease. Diabetes mellitus, type II (Chronic) Diabetic neuropathic arthropathy (Chronic) Diabetic neuropathy (Chronic) Dyslipidemia (Chronic) Generalized osteoarthritis (Chronic) History of renal calculi (Chronic) HTN (hypertension) (Chronic) Hx of congestive heart failure Obesity (Chronic) CAROL (obstructive sleep apnea) (Chronic) TMJ (temporomandibular joint disorder) (Chronic) Surgical History History of tonsillectomy (Chronic) Hx of CABG (Chronic) Hx of right knee surgery (Chronic) S/P david (Chronic) S/P nasal septoplasty (Chronic) Family History Brother Cardiac disease Heart disease Stroke Mother Stroke Diabetes Hypertension Father Leukemia Diabetes Cancer Social History Preferred Language: Yakut Communication Ability: Effective 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 Beliefs That Will Affect Care: None marital status: / Current Living Situation: Alone current occupational status: retired Feels Safe at Home: Yes Smoking Status: Never smoker Hx Alcohol Use: Yes Alcohol type: beer, wine and hard liquor Alcohol type Comment: 2-3 beers 1-2 times a week Alcohol Intake Frequency: Weekly Hx Substance Use: No Allergies Allergies Allergy/AdvReac Type Severity Reaction Status Date / Time lisinopril AdvReac Mild Cough Verified 07/24/19 17:29 canagliflozin AdvReac Unknown Excessive Verified 07/24/19 17:29 Urination valsartan AdvReac Unknown fatigue Verified 07/24/19 17:29 Home Meds Home Medications Medication Instructions Recorded Confirmed Novolin 70/30 U-100 Insulin 48 unit SUBCUT BID 07/28/18 07/24/19 albuterol sulfate [ProAir HFA] 2 puff INHALATION Q4H PRN 07/28/18 07/24/19 aspirin 81 mg PO QAM 07/28/18 07/24/19 clopidogrel [Plavix] 75 mg PO QAM 07/28/18 07/24/19 docusate sodium [Colace] 100 mg PO BID PRN 07/28/18 07/24/19 magnesium hydroxide [Milk of 15 ml PO DAILY PRN 07/28/18 07/24/19 Magnesia] metformin [Glucophage XR] 1,000 mg PO BIDM 07/28/18 07/24/19 nitroglycerin [Nitrostat] 0.4 mg SUBLINGUAL UD PRN 07/28/18 07/24/19 polyethylene glycol 3350 [Miralax] 17 g PO DAILY PRN 07/28/18 07/24/19 rosuvastatin [Crestor] 40 mg PO HS 07/28/18 07/24/19 spironolactone 25 mg tablet 25 mg PO QAM 03/28/19 07/24/19 Novolin R Regular U-100 Insuln 10 unit SUBCUT QDL 04/05/19 07/24/19 losartan [Cozaar] 25 mg PO QAM 04/05/19 07/24/19 aspirin [Kyler Aspirin] 650 mg PO Q6 PRN 07/06/19 07/24/19 acetaminophen [Tylenol Extra 1,000 mg PO Q6H PRN 07/24/19 07/24/19 Strength] cyclobenzaprine 5 mg PO TID PRN 07/24/19 07/24/19 hydrocortisone [Proctosol HC] 1 applic MN BID PRN 07/24/19 07/24/19 isosorbide mononitrate 90 mg PO DAILY 07/24/19 07/24/19 metoprolol succinate 50 mg PO DAILY 07/24/19 07/24/19 nystatin-triamcinolone 1 applic TOPICAL BID PRN 07/24/19 07/24/19 tamsulosin 0.4 mg PO HS 07/24/19 07/24/19 torsemide 20 mg PO DAILY 07/24/19 07/24/19 torsemide 20 mg PO Q OTHER DAY 07/24/19 07/24/19 Results & Data (ED) Vital Signs Vital Signs - 24 hr 07/24/19 16:18 07/24/19 16:42 07/24/19 16:50 Temperature 36.5 C Temperature Source Oral Oral Pulse Rate 103 H 93 H Pulse Rate from SpO2 Sensor 92 H Respiratory Rate 17 16 Respiratory Effort / Characteristics Non-Labored Spontaneous Respiratory Depth Normal Respiratory Pattern Regular Blood Pressure 118/64 Blood Pressure Mean 82 Pulse Oximetry 99 96 Oxygen Delivery Method Room Air Room Air Sepsis Recent Fever Within 48 Hours No Sepsis New/Unexplained Change in Mental Status No Sepsis Action Taken by Nursing No Action Required 07/24/19 17:00 07/24/19 17:30 07/24/19 18:00 Temperature Temperature Source Pulse Rate 87 93 H 85 Pulse Rate from SpO2 Sensor 88 94 H 86 Respiratory Rate 16 17 13 Respiratory Effort / Characteristics Respiratory Depth Respiratory Pattern Blood Pressure Blood Pressure Mean Pulse Oximetry 95 95 92 Oxygen Delivery Method Sepsis Recent Fever Within 48 Hours Sepsis New/Unexplained Change in Mental Status Sepsis Action Taken by Nursing 07/24/19 18:21 Temperature Temperature Source Pulse Rate 82 Pulse Rate from SpO2 Sensor 83 Respiratory Rate 14 Respiratory Effort / Characteristics Respiratory Depth Respiratory Pattern Blood Pressure 139/68 Blood Pressure Mean 89 Pulse Oximetry 96 Oxygen Delivery Method Sepsis Recent Fever Within 48 Hours Sepsis New/Unexplained Change in Mental Status Sepsis Action Taken by [facility] Medications Current Medication List: was personally reviewed by me Laboratory Data Attestation: I reviewed the patient's lab results. Result diagrams: 07/24/19 16:45 07/24/19 16:45 Lab Results 07/24/19 07/24/19 07/24/19 Range/Units 16:45 16:45 16:45 WBC 6.17 (4.8-10.8) K/uL RBC 4.79 (4.7-6.1) M/uL Hgb 14.2 (14.0-18.0) g/dL Hct 39.9 L (42-52) % MCV 83.3 (80-100) fL MCH 29.6 (25-34) pg MCHC 35.6 (32-36) g/dL RDW Std Deviation 38.5 (36.4-46.3) fL RDW Coeff of Aaron 12.8 (11.5-14.5) % Plt Count 169 (130-400) K/uL MPV 10.6 H (7.4-10.4) fL Immature Gran % (Auto) 0.2 % Neut % (Auto) 72.5 % Lymph % (Auto) 19.9 % Morton % (Auto) 6.0 % Eos % (Auto) 1.1 % Baso % (Auto) 0.3 % Immature Gran # (Auto) 0.01 (0.00-0.02) K/uL Neut # (Auto) 4.47 (1.4-6.5) K/uL Lymph # (Auto) 1.23 (1.2-3.4) K/uL Morton # (Auto) 0.37 (0.11-0.59) K/uL Eos # (Auto) 0.07 (0-0.5) K/uL Baso # (Auto) 0.02 (0-0.2) K/uL PT 10.2 (9.0-12.0) Seconds INR 1.0 (0.9-1.1) APTT 24.9 (21.0-31.0) Seconds PTT Ratio 0.9 Sodium 133 L (136-145) mmol/L Potassium 3.9 (3.5-5.1) mmol/L Chloride 100 (98-107) mmol/L Carbon Dioxide 27 (21-32) mmol/L Anion Gap 6.0 (3-11) BUN 20 H (7-18) mg/dl Creatinine 1.34 (0.6-1.4) mg/dl Est Cr Clr Drug Dosing 67.8 ml/min Est GFR ( Amer) 62.6 Est GFR (Non-Af Amer) 54.1 BUN/Creatinine Ratio 14.6 (10-20) Glucose 414 H* (70-99) mg/dl Calcium 9.0 (8.5-10.1) mg/dl Phosphorus 3.4 (2.5-4.9) mg/dl Magnesium 2.2 (1.8-2.4) mg/dl Total Bilirubin 0.5 (0.2-1) mg/dl AST 14 L (15-37) U/L ALT 30 (12-78) U/L Alkaline Phosphatase 121 H (45-117) U/L Troponin I < 0.015 (0-0.045) ng/ml Total Protein 6.5 (6.4-8.2) gm/dl Albumin 3.2 L (3.4-5.0) gm/dl Globulin 3.3 (2.5-4.0) gm/dl Albumin/Globulin Ratio 1.0 (0.9-2) Lipase 72 L (73-393) U/L Beta-Hydroxybutyric Acd 1.95 (0.2-2.81) mg/dl Administered Medications Discontinued Medications Aspirin (Aspirin) 324 mg PO NOW STA Stop: 07/24/19 17:25 Last Admin: 07/24/19 17:34 Dose: 324 mg Documented by: [id number] Aspirin (Aspirin) 243 mg PO NOW STA Stop: 07/24/19 17:29 Last Admin: 07/24/19 17:34 Dose: Not Given Documented by: [id number] Insulin Human Regular (Novolin R U-100 Per Unit) 5 units IV NOW STA Stop: 07/24/19 18:14 Last Admin: 07/24/19 19:07 Dose: 5 units Documented by: [id number] Cosigned by: [id number] Nitroglycerin (Nitrostat) 0.4 mg SL NOW STA Stop: 07/24/19 17:25 Last Admin: 07/24/19 17:33 Dose: 0.4 mg Documented by: [id number] Discharge Plan Visit Data *Final* Discharge Date/Time: 07/24/19 21:08 Chief Complaint: Chest Pain Stated Complaint: CHEST PAIN ED Provider: Catarino Dhaliwal Discharge Problem: Chest pain, Hyperglycemia Patient Disposition: Admitted As Inpatient Discharge Instructions Interventions: ED Discharge Assessment Last Done: 07/24/19 21:08 Discharge Problem: Chest pain Qualifiers: Chest pain type: unspecified Qualified Code(s): R07.9 - Chest pain, unspecified
[2019-07-24] MEDS ORDERED: ASPIRIN CHEW 324 MG PO STA ×2 (17:24→17:28)
[2019-07-24] MEDS ORDERED: NITROGLYCERIN SL 0.4 MG/TAB TAB SL STA (17:24)
[2019-07-24] MEDS ORDERED: NITROGLYCERIN SL 0.4 MG/TAB TAB SL PRN (17:28)
--- NOTE | 2019-07-24 17:28 | XRay Report ---
XR chest 1V portable HISTORY: Atypical Chest Pain COMPARISON: Chest 07/06/2019. FINDINGS: There are poststernotomy changes. The heart remains top normal in size. No pleural effusion s. No pneumothorax. The lungs are clear. IMPRESSION: No acute process. ACT 112: Negative or not required by law. Electronically signed by: Nick Magaña M.D. 07/24/2019 5:26 PM
[2019-07-24 17:41] LABS: Basophils # (auto) 0.02 K/uL (0-0.2); Basophils % (auto) 0.3 %; Eosinophils # (auto) 0.07 K/uL (0-0.5); Eosinophils % (auto) 1.1 %; Hematocrit (blood only) 39.9 % (42-52); Hemoglobin 14.2 g/dL (14.0-18.0); Immature Granulocytes # (auto) 0.01 K/uL (0.00-0.02); Immature Granulocytes % (auto) 0.2 %; Lymphocytes # (auto) 1.23 K/uL (1.2-3.4); Lymphocytes % (auto) 19.9 %; Mean Corpuscular Hemoglobin 29.6 pg (25-34); Mean Corpuscular Hgb Conc 35.6 g/dL (32-36); Mean Corpuscular Volume 83.3 fL (80-100); Mean Platelet Volume 10.6 fL (7.4-10.4); Monocytes # (auto) 0.37 K/uL (0.11-0.59); Neutrophils # (auto) 4.47 K/uL (1.4-6.5); Neutrophils % (auto) 72.5 %; Platelet Count 169 K/uL (130-400); RDW Coefficient of Variation 12.8 % (11.5-14.5); RDW Standard Deviation 38.5 fL (36.4-46.3); Red Blood Count 4.79 M/uL (4.7-6.1); White Blood Count 6.17 K/uL (4.8-10.8)
[2019-07-24 17:55] LABS: Partial Thromboplastin Ratio 0.9; Partial Thromboplastin Time 24.9 Seconds (21.0-31.0); Prothrombin Time 10.2 Seconds (9.0-12.0)
[2019-07-24 17:59] LABS: Alanine Aminotransferase 30 U/L (12-78); Albumin Level 3.2 gm/dl (3.4-5.0); Alkaline Phosphatase 121 U/L (45-117); Aspartate Aminotransferase 14 U/L (15-37); BUN Creatinine Ratio 14.6 (10-20); Bilirubin,Total 0.5 mg/dl (0.2-1); Blood Urea Nitrogen 20 mg/dl (7-18); Carbon Dioxide 27 mmol/L (21-32); Chloride 100 mmol/L (98-107); Creatinine Clr Calc Pharmacy 67.8 ml/min; Est GFR (African American) 62.6; Est GFR (Non-African American) 54.1; Globulin 3.3 gm/dl (2.5-4.0); Glucose 414 mg/dl (70-99); Lipase 72 U/L (73-393); Magnesium 2.2 mg/dl (1.8-2.4); Phosphorus 3.4 mg/dl (2.5-4.9); Potassium 3.9 mmol/L (3.5-5.1); Sodium 133 mmol/L (136-145); Total Protein 6.5 gm/dl (6.4-8.2); Troponin I < 0.015 ng/ml (0-0.045)
[2019-07-24 18:10] LABS: Beta-Hydroxybutyrate 1.95 mg/dl (0.2-2.81)
[2019-07-24] MEDS ORDERED: NovoLIN-R INSULIN PER UNIT CHARGE IV STA (18:13)
[2019-07-24] MEDS ORDERED: DOCUSATE SODIUM 100 MG CAP PO PRN (21:41)
[2019-07-24] MEDS ORDERED: DEXTROSE 50% 50 ML SYRINGE IV PRN (21:41)
[2019-07-24] MEDS ORDERED: NYSTATIN/TRIAMCIN CR 15 GM TUBE EXT PRN (21:41)
[2019-07-24] MEDS ORDERED: MAGNESIUM HYDROXIDE SUSP 30 ML UDC PO PRN (21:41)
[2019-07-24] MEDS ORDERED: CYCLOBENZAPRINE HCL 5 MG TAB PO PRN (21:41)
[2019-07-24] MEDS ORDERED: ACETAMINOPHEN 325 MG TAB PO PRN (21:41)
[2019-07-24] MEDS ORDERED: GLUCOSE 40% GEL 15 GM TUBE PO PRN (21:41)
[2019-07-24] MEDS ORDERED: ALBUTEROL HFA 8 GM INHALER INH PRN (21:41)
[2019-07-24] MEDS ORDERED: POLYETHYLENE (MIRALAX) 17 GM PACK PO PRN (21:41)
[2019-07-24] MEDS ORDERED: GLUCAGON FOR INJ 1 MG VIAL SQ PRN (21:41)
[2019-07-24] MEDS ORDERED: ONDANSETRON INJ 2 MG/ML 2 ML VIAL IV PRN (21:41)
[2019-07-24] MEDS ORDERED: HYDROCORTISONE HC 2.5% CRM 30GM TUBE EXT PRN (21:41)
[2019-07-24] MEDS ORDERED: CARBOHYDRATES FOR HYPOGLYCEMIA PO PRN (21:41)
[2019-07-24] MEDS ORDERED: GLUCOSE 10 TABS/TUBE PO PRN (21:41)
[2019-07-24] MEDS ORDERED: MoRPHine SULFATE 2 MG/ML CARP IV PRN (21:41)
--- NOTE | 2019-07-24 22:19 | History and Physical Report ---
DATE OF ADMISSION: 07/24/2019 CHIEF COMPLAINT: Chest pain. HISTORY OF PRESENT ILLNESS: This is a 68-year-old male with past medical history significant for CAD status post multiple stents, CABG, history of chronic angina, hypertension, hyperlipidemia, type 2 diabetes, chronic systolic and diastolic CHF, obstructive sleep apnea, presents with ongoing chest pain on and off since last 2 weeks. He recently saw his senior caregiver and his Imdur was increased to 90 mg, but he says it is not helping, the chest pain comes on its own, not associated with any activity. He was taking nitro and 2 aspirins whenever he gets the pain and usually it helps. Today he was coming from [facility], when he had chest pain 5/10 in severity, so then he decided to come to the ER. In the ER, he was given aspirin, nitro and the pain is gone, but he still has some mild pressure like feeling. Also couple of days ago had some numbness in his left extremity. He has some nausea, but denies any vomiting. He has some shortness of breath with exertion, going to the mailbox and coming back, he gets short of breath. He can climb steps okay. Denies any sweating, no headache, no dizziness, no blurred vision, no earache. Has issues with sinuses and he has chronic cough from sinuses and brings some phlegm. No dysphagia, no sore throat. No abdominal pain, is somewhat constipated. Denies any blood in stools or black stools. He micturates a lot because of his water pill. Denies any burning micturition or blood in the urine. Has mild swelling in the lower extremities. No rash. Currently resting comfortably and hemodynamically stable. But says he is annoyed because of his chest pain since last two weeks and so he came to the ER. ALLERGIES: LISINOPRIL, VALSARTAN AND INVOKANA. PAST MEDICAL HISTORY: As mentioned above. PAST SURGICAL HISTORY: CABG, right total knee arthroplasty, colonoscopies, multiple cardiac catheterizations with stent placements, coronary artery dilatation, EGDs with biopsies, knee arthroscopy, reconstruction of the nasal septum, cholecystectomy, tonsillectomy and adenoidectomy. MEDICATIONS: The patient is on metoprolol succinate 50 mg p.o. daily, Imdur 90 mg daily; nitroglycerin 0.4 mg sublingual p.r.n., nystatin triamcinolone apply topically to the area b.i.d., Novolin 70/30, 40 units before breakfast and before supper, insulin regular inject 10 units under skin 2 times a day, Demadex 20 mg p.o. daily and extra 20 mg every other day, metformin 1000 mg p.o. b.i.d., albuterol 2 puffs every 4 hours p.r.n., Crestor 40 mg p.o. daily, spironolactone 25 mg p.o. daily, losartan 25 mg p.o. daily, Plavix 75 mg p.o. daily, cyclobenzaprine 5 mg p.o. t.i.d. p.r.n., milk of magnesia p.r.n., Senokot 50 mg tablet p.r.n., Flomax 0.4 mg p.o. at bedtime, Tylenol 500 mg p.r.n., aspirin 81 mg p.o. daily. FAMILY HISTORY: Significant for father had leukemia, at age of 62. Mother had stroke, at the age of 70. Brother at age 61 from CAD. Maternal grandfather had CAD, had [facility] at age of 42. SOCIAL HISTORY: . No smoking history. Alcohol occasionally. No drug use. REVIEW OF SYMPTOMS: As per HPI. Rest of review of symptoms negative. PHYSICAL EXAMINATION: GENERAL: The patient is of moderate build, not in acute distress. VITAL SIGNS: Temperature 36.5, pulse 82, respiratory rate 14, blood pressure 113/78, oxygen 96% on room air. HEENT: Pupils equal, round, and reactive to light. NECK: No JVD, no neck masses. Supple. CARDIOVASCULAR: S1, S2 heard, regular rate and rhythm, no murmur, no gallop. RESPIRATORY SYSTEM: Normal AP diameter. No accessory muscle use. No wheezing, no crackles. ABDOMEN: Soft, bowel sounds present, nontender. No distention. CENTRAL NERVOUS SYSTEM: Cranial nerves II-XII grossly intact. Nonfocal. EXTREMITIES: Bilateral lower extremity pedal edema, mildly present, no erythema seen. LABORATORY DATA: WBC 6.1, hemoglobin 14.2, hematocrit 39.9, platelets 169. PT 10.2, INR 1, APTT 24.9. Sodium 133, potassium 3.9, chloride 100, bicarbonate 27, BUN 20, creatinine 1.34, serum glucose 414, calcium 9, phosphorus 3.4, magnesium 2.2, total bilirubin 0.5, AST 14, ALT 30, alkaline phosphatase 121. Troponin I less than 0.015. Lipase 102. Beta hydroxybutyric acid 1.95. Chest x-ray: No acute process. EKG: Normal sinus rhythm at a rate of 94. Q-waves in inferior leads, no significant change was found. ASSESSMENT AND PLAN: This is a 68-year-old male who presents with chest pain. 1. Chest pain with history of coronary artery disease, history of chronic angina, history of CABG, having chest pain on and off since last 2 weeks, recently saw cardiology and increased his Imdur to 90 mg, but not helping much.He is taking at home nitroglycerin and aspirin which relieves the pain. 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 In Er with nitro and aspirin chest pain currently improved but just had a mild pressure. Initial trop and ekg unremarkable. We will observe in tele floor. Serial cardiac enzymes, echocardiogram. Keep n.p.o. after midnight and consult cardiology in a.m. for further recommendations. 2. History of type 2 diabetes. We will hold his metformin. Continue his Novolin 70/30 insulin sliding scale. Monitor the blood sugars. We will keep cut his insulin to half dose because the patient is n.p.o. after midnight. 3. Obstructive sleep apnea. CPAP at bedtime. 4. Chronic systolic and diastolic heart failure, EF on previous echo in July 2018 shows EF of 45-50%. The patient is on torsemide 20 mg daily and extra 20 mg every other day, on Toprol-XL and Imdur and spironolactone and Cozaar. We will continue home medication. Monitor for any volume overload. 5. History of hypertension: Continue his diuretics, Cozaar, Toprol-XL. We will monitor his blood pressure. 6. Hyperlipidemia. Continue statin. 7. Deep vein thrombosis prophylaxis, sequential compression devices for now. 8. Disposition: Close monitor and observe in tele floor. Level 1 full code. Expect discharge home and follow with family doctor. Social Service to help with discharge planning. OLEG
[2019-07-24] MEDS ORDERED: INSULIN HUMAN 70% NPH/30% REGULAR SC ONE (22:30)
[2019-07-24] MEDS: TAMSULOSIN HCL 0.4 MG CAP PO SCH (22:43)
[2019-07-24] MEDS: INSULIN ASPART 100 UNITS/ML 3 ML PEN SC SCH (22:45)
[2019-07-24] MEDS: ROSUVASTATIN CALCIUM 20 MG TAB PO SCH (22:58)
[2019-07-25 05:52] LABS: Basophils # (auto) 0.02 K/uL (0-0.2); Basophils % (auto) 0.4 %; Eosinophils % (auto) 1.9 %; Hematocrit (blood only) 40.5 % (42-52); Hemoglobin 14.2 g/dL (14.0-18.0); Immature Granulocytes # (auto) 0.01 K/uL (0.00-0.02); Immature Granulocytes % (auto) 0.2 %; Lymphocytes # (auto) 1.77 K/uL (1.2-3.4); Lymphocytes % (auto) 33.2 %; Mean Corpuscular Hemoglobin 29.6 pg (25-34); Mean Corpuscular Hgb Conc 35.1 g/dL (32-36); Mean Corpuscular Volume 84.6 fL (80-100); Mean Platelet Volume 9.7 fL (7.4-10.4); Monocytes # (auto) 0.39 K/uL (0.11-0.59); Monocytes % (auto) 7.3 %; Neutrophils # (auto) 3.04 K/uL (1.4-6.5); Platelet Count 148 K/uL (130-400); Red Blood Count 4.79 M/uL (4.7-6.1); White Blood Count 5.33 K/uL (4.8-10.8)
[2019-07-25 06:13] LABS: BUN Creatinine Ratio 16.2 (10-20); Calcium 8.8 mg/dl (8.5-10.1); Creatinine Clr Calc Pharmacy 82.7 ml/min; Est GFR (African American) 80.4; Est GFR (Non-African American) 69.4; Magnesium 2.1 mg/dl (1.8-2.4); Potassium 3.7 mmol/L (3.5-5.1)
[2019-07-25 06:26] LABS: Troponin I 0.025 ng/ml (0-0.045)
[2019-07-25 07:38] LABS: Estimated Average Glucose 266 mg/dl; Hemoglobin A1C 10.9 % (4.5-5.6)
[2019-07-25] MEDS: INSULIN HUMAN 70% NPH/30% REGULAR SC SCH ×2 (08:08→18:44)
[2019-07-25] MEDS: INSULIN ASPART 100 UNITS/ML 3 ML PEN SC SCH ×4 (08:08→21:13)
[2019-07-25] MEDS: SPIRONOLACTONE 25 MG TAB PO SCH (08:11)
[2019-07-25] MEDS: ISOSORBIDE MONO EXTENDED REL 30 MG TABCR PO SCH (08:11)
[2019-07-25] MEDS: LOSARTAN POTASSIUM 25 MG TAB PO SCH (08:12)
[2019-07-25] MEDS: METOPROLOL SUCC 50MG EXT REL TAB PO SCH (08:12)
[2019-07-25] MEDS: ASPIRIN 81 MG ECTAB PO SCH (08:13)
[2019-07-25] MEDS: CLOPIDOGREL BISULFATE 75 MG TAB PO SCH (08:13)
--- NOTE | 2019-07-25 08:52 | Cardiology Consultation ---
Date of Consultation July 25, 2019 Assessment & Plan (1) Chest pain: Patient with long history of recurrent chest pain, possibly recurrent angina. Last cath in 02/08 with patent LAD stent, with PERRI to RCA with 80% anastomosis in stent stenosis, not amenable to re-vascularization. Otherwise severe underlying nulato and bypass disease. He has recurrent symptoms despite titration of isosorbide and Toprol. At time of admission, his EKG is unchanged compared with prior EKG's dating back to prior to cath in 01/2019. Troponin minimally detectable but negative x3. He is currently chest pain free. Echo pending Plan for nuclear Lexiscan tomorrow morning to evaluate ischemic burden vs scar. For now, continue current medications including ASA, Plavix, isosorbide, losartan, metoprolol, Crestor, torsemide, spironolactone. (2) Coronary artery disease: As described below. Complex disease, multiple interventions Continue current medications. Await nuclear results. (3) Chronic heart failure: Chronic systolic HF. LVEF 45-50% echo report pending Appears euvolemic based on exam findings. (4) HTN (hypertension): Controlled. continue meds. Case discussed in detail with Dr. Drake. Further recommendations pending review of nuclear stress test results tomorrow AM. For now, continue current medications. Notify cardiology with recurrent or worsening chest pain during admission. Supervising Physician Co-Signing Physician Notes Patient seen and examined at the bedside. Complained of recurrent resting chest discomfort this afternoon. Symptoms relieved with SL nitro and belching. Currently pain free. no ECG changes. VSS. Gen: NAD, AAO x 3. Heart: Regular, normal S1S2. Lungs: clear B/L, no R/R/W. Ext: trace B/L pretibial edema with stasis changes. A/P: Agree with above PASaul history, physical exam, assessment and plan. Recurrent CP with atypical features has resolved. Will add topical nitrates over night. Lexiscan nuclear stress test in AM. History of Present Illness Reason for Consultation: Chest pain; Complex CAD Requesting Physician: Dr. Chris Attending Physician: Dr. Tobi Drake History of Present Illness Patient is a very complex 68 year old male who follows with [facility] cardiology Dr. Atwood/Maged Aragon PA-C. Over the last 6 months, patient has multiple admissions and evaluations for chest pain and acute CHF exacerbation. Patient hospitalized at [facility] April 05, 2019 to April 07, 2019, presenting at that time with complaints of lightheadedness, nausea, discomfort involving the upper abdomen/lower chest, and increased lower extremity peripheral edema. He was seen in cardiology consultation by Dr. Tyson then Dr. Drake. His EKG was relatively unchanged. Troponin levels were detectable but not above the reference range. Patient treated for acute decompensated heart failure with IV furosemide with improvement. Medication changes on discharge included switching from furosemide (40 mg twice per day) to torsemide (20 mg/day) and titration of Imdur to 60 mg/day. Evaluated on 06/05/2019 in outpatient setting. At that time he described a couple episodes of chest discomfort occurring without rhyme or reason, promptly aided by sublingual nitroglycerin. He noted that the discomfort seemed to be aggravated by additional fluid, intermittently with increased peripheral edema. Torsemide was increased, an additional 20 mg two to three days per week. Evaluated at the [facility] ER on July 06, 2019, chest discomfort. EKG showed no acute change, normal sinus rhythm at 86 bpm with sinus arrhythmia, old inferior infarct, lateral T-wave abnormality. Troponin was 0.027. Chest x-ray showed no active disease in the chest. Patient discharged from the ER to follow up with Cardiology and PCP. Isosorbide was subsequently increased to 90 mg. F/U appt as outpatient 07/10, patient with epigastric/substernal chest pain, intemrittetn at rest or with exertion, complicated by possible long issues with constpation. In attempts to alleviate his symptoms further, toprol was increased to 50 mg daily. Patient reports ongoing substernal chest pain, no radiation. Occurring on a daily basis. Sometimes at rest, sometimes wiht exertion such as climbing hill from his mail box. Takes at least 1 SL nitro per day over the last month or so. symptoms resolve quickly. He also reports long history of consitpation which may also be contributing to his pressure like symptoms. His symptoms resolved quickly in the ER wiht SL nitro. He had mild chest pressure this morning while sitting in bed, but alleviated by eructation. At time of consult, patinet sitting in chair, resting comfortably. No current chest pain or SOB. No dizziness or lightheadedness. No syncope or near syncope. Chronic Le edema noted, unchanged. no sudden weight gain. No orhtopnea, PND. No fever, cough, chills. Problem list: 1. ASCVD 1. Prior multiple coronary interventions dating back to 1993 predominantly in the right coronary artery but ultimately leading to coronary bypass grafting in 1995 receiving a saphenous vein graft to the circumflex obtuse marginal and obtuse marginal 2 and a right internal mammary artery graft to the right coronary artery. 2. Status post PCI of the distal left circumflex in 2003 after the distal limb of the sequential graft had occluded. 3. Coronary intervention in August 2009 to the ostial portion of the saphenous vein graft with residual disease noted within the anastomosis of the ESCOBAR to the right coronary artery. This underwent intervention of the distal right coronary artery through the right internal mammary artery graft, receiving a bare metal stent at that time. 4. Recurrence of angina pectoris with subsequent repeat cardiac catheterization on 09/09/11 with cardiac catheterization demonstrating 30% left main, diffusely disease small ramus intermedius, moderate disease of left anterior descending with severely diseased left main though with patent vein graft to the 2nd marginal, patent right internal mammary artery graft to the distal right coronary artery with post stenotic narrowing of 95% at site of previously placed stent. Patient underwent repeat stenting with successful result. 5. Repeat diagnostic cardiac catheterization done 12/22/2011 demonstrated no progression of coronary disease and patent stenting. 6. Recurrent angina/ACS on July 28, 2018 with subsequent current intervention receiving drug-eluting stent to the mid left anterior descending for high-grade obstruction. Saphenous vein graft to the obtuse marginal was noted to be occluded 7. Hospitalization in January 2019 with chest pain and elevated troponin. Subsequent acute cardiac catheterization at [facility] demonstrated no progression in coronary disease with elevated left end-diastolic pressure 8. Chronic class 2 congestive heart failure 2. Asthmatic lung disease with intermittent bronchitis. 3. Type 2 diabetes mellitus, insulin requiring. 4. Hyperlipidemia, on therapy. 5. Moderate obstructive sleep apnea 6. GERD Allergies Allergy/AdvReac Type Severity Reaction Status Date / Time lisinopril AdvReac Mild Cough Verified 07/24/19 17:29 canagliflozin AdvReac Unknown Excessive Verified 07/24/19 17:29 Urination valsartan AdvReac Unknown fatigue Verified 07/24/19 17:29 Home Medications Home Medications Medication Instructions Recorded Confirmed Type Novolin 70/30 U-100 Insulin 48 unit SUBCUT BID 07/28/18 07/24/19 History albuterol sulfate [ProAir HFA] 2 puff INHALATION Q4H PRN 07/28/18 07/24/19 History aspirin 81 mg PO QAM 07/28/18 07/24/19 History clopidogrel [Plavix] 75 mg PO QAM 07/28/18 07/24/19 History docusate sodium [Colace] 100 mg PO BID PRN 07/28/18 07/24/19 History magnesium hydroxide [Milk of 15 ml PO DAILY PRN 07/28/18 07/24/19 History Magnesia] metformin [Glucophage XR] 1,000 mg PO BIDM 07/28/18 07/24/19 History nitroglycerin [Nitrostat] 0.4 mg SUBLINGUAL UD PRN 07/28/18 07/24/19 History polyethylene glycol 3350 [Miralax] 17 g PO DAILY PRN 07/28/18 07/24/19 History rosuvastatin [Crestor] 40 mg PO HS 07/28/18 07/24/19 History spironolactone 25 mg tablet 25 mg PO QAM 03/28/19 07/24/19 History Novolin R Regular U-100 Insuln 10 unit SUBCUT QDL 04/05/19 07/24/19 History losartan [Cozaar] 25 mg PO QAM 04/05/19 07/24/19 History aspirin [Kyler Aspirin] 650 mg PO Q6 PRN 07/06/19 07/24/19 History acetaminophen [Tylenol Extra 1,000 mg PO Q6H PRN 07/24/19 07/24/19 History Strength] cyclobenzaprine 5 mg PO TID PRN 07/24/19 07/24/19 History hydrocortisone [Proctosol HC] 1 applic VT BID PRN 07/24/19 07/24/19 History isosorbide mononitrate 90 mg PO DAILY 07/24/19 07/24/19 History metoprolol succinate 50 mg PO DAILY 07/24/19 07/24/19 History nystatin-triamcinolone 1 applic TOPICAL BID PRN 07/24/19 07/24/19 History tamsulosin 0.4 mg PO HS 07/24/19 07/24/19 History torsemide 20 mg PO DAILY 07/24/19 07/24/19 History torsemide 20 mg PO Q OTHER DAY 07/24/19 07/24/19 History Patient History Medical History ACEI/ARB contraindicated (Chronic) Chronic heart failure Coronary artery disease (Chronic) 1. Prior multiple coronary artery interventions dating back to 1993, prominently in the right coronary but ultimately leading to coronary artery bypass grafting in 1995 receiving a saphenous vein graft to the circumflex obtuse marginal, sequentially obtuse marginal 2, and a right internal mammary artery graft to the right coronary artery. 2. Later coronary artery interventions with stenting to the distal circumflex in 2003 after distal limb of the sequential graft occluded. 3. Coronary artery intervention August 2009 to the ostial portion saphenous vein graft and subsequent intervention of the distal right coronary artery to the right internal mammary artery, receiving a bare metal stent. 4. Underlying history of chronic angina pectoris as well as noncardiac chest pain. Most recent diagnostic cardiac catheterization in November 2011 without progression of coronary artery disease. Diabetes mellitus, type II (Chronic) Diabetic neuropathic arthropathy (Chronic) Diabetic neuropathy (Chronic) Dyslipidemia (Chronic) Generalized osteoarthritis (Chronic) History of renal calculi (Chronic) HTN (hypertension) (Chronic) Hx of congestive heart failure Obesity (Chronic) CAROL (obstructive sleep apnea) (Chronic) TMJ (temporomandibular joint disorder) (Chronic) Surgical History History of tonsillectomy (Chronic) Hx of CABG (Chronic) Hx of right knee surgery (Chronic) S/P david (Chronic) S/P nasal septoplasty (Chronic) Family History Brother Cardiac disease Heart disease Stroke Mother Stroke Diabetes Hypertension Father Leukemia Diabetes Cancer Social History Preferred Language: [place] Citizen Communication Ability: Effective Bead Filler Required: No Beliefs That Will Affect Care: None marital status: / Current Living Situation: Significant Other current occupational status: retired Feels Safe at Home: Yes Safety Concerns: Feels Safe At This Time Smoking Status: Former smoker Do You Dip or Chew Tobacco: No ; Second Hand Expo sure: No ; Hx Alcohol Use: Yes Alcohol type: beer, wine and hard liquor Alcohol type Comment: 2-3 beers 1-2 times a week Alcohol Intake Frequency: Weekly Hx Substance Use: No Review of Systems Review of Systems: All systems reviewed & are unremarkable except as noted in HPI & below Physical Exam Constitutional: WD/WN, vitals as above well developed and average body habitus; no acute distress Neck: trachea midline, no thyromegaly normal visual inspection Respiratory: normal respiratory effort, lungs clear to auscultation Cardiovascular: Rate/Rhythm: regular rate and regular rhythm Heart Sounds: + murmur (I/ systolic murmur noted RSB) Vessels: no JVD Extremities: + edema (mild ankle, non pitting) and + varicosities Gastrointestinal (Abdomen): normal bowel sounds, soft, nontender, no hepat osplenomegaly Musculoskeletal: no cyanosis or clubbing, extremities motor strength 5/5 Neurologic: PERRL, EOMI, accommodation nl, no face palsy, no dysarthria Psychiatric: A+Ox3, euthymic affect Results & Data ([facility]) Vital Signs (Past 12 Hours) Vital Signs Temp Pulse Resp BP BP Pulse Ox 07/25/19 04:00 36.5 C 58 L 17 114/61 97 07/25/19 00:00 36.7 C 79 18 114/58 L 95 07/24/19 21:45 36.9 C 75 18 160/78 H 95 07/24/19 21:15 70 16 146/75 H 95 07/24/19 21:08 139/78 Laboratory Results 07/25/19 07/25/19 07/25/19 Range/Units 07:35 05:37 05:37 WBC (4.8-10.8) K/uL RBC (4.7-6.1) M/uL Hgb (14.0-18.0) g/dL Hct (42-52) % MCV (80-100) fL MCH (25-34) pg MCHC (32-36) g/dL RDW Std Deviation (36.4-46.3) fL RDW Coeff of Aaron (11.5-14.5) % Plt Count (130-400) K/uL MPV (7.4-10.4) fL Immature Gran % (Auto) % Neut % (Auto) % Lymph % (Auto) % [place] % (Auto) % Eos % (Auto) % Baso % (Auto) % Immature Gran # (Auto) (0.00-0.02) K/uL Neut # (Auto) (1.4-6.5) K/uL Lymph # (Auto) (1.2-3.4) K/uL [place] # (Auto) (0.11-0.59) K/uL Eos # (Auto) (0-0.5) K/uL Baso # (Auto) (0-0.2) K/uL PT (9.0-12.0) Seconds INR (0.9-1.1) APTT (21.0-31.0) Seconds PTT Ratio Sodium 141 D (136-145) mmol/L Potassium 3.7 (3.5-5.1) mmol/L Chloride 106 (98-107) mmol/L Carbon Dioxide 32 (21-32) mmol/L Anion Gap 3.0 (3-11) BUN 18 (7-18) mg/dl Creatinine 1.09 (0.6-1.4) mg/dl Est Cr Clr Drug Dosing 82.7 ml/min Est GFR ( Amer) 80.4 Est GFR (Non-Af Amer) 69.4 BUN/Creatinine Ratio 16.2 (10-20) Glucose 83 (70-99) mg/dl POC Glucose 125 H (70-99) mg/dl Estimat Average Glucose 266 mg/dl Hemoglobin A1c 10.9 H (4.5-5.6) % Calcium 8.8 (8.5-10.1) mg/dl Phosphorus (2.5-4.9) mg/dl Magnesium 2.1 (1.8-2.4) mg/dl Total Bilirubin (0.2-1) mg/dl AST (15-37) U/L ALT (12-78) U/L Alkaline Phosphatase (45-117) U/L Troponin I 0.025 (0-0.045) ng/ml Total Protein (6.4-8.2) gm/dl Albumin (3.4-5.0) gm/dl Globulin (2.5-4.0) gm/dl Albumin/Globulin Ratio (0.9-2) Lipase (73-393) U/L Beta-Hydroxybutyric Acd (0.2-2.81) mg/dl 07/25/19 07/25/19 07/24/19 Range/Units 05:37 00:54 23:22 WBC 5.33 (4.8-10.8) K/uL RBC 4.79 (4.7-6.1) M/uL Hgb 14.2 (14.0-18.0) g/dL Hct 40.5 L (42-52) % MCV 84.6 (80-100) fL MCH 29.6 (25-34) pg MCHC 35.1 (32-36) g/dL RDW Std Deviation 40.0 (36.4-46.3) fL RDW Coeff of Aaron 13.0 (11.5-14.5) % Plt Count 148 (130-400) K/uL MPV 9.7 (7.4-10.4) fL Immature Gran % (Auto) 0.2 % Neut % (Auto) 57.0 % Lymph % (Auto) 33.2 % [place] % (Auto) 7.3 % Eos % (Auto) 1.9 % Baso % (Auto) 0.4 % Immature Gran # (Auto) 0.01 (0.00-0.02) K/uL Neut # (Auto) 3.04 (1.4-6.5) K/uL Lymph # (Auto) 1.77 (1.2-3.4) K/uL [place] # (Auto) 0.39 (0.11-0.59) K/uL Eos # (Auto) 0.10 (0-0.5) K/uL Baso # (Auto) 0.02 (0-0.2) K/uL PT (9.0-12.0) Seconds INR (0.9-1.1) APTT (21.0-31.0) Seconds PTT Ratio Sodium (136-145) mmol/L Potassium (3.5-5.1) mmol/L Chloride (98-107) mmol/L Carbon Dioxide (21-32) mmol/L Anion Gap (3-11) BUN (7-18) mg/dl Creatinine (0.6-1.4) mg/dl Est Cr Clr Drug Dosing ml/min Est GFR ( Amer) Est GFR (Non-Af Amer) BUN/Creatinine Ratio (10-20) Glucose (70-99) mg/dl POC Glucose 254 H (70-99) mg/dl Estimat Average Glucose mg/dl Hemoglobin A1c (4.5-5.6) % Calcium (8.5-10.1) mg/dl Phosphorus (2.5-4.9) mg/dl Magnesium (1.8-2.4) mg/dl Total Bilirubin (0.2-1) mg/dl AST (15-37) U/L ALT (12-78) U/L Alkaline Phosphatase (45-117) U/L Troponin I 0.017 (0-0.045) ng/ml Total Protein (6.4-8.2) gm/dl Albumin (3.4-5.0) gm/dl Globulin (2.5-4.0) gm/dl Albumin/Globulin Ratio (0.9-2) Lipase (73-393) U/L Beta-Hydroxybutyric Acd (0.2-2.81) mg/dl 07/24/19 07/24/19 07/24/19 Range/Units 22:02 21:53 21:51 WBC (4.8-10.8) K/uL RBC (4.7-6.1) M/uL Hgb (14.0-18.0) g/dL Hct (42-52) % MCV (80-100) fL MCH (25-34) pg MCHC (32-36) g/dL RDW Std Deviation (36.4-46.3) fL RDW Coeff of Aaron (11.5-14.5) % Plt Count (130-400) K/uL MPV (7.4-10.4) fL Immature Gran % (Auto) % Neut % (Auto) % Lymph % (Auto) % [place] % (Auto) % Eos % (Auto) % Baso % (Auto) % Immature Gran # (Auto) (0.00-0.02) K/uL Neut # (Auto) (1.4-6.5) K/uL Lymph # (Auto) (1.2-3.4) K/uL [place] # (Auto) (0.11-0.59) K/uL Eos # (Auto) (0-0.5) K/uL Baso # (Auto) (0-0.2) K/uL PT (9.0-12.0) Seconds INR (0.9-1.1) APTT (21.0-31.0) Seconds PTT Ratio Sodium (136-145) mmol/L Potassium (3.5-5.1) mmol/L Chloride (98-107) mmol/L Carbon Dioxide (21-32) mmol/L Anion Gap (3-11) BUN (7-18) mg/dl Creatinine (0.6-1.4) mg/dl Est Cr Clr Drug Dosing ml/min Est GFR ( Amer) Est GFR (Non-Af Amer) BUN/Creatinine Ratio (10-20) Glucose 284 H (70-99) mg/dl POC Glucose 264 H 300 H (70-99) mg/dl Estimat Average Glucose mg/dl Hemoglobin A1c (4.5-5.6) % Calcium (8.5-10.1) mg/dl Phosphorus (2.5-4.9) mg/dl Magnesium (1.8-2.4) mg/dl Total Bilirubin (0.2-1) mg/dl AST (15-37) U/L ALT (12-78) U/L Alkaline Phosphatase (45-117) U/L Troponin I (0-0.045) ng/ml Total Protein (6.4-8.2) gm/dl Albumin (3.4-5.0) gm/dl Globulin (2.5-4.0) gm/dl Albumin/Globulin Ratio (0.9-2) Lipase (73-393) U/L Beta-Hydroxybutyric Acd (0.2-2.81) mg/dl 07/24/19 07/24/19 07/24/19 Range/Units 20:47 16:45 16:45 WBC (4.8-10.8) K/uL RBC (4.7-6.1) M/uL Hgb (14.0-18.0) g/dL Hct (42-52) % MCV (80-100) fL MCH (25-34) pg MCHC (32-36) g/dL RDW Std Deviation (36.4-46.3) fL RDW Coeff of Aaron (11.5-14.5) % Plt Count (130-400) K/uL MPV (7.4-10.4) fL Immature Gran % (Auto) % Neut % (Auto) % Lymph % (Auto) % [place] % (Auto) % Eos % (Auto) % Baso % (Auto) % Immature Gran # (Auto) (0.00-0.02) K/uL Neut # (Auto) (1.4-6.5) K/uL Lymph # (Auto) (1.2-3.4) K/uL [place] # (Auto) (0.11-0.59) K/uL Eos # (Auto) (0-0.5) K/uL Baso # (Auto) (0-0.2) K/uL PT 10.2 (9.0-12.0) Seconds INR 1.0 (0.9-1.1) APTT 24.9 (21.0-31.0) Seconds PTT Ratio 0.9 Sodium 133 L (136-145) mmol/L Potassium 3.9 (3.5-5.1) mmol/L Chloride 100 (98-107) mmol/L Carbon Dioxide 27 (21-32) mmol/L Anion Gap 6.0 (3-11) BUN 20 H (7-18) mg/dl Creatinine 1.34 (0.6-1.4) mg/dl Est Cr Clr Drug Dosing 67.8 ml/min Est GFR ( Amer) 62.6 Est GFR (Non-Af Amer) 54.1 BUN/Creatinine Ratio 14.6 (10-20) Glucose 414 H* (70-99) mg/dl POC Glucose 259 H (70-99) mg/dl Estimat Average Glucose mg/dl Hemoglobin A1c (4.5-5.6) % Calcium 9.0 (8.5-10.1) mg/dl Phosphorus 3.4 (2.5-4.9) mg/dl Magnesium 2.2 (1.8-2.4) mg/dl Total Bilirubin 0.5 (0.2-1) mg/dl AST 14 L (15-37) U/L ALT 30 (12-78) U/L Alkaline Phosphatase 121 H (45-117) U/L Troponin I < 0.015 (0-0.045) ng/ml Total Protein 6.5 (6.4-8.2) gm/dl Albumin 3.2 L (3.4-5.0) gm/dl Globulin 3.3 (2.5-4.0) gm/dl Albumin/Globulin Ratio 1.0 (0.9-2) Lipase 72 L (73-393) U/L Beta-Hydroxybutyric Acd 1.95 (0.2-2.81) mg/dl 07/24/19 Range/Units 16:45 WBC 6.17 (4.8-10.8) K/uL RBC 4.79 (4.7-6.1) M/uL Hgb 14.2 (14.0-18.0) g/dL Hct 39.9 L (42-52) % MCV 83.3 (80-100) fL MCH 29.6 (25-34) pg MCHC 35.6 (32-36) g/dL RDW Std Deviation 38.5 (36.4-46.3) fL RDW Coeff of Aaron 12.8 (11.5-14.5) % Plt Count 169 (130-400) K/uL MPV 10.6 H (7.4-10.4) fL Immature Gran % (Auto) 0.2 % Neut % (Auto) 72.5 % Lymph % (Auto) 19.9 % [place] % (Auto) 6.0 % Eos % (Auto) 1.1 % Baso % (Auto) 0.3 % Immature Gran # (Auto) 0.01 (0.00-0.02) K/uL Neut # (Auto) 4.47 (1.4-6.5) K/uL Lymph # (Auto) 1.23 (1.2-3.4) K/uL [place] # (Auto) 0.37 (0.11-0.59) K/uL Eos # (Auto) 0.07 (0-0.5) K/uL Baso # (Auto) 0.02 (0-0.2) K/uL PT (9.0-12.0) Seconds INR (0.9-1.1) APTT (21.0-31.0) Seconds PTT Ratio Sodium (136-145) mmol/L Potassium (3.5-5.1) mmol/L Chloride (98-107) mmol/L Carbon Dioxide (21-32) mmol/L Anion Gap (3-11) BUN (7-18) mg/dl Creatinine (0.6-1.4) mg/dl Est Cr Clr Drug Dosing ml/min Est GFR ( Amer) Est GFR (Non-Af Amer) BUN/Creatinine Ratio (10-20) Glucose (70-99) mg/dl POC Glucose (70-99) mg/dl Estimat Average Glucose mg/dl Hemoglobin A1c (4.5-5.6) % Calcium (8.5-10.1) mg/dl Phosphorus (2.5-4.9) mg/dl Magnesium (1.8-2.4) mg/dl Total Bilirubin (0.2-1) mg/dl AST (15-37) U/L ALT (12-78) U/L Alkaline Phosphatase (45-117) U/L Troponin I (0-0.045) ng/ml Total Protein (6.4-8.2) gm/dl Albumin (3.4-5.0) gm/dl Globulin (2.5-4.0) gm/dl Albumin/Globulin Ratio (0.9-2) Lipase (73-393) U/L Beta-Hydroxybutyric Acd (0.2-2.81) mg/dl Diagnostic Findings EKG on admission: Normal sinus rhythm Minimal voltage criteria for LVH, may be normal variant Inferior infarct (cited on or before 31-AUG-2012) T wave abnormality, consider lateral ischemia When compared with prior EKG's, dating back to his last cardiac cath in 01/2019, no significant changes noted Chest xray No acute process. Cardiac Cath report reviewed, dated 02/06/19: CONCLUSIONS Final Severe chronic nulato multivessel CAD and severe bypass graft disease. The most recent previously placed stent in the LAD is widely patent. The PERRI-RCA anastomotic 80% instent restenosis lesion is unchanged from prior cath. The distal run off is very poor; the known inferior/posterior wall akinesis and poor distal run off make this a poor option for further revascularization attempts.No significant change in bypass grafts or nulato coronary anatomy since August 10Elevated LVEDP at 34 mmHg -- this is the significant change from prior catheterization and likely explanation for his current presentation. Echo report reviewed, dated 01/2019: Interpretation Summary The examination is adequate to evaluate the referral indication. The qualitative LV ejection fraction is 45-49% (mildly reduced). There is a large sized septal, inferior, and posterior wall motion abnormality with akinesis of the segments. Mild aortic valve stenosis is present. Mild mitral regurgitation is present. There is no evidence of pulmonary hypertension. Compared to prior echocardiogram from 07/31/18, there is no signifncant change. (1) Chest pain Chest pain type: unspecified Qualified Code(s): R07.9 - Chest pain, unspecified
--- NOTE | 2019-07-25 08:56 | Electrocardiogram Report ---
Test Reason : Blood Pressure : / mmHG Vent. Rate : 094 BPM Atrial Rate : 094 BPM P-R Int : 206 ms QRS Dur : 106 ms QT Int : 380 ms P-R-T Axes : 059 -04 104 degrees QTc Int : 475 ms Normal sinus rhythm Minimal voltage criteria for LVH, may be normal variant Inferior infarct (cited on or before 31-AUG-2012) T wave abnormality, consider lateral ischemia Abnormal ECG When compared with ECG of 06-JUL-2019 15:42, No significant change was found Confirmed by Melecio Hunt ([id number]) on 07/25/2019 8:55:51 AM Referred By: REFERRED SELF Confirmed By:Melecio Hunt
[2019-07-25] MEDS ORDERED: TORSEMIDE 20 MG TAB PO SCH ×2 (09:00)
--- NOTE | 2019-07-25 09:14 | Electrocardiogram Report ---
Test Reason : Blood Pressure : / mmHG Vent. Rate : 067 BPM Atrial Rate : 067 BPM P-R Int : 192 ms QRS Dur : 106 ms QT Int : 454 ms P-R-T Axes : 069 -10 141 degrees QTc Int : 479 ms Sinus rhythm with Premature atrial complexes in a pattern of bigeminy Inferior infarct (cited on or before 31-AUG-2012) Abnormal ECG When compared with ECG of 24-JUL-2019 16:28, (unconfirmed) Premature atrial complexes are now Present T wave inversion more evident in Lateral leads Confirmed by Melecio Hunt ([id number]) on 07/25/2019 9:14:33 AM Referred By: REFERRED SELF Confirmed By:Melecio Hunt
[2019-07-25] MEDS: NITROGLYCERIN SL 0.4 MG/TAB TAB SL PRN ×2 (15:22→15:28)
--- NOTE | 2019-07-25 19:18 | Hospitalist Progress Note ---
Date of Service July 25, 2019 Assessment & Plan (1) Chest pain: Present on admission with recurrent chest pain CXR showed no acute process EKG showed no ischemic changes Troponin x 3 negative cardiology on board Echo showed moderate sized septal, inferior and posterior wall motion abnorma lity with hypokinesis to akinesis of segments. EF 50-55 % Plan for nuclear stress test in am Will make NPO after midnight Continue ASA, Plavix, isosorbide, losartan, metoprolol, Crestor Type 2 diabetes. Hba1c 10.9 Continue to hold his metformin. Continue 70/30 and novolog sliding scale Continue monitor BS Obstructive sleep apnea. On CPAP at bedtime. Chronic systolic and diastolic heart failure Recent Echo showed EF 50-55 % Continue Torsemide, Spironolactone, Losartan and metoprolol Will monitor for volume overload Hypertension BP stable Continue his diuretics, Cozaar, Toprol-XL. Continue monitor his blood pressure. Hyperlipidemia. Continue statin. Deep vein thrombosis prophylaxis on SCDs Consider to add heparin subq Admission and Anticipated Discharge Date Admission Date: July 24, 2019 Subjective Pt was seen and examined. Sitting in chair with no distress Pt said that early this morning he had some chest discomfort while walking on the hallway Currently denies any chest pain and palpitation Physical Exam Physical Exam: General- No acute distress Head- atraumatic Eyes- PERRL, EOMI, ENT- oropharynx clear Neck- supple, no JVD Lungs- clear to auscultation Heart- regular rhythm; + murmur Abdomen- normal bowel sounds, soft, nontender Extremities- no calf tenderness. +edema Neuro- alert, oriented x 3; PERRL, EOMI; no facial palsy; no dysarthria Skin- warm & dry Results & Data Results & Data ([facility]) Vital Signs (Past 12 Hours) Vital Signs Temp Pulse Pulse Resp BP Pulse Ox 07/25/19 16:57 80 07/25/19 15:33 82 113/69 94 07/25/19 15:29 85 18 114/63 92 07/25/19 15:15 36.6 C 81 155/69 H 93 07/25/19 08:43 36.8 C 85 18 104/65 97 07/25/19 08:00 69 (1) Chest pain Chest pain type: unspecified Qualified Code(s): R07.9 - Chest pain, unspecified
[2019-07-25] MEDS: ROSUVASTATIN CALCIUM 20 MG TAB PO SCH (20:28)
[2019-07-25] MEDS: TAMSULOSIN HCL 0.4 MG CAP PO SCH (20:28)
[2019-07-26] MEDS ORDERED: REGADENOSON 0.4 MG/5 ML SYR IV ONE (08:24)
[2019-07-26] MEDS ORDERED: TORSEMIDE 20 MG TAB PO SCH (09:00)
[2019-07-26] MEDS: INSULIN ASPART 100 UNITS/ML 3 ML PEN SC SCH ×3 (12:08→17:12)
[2019-07-26] MEDS: CLOPIDOGREL BISULFATE 75 MG TAB PO SCH (12:13)
[2019-07-26] MEDS: SPIRONOLACTONE 25 MG TAB PO SCH (12:13)
[2019-07-26] MEDS: ISOSORBIDE MONO EXTENDED REL 30 MG TABCR PO SCH (12:13)
[2019-07-26] MEDS: LOSARTAN POTASSIUM 25 MG TAB PO SCH (12:13)
[2019-07-26] MEDS: METOPROLOL SUCC 50MG EXT REL TAB PO SCH (12:13)
[2019-07-26] MEDS: ASPIRIN 81 MG ECTAB PO SCH (12:13)
[2019-07-26] MEDS: INSULIN HUMAN 70% NPH/30% REGULAR SC SCH ×2 (12:17→17:11)
--- NOTE | 2019-07-26 13:37 | Myocardial Perfusion Study ---
Date of Service July 26, 2019 Myocardial Perfusion Study [facility] Myocardial Perfusion Study Report [place] Act 112: Negative Indication: Chest pain History: Coronary artery disease with coronary artery bypass grafting, PCI of LAD 09/2018, ischemic cardiomyopathy with mildly reduced LV function. Complications: None. Stress study summary: Patient performed a stress test according to Lexiscan protocol for 3 minutes. A workload of 1.0 METS achieved. Resting heart rate 85 bpm, maximal heart rate 103 bpm. This value represents 67% of the maximal, age- predicted heart rate. The resting blood pressure was 145/72. The maximum blood pressure recorded was 145/72. Normal heart rate and blood pressure response to Lexiscan infusion. Symptoms: Chest discomfort, nausea, dyspnea. All symptoms resolved prior to leaving the stress suite. Resting ECG: Sinus rhythm, lateral T wave abnormality, consider ischemia. Inferior Q waves suggesting old inferior infarct. Stress ECG: No ischemia. Nuclear imaging report: For the stress portion of the study, 32.1 mCi of technetium 99m Cardiolite IV was injected at 9:30 AM on 07/26/2019. 30 minutes following the injection, imaging of the heart was performed in multiple projections. For the rest port ion of the study, 11.2 mCi of technetium 99m Cardiolite was injected IV at 07 40 5 AM. 1 hour following the injection, imaging of the heart was performed in the same projections. Raw data: No extraneous uptake of isotopic tracer on rotating, raw data images. Right ventricle: Not well visualized. Resting images: There is a large defect of severe intensity involving the base, mid inferior wall, and the base, mid lateral wall. The remaining left ventricular myocardial wall segments demonstrate normal perfusion. Stress images: There is a large defect of severe intensity involving the base, m id inferior wall, and the base, mid lateral wall. The remaining left ventricular myocardial wall segments demonstrate normal perfusion. The defect is unchanged when compared to resting images. Defect represents large inferior lateral scar without significant leonor-infarct ischemia. Gated SPECT imaging: LV volumes could not be accurately assessed due to lack of counts in the inferior lateral parnell. Calculated ejection fraction could not be accurately assessed due to lack of counts in the inferior lateral parnell. Recommend alternative imaging modality for assessment of LV systolic function. Conclusion: Lexiscan nuclear stress test demonstrating inferior lateral infarct without significant leonor-infarct ischemia. Findings suggest an ischemic cardiomyopathy.
--- NOTE | 2019-07-26 13:40 | Cardiology Progress Note ---
Date of Service July 26, 2019 Assessment & Plan (1) Chest pain: (2) Coronary artery disease: (3) Hx of CABG: (4) GERD (gastroesophageal reflux disease): Results of Lexiscan nuclear stress test discussed with patient. No significant ischemia appreciated. Recommend continued medical management. Transition from isosorbide monohydrate to transdermal patch. Patient agreeable. Other cardiovascular medications will be continued as previously ordered. Consider addition of Ranexa in the future. Appropriate of sublingual nitroglycerin reviewed. All questions answered to patient satisfaction. No further inpatient cardiology testing or intervention at this time. Thank you for allowing to participate in the care of your patient. Subjective Patient seen and examined at the bedside. No recurrent chest discomfort since last evening. Feeling better today. Tolerating midday meal. Review of Lexiscan nuclear stress test demonstrates inferolateral infarct without leonor- infarct ischemia. Results discussed with patient. Review of Systems Review of Systems: All systems reviewed & are unremarkable except as noted in HPI & below Physical Exam Constitutional: well nourished and + ill appearing; no acute distress Respiratory: no respiratory distress and no labored breathing Auscultation: lungs clear to auscultation bilaterally; no diminished lung sounds, no crackles, no rales, no rhonchi and no wheezes Cardiovascular: Rate/Rhythm: regular rate and regular rhythm Heart Sounds: normal S1, normal S2 and + murmur (2/6 systolic ejection murmur heard best at the right second intercostal space.) Vessels: no JVD Extremities: no edema Gastrointestinal (Abdomen): Inspection/Auscultation: abdomen normal to inspection and normal bowel sounds; abdomen not distended Percussi on/Palpation: abdomen soft; abdomen nontender, no guarding and abdomen not rigid Musculoskeletal: no cyanosis or clubbing, extremities motor strength 5/5 Skin: no rashes, warm and dry Neurologic: moves all extremities; no focal motor deficits Speech / Cognition: normal speech Motor/Sensory: no tremor Psychiatric: A+Ox3, euthymic affect Results & Data Vital Signs (Past 12 Hours) Vital Signs Temp Pulse Resp BP Pulse Ox 07/26/19 12:07 36.4 C L 89 18 111/64 95 07/26/19 07:51 36.9 C 79 18 115/67 95 07/26/19 03:49 36.8 C 72 19 90/45 L 95 (1) Chest pain Chest pain type: unspecified Qualified Code(s): R07.9 - Chest pain, unspecified (2) Coronary artery disease Coronary Disease-Associated Artery/Lesion type: [place] artery [place] vs. transplanted heart: [place] heart Associated angina: with stable angina Qualified Code(s): I25.118 - Atherosclerotic heart disease of [place] coronary artery with other forms of angina pectoris
--- NOTE | 2019-07-26 14:46 | Electrocardiogram Report ---
Test Reason : Blood Pressure : / mmHG Vent. Rate : 079 BPM Atrial Rate : 079 BPM P-R Int : 170 ms QRS Dur : 106 ms QT Int : 434 ms P-R-T Axes : 050 -12 129 degrees QTc Int : 497 ms Sinus rhythm with Premature atrial complexes Inferior infarct (cited on or before 31-AUG-2012) T wave abnormality, consider lateral ischemia Abnormal ECG When compared with ECG of 25-JUL-2019 06:43, No significant change was found Confirmed by Melecio Hunt ([id number]) on 07/26/2019 2:45:49 PM Referred By: REFERRED SELF Confirmed By:Melecio Hunt
--- NOTE | 2019-07-26 17:06 | Electrocardiogram Report ---
Test Reason : Blood Pressure : / mmHG Vent. Rate : 072 BPM Atrial Rate : 072 BPM P-R Int : 188 ms QRS Dur : 106 ms QT Int : 422 ms P-R-T Axes : 059 -04 136 degrees QTc Int : 462 ms Sinus rhythm with Premature atrial complexes Inferior infarct (cited on or before 31-AUG-2012) T wave abnormality, consider lateral ischemia Abnormal ECG When compared with ECG of 25-JUL-2019 15:19, (unconfirmed) No significant change was found Confirmed by Melecio Hunt ([id number]) on 07/26/2019 5:06:10 PM Referred By: REFERRED SELF Confirmed By:Melecio Hunt
--- NOTE | 2019-07-26 17:59 | Hospitalist Progress Note ---
Date of Service July 26, 2019 Assessment & Plan (1) Chest pain: Present on admission with recurrent chest pain CXR showed no acute process EKG showed no ischemic changes Troponin x 3 negative cardiology on board Echo showed moderate sized septal, inferior and posterior wall motion abnorma lity with hypokinesis to akinesis of segments. EF 50-55 % Nuclear stress test was negative for any significant ischemia Cardio recommended medical management Isosorbide change to topical nitrate Continue ASA, Plavix, losartan, metoprolol, Crestor Ok from cardiology standpoint to discharge home Type 2 diabetes. Hba1c 10.9 Resume metformin on discharge Continue 70/30 and novolog sliding scale Advised pt to follow up a healthy diabetes diet Continue monitor BS Obstructive sleep apnea. On CPAP at bedtime. Chronic systolic and diastolic heart failure Recent Echo showed EF 50-55 % Continue Torsemide, Spironolactone, Losartan and metoprolol Continue monitor for volume overload Hypertension BP stable Continue his diuretics, Cozaar, Toprol-XL. Continue monitor his blood pressure. Hyperlipidemia. Continue statin. Deep vein thrombosis prophylaxis on SCDs Disposition discharge home today Admission and Anticipated Discharge Date Admission Date: July 25, 2019 Subjective Pt was seen and examined Sitting in chair with no distress Pt said that he feels fine He said that he walked in the hallway with no distress Denies any chest pain, palpitation, dizziness and SOB Physical Exam Physical Exam: General- No acute distress Head- atraumatic Eyes- PERRL, EOMI, ENT- oropharynx clear Neck- supple, no JVD Lungs- clear to auscultation Heart- regular rhythm; + murmur Abdomen- normal bowel sounds, soft, nontender Extremities- no calf tenderness. +edema Neuro- alert, oriented x 3; PERRL, EOMI; no facial palsy; no dysarthria Skin- warm & dry Results & Data Results & Data ([facility]) Vital Signs (Past 12 Hours) Vital Signs Temp Pulse Resp BP Pulse Ox 07/26/19 17:26 36.7 C 100 H 18 114/70 95 07/26/19 16:03 36.7 C 100 H 18 114/70 95 07/26/19 12:07 36.4 C L 89 18 111/64 95 07/26/19 07:51 36.9 C 79 18 115/67 95 (1) Chest pain Chest pain type: unspecified Qualified Code(s): R07.9 - Chest pain, unspecified
[2019-07-27] MEDS ORDERED: NITROGLYCERIN 0.2 MG/HR PATCH TD SCH (09:00)
--- NOTE | 2019-07-27 23:26 | Discharge Summary ---
Date of Service July 26, 2019 Admission HPI Per Admitting Provider CHIEF COMPLAINT: Chest pain. HISTORY OF PRESENT ILLNESS: This is a 68-year-old male with past medical history significant for CAD status post multiple stents, CABG, history of chronic angina, hypertension, hyperlipidemia, type 2 diabetes, chronic systolic and diastolic CHF, obstructive sleep apnea, presents with ongoing chest pain on and off since last 2 weeks. He recently saw his blend technician and his Imdur was increased to 90 mg, but he says it is not helping, the chest pain comes on its own, not associated with any activity. He was taking nitro and 2 aspirins whenever he gets the pain and usually it helps. Today he was coming from [facility], when he had chest pain 5/10 in severity, so then he decided to come to the ER. In the ER, he was given aspirin, nitro and the pain is gone, but he still has some mild pressure like feeling. Also couple of days ago had some numbness in his left extremity. He has some nausea, but denies any vomiting. He has some shortness of breath with exertion, going to the mailbox and coming back, he gets short of breath. He can climb steps okay. Denies any sweating, no headache, no dizziness, no blurred vision, no earache. Has issues with sinuses and he has chronic cough from sinuses and brings some phlegm. No dysphagia, no sore throat. No abdominal pain, is somewhat constipated. Denies any blood in stools or black stools. He micturates a lot because of his water pill. Denies any burning micturition or blood in the urine. Has mild swelling in the lower extremities. No rash. Currently resting comfortably and hemodynamically stable. But says he is annoyed because of his chest pain since last two weeks and so he came to the ER. Admission Exam Per Admitting Provider GENERAL: The patient is of moderate build, not in acute distress. VITAL SIGNS: Temperature 36.5, pulse 82, respiratory rate 14, blood pressure 113/78, oxygen 96% on room air. HEENT: Pupils equal, round, and reactive to light. NECK: No JVD, no neck masses. Supple. CARDIOVASCULAR: S1, S2 heard, regular rate and rhythm, no murmur, no gallop. RESPIRATORY SYSTEM: Normal AP diameter. No accessory muscle use. No wheezing, no crackles. ABDOMEN: Soft, bowel sounds present, nontender. No distention. CENTRAL NERVOUS SYSTEM: Cranial nerves II-XII grossly intact. Nonfocal. EXTREMITIES: Bilateral lower extremity pedal edema, mildly present, no erythema seen. Principal Diagnosis Chest pain Type 2 diabetes. Obstructive sleep apnea. Chronic systolic and diastolic heart failure Hypertension Hyperlipidemia. Discharge Exam General- No acute distress Head- atraumatic Eyes- PERRL, EOMI, ENT- oropharynx clear Neck- supple, no JVD Lungs- clear to auscultation Heart- regular rhythm; + murmur Abdomen- normal bowel sounds, soft, nontender Extremities- no calf tenderness. +edema Neuro- alert, oriented x 3; PERRL, EOMI; no facial palsy; no dysarthria Skin- warm & dry Discharge Data Allergies Allergy/AdvReac Type Severity Reaction Status Date / Time lisinopril AdvReac Mild Cough Verified 07/24/19 17:29 canagliflozin AdvReac Unknown Excessive Verified 07/24/19 17:29 Urination valsartan AdvReac Unknown fatigue Verified 07/24/19 17:29 Consultations 07/24/19 19:08 ED Decision to Admit Stat 07/24/19 21:41 Consult Case Management - Discharge Planning Routine 07/25/19 08:00 Consult Cardiology Routine XR chest 1V portable HISTORY: Atypical Chest Pain COMPARISON: Chest 07/06/2019. FINDINGS: There are poststernotomy changes. The heart remains top normal in size. No pleural effusions. No pneumothorax. The lungs are clear. IMPRESSION: No acute process. ACT 112: Negative or not required by law. Electronically signed by: Nick Magaña M.D. 07/24/2019 5:26 PM Dictated: 07/24/19 1723 Transcribed: 07/24/19 1723 History: Coronary artery disease with coronary artery bypass grafting, PCI of LAD 09/2018, ischemic cardiomyopathy with mildly reduced LV function. Complications: None. Stress study summary: Patient performed a stress test according to Lexiscan protocol for 3 minutes. A workload of 1.0 METS achieved. Resting heart rate 85 bpm, maximal heart rate 103 bpm. This value represents 67% of the maximal, age- predicted heart rate. The resting blood pressure was 145/72. The maximum blood pressure recorded was 145/72. Normal heart rate and blood pressure response to Lexiscan infusion. Symptoms: Chest discomfort, nausea, dyspnea. All symptoms resolved prior to leaving the stress suite. Resting ECG: Sinus rhythm, lateral T wave abnormality, consider ischemia. Inferior Q waves suggesting old inferior infarct. Stress ECG: No ischemia. Nuclear imaging report: For the stress portion of the study, 32.1 mCi of technetium 99m Cardiolite IV was injected at 9:30 AM on 07/26/2019. 30 minutes following the injection, imaging of the heart was performed in multiple projections. For the rest portion of the study, 11.2 mCi of technetium 99m Cardiolite was injected IV at 07 40 5 AM. 1 hour following the injection, imaging of the heart was performed in the same projections. Raw data: No extraneous uptake of isotopic tracer on rotating, raw data images. Right ventricle: Not well visualized. Resting images: There is a large defect of severe intensity involving the base, mid inferior wall, and the base, mid lateral wall. The remaining left ventricular myocardial wall segments demonstrate normal perfusion. Stress images: There is a large defect of severe intensity involving the base, mid inferior wall, and the base, mid lateral wall. The remaining left ventricular myocardial wall segments demonstrate normal perfusion. The defect is unchanged when compared to resting images. Defect represents large inferior lateral scar without significant leonor-infarct ischemia. Gated SPECT imaging: LV volumes could not be accurately assessed due to lack of counts in the inferior lateral parnell. Calculated ejection fraction could not be accurately assessed due to lack of counts in the inferior lateral parnell. Recommend alternative imaging modality for assessment of LV systolic function. Conclusion: Lexiscan nuclear stress test demonstrating inferior lateral infarct without significant leonor-infarct ischemia. Findings suggest an ischemic cardiomyopathy. Signed By:{f rep sign date/time1] Created/Dictated: 07/26/19 1329 Transcribed: 07/26/19 1329 Hospital Course (1) Chest pain: Present on admission with recurrent chest pain CXR showed no acute process EKG showed no ischemic changes Troponin x 3 negative cardiology on board Echo showed moderate sized septal, inferior and posterior wall motion abnormality with hypokinesis to akinesis of segments. EF 50-55 % Nuclear stress test was negative for any significant ischemia Cardio recommended medical management Isosorbide change to topical nitrate Continue ASA, Plavix, losartan, metoprolol, Crestor Ok from cardiology standpoint to discharge home Type 2 diabetes. Hba1c 10.9 Resume metformin on discharge Continue 70/30 and novolog sliding scale Advised pt to follow up a healthy diabetes diet Continue monitor BS Obstructive sleep apnea. On CPAP at bedtime. Chronic systolic and diastolic heart failure Recent Echo showed EF 50-55 % Continue Torsemide, Spironolactone, Losartan and metoprolol Continue monitor for volume overload Hypertension BP stable Continue his diuretics, Cozaar, Toprol-XL. Continue monitor his blood pressure. Hyperlipidemia. Continue statin. Deep vein thrombosis prophylaxis on SCDs Disposition discharge home today Total Time Total Time Spent Total Time Spent (In Minutes): 35 minutes Total Time Includes: Examination of the Patient, Discharge Planning, Medication Reconciliation, Communication With Other Providers and Other Discharge Plan Discharge Items Patient Disposition: Home - Self-Care Reason For Visit: CHEST PAIN Discharge Diagnosis: Chest pain Type 2 diabetes. Obstructive sleep apnea. Chronic systolic and diastolic heart failure Hypertension Hyperlipidemia. Activity: Resume your previous activity Non-emergency contact: Primary Care Provider and Treatment Coordinator Call non-emergency contact if: you have any medication questions Follow-up/Referrals: Joel Faria, [Primary Care Provider] - Diet: Carb Consistent or DM2 Addtl Attending Provider Instructions: Follow up with your primary care provider Dr Faria on 07/29 @ 11:50 AM Follow up with your cardiology Continue monitor your blood sugar and bring your blood sugar log at your next appointment with your physician Follow up a heathy diabetes diet and limited concentrated sweet intake Continue monitor your blood pressure Addtl Seo Manager Provider Instructions: DIABETES CARE Your hemoglobin A1c level was 10.9% (eAG 266) on 07/24. The hemoglobin A1c test tells how well controlled your blood sugars have been over the prior 2-3 months. For most, this level should be below 8%, and for many much lower. Please share these results and your blood sugar levels with your provider for review. We discussed a few tips to help improve your blood sugar levels: 1. Check blood sugar 3x/day. 2. Small diet changes- - eliminate banana/fruit with breakfast - add protein with cereal - no corn/peas with potato/rice - have corn/peas with salad/another vegetable 3. Try to take your insulin 30 minutes before the meal to help better match insulin onset to after-meal blood sugar spike. Your insulin takes 30-60 minutes to start working. 4. You most likely will still need some medication adjustments. Please work with your provider. If you have any additional questions, please call our diabetes office at . Take Care!! Pending Studies at Discharge: No Stand-Alone Forms: My [facility], Smoking Cessation Medications and DC Order Prescriptions: New nitroglycerin 0.2 mg/hr Patch 24 Hour 1 patch transdermal QAM 30 Days Qty: 30 RF: 0 Continued spironolactone [Aldactone] 25 mg tablet 25 mg PO QAM RF: 0 Novolin 70/30 U-100 Insulin 100 unit/mL (70-30) suspension 48 unit subcut BID RF: 0 aspirin 81 mg Tablet,Delayed Release (Dr/Ec) 81 mg PO QAM RF: 0 nitroglycerin [Nitrostat] 0.4 mg tablet, sublingual 0.4 mg sublingual UD PRN (Reason: Chest Pain) RF: 0 docusate sodium [Colace] 100 mg capsule 100 mg PO BID PRN (Reason: Constipation) RF: 0 albuterol sulfate [ProAir HFA] 90 mcg/actuation HFA aerosol inhaler 2 puff inhalation Q4H PRN (Reason: Wheezing) RF: 0 metformin [Glucophage XR] 500 mg tablet extended release 24 hr 1,000 mg PO BIDM RF: 0 rosuvastatin [Crestor] 40 mg tablet 40 mg PO HS RF: 0 polyethylene glycol 3350 [Miralax] 17 gram Powder In Packet 17 g PO DAILY PRN (Reason: Constipation) RF: 0 clopidogrel [Plavix] 75 mg Tablet 75 mg PO QAM RF: 0 magnesium hydroxide [Milk of Magnesia] 400 mg/5 mL Suspension 15 ml PO DAILY PRN (Reason: Constipation) RF: 0 Novolin R Regular U-100 Insuln 100 unit/mL solution 10 unit subcut QDL RF: 0 losartan [Cozaar] 25 mg tablet 25 mg PO QAM RF: 0 aspirin [Kyler Aspirin] 325 mg Tablet 650 mg PO Q6 PRN (Reason: Pain) RF: 0 torsemide 20 mg tablet 20 mg PO DAILY RF: 0 torsemide 20 mg tablet 20 mg PO Q OTHER DAY RF: 0 metoprolol succinate 50 mg Tablet Extended Release 24 Hr 50 mg PO DAILY RF: 0 acetaminophen [Tylenol Extra Strength] 500 mg Tablet 1,000 mg PO Q6H PRN (Reason: Pain) RF: 0 hydrocortisone [Proctosol HC] 2.5 % cream with perineal applicator 1 applic AR BID PRN (Reason: Hemorrhoids) RF: 0 tamsulosin 0.4 mg Capsule 0.4 mg PO HS RF: 0 nystatin-triamcinolone 100,000-0.1 unit/g-% cream 1 applic TOPICAL BID PRN (Reason: groin rash) RF: 0 cyclobenzaprine 5 mg PO TID PRN (Reason: Spasms) RF: 0 Discontinued isosorbide mononitrate 60 mg Tablet Extended Release 24 Hr 90 mg PO DAILY RF: 0 Discharge Orders: Discharge Order (Routine); Ordered 07/26/19 Ordered By: Annemarie Chris Admission Data Admit Date/Time: 07/25/19 19:39 Attending Provider: Annemarie Chris Admit Provider: Yaun Garcia Primary Care Provider: Joel Faria Other Providers: Yuan Garcia ; Evan Atwood ; Bryce Gomez Other Interventions: Discharge Summary Assessment (RN) Last Done: 07/26/19 17:26 DC Date/Time DO NOT enter until pt leaves facility: 07/26/19 18:16
== END 2019-07-26 18:16 | disposition home or self-care (01) | DRG 313 ==
LOC: 2S 16:17 → ED 16:17 → SUATTDRO 20:24 → 2S 21:08

== ENCOUNTER 2019-10-22 18:56 | Observation (INO) ==
[2019-10-22] MEDS ORDERED: fentaNYL citrate 100 MCG/2 ML VIAL IV STA (19:11)
--- NOTE | 2019-10-22 19:28 | XRay Report ---
XR chest 1V portable HISTORY: 69 years-old Male Chest Pain acute atypical chest pain COMPARISON: Chest radiograph 07/24/2019 TECHNIQUE: Portable AP view of the chest FINDINGS: Cardiac silhouette is enlarged. Prior median sternotomy. Coronary arterial stent. Calcified plaque of the thoracic aortic arch. There is no pneumothorax, pleural effusion, airspace consolidation or over t pulmonary edema. Degenerative changes of the shoulders and spine. Left shoulder rotator cuff calcif ic tendinosis. IMPRESSION: Cardiomegaly without acute process. ACT 112: Negative or not required by law. The above report was generated using voice recognition software. It may contain grammatical, syntax o r spelling errors. Electronically signed by: Emeka Davis M.D. 10/22/2019 7:27 PM
--- NOTE | 2019-10-22 19:31 | Emergency Department Note ---
Impression & Plan Chest pain ED Provider Note CHIEF COMPLAINT: Chest pain HISTORY OF PRESENTING ILLNESS: This is a 69-year-old male with past medical history significant for coronary artery disease, CABG, and numerous stents, who presents to the emergency department by private vehicle with complaint of chest pain that started this morning at 5 AM. He states the pain woke him up out of sleep and has been fairly constant throughout the day, although has been waxing and waning, the pain is in the center of his chest and does not radiate, and he rates the pain 4/10. Pain was somewhat relieved with nitroglycerin and aspirin earlier today, but the pain has persisted and keeps coming back. Patient notes that he has been having worsening episodes of chest pain over the past 2 to 3 weeks, he saw his wood buffer at the beginning of the month and had some medication changes, but he states that he continues to have some worsening chest pain. He has noted some increased swelling in his legs bilaterally, but denies any pain in the calves. He notes that he takes a diuretic for the swelling in his legs. He denies shortness of breath, palpitations, dizziness, syncope, nausea, vomiting, or sweats. He denies any abdominal pain or back pain. The pain is not made worse with exertion. He denies any cough, fevers or chills, loss of taste or smell, recent travel or exposures concerning for COVID-19. REVIEW OF SYSTEMS: A complete 10 point review of systems was reviewed with the patient with pertinent positives and negatives as per history of present illness. All else were negative. PAST MEDICAL HISTORY: CAD, CABG, cardiac stent, hypertension, CAROL, type 2 diabetes, dyslipidemia, GERD, combined systolic/diastolic congestive heart failure, obesity, s/p cholecystitis, right knee surgery, tonsillectomy, nasal septoplasty SOCIAL HISTORY: Lives at home alone, he denies tobacco use, admits to occasional alcohol use ALLERGIES: Reviewed in chart and with the patient PHYSICAL EXAM: CONSTITUTIONAL: Pleasant and cooperative. Nontoxic-appearing obese no acute distress. Well appearing and well nourished. HEENT: Normocephalic, atraumatic. PERRL, EOMI, normal conjunctiva. Pharynx normal. NECK: Supple, full active range of motion without discomfort. No cervical adenopathy. RESPIRATORY: Clear to auscultation bilaterally with no wheezing, crackles, rhonchi or stridor. Equal expansion bilaterally. CARDIOVASCULAR: Regular rate and rhythm with occasional irregular beats, 3/6 systolic murmur, no rubs or gallops. Normal peripheral perfusion, 2+ distal pulses in all 4 extremities. 2+ pitting edema of the bilateral lower extremities. GASTROINTESTINAL: Soft, nontender, nondistended, obese abdomen. No palpable masses or HSM. Bowel sounds present in all quadrants. MUSCULOSKELETAL: Full range of motion of all joints without discomfort. INTEGUMENTARY: No rash or other significant dermatologic conditions noted. NEUROLOGIC: Alert and oriented X 4 with normal affect. Normal strength and sens ation in all 4 extremities. Normal speech. Normal gait observed. ED COURSE AND MEDICAL DECISION MAKING: CC: Patient presenting with complaint of chest pain DIFFERENTIAL DIAGNOSIS: Includes, but not limited to acute coronary syndrome, pulmonary embolism, aortic dissection, pneumothorax, pericarditis, myocarditis, musculoskeletal pain, GERD, costochondritis, pneumonia, among others. INTERPRETATION OF LABS: No leukocytosis, mild anemia, normal platelets, hyperglycemia, no other significant electrolyte abnormalities, mildly elevated BUN and creatinine (increased from baseline), normal liver enzymes and lipase. Troponin is undetectable. Coagulation factors within normal limits. IMAGING: XR chest 1V portable HISTORY: 69 years-old Male Chest Pain acute atypical chest pain COMPARISON: Chest radiograph 07/24/2019 TECHNIQUE: Portable AP view of the chest FINDINGS: Cardiac silhouette is enlarged. Prior median sternotomy. Coronary arterial stent. Calcified plaque of the thoracic aortic arch. There is no pneumothorax, pleural effusion, airspace consolidation or overt pulmonary edema. Degenerative changes of the shoulders and spine. Left shoulder rotator cuff calcific tendinosis. IMPRESSION: Cardiomegaly without acute process. EKG: Shows normal sinus rhythm with a rate of 74 bpm, frequent PACs T wave inversions in the lateral leads which do not appear to be new when compared to previous EKG from 07/26/2019 by my interpretation. MEDICATION RECONCILIATION: I attest that I have personally reviewed the patient's current medication list. INITIAL VITAL SIGNS REVIEW: I reviewed the patient's initial vital signs and interpret them as follows: T: Afebrile; BP: Hypertensive; HR: Mildly tachycardic; RR: Within normal limits; Pulse Ox: Within normal limits on room air. Blood pressure screening: The patient was found to have an elevated blood pressure and was referred to the inpatient team for further management. MDM SUMMARY: Patient was evaluated at bedside, history and physical exam performed. Patient is alert and oriented, no acute distress, resting calmly in stretcher. Lungs are clear, sats are normal, no labored breathing. EKG reviewed at bedside, noting sinus rhythm with PACs and T wave inversions in the lateral leads, compared to an old EKG and this does not appear to be new. Cardiac monitoring: An order was placed for continuous cardiac monitoring. The monitor shows a rate of 78 bpm with normal sinus rhythm with frequent PACs. Given the patient's history, the patient's calculated heart score is 6, placing him at moderate risk. Orders were placed at bedside for labs, troponin, IV fentanyl for pain, chest x- ray to evaluate for chest pain. Patient discussed with Dr. Bowers, who also evaluated the patient and agrees with my assessment, plan, and disposition. Labs and imaging reviewed as above, labs notable for hyperglycemia and mildly el evated BUN and creatinine. Troponin is negative. Chest x-ray is clear, no evidence of pulmonary edema. Patient reassessed multiple times throughout ED stay, he has remained hemodynamically stable and reports his chest pain is improved with the fentanyl. Given his risk factors and history, I felt that he warranted admission for chest pain rule out, I discussed this with the patient and he was agreeable to this plan. I spoke on the phone with Dr. Sevilla, [facility] hospitalist, who agrees to evalu ate the patient for admission. The patient was stable at time of admission. The chart was completed utilizing [employer] Speech voice recognition software. Grammatical errors, random word insertions, pronoun errors, and incomplete sentences are an occasional consequence of this system due to software limitations, ambient noise, and hardware issues. Any formal questions or concerns about the content, text, or information contained within the body of this dictation should be directly addressed to the nurse practitioner for clarification. Past Med/Surg History Medical History (Updated 10/23/19 @ 01:36 by HOLDEN Stewart) ACEI/ARB contraindicated Combined systolic and diastolic congestive heart failure Coronary artery disease 1. Prior multiple coronary artery interventions dating back to 1993, prominently in the right coronary but ultimately leading to coronary artery bypass grafting in 1995 receiving a saphenous vein graft to the circumflex obtuse marginal, sequentially obtuse marginal 2, and a right internal mammary artery graft to the right coronary artery. 2. Later coronary artery interventions with stenting to the distal circumflex in 2003 after distal limb of the sequential graft occluded. 3. Coronary artery intervention August 2009 to the ostial portion saphenous vein graft and subsequent intervention of the distal right coronary artery to the right internal mammary artery, receiving a bare metal stent. 4. Underlying history of chronic angina pectoris as well as noncardiac chest pain. Most recent diagnostic cardiac catheterization in November 2011 without progression of coronary artery disease. Diabetes mellitus, type II Diabetic neuropathic arthropathy Diabetic neuropathy Dyslipidemia Generalized osteoarthritis History of renal calculi HTN (hypertension) Obesity CAROL (obstructive sleep apnea) TMJ (temporomandibular joint disorder) Surgical History History of tonsillectomy Hx of CABG Hx of right knee surgery S/P david S/P nasal septoplasty Family History Brother Cardiac disease Heart disease Stroke Mother Stroke Diabetes Hypertension Father Leukemia Diabetes Cancer Social History Smoking Status: Never smoker Second Hand Exposure: No; Hx Alcohol Use: Yes Alcohol type: hard liquor Alcohol type Comment: 2-3 beers 1-2 times a week Hx Substance Use: No Preferred Language: Yakut Communication Ability: Effective [place] C[place] Required: Yes Beliefs That Will Affect Care: None marital status: / Current Living Situation: Alone current occupational status: retired Other Information That Helps Us Care for You: No Feels Safe at Home: Yes Safety Concerns: Feels Safe At This Time Allergies Allergies Allergy/AdvReac Type Severity Reaction Status Date / Time lisinopril AdvReac Mild Cough Verified 10/22/19 21:11 canagliflozin AdvReac Unknown Excessive Verified 10/22/19 21:11 Urination valsartan AdvReac Unknown fatigue Verified 10/22/19 21:11 Home Meds Home Medications Medication Instructions Recorded Confirmed Novolin 70/30 U-100 Insulin 0 unit SUBCUT BID 07/28/18 10/22/19 albuterol sulfate [ProAir HFA] 2 puff INHALATION Q4H PRN 07/28/18 10/22/19 aspirin 81 mg PO HS 07/28/18 10/22/19 clopidogrel [Plavix] 75 mg PO QAM 07/28/18 10/22/19 docusate sodium [Colace] 100 mg PO BID PRN 07/28/18 10/22/19 magnesium hydroxide [Milk of 15 ml PO DAILY PRN 07/28/18 10/22/19 Magnesia] metformin [Glucophage XR] 1,000 mg PO BIDM 07/28/18 10/22/19 nitroglycerin [Nitrostat] 0.4 mg SUBLINGUAL UD PRN 07/28/18 10/22/19 polyethylene glycol 3350 [Miralax] 17 g PO DAILY PRN 07/28/18 10/22/19 rosuvastatin [Crestor] 40 mg PO HS 07/28/18 10/22/19 spironolactone 25 mg tablet 25 mg PO QAM 03/28/19 10/22/19 Novolin R Regular U-100 Insuln 10 unit SUBCUT QDL 04/05/19 10/22/19 losartan [Cozaar] 25 mg PO QAM 04/05/19 10/22/19 aspirin [Kyler Aspirin] 650 mg PO Q6 PRN 07/06/19 10/22/19 acetaminophen [Tylenol Extra 1,000 mg PO Q6H PRN 07/24/19 10/22/19 Strength] metoprolol succinate 50 mg PO QAM 07/24/19 10/22/19 nystatin-triamcinolone 1 applic TOPICAL BID PRN 07/24/19 10/22/19 torsemide 20 mg PO DAILY 07/24/19 10/22/19 torsemide 20 mg PO Q OTHER DAY 07/24/19 10/22/19 isosorbide mononitrate 60 mg PO DAILY 10/22/19 10/22/19 ranolazine [Ranexa] 500 mg PO BID 10/22/19 10/22/19 Results & Data (ED) Vital Signs Vital Signs - 24 hr 10/22/19 18:59 10/22/19 20:19 10/22/19 20:30 Temperature 36.6 C Temperature Source Oral Pulse Rate 93 H 73 Pulse Rate [Left Radial] 75 Pulse Rate from SpO2 Sensor 76 Pulse Rhythm Regular Pulse Rhythm [Left Radial] Regular Pulse Strength Normal Pulse Strength [Left Radial] Normal Respiratory Rate 18 16 15 Respiratory Effort / Characteristics Non-Labored Spontaneous Non-Labored Respiratory Depth Normal Normal Respiratory Pattern Regular Regular Blood Pressure 144/77 H 161/70 H Blood Pressure [Left Arm] 136/75 Blood Pressure Mean 99 115 Blood Pressure Mean [Left Arm] 95 Blood Pressure Position Sitting Blood Pressure Position [Left Arm] Lying Pulse Oximetry 96 97 97 Oxygen Delivery Method Room Air Room Air Sepsis Recent Fever Within 48 Hours No Sepsis New/Unexplained Change in Mental Status N/A Sepsis Action Taken by Nursing No Action Required 10/22/19 21:00 Temperature Temperature Source Pulse Rate 74 Pulse Rate [Left Radial] Pulse Rate from SpO2 Sensor 78 Pulse Rhythm Pulse Rhythm [Left Radial] Pulse Strength Pulse Strength [Left Radial] Respiratory Rate 21 Respiratory Effort / Characteristics Respiratory Depth Respiratory Pattern Blood Pressure 103/44 L Blood Pressure [Left Arm] Blood Pressure Mean 63 Blood Pressure Mean [Left Arm] Blood Pressure Position Blood Pressure Position [Left Arm] Pulse Oximetry 95 Oxygen Delivery Method Sepsis Recent Fever Within 48 Hours Sepsis New/Unexplained Change in Mental Status Sepsis Action Taken by Nursing Laboratory Data Result diagrams: 10/22/19 19:32 10/22/19 19:32 Lab Results 10/22/19 10/22/19 10/22/19 Range/Units 19:32 19:32 19:32 WBC 7.07 (4.8-10.8) K/uL RBC 4.43 L (4.7-6.1) M/uL Hgb 13.3 L (14.0-18.0) g/dL Hct 37.6 L (42-52) % MCV 84.9 (80-100) fL MCH 30.0 (25-34) pg MCHC 35.4 (32-36) g/dL RDW Std Deviation 43.5 (36.4-46.3) fL RDW Coeff of Aaron 14.1 (11.5-14.5) % Plt Count 173 (130-400) K/uL MPV 9.7 (7.4-10.4) fL Immature Gran % (Auto) 0.1 % Neut % (Auto) 68.2 % Lymph % (Auto) 21.6 % Robeson % (Auto) 7.5 % Eos % (Auto) 2.5 % Baso % (Auto) 0.1 % Neut # (Auto) 4.81 (1.4-6.5) K/uL Lymph # (Auto) 1.53 (1.2-3.4) K/uL Robeson # (Auto) 0.53 (0.11-0.59) K/uL Eos # (Auto) 0.18 (0-0.5) K/uL Baso # (Auto) 0.01 (0-0.2) K/uL Immature Gran # (Auto) 0.01 (0.00-0.02) K/uL PT 10.2 (9.0-12.0) Seconds INR 1.0 (0.9-1.1) APTT 24.6 (21.0-31.0) Seconds PTT Ratio 0.9 Sodium 137 (136-145) mmol/L Potassium 4.0 (3.5-5.1) mmol/L Chloride 101 (98-107) mmol/L Carbon Dioxide 29 (21-32) mmol/L Anion Gap 7.0 (3-11) BUN 23 H (7-18) mg/dl Creatinine 1.49 H (0.6-1.4) mg/dl Est Cr Clr Drug Dosing 61.1 ml/min Est GFR ( Amer) 54.7 Est GFR (Non-Af Amer) 47.2 BUN/Creatinine Ratio 15.6 (10-20) Glucose 289 H (70-99) mg/dl Calcium 9.2 (8.5-10.1) mg/dl Total Bilirubin 0.4 (0.2-1) mg/dl AST 16 (15-37) U/L ALT 25 (12-78) U/L Alkaline Phosphatase 113 (45-117) U/L Troponin I < 0.015 (0-0.045) ng/ml Total Protein 7.2 (6.4-8.2) gm/dl Albumin 3.5 (3.4-5.0) gm/dl Globulin 3.7 (2.5-4.0) gm/dl Albumin/Globulin Ratio 0.9 (0.9-2) Lipase 63 L (73-393) U/L Administered Medications Heparin Sodium (Porcine) (Heparin Sod 5,000 Unit/0.5 Ml Vial) 5,000 units SQ Q8 APOLINAR Stop: 11/21/19 23:58 Last Admin: 10/23/19 00:11 Dose: 5,000 units Documented by: [id number] Cosigned by: [id number] Insulin Aspart (Insulin Aspart 100 Units/Ml 3 Ml Pen) 0 units SC Q6 APOLINAR Stop: 11/22/19 00:00 Last Admin: 10/23/19 00:11 Dose: Not Given Documented by: [id number] Cosigned by: [id number] Discontinued Medications Fentanyl Citrate (Fentanyl Citrate 100 Mcg/2 Ml Vial) 50 mcg IV NOW STA Stop: 10/22/19 19:12 Last Admin: 10/22/19 19:36 Dose: 50 mcg Documented by: [id number] Miscellaneous Information (Pharmacy Glycemic Mgmt Consult) 1 ea N/A NOW STA Stop: 10/22/19 22:00 Last Admin: 10/22/19 22:16 Dose: 1 ea Documented by: [id number] Torsemide (Torsemide 10 Mg Tab) 20 mg PO NOW ONE Stop: 10/22/19 21:43 Last Admin: 10/22/19 21:57 Dose: 20 mg Documented by: [id number] Discharge Plan Visit Data Chief Complaint: Chest Pain Stated Complaint: CHEST PAIN ED Provider: Angel Bowers ED Midlevel Provider: Kristan Cheek Discharge Problem: Chest pain Patient Disposition: Admitted As Inpatient Condition: Good Discharge Instructions Interventions: ED Discharge Assessment Last Done: 10/22/19 22:40 Discharge Problem: Chest pain Qualifiers: Chest pain type: unspecified Qualified Code(s): R07.9 - Chest pain, unspecified
[2019-10-22 19:40] LABS: Basophils # (auto) 0.01 K/uL (0-0.2); Basophils % (auto) 0.1 %; Eosinophils # (auto) 0.18 K/uL (0-0.5); Eosinophils % (auto) 2.5 %; Hematocrit (blood only) 37.6 % (42-52); Hemoglobin 13.3 g/dL (14.0-18.0); Immature Granulocytes # (auto) 0.01 K/uL (0.00-0.02); Immature Granulocytes % (auto) 0.1 %; Lymphocytes # (auto) 1.53 K/uL (1.2-3.4); Lymphocytes % (auto) 21.6 %; Mean Corpuscular Hgb Conc 35.4 g/dL (32-36); Mean Corpuscular Volume 84.9 fL (80-100); Mean Platelet Volume 9.7 fL (7.4-10.4); Monocytes # (auto) 0.53 K/uL (0.11-0.59); Monocytes % (auto) 7.5 %; Neutrophils # (auto) 4.81 K/uL (1.4-6.5); Neutrophils % (auto) 68.2 %; Platelet Count 173 K/uL (130-400); RDW Coefficient of Variation 14.1 % (11.5-14.5); RDW Standard Deviation 43.5 fL (36.4-46.3); Red Blood Count 4.43 M/uL (4.7-6.1); White Blood Count 7.07 K/uL (4.8-10.8)
[2019-10-22 19:56] LABS: Alanine Aminotransferase 25 U/L (12-78); Albumin Level 3.5 gm/dl (3.4-5.0); Aspartate Aminotransferase 16 U/L (15-37); BUN Creatinine Ratio 15.6 (10-20); Blood Urea Nitrogen 23 mg/dl (7-18); Calcium 9.2 mg/dl (8.5-10.1); Carbon Dioxide 29 mmol/L (21-32); Chloride 101 mmol/L (98-107); Creatinine Clr Calc Pharmacy 61.1 ml/min; Est GFR (African American) 54.7; Est GFR (Non-African American) 47.2; Glucose 289 mg/dl (70-99); Lipase 63 U/L (73-393); Partial Thromboplastin Ratio 0.9; Partial Thromboplastin Time 24.6 Seconds (21.0-31.0); Prothrombin Time 10.2 Seconds (9.0-12.0); Sodium 137 mmol/L (136-145)
[2019-10-22 20:01] LABS: Albumin Globulin Ratio 0.9 (0.9-2); Alkaline Phosphatase 113 U/L (45-117); Bilirubin,Total 0.4 mg/dl (0.2-1); Globulin 3.7 gm/dl (2.5-4.0); Total Protein 7.2 gm/dl (6.4-8.2); Troponin I < 0.015 ng/ml (0-0.045)
--- NOTE | 2019-10-22 21:09 | Emergency Department Note ---
ED Visit Note The patient was seen and examined with Kristan Cheek NP. I agree with the history, physical and findings. Please see the note for disposition and details. Patient will be admitted for cardiac work-up. .
--- NOTE | 2019-10-22 21:16 | History & Physical Report ---
Date of Service October 22, 2019 Assessment & Plan (1) Chest pain: This is a 69yo M with a PMH of CAD s/p multiple stents, CABG, history of chronic angina, HTN, HLD, type 2 diabetes, chronic systolic and diastolic CHF, CAROL and other medical problems who presents with intermittent CP that worsened today. -Complex coronary artery disease as well as chronic angina pectoris -Admitted in July 2019 for chest pain, underwent nuclear stress test without significant ischemia -Transitioned off of nitro patch and back to Imdur 60mg daily 1 month ago at clinic follow up. Ranexa 500mg BID also added -Chest pain relieved with fentanyl in ED. CXR and ECG without acute changes, initial troponin negative -Continue home Ranexa, Imdur, SL ntg PRN, monitor on telemetry, trend troponin -Routine cardiology consult. NPO after midnight (2) Combined systolic and diastolic congestive heart failure: BLE edema worse than baseline since this morning. No SOB or evidence of acute decompensated HF on CXR. Given an additional 20mg Torsemide this evening (hesitant to give IV diuretics with Cr at upper range of baseline) -Reassess volume status in the AM but plan to continue home regimen for now (3) Diabetes mellitus, type II: A1c of 8.5 earlier in Sep 2019 -Hold home agents -Glycemic consult placed for mgmt -BSG AC HS (4) Hypertension: Continue losartan, metoprolol succinate (5) Dyslipidemia: Continue Crestor (6) CAROL (obstructive sleep apnea): CPAP HS DVT Ppx: SQ heparin Code status: FULL PCP: Sky Faria Dispo: Admitted to PCU. Plan to return home once medically stable. Patient seen in collaboration with Dr. Watt. Please see addendum. History of Present Illness Chief Complaint: chest pain Primary Care Provider: Joel Faria DO This is a 69yo M with a PMH of CAD s/p multiple stents, CABG, history of chronic angina, HTN, HLD, type 2 diabetes, chronic systolic and diastolic CHF, CAROL and other medical problems who presents with intermittent CP that worsened today. Patient was recently admitted to our service in July 2019 with CP and underwent nuclear stress test, which was negative. Was started on nitro patch and Imdur was discontinued. Let up in cardiology clinic with Dr. Atwood on A ugust , at which time nitro patch was stopped and Imdur was resumed at 60 mg daily as well as the initiation of Ranexa. Since then, patient endorses chest pain of some form most days. Today, experienced intermittent CP all day starting this morning but resolved spontaneously before returning when shopping. Took 2 tylenol around 1300 which relieved pain. Was sitting on couch this afternoon and developed chest pain again around 1700. [place] like someone hitting him in the chest in center of chest, stinging pain in armpit. Not associated with SOB, nausea or vomiting. Ntg usually relieves pain but it did not today so came in ED for further evaluation. Chest pain was relieved in ED with fentanyl but still feels pressure. Denies any fever, chills, lightheadedness, visual changes, palpitations, shortness of breath, wheezing, nausea, vomiting, abdominal pain, dysuria, diarrhea or constipation. Ankles are more swollen than usual. States he is taking all medication as prescribed. Allergies Allergy/AdvReac Type Severity Reaction Status Date / Time lisinopril AdvReac Mild Cough Verified 10/22/19 21:11 canagliflozin AdvReac Unknown Excessive Verified 10/22/19 21:11 Urination valsartan AdvReac Unknown fatigue Verified 10/22/19 21:11 Home Medications Home Medications Medication Instructions Recorded Confirmed Type Novolin 70/30 U-100 Insulin 0 unit SUBCUT BID 07/28/18 10/22/19 History albuterol sulfate [ProAir HFA] 2 puff INHALATION Q4H PRN 07/28/18 10/22/19 History aspirin 81 mg PO HS 07/28/18 10/22/19 History clopidogrel [Plavix] 75 mg PO QAM 07/28/18 10/22/19 History docusate sodium [Colace] 100 mg PO BID PRN 07/28/18 10/22/19 History magnesium hydroxide [Milk of 15 ml PO DAILY PRN 07/28/18 10/22/19 History Magnesia] metformin [Glucophage XR] 1,000 mg PO BIDM 07/28/18 10/22/19 History nitroglycerin [Nitrostat] 0.4 mg SUBLINGUAL UD PRN 07/28/18 10/22/19 History polyethylene glycol 3350 [Miralax] 17 g PO DAILY PRN 07/28/18 10/22/19 History rosuvastatin [Crestor] 40 mg PO HS 07/28/18 10/22/19 History spironolactone 25 mg tablet 25 mg PO QAM 03/28/19 10/22/19 History Novolin R Regular U-100 Insuln 10 unit SUBCUT QDL 04/05/19 10/22/19 History losartan [Cozaar] 25 mg PO QAM 04/05/19 10/22/19 History aspirin [Kyler Aspirin] 650 mg PO Q6 PRN 07/06/19 10/22/19 History acetaminophen [Tylenol Extra 1,000 mg PO Q6H PRN 07/24/19 10/22/19 History Strength] metoprolol succinate 50 mg PO QAM 07/24/19 10/22/19 History nystatin-triamcinolone 1 applic TOPICAL BID PRN 07/24/19 10/22/19 History torsemide 20 mg PO DAILY 07/24/19 10/22/19 History torsemide 20 mg PO Q OTHER DAY 07/24/19 10/22/19 History isosorbide mononitrate 60 mg PO DAILY 10/22/19 10/22/19 History ranolazine [Ranexa] 500 mg PO BID 10/22/19 10/22/19 History Past Med/Surg History Medical History (Updated 10/22/19 @ 21:52 by Sobeida Hebert PA-C) ACEI/ARB contraindicated Combined systolic and diastolic congestive heart failure Coronary artery disease 1. Prior multiple coronary artery interventions dating back to 1993, prominently in the right coronary but ultimately leading to coronary artery bypass grafting in 1995 receiving a saphenous vein graft to the circumflex obtuse marginal, sequentially obtuse marginal 2, and a right internal mammary artery graft to the right coronary artery. 2. Later coronary artery interventions with stenting to the distal circumflex in 2003 after distal limb of the sequential graft occluded. 3. Coronary artery intervention August 2009 to the ostial portion saphenous vein graft and subsequent intervention of the distal right coronary artery to the right internal mammary artery, receiving a bare metal stent. 4. Underlying history of chronic angina pectoris as well as noncardiac chest pain. Most recent diagnostic cardiac catheterization in November 2011 without progression of coronary artery disease. Diabetes mellitus, type II Diabetic neuropathic arthropathy Diabetic neuropathy Dyslipidemia Generalized osteoarthritis History of renal calculi HTN (hypertension) Obesity CAROL (obstructive sleep apnea) TMJ (temporomandibular joint disorder) Surgical History History of tonsillectomy Hx of CABG Hx of right knee surgery S/P david S/P nasal septoplasty Family History Brother Cardiac disease Heart disease Stroke Mother Stroke Diabetes Hypertension Father Leukemia Diabetes Cancer Social History Smoking Status: Never smoker Second Hand Exposure: No; Hx Alcohol Use: Yes Alcohol type: beer, wine and hard liquor Alcohol type Comment: 2-3 beers 1-2 times a week Hx Substance Use: No Preferred Language: Ma[place] Communication Ability: Effective Surgery Scheduler Required: No Beliefs That Will Affect Care: None marital status: / Current Living Situation: Significant Other current occupational status: retired Feels Safe at Home: Yes Review of Systems Review of Systems: At least ten systems reviewed and negative except as noted in the HPI. Physical Exam Physical Exam: General Appearance: WD/WN, vitals as above, NAD, sitting up in bed, pleasant, conversing easily Head: normocephalic, atraumatic Eyes: normal inspection, PERRL, conjunctivae normal, anicteric sclerae ENT: external ear and nose normal, oropharynx normal Neck: normal visual inspection, trachea midline, no thyromegaly Respiratory: normal respiratory effort, lungs clear to auscultation, no wheeze, rales, rhonchi. No accessory muscle use Cardiovascular: regular rate, rhythm, + systolic murmur, normal peripheral pulses, 2+ BLE edema. Vessels: no JVD Chest: normal inspection of chest. Chest wall non-tender Abdomen/GI: normal bowel sounds, soft, nontender, no hepatosplenomegaly Extremities/Musculoskeletal: no cyanosis or clubbing, extremities motor strength 5/5 Neurologic: PERRL, no face palsy, no dysarthria, CN's II-XI intact bilaterally and moves all extremities Psychiatric: A+Ox3, euthymic affect Skin: no rashes, normal color, warm/dry Results & Data Results & Data ([facility]) Vital Signs (Past 12 Hours) Vital Signs Temp Pulse Pulse Resp BP BP Pulse Ox 10/22/19 20:30 73 15 161/70 H 97 08/31/20 20:19 75 16 136/75 97 10/22/19 18:59 36.6 C 93 H 18 144/77 H 96 Laboratory Results Short CBC 10/22/19 Range/Units 19:32 WBC 7.07 (4.8-10.8) K/uL Hgb 13.3 L (14.0-18.0) g/dL Hct 37.6 L (42-52) % Plt Count 173 (130-400) K/uL BMP 10/22/19 19:32 Sodium 137 Potassium 4.0 Chloride 101 Carbon Dioxide 29 BUN 23 H Creatinine 1.49 H Glucose 289 H Calcium 9.2 Cardiac Enzymes 10/22/19 Range/Units 19:32 Troponin I < 0.015 (0-0.045) ng/ml Liver Function 10/22/19 Range/Units 19:32 Total Bilirubin 0.4 (0.2-1) mg/dl AST 16 (15-37) U/L ALT 25 (12-78) U/L Alkaline Phosphatase 113 (45-117) U/L Albumin 3.5 (3.4-5.0) gm/dl Diagnostic Findings CXR: IMPRESSION: Cardiomegaly without acute process. ECG Rhythm: sinus with SA Change: no significant change Supervising Physician Co-Signing Physician Notes Attending Addendum: care coordinated with TEETEE Hebert please refer to her notes for full details, I agree with her notes patient seen and examined, records reviewed by myself as well on exam, patient seen resting in bed, comfortable, not in distress, in good spirits States chest pain has resolved after given IV fentanyl 50 mg Denies active chest pain, shortness of breath, dizziness, nausea, palpitations at the time of my exam Points out that his lower legs have been increasingly swollen the past few days no other symptoms VS noted and reviewed General- oriented x 3, not in distress, speaks in sentences with no effort or accessory muscle use Head- atraumatic Eyes- PERRL, EOMI, anicteric ENT- oropharynx clear Neck- supple, (+) mild JVD, no adenopathy, no thyromegaly; carotids +2/2, no bruits appreciated Lungs- clear to auscultation bilaterally, no rales/wheezes Heart- normal rate, regular rhythm; (+) grade 3/6 holosystolic murmur, no gallop, no rub appreciated Abdomen- normal bowel sounds, nondistended, soft, nontender, no masses or hepatosplenomegaly Extremities-positive grade 1-2 bilateral lower extremity edema, no erythem a/warmth/tenderness, no calf tenderness; peripheral pulses intact Neuro- alert, oriented x 3; CN 2-12 grossly intact; motor 5/5 bilaterally;sensation 100% on all extremities; no other gross focal neurologic deficits Skin- warm & dry WBC 7.0 Hg 13.3 Platelets 173 Crea 0.4 Troponin negative x1 EKG sinus rhythm with PACs, unchanged compared to July 26, 2019 ASSESSMENT AND PLAN 69-year-old male with history of severe multivessel CAD, status post CABG, congestive heart failure-combined systolic and diastolic Diabetes, hypertension, obstructive sleep apnea, presenting with worsening chest pain for several days. Chest pain, rule out unstable angina, rule out ACS With mild acute on chronic congestive heart failure exacerbation, combined systolic and diastolic type --Patient position from mitral paste to Imdur earlier this month, Ranexa also started recently Since that time, patient has been having progressive chest pain, control, pressure, patient believes with nitroglycerin but this afternoon was unrelieved by nitro Also noticing bilateral lower extremity edema and exertional dyspnea recently --Troponin x1 negative, EKG no signs of ischemia or infarct 2 more sets of troponin ordered --Borderline blood pressure precluding use of Nitropaste PRN tramadol ordered --Additional dose of torsemide 20 mg p.o. ordered for this evening Monitor creatinine Titrate diuretics accordingly N.p.o. post midnight for possible procedure Traditional [facility] Practitioner consulted other diagnoses and plan of care as per TEETEE Hebert's notes Jose Watt MD (1) Diabetes mellitus, type II Diabetes mellitus complication status: with other specified complication Diab etes mellitus roasterman insulin use: unspecified fci insulin use status Qualified Code(s): E11.69 - Type 2 diabetes mellitus with other specified complication (2) Chest pain Chest pain type: unspecified Qualified Code(s): R07.9 - Chest pain, unspecified (3) Hypertension Hypertension type: unspecified Qualified Code(s): I10 - Essential (primary) hypertension
[2019-10-22] MEDS ORDERED: TORSEMIDE 10 MG TAB PO ONE (21:42)
[2019-10-22] MEDS ORDERED: PHARMACY GLYCEMIC MGMT CONSULT STA (21:59)
[2019-10-22] MEDS ORDERED: ACETAMINOPHEN 500 MG TAB PO PRN (22:53)
[2019-10-22] MEDS ORDERED: TRAMADOL HCL 50 MG TABLET PO PRN (22:53)
[2019-10-22] MEDS ORDERED: NYSTATIN/TRIAMCIN CR 15 GM TUBE EXT PRN (22:53)
[2019-10-22] MEDS ORDERED: ASPIRIN 325 MG ECTAB PO PRN (22:53)
[2019-10-22] MEDS ORDERED: POLYETHYLENE (MIRALAX) 17 GM PACK PO PRN (22:53)
[2019-10-22] MEDS ORDERED: MAGNESIUM HYDROXIDE SUSP 30 ML UDC PO PRN (22:53)
[2019-10-22] MEDS ORDERED: NITROGLYCERIN SL 0.4 MG/TAB TAB SL PRN (22:53)
[2019-10-22] MEDS ORDERED: DOCUSATE SODIUM 100 MG CAP PO PRN (22:53)
[2019-10-22] MEDS ORDERED: ONDANSETRON INJ 2 MG/ML 2 ML VIAL IV PRN (22:53)
[2019-10-22] MEDS ORDERED: PHARMACY GLYCEMIC MGMT CONSULT PRN (22:57)
[2019-10-22] MEDS ORDERED: ALBUTEROL HFA 8 GM INHALER INH PRN (23:01)
[2019-10-22] MEDS ORDERED: GLUCOSE 10 TABS/TUBE PO PRN (23:15)
[2019-10-22] MEDS ORDERED: GLUCAGON FOR INJ 1 MG VIAL IM PRN (23:15)
[2019-10-22] MEDS ORDERED: GLUCOSE 40% GEL 15 GM TUBE PO PRN (23:15)
[2019-10-22] MEDS ORDERED: DEXTROSE 50% 50 ML SYRINGE IV PRN (23:15)
[2019-10-22] MEDS ORDERED: CARBOHYDRATES FOR HYPOGLYCEMIA PO PRN (23:15)
[2019-10-23] MEDS: INSULIN ASPART 100 UNITS/ML 3 ML PEN SC SCH ×2 (00:11→06:03)
[2019-10-23] MEDS: HEPARIN SOD 5,000 UNIT/0.5 ML VIAL SQ SCH ×3 (00:11→14:08)
[2019-10-23 01:54] LABS: Hematocrit (blood only) 41.2 % (42-52); Hemoglobin 13.6 g/dL (14.0-18.0); Mean Corpuscular Hemoglobin 28.3 pg (25-34); Mean Corpuscular Volume 85.8 fL (80-100); Mean Platelet Volume 9.6 fL (7.4-10.4); Platelet Count 182 K/uL (130-400); RDW Coefficient of Variation 14.1 % (11.5-14.5); RDW Standard Deviation 44.1 fL (36.4-46.3); White Blood Count 5.92 K/uL (4.8-10.8)
[2019-10-23] MEDS ORDERED: INSULIN HUMAN NPH SC ONE ×2 (08:00→17:00)
[2019-10-23 08:41] LABS: BUN Creatinine Ratio 18.8 (10-20); Blood Urea Nitrogen 21 mg/dl (7-18); Calcium 9.3 mg/dl (8.5-10.1); Carbon Dioxide 27 mmol/L (21-32); Chloride 102 mmol/L (98-107); Creatinine Clr Calc Pharmacy 79.1 ml/min; Est GFR (African American) 76.4; Glucose 134 mg/dl (70-99); Potassium 3.5 mmol/L (3.5-5.1); Sodium 138 mmol/L (136-145)
[2019-10-23 08:45] LABS: Troponin I < 0.015 ng/ml (0-0.045)
[2019-10-23] MEDS ORDERED: SPIRONOLACTONE 25 MG TAB PO SCH (09:00)
[2019-10-23] MEDS ORDERED: TORSEMIDE 20 MG TAB PO SCH ×2 (09:00)
[2019-10-23] MEDS ORDERED: LOSARTAN POTASSIUM 25 MG TAB PO SCH (09:00)
[2019-10-23] MEDS ORDERED: METOPROLOL SUCC 50MG EXT REL TAB PO SCH (09:00)
[2019-10-23] MEDS ORDERED: CLOPIDOGREL BISULFATE 75 MG TAB PO SCH (09:00)
[2019-10-23] MEDS ORDERED: Nursing to Pharmacy Communication SCH (10:15)
[2019-10-23] MEDS ORDERED: RANOLAZINE 500 MG ER TAB PO SCH (10:15)
[2019-10-23] MEDS ORDERED: ISOSORBIDE MONO EXTENDED REL 60 MG TABCR PO SCH (10:15)
--- NOTE | 2019-10-23 10:30 | Cardiology Consultation ---
Date of Consultation October 23, 2019 Assessment & Plan (1) Chest pain: Patient feeling well at present. He had several days of waxing waning chest discomfort mostly in the morning, that lasted throughout the day yesterday with troponin undetectable x3 measurements. EKG had been performed last evening on presentation and again this morning at 8:45 AM with findings of sinus rhythm 71 bpm on the most recent EKG, inferior infarct with noted inferior Q waves, lateral ST changes in the high lateral leads I and aVL suggestive of lateral ischemia. Compared to the previous tracings performed on presentation on 10/21, as well as the other recent serial tracings performed on recent hospital stays, EKG is unchanged with chronic inferior and lateral abnormalities. As noted on his recent myocardial perfusion imaging study in July, the territories that correlate with his EKG abnormalities are notable for large transmural scar. The patient has been treated for microvascular dysfunction with isosorbide mononitrate, and more recently at the addition of Ranexa 500 mg twice daily. He believes however he may only be taking the Ranexa once a day. He cannot recollect. Although he has mild ankle edema, clinically, he does not appear to be volume overloaded, and he has been on a stable dose of torsemide. He has a longstanding history of what is felt to be anginal and non-anginal chest discomfort in the setting of complex coronary heart disease with multiple revascularization procedures the most recent of which took place 15 months ago with stenting of the LAD. The LAD perfusion was normal on stress testing performed in July 2019. I think it is reassuring that his enzymes have been within normal limits. As noted since his LAD stent performed in July,, he had a repeat cardiac catheterization in January 2019 with stable findings and patent LAD stent. I discussed options with him regarding ongoing medication management or proceeding with cardiac catheterization. For now the patient would like to proceed with ongoing medication management. We decided that we would advance his diet, and allow him to walk a little bit in hospital. If he feels well, I plan for discharge later today. If symptoms recur, I would have a low threshold for arranging outpatient cardiac catheterization, perhaps at [facility] [place] previous procedures were performed. Patient was agreeable to this plan. History of Present Illness Attending Physician: Mary Gramajo MD History of Present Illness Liam Julien is a 69 year old male seen in cardiology consultation per the request of Sobeida Hebert [facility] for the evaluation of chest pain. The patient states that he has been having chest discomfort first thing in the morning when he wakes up for the last 5 to 6 days. Yesterday it persisted, and waxed and waned for long intervals of time at rest. He took 2 nitroglycerin tablets at about 6 PM but the pain persisted and ultimately he presented to the emergency department. He received fentanyl which he states palliated his discomfort, and he rested well thereafter, and feels well this morning. The discomfort yesterday had occurred at rest without aerobic exertion. Despite having persisted for hours and having recurred over several days, his troponin is undetectable x3 measurements performed thus far overnight and again this morning with most recent measurement at 7:44 AM. During my assessment the bedside he was in no acute distress. The patient is well-known to our cardiology service. He follows with Dr. Atwood as an outpatient with most recent outpatient visit approximately 3 weeks ago. I have personally seen him on recent visits in July,, January,, in March,. More recently he had been seen by Dr. Tobi Drake of our practice during his hospital stay in July,. Cardiac Problem List /interventional history: 1. Prior multiple coronary artery interventions dating back to 1993, prominently in the right coronary ultimately leading to coronary artery bypass grafting in 1995 receiving a saphenous vein graft to the circumflex obtuse marginal, sequentially obtuse marginal 2, and a right internal mammary artery graft to the right coronary artery. 2. ROBIN to the mid LAD, [facility] [place] 3. Stenting to the distal circumflex in 2003 after distal limb of the sequential graft occluded. 4. PCI to the ostial portion saphenous vein graft and subsequent intervention of the distal right coronary artery to the right internal mammary artery, receiving a bare metal stent. 5. PCI and placement of a 2.5 x 18 mm Integrity bare metal stent in the distal right coronary artery, starting in the PERRI graft and extending through the anastomosis into the distal right coronary artery. The initial 90% stenosis was reduced to a residual 5% narrowing -cardiac catheterization performed November 2011 [facility] with 100% lesion of the [place] mid RCA, the distal RCA vessel was small in size with moderate disease with a patent stent the PERRI to the distal RCA was patent sequential SVG to the first obtuse marginal and second marginal had a 30% in-stent restenosis. Ongoing medical management recommended -unstable angina 07/2018, prompting transfer from [facility] to [facility] at which time he underwent cardiac catheterization revealing severe disease with a culprit lesion of the mid LAD which was treated with a single drug-eluting stent. The sequential saphenous vein graft from the aorta to obtuse marginal 1 and obtuse marginal 2 was occluded The PERRI to the right PDA was patent but there was a distal right PDA stenosis of 80%. The left circumflex was noted to have moderate disease in the [place] right coronary artery was occluded proximally. -Patient presented with chest pain, shortness of breath, volume overload, January,, mild elevation of troponin, prompting transfer to [facility] and repeat cardiac catheterization with findings of patent LAD stent, and severe disease elsewhere unchanged compared to July,. The left ventricular end-diastolic pressure however was severely elevated at 34 mmHg 6. Transthoracic echocardiogram performed at [facility] 08/20/2018, large septal, inferior, posterior wall motion abnormality with hypokinesis to akinesis of the segments, mildly reduced left ventricular systolic function, LVEF 45-50%. Unchanged compared to July,. 7. Lexiscan nuclear stress test performed 07/26/2019, with images reviewed independently by the undersigned today: Large inferior, inferolateral infarct, with sparing of the inferoseptum, anterior septum, and anterior wall. No ischemia. The ejection fraction cannot be determined due to lack of counts in the inferolateral wall.. Allergies Allergy/AdvReac Type Severity Reaction Status Date / Time lisinopril AdvReac Mild Cough Verified 10/22/19 21:11 canagliflozin AdvReac Unknown Excessive Verified 10/22/19 21:11 Urination valsartan AdvReac Unknown fatigue Verified 10/22/19 21:11 Home Medications Home Medications Medication Instructions Recorded Confirmed Type Novolin 70/30 U-100 Insulin 0 unit SUBCUT BID 07/28/18 10/22/19 History albuterol sulfate [ProAir HFA] 2 puff INHALATION Q4H PRN 07/28/18 10/22/19 History aspirin 81 mg PO HS 07/28/18 10/22/19 History clopidogrel [Plavix] 75 mg PO QAM 07/28/18 10/22/19 History docusate sodium [Colace] 100 mg PO BID PRN 07/28/18 10/22/19 History magnesium hydroxide [Milk of 15 ml PO DAILY PRN 07/28/18 10/22/19 History Magnesia] metformin [Glucophage XR] 1,000 mg PO BIDM 07/28/18 10/22/19 History nitroglycerin [Nitrostat] 0.4 mg SUBLINGUAL UD PRN 07/28/18 10/22/19 History polyethylene glycol 3350 [Miralax] 17 g PO DAILY PRN 07/28/18 10/22/19 History rosuvastatin [Crestor] 40 mg PO HS 07/28/18 10/22/19 History spironolactone 25 mg tablet 25 mg PO QAM 03/28/19 10/22/19 History Novolin R Regular U-100 Insuln 10 unit SUBCUT QDL 04/05/19 10/22/19 History losartan [Cozaar] 25 mg PO QAM 04/05/19 10/22/19 History aspirin [Kyler Aspirin] 650 mg PO Q6 PRN 07/06/19 10/22/19 History acetaminophen [Tylenol Extra 1,000 mg PO Q6H PRN 07/24/19 10/22/19 History Strength] metoprolol succinate 50 mg PO QAM 07/24/19 10/22/19 History nystatin-triamcinolone 1 applic TOPICAL BID PRN 07/24/19 10/22/19 History torsemide 20 mg PO DAILY 07/24/19 10/22/19 History torsemide 20 mg PO Q OTHER DAY 07/24/19 10/22/19 History isosorbide mononitrate 60 mg PO DAILY 10/22/19 10/22/19 History ranolazine [Ranexa] 500 mg PO BID 10/22/19 10/22/19 History Patient History Medical History ACEI/ARB contraindicated Combined systolic and diastolic congestive heart failure Coronary artery disease 1. Prior multiple coronary artery interventions dating back to 1993, prominently in the right coronary but ultimately leading to coronary artery bypass grafting in 1995 receiving a saphenous vein graft to the circumflex obtuse marginal, sequentially obtuse marginal 2, and a right internal mammary artery graft to the right coronary artery. 2. Later coronary artery interventions with stenting to the distal circumflex in 2003 after distal limb of the sequential graft occluded. 3. Coronary artery intervention August 2009 to the ostial portion saphenous vein graft and subsequent intervention of the distal right coronary artery to the right internal mammary artery, receiving a bare metal stent. 4. Underlying history of chronic angina pectoris as well as noncardiac chest pain. Most recent diagnostic cardiac catheterization in November 2011 without progression of coronary artery disease. Diabetes mellitus, type II Diabetic neuropathic arthropathy Diabetic neuropathy Dyslipidemia Generalized osteoarthritis History of renal calculi HTN (hypertension) Obesity CAROL (obstructive sleep apnea) TMJ (temporomandibular joint disorder) Surgical History History of tonsillectomy Hx of CABG Hx of right knee surgery S/P david S/P nasal septoplasty Family History Brother Cardiac disease Heart disease Stroke Mother Stroke Diabetes Hypertension Father Leukemia Diabetes Cancer Social History Smoking Status: Never smoker Second Hand Exposure: No; Hx Alcohol Use: Yes Alcohol type: hard liquor Alcohol type Comment: 2-3 beers 1-2 times a week Hx Substance Use: No Preferred Language: Yoruba Communication Ability: Effective Control Tower Radio Operator Required: Yes Beliefs That Will Affect Care: None marital status: / Current Living Situation: Alone current occupational status: retired Other Information That Helps Us Care for You: No Feels Safe at Home: Yes Safety Concerns: Feels Safe At This Time Review of Systems Review of Systems: All systems reviewed & are unremarkable except as noted in HPI & below Physical Exam Physical Exam: Temp Pulse Resp BP Pulse Ox 36.5 C 79 18 129/64 95 10/23/19 08:22 10/23/19 08:22 10/23/19 08:22 10/23/19 08:22 10/23/19 08:22 Constitutional: WD/WN, vitals as above Respiratory: normal respiratory effort, lungs clear to auscultation Cardiovascular: Rate/Rhythm: regular rate Heart Sounds: no murmur Vessels: no JVD 1+ ankle edema, varicose veins noted Gastrointestinal (Abdomen): normal bowel sounds, soft, nontender, no hepatosplenomegaly Neurologic: PERRL, EOMI, accommodation nl, no face palsy, no dysarthria Results & Data ([facility]) Vital Signs (Past 12 Hours) Vital Signs Temp Pulse Pulse Resp BP BP Pulse Ox 10/23/19 08:22 36.5 C 79 18 129/64 95 10/23/19 07:32 97 H 10/23/19 02:50 36.6 C 72 19 121/73 98 10/22/19 23:42 68 10/22/19 22:53 36.3 C L 76 14 164/81 H 99 10/22/19 22:30 72 18 134/65 97 Laboratory Results Cardiac Enzymes 10/22/19 10/23/19 10/23/19 Range/Units 19:32 01:41 07:44 AST 16 (15-37) U/L Troponin I < 0.015 < 0.015 < 0.015 (0-0.045) ng/ml Coagulation 10/22/19 Range/Units 19:32 PT 10.2 (9.0-12.0) Seconds APTT 24.6 (21.0-31.0) Seconds CBC 10/22/19 10/23/19 Range/Units 19:32 01:41 WBC 7.07 5.92 (4.8-10.8) K/uL RBC 4.43 L 4.80 (4.7-6.1) M/uL Hgb 13.3 L 13.6 L (14.0-18.0) g/dL Hct 37.6 L 41.2 L (42-52) % Plt Count 173 182 (130-400) K/uL Neut # (Auto) 4.81 (1.4-6.5) K/uL Lymph # (Auto) 1.53 (1.2-3.4) K/uL [place] # (Auto) 0.53 (0.11-0.59) K/uL Eos # (Auto) 0.18 (0-0.5) K/uL Baso # (Auto) 0.01 (0-0.2) K/uL Comprehensive Metabolic Panel 10/22/19 10/23/19 Range/Units 19:32 07:44 Sodium 137 138 (136-145) mmol/L Potassium 4.0 3.5 (3.5-5.1) mmol/L Chloride 101 102 (98-107) mmol/L Carbon Dioxide 29 27 (21-32) mmol/L BUN 23 H 21 H (7-18) mg/dl Creatinine 1.49 H 1.13 D (0.6-1.4) mg/dl Glucose 289 H 134 H (70-99) mg/dl Calcium 9.2 9.3 (8.5-10.1) mg/dl AST 16 (15-37) U/L ALT 25 (12-78) U/L Alkaline Phosphatase 113 (45-117) U/L Total Protein 7.2 (6.4-8.2) gm/dl Albumin 3.5 (3.4-5.0) gm/dl Intake and Output 10/22/19 10/23/19 10/23/19 22:59 06:59 14:59 Other: Other Intake Source NPO # Unmeasured Voids 2 Weight 114.4 kg 110.2 kg (1) Chest pain Chest pain type: unspecified Qualified Code(s): R07.9 - Chest pain, unspecified
[2019-10-23] MEDS ORDERED: INSULIN ASPART 100 UNITS/ML 3 ML PEN SC SCH (11:30)
--- NOTE | 2019-10-23 12:23 | Communication Note ---
Date of Service: October 23, 2019 CODE 44 ATTESTATION: I have reviewed the case and the recommendations from the hospitalist and the signals analyst. The patient is stable and does not appear to be having ACS. There is a good plan for outpatient follow-up. Therefore, I agree with the plan for discharge today and adding a CODE 44 status here. Thank you. Breanna Brunner DO, UR Physician
--- NOTE | 2019-10-23 12:36 | Hospitalist Progress Note ---
Date of Service October 23, 2019 Assessment & Plan (1) Chest pain: This is a 69yo M with a PMH of CAD s/p multiple stents, CABG, history of chronic angina, HTN, HLD, type 2 diabetes, chronic systolic and diastolic CHF, CAROL and other medical problems who presents with intermittent CP that worsened today. History of complex coronary artery disease as well as chronic angina pectoris as documented in cardiology note. -Admitted in July 2019 for chest pain, underwent nuclear stress test without significant ischemia -Has been taking Ranexa twice daily at home -Chest pain relieved with fentanyl in ED. CXR and ECG without acute changes, initial troponin negative -Continue home Ranexa, Imdur, SL ntg PRN, monitor on telemetry, trend troponin -Serial cardiac enzymes are unremarkable -EKG did not show any- new changes -Appreciate cardiology input and recommendation -Has been ambulating in the room without any symptoms -We will be discharged home this afternoon (2) Combined systolic and diastolic congestive heart failure: BLE edema worse than baseline since this morning. No SOB or evidence of acute decompensated HF on CXR. Given an additional 20mg Torsemide this evening (hesitant to give IV diuretics with Cr at upper range of baseline) -Reassess volume status in the AM but plan to continue home regimen for now -No signs and/or symptoms of fluid overload (3) Diabetes mellitus, type II: A1c of 8.5 earlier in Sep 2019 -Hold home agents -Glycemic consult placed for mgmt -BSG AC HS (4) Hypertension: Continue losartan, metoprolol succinate Blood pressure is well controlled (5) Dyslipidemia: Continue Crestor (6) CAROL (obstructive sleep apnea): CPAP HS No issues with breathing DVT Ppx: SQ heparin Code status: FULL PCP: Sky Faria Dispo: Admitted to PCU. Plan to return home once medically stable. Discussed with patient in detail He is agreeable to be discharged this afternoon as planned by the associate store manager He remains free of symptoms and was advised to take medications as prescribed By CMS guidelines, a determination that the admission or continued stay is not medically necessary has been made by a member of the UR committee and a physician for this hospital stay, therefore a Code 44 will be completed and the Inpatient admission will be changed to outpatient. Admission and Anticipated Discharge Date Admission Date: October 22, 2019 Subjective 10/23/2019 The patient was seen and examined in medical telemetry unit He has complex cardiac history and came in with chest pain He denies any more pain and/or shortness of breath since admission He has been ambulating well in the hallway and wants to go home Review of Systems Review of Systems: All systems reviewed and are unremarkable except as noted below Respiratory: no cough and no dyspnea Cardiovascular: no chest pain at rest, no dyspnea at rest and no palpitations Physical Exam Physical Exam: Sitting at the edge of the bed without any acute distress Constitutional: well developed, well nourished and + obese; no acute distress and not ill appearing Eyes: PERRL, conjunctivae normal, anicteric sclerae ENMT: external ear and nose normal, oropharynx normal Neck: trachea midline, no thyromegaly Respiratory: normal respiratory effort; no respiratory distress Auscultation: lungs clear to auscultation bilaterally; no crackles Cardiovascular: Rate/Rhythm: regular rate and regular rhythm Heart Sounds: no murmur Extremities: + pedal edema (1+ edema bilateral) Gastrointestinal (Abdomen): Inspection/Auscultation: abdomen normal to inspection; abdomen not distended Percussion/Palpation: abdomen soft; abdomen nontender Musculoskeletal: No acute arthritis in any joints Neurologic: moves all extremities; no focal motor deficits Alert, and oriented x3. No focal sensory and motor deficit appreciated Results & Data Results & Data ([facility]) Vital Signs (Past 12 Hours) Vital Signs Temp Pulse Pulse Resp BP Pulse Ox 10/23/19 08:22 36.5 C 79 18 129/64 95 10/23/19 07:32 97 H 10/23/19 02:50 36.6 C 72 19 121/73 98 Laboratory Results Short CBC 10/22/19 10/23/19 Range/Units 19:32 01:41 WBC 7.07 5.92 (4.8-10.8) K/uL Hgb 13.3 L 13.6 L (14.0-18.0) g/dL Hct 37.6 L 41.2 L (42-52) % Plt Count 173 182 (130-400) K/uL BMP 10/22/19 10/23/19 19:32 07:44 Sodium 137 138 Potassium 4.0 3.5 Chloride 101 102 Carbon Dioxide 29 27 BUN 23 H 21 H Creatinine 1.49 H 1.13 D Glucose 289 H 134 H Calcium 9.2 9.3 Cardiac Enzymes 10/22/19 10/23/19 10/23/19 Range/Units 19:32 01:41 07:44 Troponin I < 0.015 < 0.015 < 0.015 (0-0.045) ng/ml Liver Function 10/22/19 Range/Units 19:32 Total Bilirubin 0.4 (0.2-1) mg/dl AST 16 (15-37) U/L ALT 25 (12-78) U/L Alkaline Phosphatase 113 (45-117) U/L Albumin 3.5 (3.4-5.0) gm/dl Medications Administered Current Inpatient Medications Acetaminophen (Acetaminophen 500 Mg Tab) 1,000 mg PO Q6H PRN PRN Reason: Pain Stop: 11/21/19 22:52 Albuterol (Albuterol Hfa 8 Gm Inhaler) 2 puffs INH Q4H PRN PRN Reason: Wheezing Stop: 11/21/19 23:00 Aspirin (Aspirin 325 Mg Ectab) 650 mg PO Q6 PRN PRN Reason: Pain Stop: 11/21/19 22:52 Aspirin (Aspirin 81 Mg Ectab) 81 mg PO HS APOLINAR Stop: 11/22/19 20:59 Clopidogrel Bisulfate (Clopidogrel Bisulfate 75 Mg Tab) 75 mg PO QAM APOLINAR Stop: 11/22/19 08:59 Last Admin: 10/23/19 08:22 Dose: 75 mg Documented by: Dextrose (Dextrose 50% 50 Ml Syringe) 25 - 50 ml IV UD PRN; Protocol PRN Reason: Hypoglycemia Protocol Stop: 11/21/19 23:14 Docusate Sodium (Docusate Sodium 100 Mg Cap) 100 mg PO BID PRN PRN Reason: Constipation Stop: 11/21/19 22:52 Glucagon (Glucagon For Inj 1 Mg Vial) 1 mg IM UD PRN; Protocol PRN Reason: Hypoglycemia Protocol Stop: 11/21/19 23:14 Glucose (Glucose 40% Gel 15 Gm Tube) 15 - 30 gm PO UD PRN; Protocol PRN Reason: Hypoglycemia Protocol Stop: 11/21/19 23:14 Glucose (Glucose 10 Tabs/Tube) 4 - 8 tabs PO UD PRN; Protocol PRN Reason: Hypoglycemia Protocol Stop: 11/21/19 23:14 Heparin Sodium (Porcine) (Heparin Sod 5,000 Unit/0.5 Ml Vial) 5,000 units SQ Q8 APOLINAR Stop: 11/21/19 23:58 Last Admin: 10/23/19 06:02 Dose: 5,000 units Documented by: Insulin Aspart (Insulin Aspart 100 Units/Ml 3 Ml Pen) 0 units [facility] Stop: 11/22/19 00:00 Last Admin: 10/23/19 12:13 Dose: 10 units Documented by: Insulin Human NPH (Insulin Human Nph) 36 units SC TODAY@1700 ONE Stop: 10/23/19 17:01 Isosorbide Mononitrate (Isosorbide [place] Extended Rel 60 Mg Tabcr) 60 mg PO DAILY [facility] Stop: 11/22/19 10:14 Last Admin: 10/23/19 11:58 Dose: 60 mg Documented by: Losartan Potassium (Losartan Potassium 25 Mg Tab) [facility] Stop: 11/22/19 08:59 Last Admin: 10/23/19 08:22 Dose: 25 mg Documented by: Magnesium Hydroxide (Magnesium Hydroxide Susp 30 Ml Udc) 15 ml PO DAILY PRN PRN Reason: Constipation Stop: 11/21/19 22:52 Metoprolol Succinate (Metoprolol Succ 50mg Ext Rel Tab) 50 mg PO [facility] Stop: 11/22/19 08:59 Last Admin: 10/23/19 08:22 Dose: 50 mg Documented by: Miscellaneous (Carbohydrates For Hypoglycemia ) 15 - 30 gm PO UD PRN PRN Reason: Hypoglycemia Treatment Stop: 11/21/19 23:14 Miscellaneous Information (Pharmacy Glycemic Mgmt Consult) 1 ea N/A UD PRN PRN Reason: Consult Stop: 11/21/19 22:56 Nitroglycerin (Nitroglycerin Sl 0.4 Mg/Tab Tab) 0.4 mg SL UD PRN PRN Reason: Chest Pain Stop: 11/21/19 22:52 Nystatin/Triamcinolone Acetonide (Nystatin/Triamcin Cr 15 Gm Tube) 1 appln EXT BID PRN PRN Reason: groin rash Stop: 11/21/19 22:52 Ondansetron HCl (Ondansetron Inj 2 Mg/Ml 2 Ml Vial) 4 mg IV Q6H PRN PRN Reason: Nausea Stop: 11/21/19 22:52 Polyethylene Glycol (Polyethylene (Miralax) 17 Gm Pack) 17 gm PO DAILY PRN PRN Reason: Constipation Stop: 11/21/19 22:52 Ranolazine (Ranolazine 500 Mg Er Tab) 500 mg PO BID [facility] Stop: 11/22/19 10:14 Last Admin: 10/23/19 11:58 Dose: 500 mg Documented by: Rosuvastatin Calcium (Rosuvastatin Calcium 20 Mg Tab) 40 mg PO HS [facility] Stop: 11/22/19 20:59 Spironolactone (Spironolactone 25 Mg Tab) 25 mg PO QAM [facility] Stop: 11/22/19 08:59 Last Admin: 10/23/19 08:22 Dose: 25 mg Documented by: Torsemide (Torsemide 20 Mg Tab) 20 mg PO DAILY [facility] Stop: 11/22/19 08:59 Last Admin: 10/23/19 08:22 Dose: 20 mg Documented by: Torsemide (Torsemide 20 Mg Tab) 20 mg PO Q2D@0900 [facility] Stop: 11/22/19 08:59 Last Admin: 10/23/19 08:22 Dose: Not Given Documented by: Tramadol HCl (Tramadol Hcl 50 Mg Tablet) 50 mg PO Q6H PRN PRN Reason: Pain Stop: 11/21/19 22:52 (1) Chest pain Chest pain type: unspecified Qualified Code(s): R07.9 - Chest pain, unspecified (2) Diabetes mellitus, type II Diabetes mellitus complication status: with other specified complication Diabetes mellitus mcfp insulin use: unspecified long term care pharmacist insulin use status Qualified Code(s): E11.69 - Type 2 diabetes mellitus with other specified complication (3) Hypertension Hypertension type: unspecified Qualified Code(s): I10 - Essential (primary) hypertension
--- NOTE | 2019-10-23 16:35 | Discharge Summary ---
Date of Service October 23, 2019 Admission HPI Per Admitting Provider This is a 69yo M with a PMH of CAD s/p multiple stents, CABG, history of chronic angina, HTN, HLD, type 2 diabetes, chronic systolic and diastolic CHF, CAROL and other medical problems who presents with intermittent CP that worsened today. Patient was recently admitted to our service in July 2019 with CP and underwent nuclear stress test, which was negative. Was started on nitro patch and Imdur was discontinued. Let up in cardiology clinic with Dr. Atwood on September 26, at which time nitro patch was stopped and Imdur was resumed at 60 mg daily as well as the initiation of Ranexa. Since then, patient endorses chest pain of some form most days. Today, experienced intermittent CP all day starting this morning but resolved spontaneously before returning when shopping. Took 2 tylenol around 1300 which relieved pain. Was sitting on couch this afternoon and developed chest pain again around 1700. [place] like someone hitting him in the chest in center of chest, stinging pain in armpit. Not associated with SOB, nausea or vomiting. Ntg usually relieves pain but it did not today so came in ED for further evaluation. Chest pain was relieved in ED with fentanyl but still feels pressure. Denies any fever, chills, lightheadedness, visual changes, palpitations, shortness of breath, wheezing, nausea, vomiting, abdominal pain, dysuria, diarrhea or constipation. Ankles are more swollen than usual. States he is taking all medication as prescribed. Admission Exam Per Admitting Provider Physical Exam: General Appearance: WD/WN, vitals as above, NAD, sitting up in bed, pleasant, conversing easily Head: normocephalic, atraumatic Eyes: normal inspection, PERRL, conjunctivae normal, anicteric sclerae ENT: external ear and nose normal, oropharynx normal Neck: normal visual inspection, trachea midline, no thyromegaly Respiratory: normal respiratory effort, lungs clear to auscultation, no wheeze, rales, rhonchi. No accessory muscle use Cardiovascular: regular rate, rhythm, + systolic murmur, normal peripheral pulses, 2+ BLE edema. Vessels: no JVD Chest: normal inspection of chest. 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, type 2 diabetes, hypertension Discharge Exam Constitutional well developed, well nourished and + obese; no acute distress and not ill appearing Eyes PERRL, conjunctivae normal, anicteric sclerae ENMT external ear and nose normal, oropharynx normal Neck trachea midline, no thyromegaly Respiratory normal respiratory effort; no respiratory distress Auscultation: lungs clear to auscultation bilaterally; no crackles Cardiovascular Rate/Rhythm: regular rate and regular rhythm Heart Sounds: no murmur Extremities: + pedal edema (1+ edema bilateral) Gastrointestinal (Abdomen) Inspection/Auscultation: abdomen normal to inspection; abdomen not distended Percussion/Palpation: abdomen soft; abdomen nontender Neurologic moves all extremities; no focal motor deficits Discharge Data Allergies Allergy/AdvReac Type Severity Reaction Status Date / Time lisinopril AdvReac Mild Cough Verified 10/22/19 21:11 canagliflozin AdvReac Unknown Excessive Verified 10/22/19 21:11 Urination valsartan AdvReac Unknown fatigue Verified 10/22/19 21:11 Consultations 10/22/19 20:28 ED Decision to Admit Stat 10/23/19 08:00 Consult Cardiology Routine Hospital Course (1) Chest pain: This is a 69yo M with a PMH of CAD s/p multiple stents, CABG, history of chronic angina, HTN, HLD, type 2 diabetes, chronic systolic and diastolic CHF, CAROL and other medical problems who presents with intermittent CP that worsened today. History of complex coronary artery disease as well as chronic angina pectoris as documented in cardiology note. -Admitted in July 2019 for chest pain, underwent nuclear stress test without significant ischemia -Has been taking Ranexa twice daily at home -Chest pain relieved with fentanyl in ED. CXR and ECG without acute changes, initial troponin negative -Continue home Ranexa, Imdur, SL ntg PRN, monitor on telemetry, trend troponin -Serial cardiac enzymes are unremarkable -EKG did not show any- new changes -Appreciate cardiology input and recommendation -Has been ambulating in the room without any symptoms -We will be discharged home this afternoon (2) Combined systolic and diastolic congestive heart failure: BLE edema worse than baseline since this morning. No SOB or evidence of acute decompensated HF on CXR. Given an additional 20mg Torsemide this evening (hesitant to give IV diuretics with Cr at upper range of baseline) -Reassess volume status in the AM but plan to continue home regimen for now -No signs and/or symptoms of fluid overload (3) Diabetes mellitus, type II: A1c of 8.5 earlier in Sep 2019 -Hold home agents -Glycemic consult placed for mgmt -BSG AC HS (4) Hypertension: Continue losartan, metoprolol succinate Blood pressure is well controlled (5) Dyslipidemia: Continue Crestor (6) CAROL (obstructive sleep apnea): CPAP HS No issues with breathing DVT Ppx: SQ heparin Code status: FULL PCP: Sky Faria Dispo: Admitted to PCU. Plan to return home once medically stable. Discussed with patient in detail He is agreeable to be discharged this afternoon as planned by the chair mechanic He remains free of symptoms and was advised to take medications as prescribed By CMS guidelines, a determination that the admission or continued stay is not medically necessary has been made by a member of the UR committee and a physician for this hospital stay, therefore a Code 44 will be completed and the Inpatient admission will be changed to outpatient. 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, type 2 diabetes, hypertension Condition on Discharge: Good Activity: Resume your previous activity Non-emergency contact: Primary Care Provider Call non-emergency contact if: you have any medication questions and your symptoms worsen Follow-up/Referrals: Joel Faria DO [Primary Care Provider] - 10/30/19 12:00 pm (Date & Time 10/30/2019 12:00 PM Provider Joel Faria DO Department [facility] ) Diet: Carb Consistent or DM2 and Heart Healthy Fluids: 1800ml (7 cups) Addtl Attending Provider Instructions: Please take precaution to avoid falls Please keep appointment with the chair mechanic and the primary care provider Please take the medications as prescribed including Ranexa twice a day. Pending Studies at Discharge: No Stand-Alone Forms: My [facility], Smoking Cessation Medications and DC Order Prescriptions: Continued spironolactone [Aldactone] 25 mg tablet 25 mg PO QAM RF: 0 Novolin 70/30 U-100 Insulin 100 unit/mL (70-30) suspension 0 unit subcut BID RF: 0 aspirin 81 mg Tablet,Delayed Release (Dr/Ec) 81 mg PO HS RF: 0 nitroglycerin [Nitrostat] 0.4 mg tablet, sublingual 0.4 mg sublingual UD PRN (Reason: Chest Pain) RF: 0 docusate sodium [Colace] 100 mg capsule 100 mg PO BID PRN (Reason: Constipation) RF: 0 albuterol sulfate [ProAir HFA] 90 mcg/actuation HFA aerosol inhaler 2 puff inhalation Q4H PRN (Reason: Wheezing) RF: 0 metformin [Glucophage XR] 500 mg tablet extended release 24 hr 1,000 mg PO BIDM RF: 0 rosuvastatin [Crestor] 40 mg tablet 40 mg PO HS RF: 0 polyethylene glycol 3350 [Miralax] 17 gram Powder In Packet 17 g PO DAILY PRN (Reason: Constipation) RF: 0 clopidogrel [Plavix] 75 mg Tablet 75 mg PO QAM RF: 0 magnesium hydroxide [Milk of Magnesia] 400 mg/5 mL Suspension 15 ml PO DAILY PRN (Reason: Constipation) RF: 0 Novolin R Regular U-100 Insuln 100 unit/mL solution 10 unit subcut QDL RF: 0 losartan [Cozaar] 25 mg tablet 25 mg PO QAM RF: 0 aspirin [Kyler Aspirin] 325 mg Tablet 650 mg PO Q6 PRN (Reason: Pain) RF: 0 torsemide 20 mg tablet 20 mg PO DAILY RF: 0 torsemide 20 mg tablet 20 mg PO Q OTHER DAY RF: 0 metoprolol succinate 50 mg Tablet Extended Release 24 Hr 50 mg PO QAM RF: 0 acetaminophen [Tylenol Extra Strength] 500 mg Tablet 1,000 mg PO Q6H PRN (Reason: Pain) RF: 0 nystatin-triamcinolone 100,000-0.1 unit/g-% cream 1 applic TOPICAL BID PRN (Reason: groin rash) RF: 0 isosorbide mononitrate 60 mg tablet extended release 24 hr 60 mg PO DAILY RF: 0 ranolazine [Ranexa] 500 mg Tablet Extended Release 12 Hr 500 mg PO BID RF: 0 Discharge Orders: Discharge Order (Routine); Ordered 10/23/19 Ordered By: Mary Gramajo Admission Data Admit Date/Time: 10/22/19 21:19 Attending Provider: Mary Gramajo Admit Provider: Jose Watt Primary Care Provider: Joel Faria Other Providers: Bharat Nunez ; Robert Sevilla ; Jose Watt Other Interventions: Discharge Summary Assessment (RN) Last Done: 10/23/19 14:58
[2019-10-23] MEDS ORDERED: ASPIRIN 81 MG ECTAB PO SCH (21:00)
[2019-10-23] MEDS ORDERED: ROSUVASTATIN CALCIUM 20 MG TAB PO SCH (21:00)
--- NOTE | 2019-10-23 22:16 | Electrocardiogram Report ---
Test Reason : Blood Pressure : / mmHG Vent. 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
--- NOTE | 2019-10-23 22:47 | Electrocardiogram Report ---
Test Reason : Blood Pressure : / mmHG Vent. 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
== END 2019-10-23 15:55 | disposition home or self-care (01) ==
LOC: ED 18:56 → SUATTDRO 21:19 → INTOOBSV 21:19 → 2N 21:19